=== PATIENT | male | born 1960 | race Caucasian/White ===

== ENCOUNTER 2023-04-29 15:09 | Emergency (ER) | payer OTHER, SELFPAY ==
--- NOTE | ~2023-04-29 | CT_ITS ---
EXAMINATION: CT ABDOMEN AND PELVIS WITHOUT CONTRAST CLINICAL INFORMATION: Abdominal pain. COMPARISON: None available. TECHNIQUE: Multidetector volumetric imaging was performed from the superior aspect of the liver through the pubic symphysis. Sagittal and coronal reformatted images were obtained on the technologist's workstation. This CT examination was performed using dose optimization techniques as appropriate, variously including the following: *Automated exposure control *Adjustment of mA and/or kV according to patient size (this includes techniques or standardized protocols for targeted exams where dose is matched to indication/reason for exam; i.e. extremities or head) *Use of iterative reconstruction technique DLP: 1023 mGy-cm FINDINGS: LUNG BASES: The visualized lung bases are unremarkable. There are mild coronary artery atherosclerotic calcifications. LIVER, GALLBLADDER, AND BILIARY TREE: The liver is normal in size, shape, and generally diminished in attenuation. No focal hepatic lesion or biliary ductal dilatation is present. The gallbladder is unremarkable with no evidence of radiopaque gallstones, gallbladder wall thickening, or obvious pericholecystic inflammatory changes. PANCREAS: There are diffuse pancreatic calcifications, consistent with chronic, healed pancreatitis. No mass, ductal dilatation or peripancreatic acute fluid or fat stranding is noted. SPLEEN: Unremarkable. ADRENAL GLANDS: Unremarkable. KIDNEYS AND URETERS: The kidneys are normal in size, shape, and attenuation. No hydronephrosis, hydroureter, or calculi seen. There is moderate nonspecific bilateral perinephric stranding. BLADDER: Unremarkable. GASTROINTESTINAL TRACT: There is mild diverticulosis, without acute diverticulitis. No bowel obstruction, free intraperitoneal air or abscess is seen. There is no focal bowel wall thickening. The vermiform appendix appears normal. ABDOMINAL WALL: There is a small fat-containing umbilical hernia. There is a small fat-containing left inguinal hernia. LYMPH NODES: Normal. VASCULAR: There is a mild abdominal aortic aneurysm measuring 3.2 x 3.1 cm (13:46 at 18:36). A small calcified dissection flap is seen within the caudal abdominal aorta, which is of no acute clinical significance. There is diffuse aortoiliac atherosclerotic calcification. PELVIC VISCERA: The prostate and seminal vesicles are unremarkable. There are vas deferens calcifications, which can be seen in association with diabetes mellitus. OSSEOUS STRUCTURES: There is a moderate lumbar levoscoliosis. There is multi-level thoracolumbar degenerative disc disease and spondylosis. Degenerative disc disease is most pronounced at L3-L4 and L4-L5 leftward, where it is marked. No acute or aggressive osseous finding is noted. CT/CT abdomen pelvis wo IV con IMPRESSION: 1. There is mild diverticulosis, without acute diverticulitis. No bowel obstruction, free intraperitoneal air or abscess is seen. The vermiform appendix appears normal. 2. No urinary calculus or obstruction is seen. There is nonspecific bilateral perinephric stranding, for which correlation with the patient's most recent urinalysis is recommended. 3. There are diffuse pancreatic calcifications, suggesting old, healed pancreatitis. No acute finding. 4. There is a mild abdominal aortic aneurysm, for which surveillance imaging may be considered. 5. There are small periumbilical and left inguinal hernia defects. 6. There is hepatic steatosis. 7. There is a moderate lumbar levoscoliosis. There are degenerative changes of the thoracolumbar spine, with degenerative disc disease most pronounced at L3-L4 and L4-L5. Fleischner guidelines were followed.
--- NOTE | ~2023-04-29 | XR_ITS ---
EXAMINATION: XR RIBS, LEFT CLINICAL INFORMATION: Fall and short of breath COMPARISON: Visualized inferior ribs on the CT scan from earlier today TECHNIQUE: Frontal view the chest and 3 oblique views of the left ribs were obtained. FINDINGS: Lungs are clear. No consolidation, pneumothorax, or pleural effusion. The cardiomediastinal silhouette and pulmonary vasculature are normal. Osseous structures are unremarkable. Ribs are intact. Old healed left 11th rib fracture noted. No acute displaced rib fractures are identified. XR/XR ribs LT min 3V w CXR1V IMPRESSION: Old healed left 11th rib fracture. No acute displaced rib fractures identified.
--- NOTE | ~2023-04-29 | CT_ITS ---
EXAMINATION: CT head/brain wo IV con CLINICAL INFORMATION: Reason for Exam Fall, hit head COMPARISON: None. TECHNIQUE: Contiguous axial imaging was performed from the skull base to vertex without intravenous contrast. Sagittal and coronal reformatted images were obtained. This CT examination was performed using dose optimization techniques as appropriate, variously including the following: * Automated exposure control * Adjustment of mA and/or kV according to patient size (this includes techniques or standardized protocols for targeted exams where dose is matched to indication/reason for exam; i.e. extremities or head) Use of iterative reconstruction technique DLP: 1022.73 mGy-cm FINDINGS: No acute osseous or soft tissue abnormality. The mastoid air cells and visualized portions of the paranasal sinuses are well aerated. There is no evidence of acute intracranial hemorrhage or territorial infarction. No abnormal mass effect or midline shift is seen. Grimaldo to white matter differentiation is well preserved. No extra-axial fluid collections are identified. No hydrocephalus. No significant volume loss. Patchy periventricular and deep white matter hypoattenuation is consistent with mild small vessel ischemic changes. CT/CT head/brain wo IV con IMPRESSION: No acute intracranial abnormality including hemorrhage, mass effect, hydrocephalus, or acute territorial edematous infarction.
[2023-04-29 15:11] VITALS: BP 154/106; PULSE 130; O2SAT 99
[2023-04-29 15:19] VITALS: BP 179/103; PULSE 120; RESP 18; TEMP 36.8; O2SAT 96; BMI 22.0
--- NOTE | 2023-04-29 15:46 | ECG_ITS ---
Test Reason : DIZZINESS Blood Pressure : / mmHG Vent. Rate : 116 BPM Atrial Rate : 116 BPM P-R Int : 146 ms QRS Dur : 068 ms QT Int : 314 ms P-R-T Axes : 040 -36 054 degrees QTc Int : 436 ms Sinus tachycardia Left axis deviation Inferior infarct , age undetermined Abnormal ECG No previous ECGs available Referred By: Generic ED Physician Electronically Signed By:XANDER LAKE
--- NOTE | 2023-04-29 16:05 | PC.NURSE ---
labs drawn, tech to do ekg
--- NOTE | 2023-04-29 16:13 | ED_ITS ---
HPI - General Adult General Chief complaint: Fall Stated complaint: ABD PAIN,FALL PER EMS Time Seen by Provider: 04/29/23 16:11 Source: patient, family, EMS and RN notes reviewed Mode of arrival: EMS Limitations: no limitations History of Present Illness HPI narrative: 63-year-old male with past medical history of stage III kidney disease, hypertension, diabetes, heavy ETOH use, COVID was brought by EMS after falling and hitting his face. Patient is accompanied by his who also helps with the assessment. Patient admits to drinking every single day heavily in the last month or so. Patient reports that he has not been working as he was not feeling well since he was diagnosed with COVID in March. Patient reports left upper abdominal discomfort and nausea just prior to falling. Abdominal discomfort got better, however patient continued to be nauseous when EMS arrived. Zofran administered by EMS. Patient denies presyncope, syncope, chest pain, shortness of breath, vomiting, diarrhea, constipation, melena, hematochezia. Patient's reports that he stopped taking all of his medications few days ago. Today patient admits to drinking 3 shots. Usually patient admits to be drinking daily pretty heavily. Onset (ago): hour(s) Location: head and face Severity: mild Associated symptoms: denies other symptoms Related Data Previous Rx's Medication Instructions Recorded lorazepam 0.5 mg tablet 0.5 mg PO BEDTIME PRN alcohol 04/29/23 withdrawal #5 tabs Allergies Allergy/AdvReac Type Severity Reaction Status Date / Time metformin Allergy Intermediate Swelling Verified 04/29/23 15:56 Review of Systems 2 Constitutional: Constitutional: Denies weight gain and Denies weight loss ENT: Reports system reviewed and no additional complaints, except as documented, Denies dysphagia and Denies odynophagia Cardiovascular: Cardiovascular: Reports no additional cardiovascular complaints and Reports dyspnea Respiratory: Respiratory: Reports no additional respiratory complaints and Reports dyspnea Gastrointestinal: Gastrointestinal: Reports abdominal pain (RUQ), Denies belching, Denies melena, Denies bloating, Denies change in bowel habits, Denies dysphagia, Denies excessive flatus, Denies dyspepsia, Reports heartburn, Denies diarrhea, Denies loose stools, Reports nausea, Denies odynophagia and Reports vomiting Genitourinary: Genitourinary: Reports no additional male genitourinary complaints Musculoskeletal: Musculoskeletal: Reports myalgias Neurologic: Reports system reviewed and no additional complaints, except as documented Psychiatric: Psychiatric: Reports no additional psychiatric complaints Endocrine: Endocrine: Reports no additional endocrine complaints PMFSH Past Medical History Medical History Stage 3 chronic kidney disease Hypertension Diabetes ETOH abuse Social History Social History Alcohol intake: current Alcohol intake frequency: 3 or more drinks per day Alcohol type: hard liquor Smoked in Last 30 Days: No Use of substances other than those prescribed or required for medical reasons: Yes Substance Use Type: Marijuana Substance Use Frequency: Daily Advance Directives: No Advance Directives Information Provided: Yes Physical Exam ED Vital Signs: Vital Signs - 24 hr 04/29/23 15:19 04/29/23 17:05 04/29/23 17:10 Temperature 98.2 F 97.9 F Pulse Rate 120 H 111 H Pulse Rate [Left Apical] 112 H Respiratory Rate 18 18 Blood Pressure 179/103 H 155/107 H Pulse Oximetry 96 96 Oxygen Delivery Method Room Air Room Air 04/29/23 18:21 Temperature 97.3 F Pulse Rate 118 H Pulse Rate [Left Apical] Respiratory Rate 18 Blood Pressure 147/99 H Pulse Oximetry 95 Oxygen Delivery Method Room Air BMI result Body Mass Index 22.0 Const General: healthy appearing, no acute distress and well developed Nutritional Appearance: well nourished Orientation/consciousness: patient oriented x3 HENMT Head: Yes normal to inspection, Yes normocephalic and Yes atraumatic Face and sinus: Yes normal facial exam Mouth: Normal oral and palatal mucosa present Throat: Yes posterior oropharynx normal, Yes tonsils normal and Yes uvula midline Eyes General: appearance normal, both eyes and all related structures Neck Neck: Yes normal visual inspection, Yes full ROM and Yes trachea midline Thyroid: Thyroid normal Resp Effort & Inspection: normal respiratory effort, able to speak in complete sentences, no tracheal deviation and symmetric chest movement Auscultation: clear to auscultation bilaterally Cardio Jugular venous distension: no JVD Rate: regular rate Heart sounds: S1 normal heart sound present, S2 normal heart sound present, no gallops and no murmurs GI Inspection: Yes normal to inspection and No distended Palpation (GI): Soft to palpation, not firm, nontender and No hepatosplenomegaly present Auscultation: normal bowel sounds General: Yes no CVA tenderness Back/Spine/Pelvis Back: no CVA tenderness Skin General skin exam: elasticity normal, turgor normal and dry skin Neuro General: patient oriented x3 Psych Appearance: grossly normal Mental Status: mental status grossly normal Course Course Course Narrative: 63-year-old male with past medical history of stage III kidney disease, hypertension, diabetes, heavy ETOH use, COVID was brought by EMS after falling and hitting his face. Patient is accompanied by his who also helps with the assessment. Patient admits to drinking every single day heavily in the last month or so. Patient reports that he has not been working as he was not feeling well since he was diagnosed with COVID in March. Patient reports left upper abdominal discomfort and nausea just prior to falling. Abdominal discomfort got better, however patient continued to be nauseous when EMS arrived. Zofran administered by EMS. Patient denies presyncope, syncope, chest pain, shortness of breath, vomiting, diarrhea, constipation, melena, hematochezia. Patient's reports that he stopped taking all of his medications few days ago. Today patient admits to drinking 3 shots. Usually patient admits to be drinking daily pretty heavily. Will order chest x-ray, head CT and abdominal CT scan. Will order CBC, CMP, lipase, EtOH, flu, COVID, RSV Reevaluation(s) Reevaluation #1: Normal chest x-ray except for old rib fracture. Patient denies any pain or discomfort. No shortness of breath with or without exertion. Normal CT scan of the head. CT scan of abdomen did not show any acute findings except for incidental finding of : There is a mild abdominal aortic aneurysm measuring 3.2 x 3.1. Patient has mild tremors, heart rate and blood pressure elevated, CIWA scale 8, will give Ativan 1 mg. at the bedside. Reevaluation #2: Patient feels better after receiving the Ativan. is going to be taking patient home. Will give him script for 5 tablets of 0.5 mg of Ativan. states that she will administer that to patient. Inform them of abdominal aortic aneurysm and follow-up with vascular surgeon. Phone number to Dr. Meyer given. Medications Administered Discontinued Medications Generic Name Dose Route Start Last Admin Trade Name Freq PRN Reason Stop Dose Admin Lorazepam 0.5 mg 04/29/23 16:19 04/29/23 17:03 Lorazepam 2 Mg/Ml Vial IVPUSH 04/29/23 16:20 0.5 mg STAT STA Administration Lorazepam 1 mg 04/29/23 20:08 04/29/23 20:25 Lorazepam 1 Mg Tablet PO 04/29/23 20:09 1 mg ONCE ONE Administration Ondansetron HCl 4 mg 04/29/23 16:19 04/29/23 17:03 Ondansetron Hcl 4 Mg/2 Ml Vial IVPUSH 04/29/23 16:20 4 mg ONCE STA Administration Medical Decision Making Medical Decision Making MDM Narrative: 63-year-old male with past medical history of stage III kidney disease, hypertension, diabetes, heavy ETOH use, COVID was brought by EMS after falling and hitting his face. Patient is accompanied by his who also helps with the assessment. Patient admits to drinking every single day heavily in the last month or so. Patient reports that he has not been working as he was not feeling well since he was diagnosed with COVID in March. Patient reports left upper abdominal discomfort and nausea just prior to falling. Abdominal discomfort got better, however patient continued to be nauseous when EMS arrived. Zofran administered by EMS. Patient denies presyncope, syncope, chest pain, shortness of breath, vomiting, diarrhea, constipation, melena, hematochezia. Patient's reports that he stopped taking all of his medications few days ago. Today patient admits to drinking 3 shots. Usually patient admits to be drinking daily pretty heavily. Will order chest x-ray, head CT and abdominal CT scan. Will order CBC, CMP, lipase, EtOH, flu, COVID, RSV Normal chest x-ray except for old rib fracture. Patient denies any pain or discomfort. No shortness of breath with or without exertion. Normal CT scan of the head. CT scan of abdomen did not show any acute findings except for incidental finding of : There is a mild abdominal aortic aneurysm measuring 3.2 x 3.1. Patient has mild tremors, heart rate and blood pressure elevated, CIWA scale 8, will give Ativan 1 mg. at the bedside. Patient feels better after receiving the Ativan. is going to be taking patient home. Will give him script for 5 tablets of 0.5 mg of Ativan. states that she will administer that to patient. Inform them of abdominal aortic aneurysm and follow-up with vascular surgeon. Phone number to Dr. Meyer given. Differential Diagnosis Differential Diagnoses: The differential diagnosis associated with the presentation includes Pancreatitis, bleed, rib fracture, concussion, Lab Data MDM Lab Attestation statement: I reviewed the patient's lab results. 04/29/23 16:04 04/29/23 16:04 Labs: Lab Results 04/29/23 04/29/23 04/29/23 Range/Units 16:04 16:29 16:46 WBC 6.9 (4.8-10.8) X10*3/uL RBC 4.81 (4.60-5.80) X10*6/uL Hgb 14.9 (14.0-18.0) g/dl Hct 42.0 (42.0-52.0) % MCV 87.3 (80.0-98.0) fL MCH 31.0 (27.0-33.0) pg MCHC 35.5 (31.0-36.0) g/dl RDW 13.4 (11.0-16.0) % Plt Count 151 L (160-400) X10*3/uL MPV 8.7 L (9.4-12.4) fL Immature Gran % (Auto) 0.3 (0.0-0.4) % Neut % (Auto) 61.4 (45-73) % Lymph % (Auto) 30.0 (20-40) % Hudson % (Auto) 7.6 (2-11) % Eos % (Auto) 0.1 (0-4) % Baso % (Auto) 0.6 (0-2) % Lymph # (Auto) 2.1 (1.2-4.9) X10*3/uL Hudson # (Auto) 0.5 (0.1-1.2) X10*3/uL Eos # (Auto) 0.0 (0.0-0.4) X10*3/uL Baso # (Auto) 0.0 (0.0-0.2) X10*3/uL Abs Immat Gran (auto) 0.02 (0.00-0.03) X10*3/uL Absolute Neuts (auto) 4.2 (2.0-8.3) x10*3/uL Absolute Nucleated RBC 0.000 (0.0-0.012) X10*3/uL Nucleated RBC % (auto) 0.0 (0.0-0.2) /100WBC Sodium 141 (135-145) mmol/L Potassium 3.9 (3.3-5.1) mmol/L Chloride 101 (96-108) mmol/L Carbon Dioxide 20 L (22-29) mmol/L Anion Gap 24 H (12-20) BUN 22 H (9-16) mg/dL Creatinine 1.13 (0.5-1.4) mg/dL Estim Creat Clear Calc 61.0 Estimated GFR > 60 POC Glucose 271 H (60-115) mg/dL Random Glucose 268 H (60-115) mg/dL Calcium 9.0 (8.4-10.2) mg/dL Troponin I High Sens 24.9 (<3.5-35.0) ng/L Lipase 13 (8-78) U/L Ethyl Alcohol 181 mg/dL Influenza Type A (PCR) NEGATIVE (Negative) Influenza Type B (PCR) NEGATIVE (Negative) RSV RNA Qual (PCR) NEGATIVE (Negative) SARS-CoV-2 RNA (RT-PCR) NEGATIVE (Negative) Independent Interpretation I performed an independent interpretation of an: EKG Radiology Impression Discussion of test interpretation with radiology: I have reviewed the radiologist's reading. Radiologist Impression: Chest x-ray FINDINGS: Lungs are clear. No consolidation, pneumothorax, or pleural effusion. The cardiomediastinal silhouette and pulmonary vasculature are normal. Osseous structures are unremarkable. Ribs are intact. Old healed left 11th rib fracture noted. No acute displaced rib fractures are identified. XR/XR ribs LT min 3V w CXR1V IMPRESSION: Old healed left 11th rib fracture. No acute displaced rib fractures identified. Head CT FINDINGS: No acute osseous or soft tissue abnormality. The mastoid air cells and visualized portions of the paranasal sinuses are well aerated. There is no evidence of acute intracranial hemorrhage or territorial infarction. No abnormal mass effect or midline shift is seen. Grimaldo to white matter differentiation is well preserved. No extra-axial fluid collections are identified. No hydrocephalus. No significant volume loss. Patchy periventricular and deep white matter hypoattenuation is consistent with mild small vessel ischemic changes. CT/CT head/brain wo IV con IMPRESSION: No acute intracranial abnormality including hemorrhage, mass effect, hydrocephalus, or acute territorial edematous infarction. CT OF ABDOMEN AND PELVIS FINDINGS: LUNG BASES: The visualized lung bases are unremarkable. There are mild coronary artery atherosclerotic calcifications. LIVER, GALLBLADDER, AND BILIARY TREE: The liver is normal in size, shape, and generally diminished in attenuation. No focal hepatic lesion or biliary ductal dilatation is present. The gallbladder is unremarkable with no evidence of radiopaque gallstones, gallbladder wall thickening, or obvious pericholecystic inflammatory changes. PANCREAS: There are diffuse pancreatic calcifications, consistent with chronic, healed pancreatitis. No mass, ductal dilatation or peripancreatic acute fluid or fat stranding is noted. SPLEEN: Unremarkable. ADRENAL GLANDS: Unremarkable. KIDNEYS AND URETERS: The kidneys are normal in size, shape, and attenuation. No hydronephrosis, hydroureter, or calculi seen. There is moderate nonspecific bilateral perinephric stranding. BLADDER: Unremarkable. GASTROINTESTINAL TRACT: There is mild diverticulosis, without acute diverticulitis. No bowel obstruction, free intraperitoneal air or abscess is seen. There is no focal bowel wall thickening. The vermiform appendix appears normal. ABDOMINAL WALL: There is a small fat-containing umbilical hernia. There is a small fat-containing left inguinal hernia. LYMPH NODES: Normal. VASCULAR: There is a mild abdominal aortic aneurysm measuring 3.2 x 3.1 cm (13:46 at 18:36). A small calcified dissection flap is seen within the caudal abdominal aorta, which is of no acute clinical significance. There is diffuse aortoiliac atherosclerotic calcification. PELVIC VISCERA: The prostate and seminal vesicles are unremarkable. There are vas deferens calcifications, which can be seen in association with diabetes mellitus. OSSEOUS STRUCTURES: There is a moderate lumbar levoscoliosis. There is multi-level thoracolumbar degenerative disc disease and spondylosis. Degenerative disc disease is most pronounced at L3-L4 and L4-L5 leftward, where it is marked. No acute or aggressive osseous finding is noted. CT/CT abdomen pelvis wo IV con IMPRESSION: 1. There is mild diverticulosis, without acute diverticulitis. No bowel obstruction, free intraperitoneal air or abscess is seen. The vermiform appendix appears normal. 2. No urinary calculus or obstruction is seen. There is nonspecific bilateral perinephric stranding, for which correlation with the patient's most recent urinalysis is recommended. 3. There are diffuse pancreatic calcifications, suggesting old, healed pancreatitis. No acute finding. 4. There is a mild abdominal aortic aneurysm, for which surveillance imaging may be considered. 5. There are small periumbilical and left inguinal hernia defects. 6. There is hepatic steatosis. 7. There is a moderate lumbar levoscoliosis. There are degenerative changes of the thoracolumbar spine, with degenerative disc disease most pronounced at L3-L4 and L4-L5. Discharge Plan Discharge Clinical Impression: Syncope Patient Disposition: Home, Self-Care Instructions: Syncope (ED), Umbilical Hernia (ED), Abdominal Pain (ED) Additional Instructions: You were seen in the ER for abdominal pain, nausea and abdominal pain. CT scan of your head and abdomen were negative for any acute findings. Please follow-up with your primary care provider next week. Stop drinking alcohol. Please make sure that you take all of your medications. CT scan shows small abdominal aneurysm. You will be referred to vascular surgeon please make sure that you make an appointment Prescriptions: New lorazepam 0.5 mg tablet 0.5 mg PO BEDTIME PRN (Reason: alcohol withdrawal) Qty: 5 0RF Referrals: Blayne Hagan III, MD [Primary Care Provider] - Albaro Meyer MD [Physician] - (3.2 x 3.1 cm abdominal aneurysm) Interventions: ED Discharge Assessment Last Done: 04/30/23 07:11 Discharge Date/Time: 04/29/23 20:25
[2023-04-29 16:18] LABS: MANUAL DIFF FLAG NO
[2023-04-29 16:21] LABS: Basophils Percent Auto 0.6 % (0-2); Eosinophils Percent Auto 0.1 % (0-4); Hemoglobin 14.9 g/dl (14.0-18.0); Imm Gran Abs Auto 0.02 X10*3/uL (0.00-0.03); Imm Gran Pct Auto 0.3 % (0.0-0.4); Lymphocytes Absolute Auto 2.1 X10*3/uL (1.2-4.9); Mean Corpuscular HGB Conc 35.5 g/dl (31.0-36.0); Mean Corpuscular Volume 87.3 fL (80.0-98.0); Mean Platelet Volume 8.7 fL (9.4-12.4); Monocytes Absolute Auto 0.5 X10*3/uL (0.1-1.2); Monocytes Percent Auto 7.6 % (2-11); Neutrophils Absolute Auto 4.2 x10*3/uL (2.0-8.3); Neutrophils Percent Auto 61.4 % (45-73); Platelet Count 151 X10*3/uL (160-400); Red Blood Count 4.81 X10*6/uL (4.60-5.80); Red Cell Distribution Width 13.4 % (11.0-16.0); White Blood Count 6.9 X10*3/uL (4.8-10.8)
[2023-04-29 16:31] LABS: Anion Gap 24 (12-20); Blood Urea Nitrogen 22 mg/dL (9-16); Carbon Dioxide 20 mmol/L (22-29); Chloride 101 mmol/L (96-108); Estimated Glomerular Filt Rate > 60; Ethanol 181 mg/dL; Glucose Random 268 mg/dL (60-115); Potassium 3.9 mmol/L (3.3-5.1); Sodium 141 mmol/L (135-145)
[2023-04-29 16:36] LABS: Glucose, Whole Blood 271 mg/dL (60-115)
[2023-04-29 16:39] LABS: Troponin-I High Sensitivity 24.9 ng/L (<3.5-35.0)
[2023-04-29] MEDS: LORazepam 2 MG/ML VIAL 0.5 MG IVPUSH (17:03)
[2023-04-29] MEDS: ondansetron HCL 4 MG/2 ML VIAL IVPUSH (17:03)
[2023-04-29 17:05] VITALS: BP 155/107; PULSE 111; RESP 18; TEMP 36.6; O2SAT 96
[2023-04-29 17:10] VITALS: PULSE 112
[2023-04-29 17:15] LABS: Lipase 13 U/L (8-78)
[2023-04-29 17:49] LABS: Influenza A PCR NEGATIVE (Negative); Influenza B PCR NEGATIVE (Negative); Resp Syncy Virus RNA Qual PCR NEGATIVE (Negative); SARS COV2 PCR INHOUSE NEGATIVE (Negative)
[2023-04-29 18:21] VITALS: BP 147/99; PULSE 118; RESP 18; TEMP 36.3; O2SAT 95
--- NOTE | 2023-04-29 18:24 | PC.NURSE ---
patient a&o, monitoring and evaluation advisor sinus tach, vss, family at bedside, ciwa performed, call blue within reach, will continue to monitor
[2023-04-29] MEDS: LORazepam 1 MG TABLET PO (20:25)
--- NOTE | 2023-04-29 20:27 | PC.NURSE ---
psychiatric np yeni lujan notified hr 120s, bp 171/108. giving him the 1mg po ativan now. provider tai instructed to hold off on d/c and re-eval ciwa. at this time holding off d/c.
== END 2023-04-29 20:25 | disposition home or self-care (01) ==
PROVIDERS: Nurse Practitioner Family; Emergency Provider Emergency Medicine; PCP Internal Medicine
DX: R55 Syncope and collapse (principal); R06.02 Shortness of breath; R00.0 Tachycardia, unspecified; R07.81 Pleurodynia; R51.9 Headache, unspecified; E11.22 Type 2 diabetes mellitus with diabetic chronic kidney disease; N18.30 Chronic kidney disease, stage 3 unspecified; Z79.899 Other long term (current) drug therapy; Z20.822 Contact with and (suspected) exposure to COVID-19; Z20.828 Contact with and (suspected) exposure to other viral communicable diseases; Z79.4 Long term (current) use of insulin
CPT/HCPCS: 0241U; 36415; 70450; 71101; 74176; 80048; 80307; 82947; 83690; 84484; 85025; 93005; 96374; 96375; 99285; J2060; J2405

== ENCOUNTER → 2023-04-29 15:46 | Outpatient (BNV) | payer OTHER, SELFPAY | PROVIDERS: Emergency Provider Emergency Medicine; PCP Internal Medicine; Visit Provider Internal Medicine | DX: R00.0 Tachycardia, unspecified (principal); R94.31 Abnormal electrocardiogram [ECG] [EKG] | CPT/HCPCS: 93010 ==

== ENCOUNTER 2024-01-05 07:37 | Inpatient (IN) | payer OTHER, SELFPAY ==
[2024-01-05] VITALS (10 sets, daily range): BP systolic 105–152; BP diastolic 66–95; PULSE 70–94; RESP 15–24; TEMP 36.6–37.3; O2SAT 88–100; BMI 20.9
[2024-01-05 07:57] LABS: MANUAL DIFF FLAG NO
[2024-01-05 07:59] LABS: Basophils Absolute Auto 0.1 X10*3/uL (0.0-0.2); Basophils Percent Auto 0.5 % (0-2); Hematocrit 35.7 % (42.0-52.0); Hemoglobin 12.8 g/dl (14.0-18.0); Imm Gran Abs Auto 0.04 X10*3/uL (0.00-0.03); Imm Gran Pct Auto 0.4 % (0.0-0.4); Lymphocytes Absolute Auto 2.5 X10*3/uL (1.2-4.9); Lymphocytes Percent Auto 23.8 % (20-40); Mean Corpuscular HGB Conc 35.9 g/dl (31.0-36.0); Mean Corpuscular Hemoglobin 32.1 pg (27.0-33.0); Mean Corpuscular Volume 89.5 fL (80.0-98.0); Mean Platelet Volume 9.5 fL (9.4-12.4); Monocytes Absolute Auto 0.6 X10*3/uL (0.1-1.2); Neutrophils Absolute Auto 7.3 x10*3/uL (2.0-8.3); Neutrophils Percent Auto 69.3 % (45-73); Platelet Count 202 X10*3/uL (160-400); Red Blood Count 3.99 X10*6/uL (4.60-5.80); White Blood Count 10.5 X10*3/uL (4.8-10.8)
--- NOTE | 2024-01-05 08:32 | ED_ITS ---
HPI - General Adult General Chief complaint: General Medical Stated complaint: Unstable Sugar Level Time Seen by Provider: 01/05/24 08:30 Source: patient Mode of arrival: ambulatory Limitations: no limitations History of Present Illness ED Provider: Pricila Knutson PA-C HPI narrative: 63-year-old male with alcohol use disorder, poorly-controlled diabetes, CKD III, HTN who presents to the ER for evaluation of family his blood sugars are elevated in the setting of binge drinking. Patient reports drinking 1 L of vodka 3 times per week, he states his last drink was 2 days ago. He developed central abdominal pain and vomiting yesterday. He reports history of alcohol withdrawal and alcohol withdrawal seizures. He states he woke up this morning with hallucinations. He is seeing words and trucks on the wall. He states when he binge drinks he does not take his diabetes medications or any of his medications like he should. He did take his Trulicity this morning. He does not monitor his blood glucose at home but feels like his sugars have been high because he has ?felt off. He denies any associated chest pain but has some ongoing abdominal pain. No vomiting this morning. No diarrhea. No fevers. MD complaint: Elevated glucose, alcohol withdrawal Onset (ago): day(s) Relieving factors: none Exacerbating factors: none Associated symptoms: confusion, loss of appetite, nausea/vomiting and weakness Treatments prior to arrival: none Related Data Previous Rx's ?Medication ?Instructions ?Recorded lorazepam 0.5 mg tablet 0.5 mg PO BEDTIME PRN alcohol 04/29/23 withdrawal #5 tabs Allergies Allergy/AdvReac Type Severity Reaction Status Date / Time metformin Allergy Intermediate Swelling Verified 01/05/24 07:45 Review of Systems 2 Review of Systems: Yes all other systems are reviewed and are negative [facility] Past Medical History Medical History Stage 3 chronic kidney disease Hypertension Diabetes ETOH abuse Social History Social History Alcohol intake: current Alcohol intake frequency: a few times a week Alcohol type: hard liquor Smoked in Last 30 Days: Yes Use of substances other than those prescribed or required for medical reasons: Yes Substance Use Type: Marijuana Advance Directives: No Advance Directives Information Provided: Yes Do you have a plan to hurt others: No Plan Physical Exam ED Vital Signs: Vital Signs - 24 hr 01/05/24 07:41 01/05/24 09:29 Temperature 98.2 F 98.1 F Pulse Rate 94 88 Respiratory Rate 18 16 Blood Pressure 145/76 H 152/95 H Pulse Oximetry 94 96 Oxygen Delivery Method Room Air Room Air BMI result Body Mass Index 20.9 Appearance: Alert. Oriented X3. No acute distress. Head: normocephalic, atraumatic. Eyes: Pupils equal, round and reactive to light. ENT: Pharynx with dry mucous membranes. No tonsillar swelling or exudate. Neck: Normal inspection. Neck supple. CVS: Normal heart rate and rhythm. Pulses normal. Respiratory: No respiratory distress. Breath sounds normal. Abdomen: Soft mild epigastric and periumbilical tenderness, no rebound or guarding. Normoactive +BS x4 Skin: Skin warm and dry. Normal skin color. Normal skin turgor. No rashes. Extremities: No lower extremity edema. No joint swelling. Minor tremor of the bilateral hands Neuro/psych: Oriented X 3. No motor deficit. No sensory deficit. CN II-XII intact. Normal speech and cognition. Actively having visual hallucinations. Medications Administered Discontinued Medications Generic Name Dose Route Start Last Admin Trade Name Freq PRN Reason Stop Dose Admin Sodium Chloride 1,000 mls @ 999 mls/hr 01/05/24 08:45 01/05/24 09:44 Ns IVCONT 01/05/24 09:45 Infused .Q1H1M JOVITA Infusion Lactated Ringer's 1,000 mls @ 999 mls/hr 01/05/24 09:00 01/05/24 10:02 Lr IV 01/05/24 10:00 Infused .Q1H1M JOVITA Infusion Lactated Ringer's 1,000 mls @ 999 mls/hr 01/05/24 09:30 01/05/24 10:42 Lr IV 01/05/24 10:30 Infused .Q1H1M JOVITA Infusion Insulin Human Regular 5 unit 01/05/24 08:32 01/05/24 08:40 Insulin Regular, Human 100 Unit/Ml 10 Ml Vial IVPUSH 01/05/24 08:33 5 unit ONCE ONE Administration Insulin Human Regular 5 unit 01/05/24 09:42 01/05/24 09:47 Insulin Regular, Human 100 Unit/Ml 10 Ml Vial IVPUSH 01/05/24 09:43 5 unit ONCE ONE Administration Phenobarbital Sodium 242 mg 01/05/24 09:30 01/05/24 09:41 Phenobarbital Sodium 130 Mg/Ml Im Once IM 01/05/24 09:31 242 mg ONCE ONE Administration Protocol Medical Decision Making Medical Decision Making [facility] Narrative: 63-year-old male with history of alcohol use disorder, diabetes, noncompliant with medications who presents to the ER for evaluation of elevated blood sugars and alcohol withdrawal, with active visual hallucinations. Patient reports history of alcohol withdrawal seizures in the past. He states his last drink was 2 days ago. On arrival to the ER patient is awake, alert, oriented. He is slightly tremulous. His CIWA is 17. He is seeing words and various trucks in the room. His blood glucose was greater than 600 x 2. 5 units of IV insulin were given. Two IVs were established and 2 L of IV fluids were hung. Patient's lab workup shows no acidosis, normal anion gap, normal bicarb. No evidence of DKA or HHS. He continues to be awake alert and oriented. Additional 5 units of IV insulin were given, glucose returned at 800. 3 L IV fluids were also ordered. Phenobarbital alcohol withdrawal protocol was started. repeat labs showed improvement. IV mag ordered for low mag. Will plan to admit to the hospital for further management. patient updated and agrees with plan. Differential Diagnosis Differential Diagnoses: The differential diagnosis associated with the presentation includes DKA, HHS, severe hyperglycemia due to medication noncompliance, alcohol withdrawal, DTs Admission/Observation Consideration of admission/observation: Escalation of care including admission/observation considered Consult Healthcare Provider Management of the patient was discussed with: Hospitalist Lab Data [facility] Lab Attestation statement: I reviewed the patient's lab results. Mild normocytic anemia, mild thrombocytopenia, severe hyperglycemia without anion gap, hyponatremia due to elevated glucose, KATELYN 01/05/24 07:53 01/05/24 11:06 Labs: Lab Results 01/05/24 01/05/24 01/05/24 Range/Units 07:53 08:23 08:29 WBC 10.5 (4.8-10.8) X10*3/uL RBC 3.99 L (4.60-5.80) X10*6/uL Hgb 12.8 L (14.0-18.0) g/dl Hct 35.7 L (42.0-52.0) % MCV 89.5 (80.0-98.0) fL MCH 32.1 (27.0-33.0) pg MCHC 35.9 (31.0-36.0) g/dl RDW 13.0 (11.0-16.0) % Plt Count 202 D (160-400) X10*3/uL MPV 9.5 (9.4-12.4) fL Immature Gran % (Auto) 0.4 (0.0-0.4) % Neut % (Auto) 69.3 (45-73) % Lymph % (Auto) 23.8 (20-40) % [place] % (Auto) 6.0 (2-11) % Eos % (Auto) 0.0 (0-4) % Baso % (Auto) 0.5 (0-2) % Lymph # (Auto) 2.5 (1.2-4.9) X10*3/uL [place] # (Auto) 0.6 (0.1-1.2) X10*3/uL Eos # (Auto) 0.0 (0.0-0.4) X10*3/uL Baso # (Auto) 0.1 (0.0-0.2) X10*3/uL Abs Immat Gran (auto) 0.04 H (0.00-0.03) X10*3/uL Absolute Neuts (auto) 7.3 (2.0-8.3) x10*3/uL Absolute Nucleated RBC 0.000 (0.0-0.012) X10*3/uL Nucleated RBC % (auto) 0.0 (0.0-0.2) /100WBC VBG pH (7.32-7.43) VBG pCO2 mmHg VBG pO2 mmHg VBG HCO3 (22-26) mmol/L VBG O2 Saturation % VBG Base Excess mmol/L Sodium 121 L (135-145) mmol/L Potassium 4.8 (3.3-5.1) mmol/L Chloride 84 L (96-108) mmol/L Carbon Dioxide 23 (22-29) mmol/L Anion Gap 19 (12-20) BUN 30 H (9-16) mg/dL Creatinine 1.68 H (0.5-1.4) mg/dL Estim Creat Clear Calc 38.9 Estimated GFR 42 POC Glucose > 600 H* (60-115) mg/dL Random Glucose 803 H* (60-115) mg/dL Estimat Average Glucose mg/dL Hemoglobin A1c % (<6.0) % Calcium 9.2 (8.4-10.2) mg/dL Magnesium (1.6-2.6) mg/dL Total Bilirubin 0.6 (0.0-1.0) mg/dL Direct Bilirubin 0.2 (0.0-0.5) mg/dL AST 70 H (5-37) U/L ALT 33 (0-40) U/L Alkaline Phosphatase 120 H (39-117) U/L Total Protein 6.3 L (6.5-8.0) g/dL Albumin 4.2 (3.5-5.0) g/dL Lipase (8-78) U/L Beta-Hydroxybutyrate (0.02-0.27) mmol/L Urine Opiates Screen Not Detected (Not Detect) Ur Buprenorphine Scrn Not Detected (Not Detect) ng/mL Ur Oxycodone Screen Not Detected (Not Detect) ng/mL Urine Methadone Screen Not Detected (Not Detect) ng/mL Urine Fentanyl Screen Not Detected (Not Detect) Ur Barbiturates Screen Not Detected (Not Detect) Ur Phencyclidine Scrn Not Detected (Not Detect) Ur Amphetamines Screen Not Detected (Not Detect) U Benzodiazepines Scrn Not Detected (Not Detect) Urine Cocaine Screen Not Detected (Not Detect) U Marijuana (THC) Screen Not Detected (Not Detect) Ethyl Alcohol 31 mg/dL 01/05/24 01/05/24 01/05/24 Range/Units 08:30 08:37 08:44 WBC (4.8-10.8) X10*3/uL RBC (4.60-5.80) X10*6/uL Hgb (14.0-18.0) g/dl Hct (42.0-52.0) % MCV (80.0-98.0) fL MCH (27.0-33.0) pg MCHC (31.0-36.0) g/dl RDW (11.0-16.0) % Plt Count (160-400) X10*3/uL MPV (9.4-12.4) fL Immature Gran % (Auto) (0.0-0.4) % Neut % (Auto) (45-73) % Lymph % (Auto) (20-40) % [place] % (Auto) (2-11) % Eos % (Auto) (0-4) % Baso % (Auto) (0-2) % Lymph # (Auto) (1.2-4.9) X10*3/uL [place] # (Auto) (0.1-1.2) X10*3/uL Eos # (Auto) (0.0-0.4) X10*3/uL Baso # (Auto) (0.0-0.2) X10*3/uL Abs Immat Gran (auto) (0.00-0.03) X10*3/uL Absolute Neuts (auto) (2.0-8.3) x10*3/uL Absolute Nucleated RBC (0.0-0.012) X10*3/uL Nucleated RBC % (auto) (0.0-0.2) /100WBC VBG pH 7.49 H (7.32-7.43) VBG pCO2 36 mmHg VBG pO2 180 mmHg VBG HCO3 28 H (22-26) mmol/L VBG O2 Saturation 100.0 % VBG Base Excess 5.4 mmol/L Sodium (135-145) mmol/L Potassium (3.3-5.1) mmol/L Chloride (96-108) mmol/L Carbon Dioxide (22-29) mmol/L Anion Gap (12-20) BUN (9-16) mg/dL Creatinine (0.5-1.4) mg/dL Estim Creat Clear Calc Estimated GFR POC Glucose > 600 H* (60-115) mg/dL Random Glucose (60-115) mg/dL Estimat Average Glucose 169 mg/dL Hemoglobin A1c % 7.5 H (<6.0) % Calcium (8.4-10.2) mg/dL Magnesium (1.6-2.6) mg/dL Total Bilirubin (0.0-1.0) mg/dL Direct Bilirubin (0.0-0.5) mg/dL AST (5-37) U/L ALT (0-40) U/L Alkaline Phosphatase (39-117) U/L Total Protein (6.5-8.0) g/dL Albumin (3.5-5.0) g/dL Lipase 43 (8-78) U/L Beta-Hydroxybutyrate 0.20 (0.02-0.27) mmol/L Urine Opiates Screen (Not Detect) Ur Buprenorphine Scrn (Not Detect) ng/mL Ur Oxycodone Screen (Not Detect) ng/mL Urine Methadone Screen (Not Detect) ng/mL Urine Fentanyl Screen (Not Detect) Ur Barbiturates Screen (Not Detect) Ur Phencyclidine Scrn (Not Detect) Ur Amphetamines Screen (Not Detect) U Benzodiazepines Scrn (Not Detect) Urine Cocaine Screen (Not Detect) U Marijuana (THC) Screen (Not Detect) Ethyl Alcohol mg/dL 01/05/24 01/05/24 01/05/24 Range/Units 08:52 08:59 10:15 WBC (4.8-10.8) X10*3/uL RBC (4.60-5.80) X10*6/uL Hgb (14.0-18.0) g/dl Hct (42.0-52.0) % MCV (80.0-98.0) fL MCH (27.0-33.0) pg MCHC (31.0-36.0) g/dl RDW (11.0-16.0) % Plt Count (160-400) X10*3/uL MPV (9.4-12.4) fL Immature Gran % (Auto) (0.0-0.4) % Neut % (Auto) (45-73) % Lymph % (Auto) (20-40) % [place] % (Auto) (2-11) % Eos % (Auto) (0-4) % Baso % (Auto) (0-2) % Lymph # (Auto) (1.2-4.9) X10*3/uL [place] # (Auto) (0.1-1.2) X10*3/uL Eos # (Auto) (0.0-0.4) X10*3/uL Baso # (Auto) (0.0-0.2) X10*3/uL Abs Immat Gran (auto) (0.00-0.03) X10*3/uL Absolute Neuts (auto) (2.0-8.3) x10*3/uL Absolute Nucleated RBC (0.0-0.012) X10*3/uL Nucleated RBC % (auto) (0.0-0.2) /100WBC VBG pH (7.32-7.43) VBG pCO2 mmHg VBG pO2 mmHg VBG HCO3 (22-26) mmol/L VBG O2 Saturation % VBG Base Excess mmol/L Sodium (135-145) mmol/L Potassium (3.3-5.1) mmol/L Chloride (96-108) mmol/L Carbon Dioxide (22-29) mmol/L Anion Gap (12-20) BUN (9-16) mg/dL Creatinine (0.5-1.4) mg/dL Estim Creat Clear Calc Estimated GFR POC Glucose > 600 H* > 600 H* 267 H (60-115) mg/dL Random Glucose (60-115) mg/dL Estimat Average Glucose mg/dL Hemoglobin A1c % (<6.0) % Calcium (8.4-10.2) mg/dL Magnesium (1.6-2.6) mg/dL Total Bilirubin (0.0-1.0) mg/dL Direct Bilirubin (0.0-0.5) mg/dL AST (5-37) U/L ALT (0-40) U/L Alkaline Phosphatase (39-117) U/L Total Protein (6.5-8.0) g/dL Albumin (3.5-5.0) g/dL Lipase (8-78) U/L Beta-Hydroxybutyrate (0.02-0.27) mmol/L Urine Opiates Screen (Not Detect) Ur Buprenorphine Scrn (Not Detect) ng/mL Ur Oxycodone Screen (Not Detect) ng/mL Urine Methadone Screen (Not Detect) ng/mL Urine Fentanyl Screen (Not Detect) Ur Barbiturates Screen (Not Detect) Ur Phencyclidine Scrn (Not Detect) Ur Amphetamines Screen (Not Detect) U Benzodiazepines Scrn (Not Detect) Urine Cocaine Screen (Not Detect) U Marijuana (THC) Screen (Not Detect) Ethyl Alcohol mg/dL 01/05/24 01/05/24 Range/Units 11:04 11:06 WBC (4.8-10.8) X10*3/uL RBC (4.60-5.80) X10*6/uL Hgb (14.0-18.0) g/dl Hct (42.0-52.0) % MCV (80.0-98.0) fL MCH (27.0-33.0) pg MCHC (31.0-36.0) g/dl RDW (11.0-16.0) % Plt Count (160-400) X10*3/uL MPV (9.4-12.4) fL Immature Gran % (Auto) (0.0-0.4) % Neut % (Auto) (45-73) % Lymph % (Auto) (20-40) % [place] % (Auto) (2-11) % Eos % (Auto) (0-4) % Baso % (Auto) (0-2) % Lymph # (Auto) (1.2-4.9) X10*3/uL [place] # (Auto) (0.1-1.2) X10*3/uL Eos # (Auto) (0.0-0.4) X10*3/uL Baso # (Auto) (0.0-0.2) X10*3/uL Abs Immat Gran (auto) (0.00-0.03) X10*3/uL Absolute Neuts (auto) (2.0-8.3) x10*3/uL Absolute Nucleated RBC (0.0-0.012) X10*3/uL Nucleated RBC % (auto) (0.0-0.2) /100WBC VBG pH (7.32-7.43) VBG pCO2 mmHg VBG pO2 mmHg VBG HCO3 (22-26) mmol/L VBG O2 Saturation % VBG Base Excess mmol/L Sodium 137 (135-145) mmol/L Potassium 4.2 (3.3-5.1) mmol/L Chloride 95 L (96-108) mmol/L Carbon Dioxide 33 H (22-29) mmol/L Anion Gap 13 (12-20) BUN 26 H (9-16) mg/dL Creatinine 1.21 (0.5-1.4) mg/dL Estim Creat Clear Calc 54.0 Estimated GFR > 60 POC Glucose 170 H (60-115) mg/dL Random Glucose 138 H (60-115) mg/dL Estimat Average Glucose mg/dL Hemoglobin A1c % (<6.0) % Calcium 9.2 (8.4-10.2) mg/dL Magnesium 1.4 L* (1.6-2.6) mg/dL Total Bilirubin (0.0-1.0) mg/dL Direct Bilirubin (0.0-0.5) mg/dL AST (5-37) U/L ALT (0-40) U/L Alkaline Phosphatase (39-117) U/L Total Protein (6.5-8.0) g/dL Albumin (3.5-5.0) g/dL Lipase (8-78) U/L Beta-Hydroxybutyrate (0.02-0.27) mmol/L Urine Opiates Screen (Not Detect) Ur Buprenorphine Scrn (Not Detect) ng/mL Ur Oxycodone Screen (Not Detect) ng/mL Urine Methadone Screen (Not Detect) ng/mL Urine Fentanyl Screen (Not Detect) Ur Barbiturates Screen (Not Detect) Ur Phencyclidine Scrn (Not Detect) Ur Amphetamines Screen (Not Detect) U Benzodiazepines Scrn (Not Detect) Urine Cocaine Screen (Not Detect) U Marijuana (THC) Screen (Not Detect) Ethyl Alcohol mg/dL Independent Interpretation I performed an independent interpretation of an: EKG Interpretation: ekg normal sinus rhythm, HR 86, q waves in III and aVF but no ST segment elevations or depression External Record Review External record reviewed: Office record, Outpatient record, Prior outpatient labs and Prior outpatient radiology Prescription Management I considered prescription management with: Other (Benzodiazepines, insulin, fluids, phenobarbital) Chronic Conditions Patient?s care impacted by: Diabetes and Other (Alcohol use disorder) Social Determinants Patient?s care significantly limited by Social Determinants of Health including: Problems related to primary support group and Other Social Determinant of Health Critical Care Time Critical Care Time Critical Care Time: Yes Total Critical Care Time: 65 Attestation: I have personally provided critical care time exclusive of time spent on separately billable procedures. Time includes review of lab data, radiology results, discussion with consultants, and monitoring for potential decompensation. Intervention performed as documented. Discharge Plan Discharge Clinical Impression: Severe hyperglycemia due to diabetes mellitus, KATELYN (acute kidney injury), Alcohol withdrawal delirium Patient Disposition: Admitted As Inpatient Print Language: Tunisian
[2024-01-05 08:33] LABS: Glucose, Whole Blood > 600 mg/dL (60-115)
[2024-01-05 08:35] LABS: Alanine Aminotransferase 33 U/L (0-40); Albumin Level 4.2 g/dL (3.5-5.0); Alkaline Phosphatase 120 U/L (39-117); Anion Gap 19 (12-20); Aspartate Amino Transferase 70 U/L (5-37); Bilirubin Total 0.6 mg/dL (0.0-1.0); Blood Urea Nitrogen 30 mg/dL (9-16); Calcium 9.2 mg/dL (8.4-10.2); Carbon Dioxide 23 mmol/L (22-29); Chloride 84 mmol/L (96-108); Creatinine Clr Calc Pharmacy 38.9; Estimated Glomerular Filt Rate 42; Ethanol 31 mg/dL; Potassium 4.8 mmol/L (3.3-5.1); Sodium 121 mmol/L (135-145); Total Protein 6.3 g/dL (6.5-8.0)
[2024-01-05] MEDS: Insulin Regular, Human 100 UNIT/ML 10 ML VIAL IVPUSH ×2 (08:40→09:47)
[2024-01-05] MEDS: 0.9 % Sodium Chloride 1,000 ML 999 ML IVCONT (08:41)
[2024-01-05 08:48] LABS: VBG Base Excess 5.4 mmol/L; VBG HCO3 28 mmol/L (22-26); VBG pCO2 36 mmHg; VBG pH 7.49 (7.32-7.43); VBG pO2 180 mmHg
[2024-01-05 08:48] LABS: Venous Blood Gas Refer to POC result
--- NOTE | 2024-01-05 08:50 | PC.NURSE ---
pt presents to the ED after receiving high blood glucose reading after checking his sugar at home. pt reporting self checked POC = 571mg/dL. pt came to the ED to be evaluated. pt also c/o nonradiating generalized abd pain with associated nausea/vomiting x last night. pt's POC upon ED arrival = >600mg/dL. provider notified/aware immediately. 18gIV placed in the left AC - IVF/IVP insulin administered per provider order. effectiveness pending. seizure pads in place for safety precautions as pt also reporting increased alcohol consumption for a while. pt reports drinking approx. 1L vodka 3x per week. pt verbalizes seizures from withdrawals in the past. states his last drink was 2 days ago. pt also endorsing visual hallucinations- states he is seeing a tractor trailer truck and children's hand writing on the ceiling. CIWA = 17 . provider aware of findings. no sob/wob noted. respirations even/unlabored. plan of care ongoing. call blue placed within reach.
[2024-01-05 08:54] LABS: Amphetamine Screen Urine Not Detected (Not Detect); Barbiturates, Urine Not Detected (Not Detect); Benzodiazepines Screen Urine Not Detected (Not Detect); Buprenorphine Scr Not Detected (Not Detect); Cannabinoid Screen Urine Not Detected (Not Detect); Cocaine Screen Urine Not Detected (Not Detect); Fentanyl, urine Not Detected (Not Detect); Methadone Screen, Urine Not Detected (Not Detect); Opiate Screen Urine Not Detected (Not Detect); Oxycodone Screen Urine Not Detected (Not Detect); Phencyclidine Screen Urine Not Detected (Not Detect)
[2024-01-05] MEDS: Lactated Ringers 1,000 ML 999 ML IV ×2 (09:01→09:41)
--- NOTE | 2024-01-05 09:01 | PC.NURSE ---
repeat POC post IVP insulin = >600mg/dL x 2 times. glucometer QC'd/passed. new 18gIV placed in the right forearm - LR infusing per provider order. plan of care ongoing.
[2024-01-05 09:04] LABS: Glucose, Whole Blood > 600 mg/dL (60-115)
[2024-01-05 09:04] LABS: Glucose, Whole Blood > 600 mg/dL (60-115)
[2024-01-05 09:06] LABS: Glucose, Whole Blood > 600 mg/dL (60-115)
[2024-01-05 09:34] LABS: Lipase 43 U/L (8-78)
--- NOTE | 2024-01-05 09:36 | PC.NURSE ---
critical lab value - blood glucose of 803mg/dL received at this time. NOLAN Cortez notified/aware at this time.
[2024-01-05 09:37] LABS: Glucose Random 803 mg/dL (60-115)
[2024-01-05] MEDS: PHENobarbitaL sodium 130 MG/ML IM ONCE 242 MG IM (09:41)
--- NOTE | 2024-01-05 09:48 | PC.NURSE ---
phenobarb protocol initiated. first dose administered via IM into right deltoid. pt tolerated well. another 5u of IVP insulin administered per provider order. effectiveness pending. pt otherwise seems to be resting in stretcher in no apparent distress. no sob/wob noted. respirations remain even/unlabored. plan of care ongoing. call blue placed within reach.
[2024-01-05 10:05] LABS: Bilirubin Direct 0.2 mg/dL (0.0-0.5)
--- NOTE | 2024-01-05 10:09 | ECG_ITS ---
Test Reason : alc withdrawl Blood Pressure : / mmHG Vent. Rate : 086 BPM Atrial Rate : 086 BPM P-R Int : 148 ms QRS Dur : 082 ms QT Int : 354 ms P-R-T Axes : 043 -34 027 degrees QTc Int : 423 ms Normal sinus rhythm Left axis deviation Inferior infarct (cited on or before 29-APR-2023) Nonspecific T wave abnormality Abnormal ECG When compared with ECG of 29-APR-2023 16:24, Nonspecific T wave abnormality now evident in Inferior leads Nonspecific T wave abnormality, worse in Anterolateral leads Heart rate has decreased Referred By: Dana Knutson Electronically Signed By:BEKA FOSTER
--- NOTE | 2024-01-05 10:21 | PC.NURSE ---
repeat POC post 2nd dose of IVP insulin = 267mg/dL. provider notified/aware of results. ekg performed by tech.
[2024-01-05 10:22] LABS: Glucose, Whole Blood 267 mg/dL (60-115)
[2024-01-05 10:55] LABS: Estimated Average Glucose 169 mg/dL; Hemoglobin A1c % 7.5 % (<6.0)
[2024-01-05 11:10] LABS: Glucose, Whole Blood 170 mg/dL (60-115)
[2024-01-05 11:38] LABS: Anion Gap 13 (12-20); Blood Urea Nitrogen 26 mg/dL (9-16); Calcium 9.2 mg/dL (8.4-10.2); Carbon Dioxide 33 mmol/L (22-29); Chloride 95 mmol/L (96-108); Estimated Glomerular Filt Rate > 60; Glucose Random 138 mg/dL (60-115); Magnesium 1.4 mg/dL (1.6-2.6); Potassium 4.2 mmol/L (3.3-5.1); Sodium 137 mmol/L (135-145)
[2024-01-05] MEDS: Magnesium Sulfate/H2O 2 GM/50 ML PIGGYBACK IV (11:46)
[2024-01-05] MEDS: Enoxaparin Sodium 40 MG/0.4 ML SYRINGE SUBCUT (13:15)
[2024-01-05] MEDS: PHENobarbitaL sodium 130 MG/ML VIAL IM Q3Hx2 181 MG IM ×2 (13:15→16:43)
[2024-01-05 13:48] LABS: Glucose, Whole Blood 159 mg/dL (60-115)
--- NOTE | 2024-01-05 13:55 | P.HPHOSP_ITS ---
History of Present Illness Date of Service: 01/05/24 Chief Complaint: hyperglycemia, agitation A 63 years old male with PMH of Type 2 diabetes and alcohol abuse among others who presents to the hospital with significantly elevated blood Glucose >800 along with restlessness and withdrawal symptoms. The patient was altered at time of presentation. according the family and ED physician the patient drinks almost a Liter of Vodka 3 times weekly, last 2 days ago and he has histroy of binge drinking with associated alcohol withdrawal and seizres. Reported hallucinations this morning like [place] the [place]. He takes Trulicity for diabetes weekly, last dose this morning. blood sugar was reading high and he felt to weak and associated with abdominal discomfort. No chest pain, palpitations, SOB, nausea, vomiting, diarrhea or urinary symptoms. In ED started on PHenobarbitol protocol and IVF fluids. PSeudohyponatremia corrected and kidney function improved after fluids. Review of Systems 2 Review of Systems: Altered, unable to provide Yes Unobtainable due to mental status [facility] Medical History Stage 3 chronic kidney disease Hypertension Diabetes ETOH abuse Social History Alcohol intake: current Alcohol intake frequency: a few times a week Alcohol type: hard liquor Smoked in Last 30 Days: Yes Use of substances other than those prescribed or required for medical reasons: Yes Substance Use Type: Marijuana Advance Directives: No Advance Directives Information Provided: Yes Do you have a plan to hurt others: No Plan Meds Allergies Allergy/AdvReac Type Severity Reaction Status Date / Time metformin Allergy Intermediate Swelling Verified 01/05/24 07:45 Active Medications: Current Medications Acetaminophen (Acetaminophen 325 Mg Tablet) 650 mg PO Q6H PRN PRN Reason: Pain, Mild (Pain Scale 1-3), fever or headache Calcium Carbonate (Calcium Carbonate 750 Mg Tab.Chew) 750 mg PO Q4H PRN PRN Reason: Heartburn Divalproex Sodium (Divalproex Sodium Er 250 Mg Tab.Er.24h) 250 mg PO BEDTIME JOVITA Enoxaparin Sodium (Enoxaparin Sodium 40 Mg/0.4 Ml Syringe) 40 mg SUBCUT Q24H [facility] Last Admin: 01/05/24 13:15 Dose: 40 mg Insulin Human Lispro (Insulin Lispro 100 Unit/Ml 3 Ml Vial) 0 unit SUBCUT QIDACHS [facility]; Protocol Magnesium Hydroxide (Milk Of Magnesia 30 Ml Oral.Susp) 30 ml PO DAILY PRN PRN Reason: Constipation Magnesium Oxide (Magnesium Oxide 400 Mg Tablet) 400 mg PO BIDPC [facility] Melatonin (Melatonin 3 Mg Tablet) 6 mg PO BEDTIME PRN PRN Reason: Insomnia Methylphenidate HCl (Methylphenidate Hcl 10 Mg Tablet) 10 mg PO TID [facility] Ondansetron HCl (Ondansetron Hcl 4 Mg/2 Ml Vial) 4 mg IVPUSH Q8H PRN PRN Reason: Nausea and Vomiting Pharmacy Consult (Consult Rx Etoh Phenob Im/Po) 0 each MISCELLANE ONCE PRN; Protocol PRN Reason: Consult order Stop: 01/09/24 09:08 Phenobarbital (Phenobarbital 15 Mg Tablet) 45 mg PO BID [facility]; Protocol Stop: 01/07/24 09:01 Phenobarbital (Phenobarbital 30 Mg Tablet) 30 mg PO BID [facility]; Protocol Stop: 01/09/24 09:01 Phenobarbital (Phenobarbital 30 Mg Tablet) 30 mg PO DAILY [facility]; Protocol Stop: 01/11/24 09:01 Phenobarbital Sodium (Phenobarbital Sodium 130 Mg/Ml Vial Im Q3hx2) 181 mg IM Q3H [facility]; Protocol Stop: 01/05/24 15:31 Last Admin: 01/05/24 13:15 Dose: 181 mg Sodium Chloride (0.9 % Sodium Chloride Flush 3 Ml Syringe) 3 ml IVFLUSH QSHIFT [facility] Home Medications ?Medication ?Instructions ?Recorded ?Confirmed ?Last Taken ?Type atenolol 25 mg tablet 25 mg PO DAILY 01/05/24 01/05/24 01/04/24 History citalopram 20 mg tablet 20 mg PO DAILY 01/05/24 01/05/24 01/04/24 History dulaglutide 0.75 mg/0.5 mL 0.75 mg subcut FR 01/05/24 01/05/24 01/05/24 History subcutaneous pen injector (Trulicity) gabapentin 800 mg tablet 800 mg PO TID 01/05/24 01/05/24 01/04/24 History glipizide 10 mg tablet 10 mg PO DAILY 01/05/24 01/05/24 01/04/24 History lisinopril 20 mg tablet 20 mg PO DAILY 01/05/24 01/05/24 01/04/24 History methylphenidate HCl 10 mg tablet 10 mg PO TID 01/05/24 01/05/24 01/04/24 History simvastatin 10 mg tablet 10 mg PO BEDTIME 01/05/24 01/05/24 01/04/24 History Physical Exam 2 Vital Signs and Narrative: Vital Signs: Last Vital Signs Temp 99.1 F 01/05/24 12:00 Pulse 82 01/05/24 13:15 Resp 18 01/05/24 13:15 BP 130/82 01/05/24 13:15 Pulse Ox 100 01/05/24 13:15 O2 Del Method Nasal Cannula 01/05/24 13:15 O2 Flow Rate 2 01/05/24 13:15 BMI result Body Mass Index 20.9 Const: Other: Constitutional : altered, not in distress Neck : Normal inspection, Supple Cardiovascular : RRR, no JVP, no lower extremity edema Respiratory : good bilateral air entry, no crackles Gastrointestinal: soft, lax, Normal bowel sounds Skin : Warm, Dry Neurological : sound sleep, difficult to arouse, moving extremities Results Labs 01/05/24 07:53 01/05/24 11:06 Labs: Laboratory Results - last 24 hr 01/05/24 01/05/24 01/05/24 07:53 08:23 08:29 MCV 89.5 MCH 32.1 MCHC 35.9 RDW 13.0 Plt Count 202 D MPV 9.5 Immature Gran % (Auto) 0.4 Neut % (Auto) 69.3 Lymph % (Auto) 23.8 [place] % (Auto) 6.0 Eos % (Auto) 0.0 Baso % (Auto) 0.5 Lymph # (Auto) 2.5 [place] # (Auto) 0.6 Eos # (Auto) 0.0 Baso # (Auto) 0.1 Abs Immat Gran (auto) 0.04 H Absolute Neuts (auto) 7.3 Absolute Nucleated RBC 0.000 Nucleated RBC % (auto) 0.0 VBG pH VBG pCO2 VBG pO2 VBG HCO3 VBG O2 Saturation VBG Base Excess Anion Gap 19 Estim Creat Clear Calc 38.9 Estimated GFR 42 POC Glucose > 600 H* Random Glucose 803 H* Estimat Average Glucose Hemoglobin A1c % Calcium 9.2 Magnesium Total Bilirubin 0.6 Direct Bilirubin 0.2 AST 70 H ALT 33 Alkaline Phosphatase 120 H Total Protein 6.3 L Albumin 4.2 Lipase Beta-Hydroxybutyrate Urine Opiates Screen Not Detected Ur Buprenorphine Scrn Not Detected Ur Oxycodone Screen Not Detected Urine Methadone Screen Not Detected Urine Fentanyl Screen Not Detected Ur Barbiturates Screen Not Detected Ur Phencyclidine Scrn Not Detected Ur Amphetamines Screen Not Detected U Benzodiazepines Scrn Not Detected Urine Cocaine Screen Not Detected U Marijuana (THC) Screen Not Detected Ethyl Alcohol 31 01/05/24 01/05/24 01/05/24 08:30 08:37 08:44 MCV MCH MCHC RDW Plt Count MPV Immature Gran % (Auto) Neut % (Auto) Lymph % (Auto) [place] % (Auto) Eos % (Auto) Baso % (Auto) Lymph # (Auto) [place] # (Auto) Eos # (Auto) Baso # (Auto) Abs Immat Gran (auto) Absolute Neuts (auto) Absolute Nucleated RBC Nucleated RBC % (auto) VBG pH 7.49 H VBG pCO2 36 VBG pO2 180 VBG HCO3 28 H VBG O2 Saturation 100.0 VBG Base Excess 5.4 Anion Gap Estim Creat Clear Calc Estimated GFR POC Glucose > 600 H* Random Glucose Estimat Average Glucose 169 Hemoglobin A1c % 7.5 H Calcium Magnesium Total Bilirubin Direct Bilirubin AST ALT Alkaline Phosphatase Total Protein Albumin Lipase 43 Beta-Hydroxybutyrate 0.20 Urine Opiates Screen Ur Buprenorphine Scrn Ur Oxycodone Screen Urine Methadone Screen Urine Fentanyl Screen Ur Barbiturates Screen Ur Phencyclidine Scrn Ur Amphetamines Screen U Benzodiazepines Scrn Urine Cocaine Screen U Marijuana (THC) Screen Ethyl Alcohol 01/05/24 01/05/24 01/05/24 08:52 08:59 10:15 MCV MCH MCHC RDW Plt Count MPV Immature Gran % (Auto) Neut % (Auto) Lymph % (Auto) [place] % (Auto) Eos % (Auto) Baso % (Auto) Lymph # (Auto) [place] # (Auto) Eos # (Auto) Baso # (Auto) Abs Immat Gran (auto) Absolute Neuts (auto) Absolute Nucleated RBC Nucleated RBC % (auto) VBG pH VBG pCO2 VBG pO2 VBG HCO3 VBG O2 Saturation VBG Base Excess Anion Gap Estim Creat Clear Calc Estimated GFR POC Glucose > 600 H* > 600 H* 267 H Random Glucose Estimat Average Glucose Hemoglobin A1c % Calcium Magnesium Total Bilirubin Direct Bilirubin AST ALT Alkaline Phosphatase Total Protein Albumin Lipase Beta-Hydroxybutyrate Urine Opiates Screen Ur Buprenorphine Scrn Ur Oxycodone Screen Urine Methadone Screen Urine Fentanyl Screen Ur Barbiturates Screen Ur Phencyclidine Scrn Ur Amphetamines Screen U Benzodiazepines Scrn Urine Cocaine Screen U Marijuana (THC) Screen Ethyl Alcohol 01/05/24 01/05/24 01/05/24 11:04 11:06 13:45 MCV MCH MCHC RDW Plt Count MPV Immature Gran % (Auto) Neut % (Auto) Lymph % (Auto) [place] % (Auto) Eos % (Auto) Baso % (Auto) Lymph # (Auto) [place] # (Auto) Eos # (Auto) Baso # (Auto) Abs Immat Gran (auto) Absolute Neuts (auto) Absolute Nucleated RBC Nucleated RBC % (auto) VBG pH VBG pCO2 VBG pO2 VBG HCO3 VBG O2 Saturation VBG Base Excess Anion Gap 13 Estim Creat Clear Calc 54.0 Estimated GFR > 60 POC Glucose 170 H 159 H Random Glucose 138 H Estimat Average Glucose Hemoglobin A1c % Calcium 9.2 Magnesium 1.4 L* Total Bilirubin Direct Bilirubin AST ALT Alkaline Phosphatase Total Protein Albumin Lipase Beta-Hydroxybutyrate Urine Opiates Screen Ur Buprenorphine Scrn Ur Oxycodone Screen Urine Methadone Screen Urine Fentanyl Screen Ur Barbiturates Screen Ur Phencyclidine Scrn Ur Amphetamines Screen U Benzodiazepines Scrn Urine Cocaine Screen U Marijuana (THC) Screen Ethyl Alcohol Assessment and Plan (1) Alcohol withdrawal delirium: Status: Acute (2) KATELYN (acute kidney injury): Status: Acute (3) Severe hyperglycemia due to diabetes mellitus: Status: Acute (4) Hypomagnesemia: Status: Acute (5) Pseudohyponatremia: Status: Acute Plan A 63 years old male with PMH of Type 2 diabetes and alcohol abuse among others who presents to the hospital with significantly elevated blood Glucose >800 along with restlessness and withdrawal symptoms. Alcohol abuse with withdrawal Phenobarbital protocl IV fluids for today Thiamin and Folic acid supplement Addiction team eval Severe hyperglycemia in DMII with pseudohyponatremia Improved with IV insulin and IVF Sodium back to normal SSI for now HbA1c of 7.5 diabetic diet Acute kidney injury Cr of 1.6 on admission, improving with fluids follow I\O and BMP Acute hypomagnesemia Mg 1.6, replacement given IV and PO follow levels Mood disorder Hold Ativan and Gabapentin , restart Depakote DVT PPx Lovenox The patient will likely need 2 overnight hospital stay for treatment of alcohol abuse on phenobarbital protocol Quality Stroke Does the patient have a stroke diagnosis?: No VTE Prior VTE?: No VTE Risk Level:: Medical - moderate - high VTE Device Contraindication: Treatment Not Indicated VTE Drug Contraindication: N/A - Med Ordered
[2024-01-05] MEDS: Dextrose 5 % and Lactated Ring 1,000 ML 100 ML IVCONT (15:24)
--- NOTE | 2024-01-05 16:07 | PHA.MEDREC ---
Pharmacy Consult ? Medication Reconciliation Pharmacy has completed the medication reconciliation. Patient is currently taking methylphenidate 10mg tid and has not started the 20 tid
[2024-01-05] MEDS: Methylphenidate HCl 10 MG TABLET PO ×2 (17:54→21:56)
[2024-01-05] MEDS: Magnesium Oxide 400 MG TABLET PO (17:54)
[2024-01-05 18:08] LABS: Glucose, Whole Blood 191 mg/dL (60-115)
[2024-01-05] MEDS: Insulin Lispro 100 UNIT/ML 3 ML VIAL SUBCUT ×2 (18:30→21:46)
[2024-01-05 21:13] LABS: Glucose, Whole Blood 199 mg/dL (60-115)
[2024-01-05] MEDS: PHENobarbitaL 15 MG TABLET 45 MG PO (21:45)
[2024-01-05] MEDS: Divalproex Sodium ER 250 MG TAB.ER.24H PO (21:45)
[2024-01-06] VITALS: BP 161/92; PULSE 74; RESP 16; TEMP 36.2; O2SAT 96
[2024-01-06] MEDS: Dextrose 5 % and Lactated Ring 1,000 ML 100 ML IVCONT (03:11)
[2024-01-06 06:23] LABS: MANUAL DIFF FLAG NO
[2024-01-06 06:30] LABS: Basophils Absolute Auto 0.1 X10*3/uL (0.0-0.2); Basophils Percent Auto 0.7 % (0-2); Eosinophils Absolute Auto 0.1 X10*3/uL (0.0-0.4); Eosinophils Percent Auto 1.1 % (0-4); Hematocrit 38.7 % (42.0-52.0); Hemoglobin 13.4 g/dl (14.0-18.0); Imm Gran Abs Auto 0.04 X10*3/uL (0.00-0.03); Imm Gran Pct Auto 0.5 % (0.0-0.4); Lymphocytes Absolute Auto 2.8 X10*3/uL (1.2-4.9); Lymphocytes Percent Auto 34.4 % (20-40); Mean Corpuscular HGB Conc 34.6 g/dl (31.0-36.0); Mean Corpuscular Hemoglobin 32.1 pg (27.0-33.0); Mean Corpuscular Volume 92.8 fL (80.0-98.0); Mean Platelet Volume 9.8 fL (9.4-12.4); Monocytes Absolute Auto 0.5 X10*3/uL (0.1-1.2); Monocytes Percent Auto 6.1 % (2-11); Neutrophils Absolute Auto 4.6 x10*3/uL (2.0-8.3); Neutrophils Percent Auto 57.2 % (45-73); Platelet Count 144 X10*3/uL (160-400); Red Blood Count 4.17 X10*6/uL (4.60-5.80); Red Cell Distribution Width 13.2 % (11.0-16.0); White Blood Count 8.1 X10*3/uL (4.8-10.8)
[2024-01-06 06:48] LABS: Anion Gap 16 (12-20); Blood Urea Nitrogen 15 mg/dL (9-16); Calcium 9.1 mg/dL (8.4-10.2); Carbon Dioxide 29 mmol/L (22-29); Chloride 95 mmol/L (96-108); Estimated Glomerular Filt Rate > 60; Glucose Random 242 mg/dL (60-115); Magnesium 1.5 mg/dL (1.6-2.6); Potassium 5.1 mmol/L (3.3-5.1); Sodium 135 mmol/L (135-145)
[2024-01-06 07:08] VITALS: BP 160/87; PULSE 72; RESP 18; TEMP 36.7; O2SAT 95
--- NOTE | 2024-01-06 07:23 | PC.NURSE ---
MG 1.5 Dr. Johnson made aware
[2024-01-06 07:37] LABS: Glucose, Whole Blood 245 mg/dL (60-115)
[2024-01-06] MEDS: Insulin Lispro 100 UNIT/ML 3 ML VIAL SUBCUT ×2 (08:33→16:47)
[2024-01-06] MEDS: Methylphenidate HCl 10 MG TABLET PO ×3 (08:34→19:41)
[2024-01-06] MEDS: Thiamine HCL 100 MG TABLET PO (08:35)
[2024-01-06] MEDS: PHENobarbitaL 15 MG TABLET 45 MG PO ×2 (08:35→19:40)
[2024-01-06] MEDS: Folic Acid 1 MG TABLET PO (08:35)
[2024-01-06] MEDS: Magnesium Oxide 400 MG TABLET PO ×2 (08:35→16:47)
[2024-01-06] MEDS: Magnesium Sulfate/H2O 2 GM/50 ML PIGGYBACK IV (08:36)
[2024-01-06] MEDS: 0.9 % Sodium Chloride Flush 3 ML SYRINGE IVFLUSH ×3 (08:40→20:12)
[2024-01-06 08:51] VITALS: BP 163/91; PULSE 77
[2024-01-06] MEDS: atenoloL 25 MG TABLET PO (08:51)
[2024-01-06] MEDS: 0.9 % Sodium Chloride 1,000 ML 100 ML IVCONT ×2 (08:59→16:48)
[2024-01-06 11:04] LABS: Glucose, Whole Blood 108 mg/dL (60-115)
--- NOTE | 2024-01-06 12:17 | HO.PM.IMPN ---
Subjective Subjective Date of Service: 01/06/24 Interval History: Seen and evaluated this morning Alert and interactive Still scoring on CIWA having mild tremors Denies any hallucinations no other reports overnight Review of Systems Review of Systems: Yes all other systems are reviewed and are negative Physical Exam Vital Signs: Vital Signs: Last Vital Signs Temp 98.1 F 01/06/24 07:08 Pulse 77 01/06/24 08:51 Resp 18 01/06/24 07:08 BP 163/91 H 01/06/24 08:51 Pulse Ox 95 01/06/24 07:08 O2 Del Method Room Air 01/06/24 07:08 O2 Flow Rate 2 01/05/24 20:46 BMI result Body Mass Index 20.9 Const: Other: Constitutional : alert, interactive, not in distress Neck : Normal inspection, Supple Cardiovascular : RRR, no JVP, no lower extremity edema Respiratory : good bilateral air entry, no crackles Gastrointestinal: soft, lax, Normal bowel sounds Skin : Warm, Dry Neurological : Alert, Oriented to self and place, no focal deficit , tremors Objective Data Active Medications Acetaminophen (Acetaminophen 325 Mg Tablet) 650 mg PO Q6H PRN PRN Reason: Pain, Mild (Pain Scale 1-3), fever or headache Atenolol (Atenolol 25 Mg Tablet) 25 mg PO DAILY [facility]; Protocol Last Admin: 01/06/24 08:51 Dose: 25 mg Documented By: KATHARINE Calcium Carbonate (Calcium Carbonate 750 Mg Tab.Chew) 750 mg PO Q4H PRN PRN Reason: Heartburn Divalproex Sodium (Divalproex Sodium Er 250 Mg Tab.Er.24h) 250 mg PO BEDTIME [facility] Last Admin: 01/05/24 21:45 Dose: 250 mg Documented By: YUNG Enoxaparin Sodium (Enoxaparin Sodium 40 Mg/0.4 Ml Syringe) 40 mg SUBCUT Q24H [facility] Last Admin: 01/05/24 13:15 Dose: 40 mg Documented By: OLIVA Folic Acid (Folic Acid 1 Mg Tablet) 1 mg PO DAILY [facility] Last Admin: 01/06/24 08:35 Dose: 1 mg Documented By: KATHARINE Sodium Chloride (Ns) 1,000 mls @ 100 mls/hr IVCONT .Q10H [facility] Last Admin: 01/06/24 08:59 Dose: 100 mls/hr Documented By: KATHARINE Insulin Human Lispro (Insulin Lispro 100 Unit/Ml 3 Ml Vial) 0 unit SUBCUT QIDACHS [facility]; Protocol Last Admin: 01/06/24 08:33 Dose: 4 unit Documented By: KATHARINE Magnesium Hydroxide (Milk Of Magnesia 30 Ml Oral.Susp) 30 ml PO DAILY PRN PRN Reason: Constipation Magnesium Oxide (Magnesium Oxide 400 Mg Tablet) 400 mg PO BIDPC [facility] Last Admin: 01/06/24 08:35 Dose: 400 mg Documented By: KATHARINE Melatonin (Melatonin 3 Mg Tablet) 6 mg PO BEDTIME PRN PRN Reason: Insomnia Methylphenidate HCl (Methylphenidate Hcl 10 Mg Tablet) 10 mg PO TID [facility] Last Admin: 01/06/24 08:34 Dose: 10 mg Documented By: KATHARINE Ondansetron HCl (Ondansetron Hcl 4 Mg/2 Ml Vial) 4 mg IVPUSH Q8H PRN PRN Reason: Nausea and Vomiting Pharmacy Consult (Consult Rx Etoh Phenob Im/Po) 0 each MISCELLANE ONCE PRN; Protocol PRN Reason: Consult order Stop: 01/09/24 09:08 Phenobarbital (Phenobarbital 15 Mg Tablet) 45 mg PO BID [facility]; Protocol Stop: 01/07/24 09:01 Last Admin: 01/06/24 08:35 Dose: 45 mg Documented By: KATHARINE Phenobarbital (Phenobarbital 30 Mg Tablet) 30 mg PO BID [facility]; Protocol Stop: 01/09/24 09:01 Phenobarbital (Phenobarbital 30 Mg Tablet) 30 mg PO DAILY [facility]; Protocol Stop: 01/11/24 09:01 Sodium Chloride (0.9 % Sodium Chloride Flush 3 Ml Syringe) [facility] Last Admin: 01/06/24 08:40 Dose: 3 ml Documented By: KATHARINE Thiamine HCl (Thiamine Hcl 100 Mg Tablet) 100 mg PO DAILY [facility] Last Admin: 01/06/24 08:35 Dose: 100 mg Documented By: KATHARINE Labs 01/06/24 05:55 01/06/24 05:55 Labs: Laboratory Results - last 24 hr 01/05/24 01/05/24 01/05/24 13:45 18:05 21:07 MCV MCH MCHC RDW Plt Count MPV Immature Gran % (Auto) Neut % (Auto) Lymph % (Auto) [place] % (Auto) Eos % (Auto) Baso % (Auto) Lymph # (Auto) [place] # (Auto) Eos # (Auto) Baso # (Auto) Abs Immat Gran (auto) Absolute Neuts (auto) Absolute Nucleated RBC Nucleated RBC % (auto) Anion Gap Estim Creat Clear Calc Estimated GFR POC Glucose 159 H 191 H 199 H Random Glucose Calcium Magnesium 01/06/24 01/06/24 01/06/24 05:55 07:32 10:59 MCV 92.8 MCH 32.1 MCHC 34.6 RDW 13.2 Plt Count 144 L D MPV 9.8 Immature Gran % (Auto) 0.5 H Neut % (Auto) 57.2 Lymph % (Auto) 34.4 [place] % (Auto) 6.1 Eos % (Auto) 1.1 Baso % (Auto) 0.7 Lymph # (Auto) 2.8 [place] # (Auto) 0.5 Eos # (Auto) 0.1 Baso # (Auto) 0.1 Abs Immat Gran (auto) 0.04 H Absolute Neuts (auto) 4.6 Absolute Nucleated RBC 0.000 Nucleated RBC % (auto) 0.0 Anion Gap 16 Estim Creat Clear Calc 60.0 Estimated GFR > 60 POC Glucose 245 H 108 Random Glucose 242 H Calcium 9.1 Magnesium 1.5 L Assessment and Plan (1) Pseudohyponatremia: Status: Acute (2) Hypomagnesemia: Status: Acute (3) Alcohol withdrawal delirium: Status: Acute (4) KATELYN (acute kidney injury): Status: Acute (5) Severe hyperglycemia due to diabetes mellitus: Status: Acute Plan A 63 years old male with PMH of Type 2 diabetes and alcohol abuse among others who presents to the hospital with significantly elevated blood Glucose >800 along with restlessness and withdrawal symptoms. Alcohol abuse with withdrawal improving continue Phenobarbital protocl IV fluids today Thiamin and Folic acid supplement Addiction team eval Severe hyperglycemia in DMII with pseudohyponatremia , resolved SSI for now HbA1c of 7.5 diabetic diet Acute kidney injury resolving Cr of 1.6 on admission, improved to 1.1 today follow I\O and BMP Acute hypomagnesemia Mg 1.5, replacement given IV and PO follow levels Mood disorder Hold Ativan and Gabapentin , restart Depakote DVT PPx Lovenox The patient will likely need overnight hospital stay for treatment of alcohol abuse on phenobarbital protocol Quality Stroke Does the patient have a stroke diagnosis?: No VTE Prior VTE?: No VTE Risk Level:: Medical - moderate - high VTE Device Contraindication: Treatment Not Indicated VTE Drug Contraindication: N/A - Med Ordered
[2024-01-06] MEDS: Enoxaparin Sodium 40 MG/0.4 ML SYRINGE SUBCUT (13:07)
[2024-01-06 15:01] VITALS: BP 158/88; PULSE 82; RESP 18; TEMP 37.1; O2SAT 94
--- NOTE | 2024-01-06 15:41 | MHC.CM.PN ---
PT REPORTS HE LIVES IN THE HOME WITH HIS , BUT IS FORCED TO STAY IN THE ATTIC HE SAYS THEY DO NOT HAVE A GOOD RELATIONSHIP PT HAD NO SERVICES [employer] AND [employer]IES FOR DME PCP: ORTIZ HORNER DCP: HOME [facility]
[2024-01-06 15:58] LABS: Glucose, Whole Blood 201 mg/dL (60-115)
[2024-01-06] MEDS: Milk of Magnesia 30 ML ORAL.SUSP PO (16:59)
[2024-01-06] MEDS: Divalproex Sodium ER 250 MG TAB.ER.24H PO (19:41)
[2024-01-06] MEDS: Melatonin 3 MG TABLET 6 MG PO (19:41)
[2024-01-06 20:25] LABS: Glucose, Whole Blood 94 mg/dL (60-115)
[2024-01-07] VITALS: BP 139/85; PULSE 59; RESP 16; TEMP 36.6; O2SAT 97
[2024-01-07] MEDS: 0.9 % Sodium Chloride 1,000 ML 100 ML IVCONT (01:57)
[2024-01-07 06:36] LABS: Anion Gap 13 (12-20); Blood Urea Nitrogen 11 mg/dL (9-16); Calcium 7.9 mg/dL (8.4-10.2); Carbon Dioxide 22 mmol/L (22-29); Chloride 103 mmol/L (96-108); Creatinine Clr Calc Pharmacy 76.9; Estimated Glomerular Filt Rate > 60; Glucose Random 175 mg/dL (60-115); Potassium 3.9 mmol/L (3.3-5.1); Sodium 134 mmol/L (135-145)
[2024-01-07 06:40] LABS: Magnesium 1.3 mg/dL (1.6-2.6)
--- NOTE | 2024-01-07 06:42 | PM.EVENT ---
Event Note Date of Service: 01/07/24 Event Note: mag 1.--> 2 gm mag sulfate Time Spent With Patient Time: Total time managing care of this patient today ____ minutes.
[2024-01-07] MEDS: Magnesium Sulfate/H2O 2 GM/50 ML PIGGYBACK IV (06:51)
[2024-01-07 07:21] VITALS: BP 144/79; PULSE 81; RESP 16; TEMP 36.6; O2SAT 96
[2024-01-07 07:26] LABS: Glucose, Whole Blood 166 mg/dL (60-115)
[2024-01-07] MEDS: Insulin Lispro 100 UNIT/ML 3 ML VIAL SUBCUT (07:57)
[2024-01-07] MEDS: PHENobarbitaL 15 MG TABLET 45 MG PO (07:58)
[2024-01-07] MEDS: Methylphenidate HCl 10 MG TABLET PO (07:58)
[2024-01-07] MEDS: Thiamine HCL 100 MG TABLET PO (07:58)
[2024-01-07] MEDS: 0.9 % Sodium Chloride Flush 3 ML SYRINGE IVFLUSH (07:58)
[2024-01-07] MEDS: Magnesium Oxide 400 MG TABLET PO (07:58)
[2024-01-07] MEDS: Folic Acid 1 MG TABLET PO (07:58)
[2024-01-07] MEDS: atenoloL 25 MG TABLET PO (08:10)
--- NOTE | 2024-01-07 10:24 | PM.DS ---
DS: Providers Provider Date of Service: 01/07/24 Date of admission: 01/05/24 12:58 Date of discharge: 01/07/24 Primary care physician: Blayne Hagan III, MD Consults: 01/05/24 14:18 Addiction Medicine Routine Consulting Provider: Addiction Covering Reason for consultation: Alcohol abuse with binge drinking and hx of withdrawal 01/05/24 21:25 Addiction Medicine Routine Consulting Provider: Addiction Covering Reason for consultation: meets positive alcohol screening DS: Diagnosis Discharge Diagnosis (1) Pseudohyponatremia: Status: Acute (2) Hypomagnesemia: Status: Acute (3) Alcohol withdrawal delirium: Status: Acute (4) KATELYN (acute kidney injury): Status: Acute (5) Severe hyperglycemia due to diabetes mellitus: Status: Acute DS: Summary Hospital Course Hospital Course: Admission note HPI A 63 years old male with PMH of Type 2 diabetes and alcohol abuse among others who presents to the hospital with significantly elevated blood Glucose >800 along with restlessness and withdrawal symptoms. The patient was altered at time of presentation. according the family and ED physician the patient drinks almost a Liter of Vodka 3 times weekly, last 2 days ago and he has histroy of binge drinking with associated alcohol withdrawal and seizres. Reported hallucinations this morning like [place]. He takes Trulicity for diabetes weekly, last dose this morning. blood sugar was reading high and he felt to weak and associated with abdominal discomfort. No chest pain, palpitations, SOB, nausea, vomiting, diarrhea or urinary symptoms. In ED started on PHenobarbitol protocol and IVF fluids. PSeudohyponatremia corrected and kidney function improved after fluids. Hospital course # Alcohol abuse with withdrawal that was treated with IV fluids and Phenobarbital protocl with good response as his CIWA score went down and he was able to ambulate and tolerate diet. Started on Thiamin and Folic acid supplement. Refused Addiction team evaluation. Advised to quit drinking and total abstinence from alcohol. # Severe hyperglycemia in DMII with pseudohyponatremia at time of presentation. Responded well to IV fluids and IV insulin. Kept on SSI and home medications with fair response as his HbA1c of 7.5. Continue home medications and diabetic diet # Acute kidney injury Cr of 1.6 on admission, improved to 1.1 around baseline with IV fluids. # Acute hypomagnesemia Mg 1.5, replacement given IV and PO and will be discharged on PO supplement as outpatient. Discharge plan Monitor blood sugar at home and report 1 week readings to PCP Take Magnesium, Folic acid and Thiamine supplement We advise you total abstinence from Alcohol Time Attestation Discharge Coordination Time (in mins): 38 Quality: Safe Use of Opioids Does Pt have an Active Cancer Diagnosis on the Problem List?: No Quality: Stroke Does the patient have a stroke diagnosis?: No Physical Exam Vital Signs: Vital Signs: Last Vital Signs Temp 97.9 F 01/07/24 07:21 Pulse 81 01/07/24 07:21 Resp 16 01/07/24 07:21 BP 144/79 H 01/07/24 07:21 Pulse Ox 96 01/07/24 07:21 O2 Del Method Room Air 01/07/24 07:21 O2 Flow Rate 2 01/05/24 20:46 BMI result Body Mass Index 20.9 Const: Other: Constitutional : alert, interactive, not in distress Neck : Normal inspection, Supple Cardiovascular : RRR, no JVP, no lower extremity edema Respiratory : good bilateral air entry, no crackles Gastrointestinal: soft, lax, Normal bowel sounds Skin : Warm, Dry Neurological : Alert, Oriented to self and place, no focal deficit , no tremors DS: Data Data Completed and Pending Labs on day of discharge: Laboratory Results - last 24 hr 01/06/24 01/06/24 01/06/24 10:59 15:54 20:11 Hold Purple Top Sodium Potassium Chloride Carbon Dioxide Anion Gap BUN Creatinine Estim Creat Clear Calc Estimated GFR POC Glucose 108 201 H 94 Random Glucose Calcium Magnesium Hold Yellow Top 01/07/24 01/07/24 05:38 07:19 Hold Purple Top SEE NOTE Sodium 134 L Potassium 3.9 D Chloride 103 Carbon Dioxide 22 Anion Gap 13 BUN 11 Creatinine 0.85 Estim Creat Clear Calc 76.9 Estimated GFR > 60 POC Glucose 166 H Random Glucose 175 H Calcium 7.9 L D Magnesium 1.3 L* Hold Yellow Top See Note Discharge Plan Discharge Anticipated Discharge Date/Time: 01/07/24 10:21 Patient Disposition: Home, Self-Care Discharge Diagnosis: Hyperglycemia Alcohol withdrawal Referrals: Blayne Hagan III, MD [Primary Care Provider] - 1 Week Discharge Medications: New magnesium oxide 400 mg (241.3 mg magnesium) Tablet 400 mg PO DAILY Qty: 90 0RF folic acid 1 mg Tablet 1 mg PO DAILY Qty: 90 0RF thiamine mononitrate (vit B1) 100 mg Tablet 100 mg PO DAILY Qty: 90 0RF Continued methylphenidate HCl 10 mg tablet 10 mg PO TID citalopram 20 mg tablet 20 mg PO DAILY gabapentin 800 mg tablet 800 mg PO TID Trulicity 0.75 mg/0.5 mL pen injector 0.75 mg subcut FR lisinopril 20 mg tablet 20 mg PO DAILY glipizide 10 mg tablet 10 mg PO DAILY simvastatin 10 mg tablet 10 mg PO BEDTIME atenolol 25 mg tablet 25 mg PO DAILY Discharge Orders: Discharge Order (Routine); Ordered 01/07/24 Ordered By: Maci Johnson Diet: Advance to usual diet Activity on Discharge: As tolerated Stand Alone Forms: Patient Portal Discharge page Print Language: Vietnamese Care Plan Goals: You were treated for Alcohol withdrawal and elevated glucose level. responded well to Fluids, Insulin and Phenobarbital. Monitor blood sugar at home and report 1 week readings to PCP Take Magnesium, Folic acid and Thiamine supplement We advise you total abstinence from Alcohol Health Concerns: Read below Plan of Treatment: Read below Assessment: Read below
--- NOTE | 2024-01-07 10:41 | MHC.CM.PN ---
PATIENT IS DC HOME - SELF CARE RN AWARE OF PLAN
--- NOTE | 2024-01-07 12:49 | PM.EVENT ---
Event Note Date of Service: 01/07/24 Event Note: Addiction note Patient medically admitted with alcohol withdrawal AUDIT screen + Attempted to meet with patient to discuss alcohol use Patient declined to discuss alcohol use Reports he will discuss with his primary care Time Spent With Patient Time: Total time managing care of this patient today ____ minutes.
== END 2024-01-07 10:59 | disposition home or self-care (01) | DRG 775 ==
LOC: HO.ED 09:11 → HO.EDOVER 13:11 → HO.S3 19:12
PROVIDERS: Physician Assistant; Admitting Provider Student in an Organized Health Care Education/Training Program; Emergency Provider Emergency Medicine Emergency Medical Services; PCP Internal Medicine; Visit Provider Student in an Organized Health Care Education/Training Program
DX: F10.131 Alcohol abuse with withdrawal delirium (principal); N17.9 Acute kidney failure, unspecified; F17.210 Nicotine dependence, cigarettes, uncomplicated; E11.22 Type 2 diabetes mellitus with diabetic chronic kidney disease; I12.9 Hypertensive chronic kidney disease with stage 1 through stage 4 chronic kidney disease, or unspecified chronic kidney disease; Y90.1 Blood alcohol level of 20-39 mg/100 ml; E83.42 Hypomagnesemia; N18.30 Chronic kidney disease, stage 3 unspecified; F39 Unspecified mood [affective] disorder; E11.65 Type 2 diabetes mellitus with hyperglycemia; Z71.6 Tobacco abuse counseling; Z79.84 Long term (current) use of oral hypoglycemic drugs; Z79.85 Long-term (current) use of injectable non-insulin antidiabetic drugs; Z79.899 Other long term (current) drug therapy
CPT/HCPCS: 36415; 80048; 80053; 80307; 82010; 82248; 82803; 82947; 83036; 83690; 83735; 85025; 93005; 99285; J1650; J2560; J3475; J7120

== ENCOUNTER → 2024-01-05 12:58 | Outpatient (BNV) | payer OTHER, SELFPAY | PROVIDERS: Admitting Provider Student in an Organized Health Care Education/Training Program; Emergency Provider Emergency Medicine Emergency Medical Services; PCP Internal Medicine; Visit Provider Student in an Organized Health Care Education/Training Program | DX: R79.89 Other specified abnormal findings of blood chemistry (principal); E83.42 Hypomagnesemia; F10.931 Alcohol use, unspecified with withdrawal delirium; N17.9 Acute kidney failure, unspecified; E11.65 Type 2 diabetes mellitus with hyperglycemia | CPT/HCPCS: 99223; 99232; 99239; 99499 ==

== ENCOUNTER 2024-01-19 11:14 | Outpatient (REF) | payer OTHER, SELFPAY ==
[2024-01-19 11:30] LABS: MANUAL DIFF FLAG NO
[2024-01-19 11:43] LABS: Basophils Absolute Auto 0.1 X10*3/uL (0.0-0.2); Basophils Percent Auto 1.1 % (0-2); Eosinophils Absolute Auto 0.1 X10*3/uL (0.0-0.4); Eosinophils Percent Auto 1.5 % (0-4); Hematocrit 41.4 % (42.0-52.0); Hemoglobin 13.8 g/dl (14.0-18.0); Imm Gran Abs Auto 0.06 X10*3/uL (0.00-0.03); Imm Gran Pct Auto 0.6 % (0.0-0.4); Lymphocytes Absolute Auto 3.1 X10*3/uL (1.2-4.9); Lymphocytes Percent Auto 33.3 % (20-40); Mean Corpuscular HGB Conc 33.3 g/dl (31.0-36.0); Mean Corpuscular Hemoglobin 31.7 pg (27.0-33.0); Mean Platelet Volume 9.3 fL (9.4-12.4); Monocytes Absolute Auto 0.5 X10*3/uL (0.1-1.2); Neutrophils Absolute Auto 5.4 x10*3/uL (2.0-8.3); Neutrophils Percent Auto 58.5 % (45-73); Platelet Count 366 X10*3/uL (160-400); Red Blood Count 4.36 X10*6/uL (4.60-5.80); Red Cell Distribution Width 13.6 % (11.0-16.0); White Blood Count 9.2 X10*3/uL (4.8-10.8)
[2024-01-19 12:25] LABS: Valproate < 12.5 mcg/mL (50.0-100.0)
[2024-01-19 12:38] LABS: Alanine Aminotransferase 12 U/L (0-40); Albumin Level 4.2 g/dL (3.5-5.0); Alkaline Phosphatase 70 U/L (39-117); Anion Gap 14 (12-20); Aspartate Amino Transferase 14 U/L (5-37); Bilirubin Total 0.3 mg/dL (0.0-1.0); Blood Urea Nitrogen 22 mg/dL (9-16); Calcium 9.8 mg/dL (8.4-10.2); Carbon Dioxide 26 mmol/L (22-29); Chloride 105 mmol/L (96-108); Estimated Glomerular Filt Rate 47; Glucose Random 215 mg/dL (60-115); Potassium 4.6 mmol/L (3.3-5.1); Sodium 140 mmol/L (135-145); Total Protein 6.7 g/dL (6.5-8.0)
== END 2024-01-19 11:15 | disposition home or self-care (01) ==
LOC: HO.LAB 11:14
PROVIDERS: PCP Internal Medicine; Visit Provider Clinical Nurse Specialist Psychiatric/Mental Health, Child & Adolescent
DX: Z79.899 Other long term (current) drug therapy (principal)
CPT/HCPCS: 36415; 80053; 80164; 85025

== ENCOUNTER 2024-08-13 16:45 | Outpatient (REF) | payer OTHER, SELFPAY ==
[2024-08-13 17:36] LABS: Valproate 72.6 mcg/mL (50.0-100.0)
--- OUTSIDE RECORDS SUMMARY | 2024-08-13 19:02 | XMS_ITS | Clinical Summary ---
Author Organization [facility] [address] [place] [address] [address] [facility] [place] [address] Phone Care Team Providers Care Patient Day Coordinator Name Role Phone Blayne Hagan MD Primary Care Provider [phone] Allergies Active Allergy Reactions Criticality Noted Date Comments Metformin 12/29/2014 edema Medications glipiZIDE (GLUCOTROL) 10 mg tablet Take 1 tablet (10 mg total) by mouth 2 (two) times a day before meals. 08/10/2023 Active atenoloL (TENORMIN) 25 mg tablet Take 1 tablet (25 mg total) by mouth 1 (one) time each day. 08/10/2023 Active simvastatin (ZOCOR) 10 mg tablet Take 1 tablet (10 mg total) by mouth at bedtime. 08/10/2023 Active citalopram (CeleXA) 20 mg tablet Take 1 tablet (20 mg total) by mouth 1 (one) time each day. 08/10/2023 Active methylphenidate (RITALIN) 20 mg tablet Take 1 tablet (20 mg total) by mouth 3 (three) times a day. Max Daily Amount: 60 mg 03/06/2024 Active Trulicity 0.75 mg/0.5 mL pen injector injection Inject 0.5 mL (0.75 mg total) under the skin 1 (one) time each day. Active lisinopriL (PRINIVIL,ZESTRI L) 20 mg tablet TAKE 1 TABLET DAILY 90 tablet 1 04/12/2024 Active gabapentin (NEURONTIN) 800 mg tablet TAKE 1 TABLET 3 TIMES A DAY 270 tablet 1 04/12/2024 Active Active Problems Problem Noted Date Diagnosed Date Dilation of aorta ([facility] V24) 12/13/2023 Overview (03/22/2024): Aortic sinus dilation 4.2 noted on echo 11/21/2023 Stage 3a chronic kidney disease ([facility] V24, [facility] /[facility] V28) 09/22/2020 Vitamin D deficiency 10/11/2019 Skin mass 01/12/2016 Overview (03/22/2024): c/w lipoma on the back around t-8 Diabetic neuropathy ([facility] V24, [facility] V28) 0 08/05/2014 Erectile dysfunction associa luisana with type 2 diabetes mellitus ([facility] V24, [facility] V28) 03/26/2013 Amphetamine or stimulant checo g abuse ([facility] V24, [facility] V28) 11/30/2012 Overview (03/22/2024): Ritalin: Using more than prescribed, then was snorting to get high; also abusing alcohol at the same time. Stopped, per patient 11/21/12. Did have Detox via [facility] 11/24-11/28/12. Microalbuminuria 03/30/2012 HTN (hypertension) 2012 ADD (attention deficit disorder) 03/12/2008 Hypertriglyceridemia 03/12/2008 Alcohol abuse 03/08/2006 Overview (03/22/2024): abusing alcohol while snorting ritalin. Stopped, per patient 11/21/12. Did have Detox via [facility] 11/24-11/28/12. Depressive disorder 03/08/2006 Tobacco use disorder 03/08/2006 Overview (03/22/2024): CT Chest 12/2020: Negative malignancy Immunizations Name Administration Dates Next Due Influenza Quadravalent, MDCK , 0.5ml, preservative free (Flucelvax) 6mo and older 03/09/2018 Influenza Quadravalent, MDCK , 0.5ml, with preservative (Flucelvax) 6mo and older 01/30/2017 Influenza trivalent, 0.5mL, preservative free (Fluarix; FluLaval; Fluzone) ages 6mo and older (Afluria) 3 years and older 01/12/2016,01/14/2013 Pneumococcal, Unspecified 10/01/2014 Tdap Tetanus diptheria acell ular pertussis (Boostrix; Adacel) 7yo and older 06/20/2011 Surgical History Surgery Date Site/Laterality Comments COLONOSCOPY 05/03/12 PROCEDURE: HISTORICAL COLONOSCOPY; COMMENT: tics; repeat in ten yrs Medical History Medical History Date Comments Tobacco use disorder 03/08/2006 DX:Tobacco use disorder Unspecified disorder of lipo id metabolism 03/08/2006 DX:Unspecified disorder of l ipoid metabolism Depressive disorder, not els ewhere classified 03/08/2006 DX:Depressive disorder, not elsewhere classified Noncompliance with medication regimen 12/01/2008 DX:Noncompliance with medication regimen Type II or unspecified type diabetes mellitus without mention of complication, uncontrolled 03/08/2006 DX:Type II or unspecified t ype diabetes mellitus without mention of complication, uncontrolled Unspecified essential hypertension DX:Unspecified essential hypertension HTN (hypertension) 2012 DX:HTN (hyper tension) Erectile dysfunction associa luisana with type 2 diabetes mellitus ([facility] V24, [facility] V28) 03/26/2013 DX:Erectile dysfunction asso ciated with type 2 diabetes mellitus ([facility]) Family History Medical History Relation Name Comments Diabetes Father Hypertension Father Heart attack Maternal Grandmother Hypertension Mother Blindness Neg Hx Cataracts Neg Hx Glaucoma Neg Hx Macular degeneration Neg Hx Strabismus Neg Hx Relation Name Status Comments Brother 1 Alive Brother 2 Alive Father Alive Maternal Grandmother Mother Alive Sister Alive Social History Tobacco Use Types Packs/Day Years Used Date Smoking Tobacco: Former Cigarettes Q uit: 04/26/2016 Smokeless Tobacco: Former Alcohol Use Standard Drinks/Week Comments No 0 (1 standard drink = 0.6 oz pur e alcohol) Sex and Gender Information Value Date Recorded Sex Assigned at Not on file Legal Sex Male 1:20 AM EST Gender Identity Not on file Sexual Orientation Not on file Obstetrics History Last Filed Vital Signs Vital Sign Reading Time Taken Comments Blood Pressure 110/64 03/22/2024 1:38 PM EST Pulse 84 03/22/2024 1:38 PM EST Temperature 37 ??C (98.6 ??F) 03/22/2024 1:38 PM EST Respiratory Rate 16 03/22/2024 1:38 PM EST Oxygen Saturation - - Inhaled Oxygen Concentration - - Weight 62.1 kg (137 lb) 03/22/2024 1:38 PM EST Height 170.2 cm (5' 7 ) 03/22/2024 1:38 PM EST Body Mass Index 21.46 03/22/2024 1:38 PM EST Plan of Treatment Health Maintenance Due Date Last Done Comments Diabetes: Annual Foot Exam 1971 Diabetes: Annual Retina Eye Exam 1971 Pneumococcal Vaccine: 50+ Years (1 of 2 - PCV) 01/19/1980 10/01/2014 Pneumococcal Vaccine: Pediatrics (0 to 5 Years) and At-Risk Patients (6 to 64 Years) (1 of 2 - PCV) 01/19/1980 10/01/2014 Zoster Vaccines (1 of 2) 2011 RSV Immunization Adult Patients (1 - Risk 60-74 years 1-dose series) 2021 DTaP,Tdap,and Td Vaccines (2 - Td or Tdap) 06/20/2021 06/20/2011 Depression Screening 04/09/2022 HIV Screening 04/09/2022 Social Influencers of Health Screening 04/09/2022 Colorectal Cancer Screening: Colonoscopy 05/03/2022 05/03/2012 COVID-19 Vaccine ( season) 2023 05/13/2021, 08/13/2020, 07/22/2020 Diabetes: Annual Urine Albumin-Creatinine Ratio (uACR) 01/31/2024 01/30/2023 Diabetes: Annual GFR (Glomerular Filtration Rate) 01/31/2024 01/30/2023 Hypertension/CHF/CAD Annual BMP Blood Test 01/31/2024 01/30/2023 Diabetes: Blood Sugar Control Test (HGBA1C) 02/08/2024 08/09/2023 Influenza Vaccine (Season Ended) 2024 03/09/2018, 01/30/2017, 01/12/2016, Additional history exists Lung Cancer Screening (Low Dose CT) 01/21/2025 01/22/2024, 01/19/2024, 01/10/2023, Additional history exists Cholesterol Screening (Lipid Panel) 08/20/2028 08/21/2023 Hepatitis C Screening Completed 03/26/2013 HIB Vaccines Aged Out No longer eligi ble based on patient's age to complete this topic HPV Vaccines Aged Out No longer eligi ble based on patient's age to complete this topic Hepatitis A Vaccines Aged Out No long er eligible based on patient's age to complete this topic Hepatitis B Vaccines Aged Out No long er eligible based on patient's age to complete this topic IPV Vaccines Aged Out No longer eligi ble based on patient's age to complete this topic MMR Vaccines Aged Out No longer eligi ble based on patient's age to complete this topic Meningococcal ACWY Vaccine Aged Out N o longer eligible based on patient's age to complete this topic Meningococcal B Vaccine Aged Out No l onger eligible based on patient's age to complete this topic RSV Immunization Patients Under 20 months Aged Out No longer eligible based on patient's age to complete this topic Varicella Vaccines Aged Out No longer eligible based on patient's age to complete this topic Procedures Procedure Name Priority Date/Time Associated Diagnosis Comments CT LUNG SCREENING LOW DOSE Routine 01/22/2024 4:14 PM EDT Encounter for screening for malignant neoplasm of respiratory organs LIPID PANEL Routine 08/21/2023 HEMOGLOBIN A1C Routine 08/09/2023 URINE ALBUMIN CREATININE RATIO Routine 01/30/2023 ANNUAL BMP BLOOD TEST Routine 01/30/2023 HEPATITIS C SCREENING Routine 03/26/2013 COLONOSCOPY Routine 05/03/2012 from Last 3 Months or Most Recently Relevant to Health Maintenance Results * CT LUNG SCREENING LOW DOSE (01/22/2024 4:14 PM EDT) Anatomical Region Laterality Modality Computed Tomogra phy 01/19/2024 4:14 PM EDT Narrative 01/22/2024 4:14 PM EDT [facility] Diagnostic Imaging Department [address] [place] [id number] Patient: ??DES DAVALOS ?/Age/Sex: 1960 - 64 - M Unit#: ??[id number] ? Location/Status: ??SPDICATLS/REG CLI ? Mnemonic/Ordering Site: ??CTLUNGLD/SPCT Ordering Physician: ??AGUILA DEL REAL MD CT Lung Screening Low Dose - 01/19/24 - 1622 Report Status:Signed PROCEDURE: Chest CT INDICATION: Lung cancer screening, former smoker, 78 pack year smoking history TECHNIQUE: Chest CT without contrast. Multi planar reformats were created and interpreted. The examination was performed utilizing dose reduction techniques. Total DLP 112 COMPARISON: ??01/10/2023 FINDINGS: LUNGS/PLEURA: Central airways are patent. ??Mild centrilobular and paraseptal emphysema. ??3 mm right middle lobe nodules are stable. ??No new or suspicious pulmonary nodules. ??No pleural effusion or pneumothorax. MEDIASTINUM: Thyroid gland is normal. ??No mediastinal or hilar lymphadenopathy. Esophagus is normal. ??Cardiac chambers are normal in size. ??No pericardial e ffusion. ??Moderate coronary artery calcifications. CHEST WALL: No axillary lymphadenopathy or superficial hematoma. UPPER ABDOMEN:Stable pancreatic parenchymal calcifications most likely related to remote pancreatitis. ??Atrophic kidneys. BONES: Chronic right posterior 7th rib fracture deformity. ??No acute fracture. Degenerative changes seen throughout the bones. IMPRESSION: No new or suspicious pulmonary nodules. ??Lung RADS 2-benign. ??Recommend continued screening with low-dose chest CT in 12 months. Dictating Physician: ??MANDIE ZAPATA MD Electronically Signed by: ??MANDIE ZAPATA MD Dic Date/Time: ??01/22/24 1611 Sign date/Time: ??01/22/24 1614 Procedure Note Mandie Zapata MD - 02/14/2024 [facility] Diagnostic Imaging Department [address] [place] [address] Patient: DES DAVALOS /Age/Sex: 1960 - 64 - M Unit#: [id number] Location/Status: [facility] Mnemonic/Ordering Site: [facility] Ordering Physician: AGUILA DEL REAL MD CT Lung Screening Low Dose - 01/19/24 - 1622 Report Status:Signed PROCEDURE: Chest CT INDICATION: Lung cancer screening, former smoker, 78 pack year smokinghistory TECHNIQUE: Chest CT without contrast. Multi planar reformats were createdand interpreted. The examination was performed utilizing dose reductiontechniques. Total DLP 112 COMPARISON: 01/10/2023 FINDINGS: LUNGS/PLEURA: Central airways are patent. Mild centrilobular andparaseptal emphysema. 3 mm right middle lobe nodules are stable. No new orsuspicious pulmonary nodules. No pleural effusion or pneumothorax. MEDIASTINUM: Thyroid gland is normal. No mediastinal or hilarlymphadenopathy. Esophagus is normal. Cardiac chambers are normal in size. No pericardiale ffusion. Moderate coronary artery calcifications. CHEST WALL: No axillary lymphadenopathy or superficial hematoma. UPPER ABDOMEN:Stable pancreatic parenchymal calcifications most likelyrelated to remote pancreatitis. Atrophic kidneys. BONES: Chronic right posterior 7th rib fracture deformity. No acutefracture. Degenerative changes seen throughout the bones. IMPRESSION: No new or suspicious pulmonary nodules. Lung RADS 2-benign. Recommend continued screening with low-dose chest CT in 12 months. Dictating Physician: MANDIE ZAPATA MD Electronically Signed by: MANDIE ZAPATA MD Dic Date/Time: 01/22/24 1611 Sign date/Time: 01/22/24 1614 Result [facility] Aguila Del Real MD IMG CT PROCEDURES Final Result * (ABNORMAL) Lipid panel (08/21/2023) [facility] LDL/HDL Ratio 4 0 - 4 Triglycerides 158(A) 0 - 150 mg/dL Cholesterol 183 0 - 200 mg/dL HDL 49 >=40 mg/dL LDL Cholesterol 103(A) 0 - 100 mg/dL Blood Venous blood specimen / Unknown Result [facility] Provider LAB BLOOD ORDERABLES Kacie l Result * (ABNORMAL) Hemoglobin A1c (08/09/2023) [facility] Hemoglobin A1C 7.4(A) <=6.5 % Blood Venous blood specimen / Unknown Result [facility] Historical Gena OVERTON LAB BLOOD ORDERABLES Kacie l Result * Urine Albumin Creatinine Ratio (01/30/2023) [facility] Urine Albumin Creatinine Ratio Abstracted Result [facility] Provider HEALTH MAINTENANCE Final Result * Annual BMP Blood Test (01/30/2023) [facility] Annual BMP Blood Test Abstracted Historical Provider HEALTH MAINTENANCE Final Result * Hepatitis C Screening (03/26/2013) Hepatitis C Screening Abstracted Historical Provider HEALTH MAINTENANCE Final Result * Colonoscopy (05/03/2012) Colonoscopy No Interpretation , Abstracted Anatomical Region Laterality Modality Other Historical Provider HEALTH MAINTENANCE Final Result from Last 3 Months or Most Recently Relevant to Health Maintenance Insurance [facility] Care Teams Patient Day Coordinator Relationship Specialty Start Date End Date Blayne Hagan MD [address] [place] [id number] PCP - General Internal Medicine 01/29/11
== END 2024-08-13 16:46 | disposition home or self-care (01) ==
LOC: HO.LAB 16:45
PROVIDERS: PCP Internal Medicine; Visit Provider Nurse Practitioner Psychiatric/Mental Health
DX: Z79.899 Other long term (current) drug therapy (principal)
CPT/HCPCS: 36415; 80164

== ENCOUNTER 2024-10-07 13:28 | Inpatient (IN) | payer OTHER, SELFPAY ==
[2024-10-07] VITALS (10 sets, daily range): BP systolic 111–147; BP diastolic 57–90; PULSE 101–168; RESP 15–27; TEMP 36.5–36.9; O2SAT 96–99; BMI 20.7
--- NOTE | ~2024-10-07 | XR_ITS ---
EXAMINATION: XR CHEST 1 VIEW HISTORY: pain COMPARISON: Comparison is made with the prior examination dated 04/29/2023. FINDINGS: A single AP portable view of the chest performed at 2:54 PM is submitted. The lungs are expanded and clear. There is no pleural effusion, pneumothorax, or pulmonary vascular congestion. The heart is normal in size. There is degenerative disc disease of the spine. XR/XR chest 1V IMPRESSION: No acute cardiopulmonary abnormality. Electronically signed by: Polo Molina MD 10/07/2024 03:07 PM EDT
--- NOTE | ~2024-10-07 | XR_ITS ---
CLINICAL HISTORY: elbow pain ?effusion 3 view left elbow Comparison: None Findings: Small medial calcifications are likely related to medial epicondylitis. Mild to moderate osteoarthritis without dislocation. Small effusion present, with question small loose body. Majority of the soft tissue swelling appears superficial including olecranon bursal region and dorsal soft tissues. IV related opacities present. IMPRESSION: 1. Medial calcifications of the likely medial epicondylitis. 2. Small effusion with a additional soft tissue swelling, including olecranon bursal region. 3. Mild-moderate osteoarthritis. This document has been electronically signed by: Fermin Redding MD on 10/09/2024 19:08:22
--- NOTE | ~2024-10-07 | XR_ITS ---
CLINICAL HISTORY: question fluid over load 1 view chest x-ray Comparison: CT/SR - CT ABDOMEN PELVIS WO IV CON - 10/07/24 20:28 EDT CR/SR - XR CHEST 1V - 10/07/24 14:54 EDT Findings: Study performed at 9:01 p.m. Lungs are less well inflated than on prior study. Cardiac silhouette is mildly enlarged with left ventricular prominence. Interval development of central interstitial edema. No definitive pleural effusion. Remote fracture deformity of the left clavicle. IMPRESSION: Interval development of congestive heart failure. This document has been electronically signed by: Tyler Peter MD on 10/07/2024 21:28:24
--- NOTE | ~2024-10-07 | CT_ITS ---
CLINICAL HISTORY: abd pain Exam: CT abdomen and pelvis without intravenous contrast. Comparison: April 29, 2023. Findings: Study limited by lack of intravenous contrast. Specifically, evaluation of the vascular tree, solid abdominal organs, and gastrointestinal tract be limited without IV contrast administration. CT abdomen: Emphysematous changes in the lung bases without infiltrate or pleural effusion. No acute bony lesions. Scattered degenerative change throughout the thoracolumbar spine. Small hiatal hernia. Fluid-filled loops of nondilated small bowel are seen throughout the abdomen. Extensive vascular calcification of the thoracic aorta, abdominal aorta, mesenteric arteries, renal arteries, and iliac arteries. Aneurysmal dilatation of the infrarenal abdominal aorta is again seen measuring 3.2 x 3.2 cm in size. Aneurysmal dilation of the common iliac arteries is also evident measuring 1.5 cm on the right and 1.9 cm on the left. Patency of these vessels can not be assessed on a noncontrast study. No calcified gallstones. Nodularity along the periphery of the liver without discrete mass in the unenhanced exam. Liver is enlarged as before. Unenhanced spleen is unremarkable. Numerous pancreatic parenchymal calcifications as on prior study. Adrenal glands are unremarkable. Perinephric stranding is identified bilaterally, not appreciably changed compared to prior exam No free fluid or free air. CT pelvis: Fat containing umbilical hernia. Extensive vasculopathy seen throughout the iliac system extending to the common femoral arteries. Fat containing left inguinal hernia. Concentric wall thickening of the urinary bladder measuring up to 11 mm. Moderate stool throughout the colon. Numerous diverticuli throughout the colon without focal area of diverticulitis. Appendix is not visualized. Impression: 1. Study limited by lack of intravenous contrast. 2. Question mild enteritis. No findings of obstruction. 3. Colonic diverticulosis without diverticulitis. 4. Extensive vasculopathy. 5. Concentric wall thickening of the urinary bladder suggestive of cystitis. This document has been electronically signed by: Tyler Peter MD on 10/07/2024 21:16:02
--- NOTE | 2024-10-07 13:33 | ED.GENADULT ---
HPI - General Adult General Chief complaint: General Medical Stated complaint: Short Breath, Detox Time Seen by Provider: 10/07/24 14:08 Source: patient and RN notes reviewed Mode of arrival: ambulatory Limitations: no limitations History of Present Illness ED Provider: Brenda Vazquez PA-C HPI narrative: This is a 64-year-old male, with a past medical history of alcohol use disorder, type 2 diabetes, who presents emergency department with concerns of shakiness, shortness of breath, abdominal pain, and nausea for the last several days. Patient states that up until Monday of last week he was drinking 3 L of 80 proof vodka. He does report history of alcohol withdrawal, also with alcohol withdrawal seizures. He states that he did not come in sooner as he was unable to get himself dressed. He denies any known history of atrial fibrillation. MD complaint: ETOH withdrawal Related Data Home Medications ?Medication ?Instructions ?Recorded ?Confirmed atenolol 25 mg tablet 25 mg PO DAILY 01/05/24 10/07/24 gabapentin 800 mg tablet 800 mg PO TID 01/05/24 10/07/24 lisinopril 20 mg tablet 20 mg PO DAILY 01/05/24 10/07/24 methylphenidate HCl 10 mg tablet 10 mg PO TID 01/05/24 10/07/24 aspirin 81 mg tablet 81 mg PO DAILY 10/07/24 10/07/24 divalproex 250 mg tablet,delayed 250 mg PO BID 10/07/24 10/07/24 release divalproex 500 mg tablet,delayed 500 mg PO QPM 10/07/24 10/07/24 release Previous Rx's ?Medication ?Instructions ?Recorded folic acid 1 mg tablet 1 mg PO DAILY #90 tabs 01/07/24 magnesium oxide 400 mg (241.3 mg 400 mg PO DAILY #90 tabs 01/07/24 magnesium) tablet thiamine mononitrate (vit B1) 100 100 mg PO DAILY #90 tabs 01/07/24 mg tablet Allergies Allergy/AdvReac Type Severity Reaction Status Date / Time metformin Allergy Intermediate Swelling Verified 10/07/24 13:35 Review of Systems Review of Systems: Yes all other systems are reviewed and are negative Constitutional: Constitutional: Reports as per HPI [facility] Past Medical History Medical History Stage 3 chronic kidney disease Hypertension Diabetes ETOH abuse Social History Social History Household Members: Spouse Housing: House Do you presently have visiting nurse or other home services: No Alcohol intake: current Alcohol intake frequency: 3 or more drinks per day Alcohol type: hard liquor Patient Tobacco Use Status: Former Tobacco user Tobacco use type: Cigarette Cigarettes Per Day: 10 Substance Use Type: Marijuana service: No Physical Exam ED Vital Signs: Vital Signs - 24 hr 10/07/24 18:25 10/07/24 19:35 10/07/24 20:41 Temperature 98.3 F Pulse Rate 163 H 168 H 136 H Respiratory Rate 15 Blood Pressure 128/57 L 111/69 135/81 Pulse Oximetry 96 Oxygen Delivery Method Room Air BMI result Body Mass Index 20.7 Const General: cooperative, alert and awake Nutritional Appearance: thin Orientation/consciousness: patient oriented x3 Limitations: no limitations HENMT Head: Yes normal to inspection, Yes normocephalic and Yes atraumatic Ears: hearing grossly normal bilaterally General nose exam: Normal external nose present Face and sinus: Yes normal facial exam Mouth: Normal oral and palatal mucosa present, oropharynx normal and moist mucous membranes Throat: Yes posterior oropharynx normal Eyes General: appearance normal, both eyes and all related structures Eyelids: Yes eyelids normal Conjunctivae: conjunctivae normal Sclerae: sclerae normal Pupils: Equal, round and reactive pupils present EOM: EOMs intact bilaterally Neck Neck: Yes normal visual inspection, Yes full ROM and Yes no lymphadenopathy Lymphatic: no lymphadenopathy noted Chest Chest palpation & inspection: normal inspection of the chest Resp Effort & Inspection: normal respiratory effort and able to speak in complete sentences Auscultation: clear to auscultation bilaterally, no crackles, no rales, no rhonchi and no wheezes Cardio Rate: regular rate Rhythm: regular rhythm Heart sounds: S1 normal heart sound present and S2 normal heart sound present GI Other: Abdomen soft, nontender, nondistended Inspection: Yes normal to inspection Skin General skin exam: no rashes or lesions noted Trauma: no lacerations or abrasions Wounds: no wounds Neuro General: patient oriented x3 and moves all extremities Cranial nerves: Yes Equal, round and reactive pupils present Extrem General: Yes normal to inspection Right upper extremity: normal to inspection Left upper extremity: normal to inspection Right lower extremity: normal to inspection Left lower extremity: normal to inspection Course Course Course Narrative: SERAFINE, this is a rapid medical exam performed by Selvin Tovar please refer to primary provider for complete H&P- 64 year old female presents for evaluation of alcohol withdrawal. He reports that his last drink was 6 days ago. He reports drinking 1-2 liters of liquor per day. He is tachycardic with an irregular rhythm. Plan for EKG and labs Reevaluation(s) Reevaluation #1: Matt Cui MD: 1999 The patient is currently receiving diltiazem we felt he has been already aggressively resuscitated but still remained tachycardic no additional reversible dehydration/electrolyte derangement. I will continue to monitoring the patient as the primary provider has left for adequate rate control and admitted the patient to the hospital Reevaluation #2: Matt Cui MD: 2050 Patient's rate improving now 110s to 120s AFib. Echo excludes RV distention/dysfunction, pericardial effusion or tamponade. I do have her see bilateral B-lines although the patient has no obvious or historical signs or suggestion of CHF in the past he may be slightly fluid overloaded at this point and we will cease any additional crystalloid resuscitation. I have ordered additional Valium. This patient has very high daily alcohol intake and may need additional benzodiazepine in addition to his phenobarbital. Patient was assessed prior to this he is not sedated still feels active withdrawal and tremor. Heart rate currently 110s to 120s AFib. Patient's blood pressure stable he is awake and alert we will admit Medications Administered Generic Name Dose Route Start Last Admin Trade Name Freq PRN Reason Stop Dose Admin Acetaminophen 650 mg 10/07/24 21:19 10/08/24 06:21 Acetaminophen 325 Mg Tablet PO 650 mg Q6H PRN Administration Pain, Mild 1-3,fever,headache Aspirin 81 mg 10/08/24 09:00 10/10/24 08:25 Aspirin Enteric Coated 81 Mg Tablet. PO 81 mg DAILY JOVITA Administration Digoxin 0.25 mg 10/10/24 09:00 10/10/24 08:25 Digoxin 0.25 Mg Tablet PO 0.25 mg DAILY JOVITA Administration Protocol Divalproex Sodium 250 mg 10/08/24 09:00 10/10/24 08:25 Divalproex Sodium 250 Mg Tablet. PO 250 mg BID JOVITA Administration Divalproex Sodium 500 mg 10/08/24 21:00 10/09/24 20:27 Divalproex Sodium 500 Mg Tablet.Dr PO 500 mg BEDTIME JOVITA Administration Folic Acid 1 mg 10/08/24 09:00 10/10/24 08:25 Folic Acid 1 Mg Tablet PO 1 mg DAILY JOVITA Administration Gabapentin 800 mg 10/08/24 09:00 10/10/24 08:25 Gabapentin 400 Mg Capsule PO 800 mg TID JOVITA Administration Cefazolin Sodium/Dextrose 2 gm in 50 mls @ 100 mls/hr 10/08/24 15:45 10/10/24 09:00 Ancef IV Infused Q8H JOVITA Infusion Insulin Glargine 10 unit 10/07/24 21:30 10/09/24 22:00 Insulin Glargine,Hum.Rec.Anlog 100 Unit/Ml 10 Ml Vial SUBCUT 10 unit BEDTIME JOVITA Administration Insulin Human Lispro 0 unit 10/08/24 07:30 10/10/24 08:26 Insulin Lispro 100 Unit/Ml 3 Ml Vial SUBCUT 4 unit QIDACHS [facility] Administration Protocol Magnesium Oxide 800 mg 10/09/24 09:00 10/10/24 08:25 Magnesium Oxide 400 Mg Tablet PO 800 mg DAILY JOVITA Administration Metoprolol Tartrate 12.5 mg 10/09/24 21:00 10/10/24 08:25 Metoprolol Tartrate 12.5 Mg Halftab PO 12.5 mg BID JOVITA Administration Protocol Phenobarbital 30 mg 10/09/24 21:00 10/10/24 08:43 Phenobarbital 30 Mg Tablet PO 10/11/24 09:01 30 mg BID JOVITA Administration Rivaroxaban 20 mg 10/07/24 21:20 10/09/24 16:58 Rivaroxaban 20 Mg Tablet PO 20 mg DAILY@1700 [facility] Administration Sodium Chloride 3 ml 10/08/24 00:00 10/10/24 08:30 0.9 % Sodium Chloride Flush 3 Ml Syringe IVFLUSH 3 ml QSHIFT [facility] Administration Thiamine HCl 100 mg 10/08/24 09:00 10/10/24 08:25 Thiamine Hcl 100 Mg Tablet PO 100 mg DAILY JOVITA Administration Discontinued Medications Generic Name Dose Route Start Last Admin Trade Name Freq PRN Reason Stop Dose Admin Atenolol 25 mg 10/08/24 09:00 10/08/24 08:44 Atenolol 25 Mg Tablet PO 25 mg DAILY JOVITA Administration Protocol Diazepam 7.5 mg 10/07/24 20:19 10/07/24 20:41 Diazepam 10 Mg/2 Ml Cartridge IVPUSH 10/07/24 20:20 7.5 mg STAT STA Administration Digoxin 0.25 mg 10/08/24 12:30 10/08/24 17:02 Digoxin 0.5 Mg/2 Ml Ampul IVPUSH 10/08/24 18:31 0.25 mg Q6H JOVITA Administration Protocol Digoxin 0.25 mg 10/08/24 19:00 10/09/24 12:52 Digoxin 0.5 Mg/2 Ml Ampul IVPUSH 10/09/24 13:01 0.25 mg Q6H JOVITA Administration Protocol Diltiazem HCl 5 mg 10/07/24 20:19 10/07/24 20:41 Diltiazem Hcl 50 Mg/10 Ml Vial IVPUSH 10/07/24 20:20 5 mg STAT STA Administration Furosemide 40 mg 10/07/24 21:40 10/07/24 22:16 Furosemide 40 Mg/4 Ml Vial IVPUSH 10/07/24 21:41 40 mg ONCE ONE Administration Protocol Sodium Chloride 1,000 mls @ 999 mls/hr 10/07/24 14:31 10/07/24 15:37 Ns IVCONT 10/07/24 15:31 Infused .Q1H1M ONE Infusion Thiamine HCl 100 mg/ Sodium 101 mls @ 202 mls/hr 10/07/24 14:53 10/07/24 15:45 Chloride IV 10/07/24 15:22 Infused ONCE ONE Infusion Lactated Ringer's 2,000 mls @ 999 mls/hr 10/07/24 15:30 10/08/24 05:04 Lr IV Infused .Q2H1M JOVITA Infusion Insulin Human Regular 100 unit in 100 mls @ 6 mls/hr 10/07/24 16:00 10/08/24 07:35 Myxredlin IVCONT Not Given .[id number] JOVITA Protocol 6 UNIT/HR Lactated Ringer's 2,000 mls @ 999 mls/hr 10/07/24 17:34 10/07/24 18:48 Lr IV 10/07/24 19:34 Infused .Q2H1M ONE Infusion Diltiazem HCl 125 mg/ Sodium 125 mls @ 0 mls/hr 10/07/24 19:15 10/08/24 13:19 Chloride IVCONT Infused .Q0M JOVITA Titration Protocol Per Protocol Lactated Ringer's 1,000 mls @ 999 mls/hr 10/07/24 20:30 10/07/24 20:58 Lr IV 10/07/24 21:30 Not Given .Q1H1M JOVITA Albumin Human 100 mls @ 100 mls/hr 10/08/24 15:45 10/08/24 23:30 Kedbumin 25 % IV 10/08/24 22:44 Infused Q6H JOVITA Infusion Magnesium Sulfate 2 gm in 50 mls @ 25 mls/hr 10/09/24 08:06 10/09/24 11:51 Magnesium Sulfate/H2o IV 10/09/24 10:05 Infused ONCE ONE Infusion Albumin Human 100 mls @ 100 mls/hr 10/09/24 15:30 10/09/24 21:49 Kedbumin 25 % IV 10/09/24 22:29 Infused Q6H JOVITA Infusion Insulin Human Regular 6 unit 10/07/24 15:45 10/07/24 15:46 Insulin Regular, Human 100 Unit/Ml 10 Ml Vial 0.1 unit/kg (6 unit) 10/07/24 15:46 6 unit IVPUSH Administration ONCE ONE Insulin Human Regular 5 unit 10/07/24 20:20 10/07/24 20:40 Insulin Regular, Human 100 Unit/Ml 10 Ml Vial IVPUSH 10/07/24 20:21 5 unit ONCE ONE Administration Lisinopril 20 mg 10/08/24 09:00 10/08/24 08:43 Lisinopril 20 Mg Tablet PO 20 mg DAILY JOVITA Administration Protocol Magnesium Oxide 400 mg 10/08/24 09:00 10/08/24 08:44 Magnesium Oxide 400 Mg Tablet PO 400 mg DAILY JOVITA Administration Midodrine 5 mg 10/09/24 17:00 10/10/24 08:26 Midodrine Hcl 5 Mg Tablet PO 5 mg TIDWM JOVITA Administration Phenobarbital 45 mg 10/07/24 21:00 10/09/24 08:32 Phenobarbital 15 Mg Tablet PO 10/09/24 09:01 45 mg BID JOVITA Administration Phenobarbital Sodium 264 mg 10/07/24 14:30 10/07/24 14:35 Phenobarbital Sodium 130 Mg/Ml Im Once IM 10/07/24 14:31 264 mg ONCE ONE Administration Phenobarbital Sodium 198 mg 10/07/24 17:30 10/07/24 20:42 Phenobarbital Sodium 130 Mg/Ml Vial Im Q3hx2 IM 10/07/24 20:31 198 mg Q3H JOVITA Administration Potassium Chloride 40 meq 10/09/24 08:37 10/09/24 08:54 Potassium Chloride Er 20 Meq Tab.Er.Prt PO 10/09/24 08:38 40 meq ONCE ONE Administration Procedures Procedure Narrative Procedure Narrative: EMERGENCY ULTRASOUND INTERPRETATION-Limited Echocardiography [This study was ordered, performed, and interpreted by myself. The study reveals: Impression: Limited assessment due to active atrial fibrillation and tachycardia NORMAL LV FUNCTION, NO RV DYSFUNCTION, NO PERICARDIAL EFFUSION] [Emergent Cardiac for Indication: Views Used: PLAX, PSSA, A4, SX Pericardial Effusion/Tamponade Findings: NONE RV Dilation (> LV diam in 4ch apical): NONE Global LV Fxn: NORMAL IVC Dilation and Resp Variation: NORMAL Bilateral apical thoracic views with diffuse B-lines suggesting pulmonary edema Performed by: MD Basilia Images were stored CPT:[id number]] ___ Medical Decision Making Medical Decision Making MDM Narrative: This is a 64-year-old male, with a past medical history of EtOH abuse, hypertension, and hyperlipidemia that is emergency department who presents emergency department with concerns of shortness for breath, shakiness, nausea, which started several days ago. Patient states that he stopped drinking alcohol on Monday of last week. Patient states that he typically drinks 3 L of 80 proof vodka a day. On arrival, patient found to be in AFib with RVR at a ventricular rate of 150 beats per minute. He states that he has no history of atrial fibrillation. He is not on anticoagulation. Differential diagnoses include alcohol withdrawal, electrolyte derangement, AFib with RVR, DKA. Will obtain labs, chest x-ray, and continue to closely monitor. Discussed with my attending physician, Dr. Cui. Will treat for etoh withdrawal with IVF and phenobarbital as this is thought to be the cause of the afib with RVR. We will continue to closely monitor. 1424 - received critical lab a blood glucose of 663. Patient with hyponatremia, this is likely pseudo hyponatremia secondary to hyperglycemia, sodium corrected for hyperglycemia at 135. Potassium is within normal limits at 4.5, chloride is 84, anion gap of 23. BUN of 74, and creatinine of 1.6. Phosphorus low at 2.4, troponin elevated at 69.5, beta hydroxybutyrate elevated at 3.04. Patient continues to receive IV fluids, as well as phenobarbital. Ongoing discussion with my attending physician, Dr. Cui and is recommending starting on IV insulin drip and continue to hydrate with fluids. Case was discussed with textile machine operator, Dr. Osborne. We will continue to try to close anion gap with IV fluids, insulin. We will continue to closely monitor. 1817 - patient remains to be in AFib with RVR at a rate of 30s to 140s. He has received a total of 4 L of LRs. We will start on a Dilt drip per my attending physician. Discussed with hospitalist as they may be able to accept patient on the floor if rate becomes controlled. We will continue to monitor. Sign-out given to my colleague, Dr. Cui pending disposition Differential Diagnosis Differential Diagnoses: The differential diagnosis associated with the presentation includes See above Admission/Observation Consideration of admission/observation: Escalation of care including admission/observation considered Consult Healthcare Provider Management of the patient was discussed with: Hospitalist Dr. Osborne, textile machine operator Dr. Wolff, Dr. Powell, hospitalist Lab Data [facility] Lab Attestation statement: I reviewed the patient's lab results. See [facility] 10/09/24 06:22 10/10/24 08:54 Labs: Lab Results 10/07/24 10/07/24 10/07/24 Range/Units 14:00 14:01 14:40 WBC 13.5 H (4.8-10.8) X10*3/uL RBC 3.66 L (4.60-5.80) X10*6/uL Hgb 10.5 L D (14.0-18.0) g/dl Hct 31.4 L D (42.0-52.0) % MCV 85.8 (80.0-98.0) fL MCH 28.7 (27.0-33.0) pg MCHC 33.4 (31.0-36.0) g/dl RDW 12.5 (11.0-16.0) % Plt Count 115 L D (160-400) X10*3/uL MPV 10.4 (9.4-12.4) fL Immature Gran % (Auto) 0.7 H (0.0-0.4) % Neut % (Auto) 79.2 H (45-73) % Lymph % (Auto) 14.2 L (20-40) % [place] % (Auto) 5.8 (2-11) % Eos % (Auto) 0.0 (0-4) % Baso % (Auto) 0.1 (0-2) % Lymph # (Auto) 1.9 (1.2-4.9) X10*3/uL [place] # (Auto) 0.8 (0.1-1.2) X10*3/uL Eos # (Auto) 0.0 (0.0-0.4) X10*3/uL Baso # (Auto) 0.0 (0.0-0.2) X10*3/uL Abs Immat Gran (auto) 0.09 H (0.00-0.03) X10*3/uL Absolute Neuts (auto) 10.7 H (2.0-8.3) x10*3/uL Absolute Nucleated RBC 0.000 (0.0-0.012) X10*3/uL Nucleated RBC % (auto) 0.0 (0.0-0.2) /100WBC Smear Tech's Comments VERIFIED VBG pH (7.32-7.43) VBG pCO2 mmHg VBG pO2 mmHg VBG HCO3 (22-26) mmol/L VBG O2 Saturation % VBG Base Excess mmol/L Sodium 126 L (135-145) mmol/L Potassium 4.5 (3.3-5.1) mmol/L Chloride 84 L (96-108) mmol/L Carbon Dioxide 24 (22-29) mmol/L Anion Gap 23 H (12-20) BUN 74 H (9-16) mg/dL Creatinine 1.64 H (0.5-1.4) mg/dL Estim Creat Clear Calc 39.1 Estimated GFR 43 POC Glucose (60-115) mg/dL Random Glucose 663 H* (60-115) mg/dL Lactic Acid (0.5-2.0) mmol/L Calcium 8.8 D (8.4-10.2) mg/dL Phosphorus 2.4 L (2.7-4.5) mg/dL Magnesium 1.6 (1.6-2.6) mg/dL Total Bilirubin 0.7 (0.0-1.0) mg/dL Direct Bilirubin (0.0-0.5) mg/dL AST 26 (5-37) U/L ALT 14 (0-40) U/L Alkaline Phosphatase 98 (39-117) U/L Ammonia 29 (13-55) umol/L Troponin I High Sens 69.5 H D (<3.5-35.0) ng/L B-Natriuretic Peptide (<100) pg/mL Total Protein 6.2 L (6.5-8.0) g/dL Albumin 4.0 (3.5-5.0) g/dL Lipase 76 (8-78) U/L Beta-Hydroxybutyrate 3.04 H (0.02-0.27) mmol/L TSH (0.32-4.0) uIU/mL Urine Color Yellow Urine Appearance Clear Urine pH 6.0 (5.0-9.0) Ur Specific [place] 1.025 (1.005-1.025) Urine Protein 30 (1+) H (Neg-Trace) mg/dL Urine Glucose (UA) >=1000 H (Negative) mg/dL Urine Ketones 15 (Negative) mg/dL Urine Blood Trace H (Negative) Urine Nitrite Negative (Negative) Ur Leukocyte Esterase Negative (Negative) Urine RBC 0-2 (0-2) /HPF Urine WBC 0-5 (0-5) /HPF Ur Squamous Epith Cells 0-2 (0-2) /HPF Urine Bacteria None Seen (None Seen) Hyaline Casts 0-2 (0-2) /LPF Salicylates < 5.0 L (15-30) mg/dL Urine Opiates Screen Not Detected (Not Detect) Ur Buprenorphine Scrn Not Detected (Not Detect) ng/mL Ur Oxycodone Screen Not Detected (Not Detect) ng/mL Urine Methadone Screen Not Detected (Not Detect) ng/mL Urine Fentanyl Screen Not Detected (Not Detect) Acetaminophen 4 (<30) mcg/mL Ur Barbiturates Screen Not Detected (Not Detect) Ur Phencyclidine Scrn Not Detected (Not Detect) Ur Amphetamines Screen Not Detected (Not Detect) U Benzodiazepines Scrn Not Detected (Not Detect) Urine Cocaine Screen Not Detected (Not Detect) U Marijuana (THC) Screen Not Detected (Not Detect) Ethyl Alcohol < 10 mg/dL 10/07/24 10/07/24 10/07/24 Range/Units 14:44 15:49 16:58 WBC (4.8-10.8) X10*3/uL RBC (4.60-5.80) X10*6/uL Hgb (14.0-18.0) g/dl Hct (42.0-52.0) % MCV (80.0-98.0) fL MCH (27.0-33.0) pg MCHC (31.0-36.0) g/dl RDW (11.0-16.0) % Plt Count (160-400) X10*3/uL MPV (9.4-12.4) fL Immature Gran % (Auto) (0.0-0.4) % Neut % (Auto) (45-73) % Lymph % (Auto) (20-40) % [place] % (Auto) (2-11) % Eos % (Auto) (0-4) % Baso % (Auto) (0-2) % Lymph # (Auto) (1.2-4.9) X10*3/uL [place] # (Auto) (0.1-1.2) X10*3/uL Eos # (Auto) (0.0-0.4) X10*3/uL Baso # (Auto) (0.0-0.2) X10*3/uL Abs Immat Gran (auto) (0.00-0.03) X10*3/uL Absolute Neuts (auto) (2.0-8.3) x10*3/uL Absolute Nucleated RBC (0.0-0.012) X10*3/uL Nucleated RBC % (auto) (0.0-0.2) /100WBC Smear Tech's Comments VBG pH 7.42 (7.32-7.43) VBG pCO2 40 mmHg VBG pO2 42 mmHg VBG HCO3 26 (22-26) mmol/L VBG O2 Saturation 54.0 % VBG Base Excess 2.2 mmol/L Sodium (135-145) mmol/L Potassium (3.3-5.1) mmol/L Chloride (96-108) mmol/L Carbon Dioxide (22-29) mmol/L Anion Gap (12-20) BUN (9-16) mg/dL Creatinine (0.5-1.4) mg/dL Estim Creat Clear Calc Estimated GFR POC Glucose 269 H (60-115) mg/dL Random Glucose (60-115) mg/dL Lactic Acid 1.7 (0.5-2.0) mmol/L Calcium (8.4-10.2) mg/dL Phosphorus (2.7-4.5) mg/dL Magnesium 1.6 (1.6-2.6) mg/dL Total Bilirubin (0.0-1.0) mg/dL Direct Bilirubin (0.0-0.5) mg/dL AST (5-37) U/L ALT (0-40) U/L Alkaline Phosphatase (39-117) U/L Ammonia (13-55) umol/L Troponin I High Sens (<3.5-35.0) ng/L B-Natriuretic Peptide (<100) pg/mL Total Protein (6.5-8.0) g/dL Albumin (3.5-5.0) g/dL Lipase (8-78) U/L Beta-Hydroxybutyrate (0.02-0.27) mmol/L TSH 1.32 (0.32-4.0) uIU/mL Urine Color Urine Appearance Urine pH (5.0-9.0) Ur Specific [place] (1.005-1.025) Urine Protein (Neg-Trace) mg/dL Urine Glucose (UA) (Negative) mg/dL Urine Ketones (Negative) mg/dL Urine Blood (Negative) Urine Nitrite (Negative) Ur Leukocyte Esterase (Negative) Urine RBC (0-2) /HPF Urine WBC (0-5) /HPF Ur Squamous Epith Cells (0-2) /HPF Urine Bacteria (None Seen) Hyaline Casts (0-2) /LPF Salicylates (15-30) mg/dL Urine Opiates Screen (Not Detect) Ur Buprenorphine Scrn (Not Detect) ng/mL Ur Oxycodone Screen (Not Detect) ng/mL Urine Methadone Screen (Not Detect) ng/mL Urine Fentanyl Screen (Not Detect) Acetaminophen (<30) mcg/mL Ur Barbiturates Screen (Not Detect) Ur Phencyclidine Scrn (Not Detect) Ur Amphetamines Screen (Not Detect) U Benzodiazepines Scrn (Not Detect) Urine Cocaine Screen (Not Detect) U Marijuana (THC) Screen (Not Detect) Ethyl Alcohol mg/dL 10/07/24 10/07/24 10/07/24 Range/Units 17:15 17:46 17:47 WBC (4.8-10.8) X10*3/uL RBC (4.60-5.80) X10*6/uL Hgb (14.0-18.0) g/dl Hct (42.0-52.0) % MCV (80.0-98.0) fL MCH (27.0-33.0) pg MCHC (31.0-36.0) g/dl RDW (11.0-16.0) % Plt Count (160-400) X10*3/uL MPV (9.4-12.4) fL Immature Gran % (Auto) (0.0-0.4) % Neut % (Auto) (45-73) % Lymph % (Auto) (20-40) % [place] % (Auto) (2-11) % Eos % (Auto) (0-4) % Baso % (Auto) (0-2) % Lymph # (Auto) (1.2-4.9) X10*3/uL [place] # (Auto) (0.1-1.2) X10*3/uL Eos # (Auto) (0.0-0.4) X10*3/uL Baso # (Auto) (0.0-0.2) X10*3/uL Abs Immat Gran (auto) (0.00-0.03) X10*3/uL Absolute Neuts (auto) (2.0-8.3) x10*3/uL Absolute Nucleated RBC (0.0-0.012) X10*3/uL Nucleated RBC % (auto) (0.0-0.2) /100WBC Smear Tech's Comments VBG pH (7.32-7.43) VBG pCO2 mmHg VBG pO2 mmHg VBG HCO3 (22-26) mmol/L VBG O2 Saturation % VBG Base Excess mmol/L Sodium 134 L (135-145) mmol/L Potassium 4.4 (3.3-5.1) mmol/L Chloride 97 (96-108) mmol/L Carbon Dioxide 21 L (22-29) mmol/L Anion Gap 20 (12-20) BUN 69 H (9-16) mg/dL Creatinine 1.38 (0.5-1.4) mg/dL Estim Creat Clear Calc 46.4 Estimated GFR 52 POC Glucose 257 H (60-115) mg/dL Random Glucose 246 H (60-115) mg/dL Lactic Acid (0.5-2.0) mmol/L Calcium 8.6 (8.4-10.2) mg/dL Phosphorus (2.7-4.5) mg/dL Magnesium 1.6 (1.6-2.6) mg/dL Total Bilirubin 0.5 (0.0-1.0) mg/dL Direct Bilirubin 0.2 (0.0-0.5) mg/dL AST 25 (5-37) U/L ALT 15 (0-40) U/L Alkaline Phosphatase 83 (39-117) U/L Ammonia (13-55) umol/L Troponin I High Sens 59.8 H (<3.5-35.0) ng/L B-Natriuretic Peptide (<100) pg/mL Total Protein 5.7 L (6.5-8.0) g/dL Albumin 3.7 (3.5-5.0) g/dL Lipase (8-78) U/L Beta-Hydroxybutyrate 1.18 H Cancelled (0.02-0.27) mmol/L TSH (0.32-4.0) uIU/mL Urine Color Urine Appearance Urine pH (5.0-9.0) Ur Specific [place] (1.005-1.025) Urine Protein (Neg-Trace) mg/dL Urine Glucose (UA) (Negative) mg/dL Urine Ketones (Negative) mg/dL Urine Blood (Negative) Urine Nitrite (Negative) Ur Leukocyte Esterase (Negative) Urine RBC (0-2) /HPF Urine WBC (0-5) /HPF Ur Squamous Epith Cells (0-2) /HPF Urine Bacteria (None Seen) Hyaline Casts (0-2) /LPF Salicylates (15-30) mg/dL Urine Opiates Screen (Not Detect) Ur Buprenorphine Scrn (Not Detect) ng/mL Ur Oxycodone Screen (Not Detect) ng/mL Urine Methadone Screen (Not Detect) ng/mL Urine Fentanyl Screen (Not Detect) Acetaminophen (<30) mcg/mL Ur Barbiturates Screen (Not Detect) Ur Phencyclidine Scrn (Not Detect) Ur Amphetamines Screen (Not Detect) U Benzodiazepines Scrn (Not Detect) Urine Cocaine Screen (Not Detect) U Marijuana (THC) Screen (Not Detect) Ethyl Alcohol mg/dL 10/07/24 10/07/24 10/07/24 Range/Units 17:50 17:51 18:21 WBC 11.0 H (4.8-10.8) X10*3/uL RBC 3.24 L (4.60-5.80) X10*6/uL Hgb 10.2 L (14.0-18.0) g/dl Hct 28.7 L (42.0-52.0) % MCV 88.6 (80.0-98.0) fL MCH 31.5 (27.0-33.0) pg MCHC 35.5 (31.0-36.0) g/dl RDW 12.4 (11.0-16.0) % Plt Count 117 L (160-400) X10*3/uL MPV 10.8 (9.4-12.4) fL Immature Gran % (Auto) 0.5 H (0.0-0.4) % Neut % (Auto) 74.0 H (45-73) % Lymph % (Auto) 18.2 L (20-40) % [place] % (Auto) 6.7 (2-11) % Eos % (Auto) 0.1 (0-4) % Baso % (Auto) 0.5 (0-2) % Lymph # (Auto) 2.0 (1.2-4.9) X10*3/uL [place] # (Auto) 0.7 (0.1-1.2) X10*3/uL Eos # (Auto) 0.0 (0.0-0.4) X10*3/uL Baso # (Auto) 0.1 (0.0-0.2) X10*3/uL Abs Immat Gran (auto) 0.06 H (0.00-0.03) X10*3/uL Absolute Neuts (auto) 8.1 (2.0-8.3) x10*3/uL Absolute Nucleated RBC 0.020 H (0.0-0.012) X10*3/uL Nucleated RBC % (auto) 0.2 (0.0-0.2) /100WBC Smear Tech's Comments VBG pH 7.39 (7.32-7.43) VBG pCO2 42 mmHg VBG pO2 68 mmHg VBG HCO3 26 (22-26) mmol/L VBG O2 Saturation 87.0 % VBG Base Excess 1.0 mmol/L Sodium (135-145) mmol/L Potassium (3.3-5.1) mmol/L Chloride (96-108) mmol/L Carbon Dioxide (22-29) mmol/L Anion Gap (12-20) BUN (9-16) mg/dL Creatinine (0.5-1.4) mg/dL Estim Creat Clear Calc Estimated GFR POC Glucose 188 H (60-115) mg/dL Random Glucose (60-115) mg/dL Lactic Acid (0.5-2.0) mmol/L Calcium (8.4-10.2) mg/dL Phosphorus (2.7-4.5) mg/dL Magnesium (1.6-2.6) mg/dL Total Bilirubin (0.0-1.0) mg/dL Direct Bilirubin (0.0-0.5) mg/dL AST (5-37) U/L ALT (0-40) U/L Alkaline Phosphatase (39-117) U/L Ammonia (13-55) umol/L Troponin I High Sens (<3.5-35.0) ng/L B-Natriuretic Peptide 504 H (<100) pg/mL Total Protein (6.5-8.0) g/dL Albumin (3.5-5.0) g/dL Lipase (8-78) U/L Beta-Hydroxybutyrate (0.02-0.27) mmol/L TSH (0.32-4.0) uIU/mL Urine Color Urine Appearance Urine pH (5.0-9.0) Ur Specific [place] (1.005-1.025) Urine Protein (Neg-Trace) mg/dL Urine Glucose (UA) (Negative) mg/dL Urine Ketones (Negative) mg/dL Urine Blood (Negative) Urine Nitrite (Negative) Ur Leukocyte Esterase (Negative) Urine RBC (0-2) /HPF Urine WBC (0-5) /HPF Ur Squamous Epith Cells (0-2) /HPF Urine Bacteria (None Seen) Hyaline Casts (0-2) /LPF Salicylates (15-30) mg/dL Urine Opiates Screen (Not Detect) Ur Buprenorphine Scrn (Not Detect) ng/mL Ur Oxycodone Screen (Not Detect) ng/mL Urine Methadone Screen (Not Detect) ng/mL Urine Fentanyl Screen (Not Detect) Acetaminophen (<30) mcg/mL Ur Barbiturates Screen (Not Detect) Ur Phencyclidine Scrn (Not Detect) Ur Amphetamines Screen (Not Detect) U Benzodiazepines Scrn (Not Detect) Urine Cocaine Screen (Not Detect) U Marijuana (THC) Screen (Not Detect) Ethyl Alcohol mg/dL 10/07/24 10/07/24 10/07/24 Range/Units 18:24 19:25 20:18 WBC (4.8-10.8) X10*3/uL RBC (4.60-5.80) X10*6/uL Hgb (14.0-18.0) g/dl Hct (42.0-52.0) % MCV (80.0-98.0) fL MCH (27.0-33.0) pg MCHC (31.0-36.0) g/dl RDW (11.0-16.0) % Plt Count (160-400) X10*3/uL MPV (9.4-12.4) fL Immature Gran % (Auto) (0.0-0.4) % Neut % (Auto) (45-73) % Lymph % (Auto) (20-40) % [place] % (Auto) (2-11) % Eos % (Auto) (0-4) % Baso % (Auto) (0-2) % Lymph # (Auto) (1.2-4.9) X10*3/uL [place] # (Auto) (0.1-1.2) X10*3/uL Eos # (Auto) (0.0-0.4) X10*3/uL Baso # (Auto) (0.0-0.2) X10*3/uL Abs Immat Gran (auto) (0.00-0.03) X10*3/uL Absolute Neuts (auto) (2.0-8.3) x10*3/uL Absolute Nucleated RBC (0.0-0.012) X10*3/uL Nucleated RBC % (auto) (0.0-0.2) /100WBC Smear Tech's Comments VBG pH (7.32-7.43) VBG pCO2 mmHg VBG pO2 mmHg VBG HCO3 (22-26) mmol/L VBG O2 Saturation % VBG Base Excess mmol/L Sodium (135-145) mmol/L Potassium (3.3-5.1) mmol/L Chloride (96-108) mmol/L Carbon Dioxide (22-29) mmol/L Anion Gap (12-20) BUN (9-16) mg/dL Creatinine (0.5-1.4) mg/dL Estim Creat Clear Calc Estimated GFR POC Glucose 193 H 202 H 259 H (60-115) mg/dL Random Glucose (60-115) mg/dL Lactic Acid (0.5-2.0) mmol/L Calcium (8.4-10.2) mg/dL Phosphorus (2.7-4.5) mg/dL Magnesium (1.6-2.6) mg/dL Total Bilirubin (0.0-1.0) mg/dL Direct Bilirubin (0.0-0.5) mg/dL AST (5-37) U/L ALT (0-40) U/L Alkaline Phosphatase (39-117) U/L Ammonia (13-55) umol/L Troponin I High Sens (<3.5-35.0) ng/L B-Natriuretic Peptide (<100) pg/mL Total Protein (6.5-8.0) g/dL Albumin (3.5-5.0) g/dL Lipase (8-78) U/L Beta-Hydroxybutyrate (0.02-0.27) mmol/L TSH (0.32-4.0) uIU/mL Urine Color Urine Appearance Urine pH (5.0-9.0) Ur Specific [place] (1.005-1.025) Urine Protein (Neg-Trace) mg/dL Urine Glucose (UA) (Negative) mg/dL Urine Ketones (Negative) mg/dL Urine Blood (Negative) Urine Nitrite (Negative) Ur Leukocyte Esterase (Negative) Urine RBC (0-2) /HPF Urine WBC (0-5) /HPF Ur Squamous Epith Cells (0-2) /HPF Urine Bacteria (None Seen) Hyaline Casts (0-2) /LPF Salicylates (15-30) mg/dL Urine Opiates Screen (Not Detect) Ur Buprenorphine Scrn (Not Detect) ng/mL Ur Oxycodone Screen (Not Detect) ng/mL Urine Methadone Screen (Not Detect) ng/mL Urine Fentanyl Screen (Not Detect) Acetaminophen (<30) mcg/mL Ur Barbiturates Screen (Not Detect) Ur Phencyclidine Scrn (Not Detect) Ur Amphetamines Screen (Not Detect) U Benzodiazepines Scrn (Not Detect) Urine Cocaine Screen (Not Detect) U Marijuana (THC) Screen (Not Detect) Ethyl Alcohol mg/dL Independent Interpretation I performed an independent interpretation of an: EKG Interpretation: EKG atrial fibrillation with rapid ventricular response at a ventricular rate of 150 beats per minute, no STEMI. Radiology Impression Discussion of test interpretation with radiology: I have reviewed the radiologist's reading. Radiologist Impression: [place] [id number] XRay Report Signed Patient: Des Davalos MR#: [id number] : 1960 Acct:[id number] Age/Sex: 64 / M ADM Date: 10/07/24 Loc: .ED Attending Dr: Ordering Physician: Demetris Tovar Date of Service: 10/07/24 Procedure(s): XR chest 1V Accession Number(s): [id number] cc: Demetris Tovar~ EXAMINATION: XR CHEST 1 VIEW HISTORY: pain COMPARISON: Comparison is made with the prior examination dated 04/29/2023. FINDINGS: A single AP portable view of the chest performed at 2:54 PM is submitted. The lungs are expanded and clear. There is no pleural effusion, pneumothorax, or pulmonary vascular congestion. The heart is normal in size. There is degenerative disc disease of the spine. XR/XR chest 1V IMPRESSION: No acute cardiopulmonary abnormality. Electronically signed by: Polo Molina MD 10/07/2024 03:07 PM EDT RP Dictated By: Polo Molina MD Impression: 1. Study limited by lack of intravenous contrast. 2. Question mild enteritis. No findings of obstruction. 3. Colonic diverticulosis without diverticulitis. 4. Extensive vasculopathy. 5. Concentric wall thickening of the urinary bladder suggestive of cystitis. This document has been electronically signed by: Tyler Peter MD on 10/07/2024 21:16:02 Dictated By: Tyler Peter MD External Record Review External record reviewed: Inpatient record, Office record, Outpatient record, Prior outpatient labs, Prior outpatient radiology, Primary care record and Outside ED record Critical Care Time Critical Care Time Critical Care Time: Yes Total Critical Care Time: 101 Attestation: I have personally provided critical care time exclusive of time spent on separately billable procedures. Time includes review of lab data, radiology results, discussion with consultants, and monitoring for potential decompensation. Intervention performed as documented. Discharge Plan Discharge Clinical Impression: Alcohol withdrawal syndrome, Atrial fibrillation with rapid ventricular response, Hyperglycemia Patient Disposition: Admitted As Inpatient Interventions: Admission Worksheet (ED) Last Done: 10/08/24 14:10 Discharge Date/Time: 10/08/24 16:42
--- NOTE | 2024-10-07 13:34 | ECG_ITS ---
Test Reason : Arrhythmia Blood Pressure : */* mmHG Vent. Rate : 150 BPM Atrial Rate : * BPM P-R Int : * ms QRS Dur : 82 ms QT Int : 292 ms P-R-T Axes : * -16 99 degrees QTcB Int : 461 ms Atrial fibrillation with rapid ventricular response T wave abnormality, consider lateral ischemia Abnormal ECG When compared with ECG of 05-Jan-2024 10:12, Atrial fibrillation has replaced Sinus rhythm Vent. rate has increased by 64 bpm Criteria for Inferior infarct are no longer Present Nonspecific T wave abnormality no longer evident in Inferior leads T wave inversion now evident in Lateral leads Referred By: Demetris Tovar Electronically Signed By: KVNG HAIDER MD
[2024-10-07 14:22] LABS: Acetaminophen LAB 4 mcg/mL (<30); Salicylate < 5.0 mg/dL (15-30)
[2024-10-07 14:23] LABS: Alanine Aminotransferase 14 U/L (0-40); Alkaline Phosphatase 98 U/L (39-117); Anion Gap 23 (12-20); Aspartate Amino Transferase 26 U/L (5-37); Bilirubin Total 0.7 mg/dL (0.0-1.0); Blood Urea Nitrogen 74 mg/dL (9-16); Calcium 8.8 mg/dL (8.4-10.2); Carbon Dioxide 24 mmol/L (22-29); Chloride 84 mmol/L (96-108); Creatinine Clr Calc Pharmacy 39.1; Estimated Glomerular Filt Rate 43; Ethanol < 10 mg/dL; Lipase 76 U/L (8-78); Magnesium 1.6 mg/dL (1.6-2.6); Phosphorus 2.4 mg/dL (2.7-4.5); Potassium 4.5 mmol/L (3.3-5.1); Sodium 126 mmol/L (135-145); Total Protein 6.2 g/dL (6.5-8.0)
[2024-10-07 14:25] LABS: Glucose Random 663 mg/dL (60-115)
[2024-10-07 14:26] LABS: Troponin-I High Sensitivity 69.5 ng/L (<3.5-35.0)
[2024-10-07 14:27] LABS: Basophils Percent Auto 0.1 % (0-2); Hematocrit 31.4 % (42.0-52.0); Imm Gran Abs Auto 0.09 X10*3/uL (0.00-0.03); Imm Gran Pct Auto 0.7 % (0.0-0.4); Lymphocytes Absolute Auto 1.9 X10*3/uL (1.2-4.9); Lymphocytes Percent Auto 14.2 % (20-40); MANUAL DIFF FLAG SCAN; Mean Corpuscular Volume 85.8 fL (80.0-98.0); Mean Platelet Volume 10.4 fL (9.4-12.4); Monocytes Absolute Auto 0.8 X10*3/uL (0.1-1.2); Monocytes Percent Auto 5.8 % (2-11); Neutrophils Absolute Auto 10.7 x10*3/uL (2.0-8.3); Neutrophils Percent Auto 79.2 % (45-73); Platelet Count 115 X10*3/uL (160-400); Red Blood Count 3.66 X10*6/uL (4.60-5.80); Red Cell Distribution Width 12.5 % (11.0-16.0); SCAN SMEAR FLAG 1; White Blood Count 13.5 X10*3/uL (4.8-10.8)
[2024-10-07] MEDS: PHENobarbitaL sodium 130 MG/ML IM ONCE 264 MG IM (14:35)
[2024-10-07] MEDS: 0.9 % Sodium Chloride 1,000 ML 999 ML IVCONT (14:36)
[2024-10-07 14:37] LABS: Hemoglobin 10.5 g/dl (14.0-18.0); Mean Corpuscular HGB Conc 33.4 g/dl (31.0-36.0); Mean Corpuscular Hemoglobin 28.7 pg (27.0-33.0)
[2024-10-07 14:48] LABS: SLIDE REVIEW VERIFIED
[2024-10-07 14:48] LABS: Venous Blood Gas Refer to POC result
[2024-10-07 14:48] LABS: VBG Base Excess 2.2 mmol/L; VBG HCO3 26 mmol/L (22-26); VBG pCO2 40 mmHg; VBG pH 7.42 (7.32-7.43); VBG pO2 42 mmHg
[2024-10-07 14:52] LABS: Appearance Urine Clear; Color Urine Yellow; Glucose Urine UA >=1000 mg/dL (Negative); Leukocyte Esterase Urine Negative (Negative); Nitrite Urine Negative (Negative); Specific Gravity - Urine 1.025 (1.005-1.025); UMIC TRIGGER UACC YES; Urine Blood Trace (Negative); Urine Ketones 15 mg/dL (Negative); Urine Protein 30 (1+) mg/dL (Neg-Trace)
[2024-10-07 14:54] LABS: Bacteria Urine None Seen (None Seen); Hyaline Casts Urine 0-2 /LPF (0-2); RBC Urine 0-2 /HPF (0-2); Squamous Epithelial Cell Urine 0-2 /HPF (0-2); WBC Urine 0-5 /HPF (0-5)
[2024-10-07 15:00] LABS: Ammonia 29 umol/L (13-55)
[2024-10-07 15:02] LABS: Amphetamine Screen Urine Not Detected (Not Detect); Barbiturates, Urine Not Detected (Not Detect); Benzodiazepines Screen Urine Not Detected (Not Detect); Buprenorphine Scr Not Detected (Not Detect); Cannabinoid Screen Urine Not Detected (Not Detect); Cocaine Screen Urine Not Detected (Not Detect); Fentanyl, urine Not Detected (Not Detect); Methadone Screen, Urine Not Detected (Not Detect); Opiate Screen Urine Not Detected (Not Detect); Oxycodone Screen Urine Not Detected (Not Detect); Phencyclidine Screen Urine Not Detected (Not Detect)
[2024-10-07 15:07] LABS: Beta-Hydroxybutyrate 3.04 mmol/L (0.02-0.27)
[2024-10-07] MEDS: Thiamine HCL 100 MG in 0.9 % Sodium Chloride 100 ML 202 MG IV (15:15)
[2024-10-07] MEDS: Insulin Regular, Human 100 UNIT/ML 10 ML VIAL 6 UNIT IVPUSH (15:46)
[2024-10-07] MEDS: Insulin Regular/NS 100 UNIT/100 ML PLAST..BAG 6 UNIT IVCONT (15:48)
[2024-10-07] MEDS: Lactated Ringers 2,000 ML 999 ML IV ×4 (15:56→22:15)
[2024-10-07 16:11] LABS: Lactic Acid 1.7 mmol/L (0.5-2.0)
[2024-10-07 16:17] LABS: Magnesium 1.6 mg/dL (1.6-2.6)
[2024-10-07 16:31] LABS: TSH reflex Free T4 1.32 uIU/mL (0.32-4.0)
--- NOTE | 2024-10-07 17:01 | PC.NURSE ---
Insulin drip stopped due to rapidly decreasing glucose levels. Infusion stopped at 17:01 on 10/07/2024, entered into EMAR, witnessed by Nancy Jesus RN. Wasted remaining medication into medication disposal receptacle. Per provider, wishes to discontinue infusion at this time.
[2024-10-07 17:04] LABS: Glucose, Whole Blood 269 mg/dL (60-115)
[2024-10-07 17:19] LABS: Glucose, Whole Blood 257 mg/dL (60-115)
--- OUTSIDE RECORDS SUMMARY | 2024-10-07 17:25 | XMS_ITS | Clinical Summary ---
Author Organization [facility] [address] [place] [address] [address] [place] [address] Phone Care Team Providers Care Health Coordinator Name Role Phone Blayne Hagan MD Primary Care Provider [phone] Allergies Active Allergy Reactions Criticality Noted Date [...] Noted Date Diagnosed Date Dilation of aorta ([facility] V24) 12/13/2023 Overview (03/22/2024): Aortic sinus dilation 4.2 noted on echo 11/21/2023 Stage 3a chronic kidney disease ([facility] V24, [facility] /[facility] V28) 09/22/2020 Vitamin D deficiency 10/11/2019 Skin mass 01/12/2016 Overview (03/22/2024): c/w lipoma on the back around t-8 Diabetic neuropathy ([facility] V24, [facility] V28) 0 08/05/2014 Erectile dysfunction associa luisana with type 2 diabetes mellitus ([facility] V24, [facility] V28) 03/26/2013 Amphetamine or stimulant checo g abuse ([facility] V24, [facility] V28) 11/30/2012 Overview (03/22/2024): Ritalin: Using more than prescribed, then was snorting to get high; also abusing alcohol at the same time. Stopped, per patient 11/21/12. Did have Detox via [employer] 11/24-11/28/12. Microalbuminuria 03/30/2012 HTN (hypertension) 2012 ADD [...] associa luisana with type 2 diabetes mellitus ([facility] V24, [facility] V28) 03/26/2013 DX:Erectile dysfunction asso ciated with type 2 diabetes mellitus ([facility]) Family History Medical History Relation Name Comments [...] 1971 Diabetes: Annual Retina Eye Exam 1971 Hepatitis A Vaccines (1 of 2 - Risk 2-dose series) 01/19/1980 Pneumococcal Vaccine: 50+ Years (1 of 2 [...] PM EDT Narrative 01/22/2024 4:14 PM EDT [facility] Diagnostic Imaging Department [address] [place] [id number] Patient: ??DES DAVALOS ?/Age/Sex: 1960 - 64 - M Unit#: ??[id number] ? Location/Status: ??SPDICATLS/REG CLI ? Mnemonic/Ordering Site: [...] Procedure Note Mandie Zapata MD - 02/14/2024 [facility] Diagnostic Imaging Department [address] [place] [address] Patient: DES DAVALOS /Age/Sex: 1960 - 64 - M Unit#: [id number] Location/Status: [facility] Mnemonic/Ordering Site: [facility] Ordering Physician: AGUILA DEL REAL MD CT [...] 01/22/24 1611 Sign date/Time: 01/22/24 1614 Result [facility] Aguila Del Real MD IMG CT PROCEDURES Final Result * (ABNORMAL) Lipid panel (08/21/2023) [facility] LDL/HDL Ratio 4 0 - 4 Triglycerides 158(A) 0 - 150 mg/dL Cholesterol 183 0 - 200 mg/dL HDL 49 >=40 mg/dL LDL Cholesterol 103(A) 0 - 100 mg/dL Blood Venous blood specimen / Unknown Result [facility] Provider LAB BLOOD ORDERABLES Kacie l Result * (ABNORMAL) Hemoglobin A1c (08/09/2023) [facility] Hemoglobin A1C 7.4(A) <=6.5 % Blood Venous blood specimen / Unknown Result [facility] Historical Gena OVERTON LAB BLOOD ORDERABLES Kacie l Result * Urine Albumin Creatinine Ratio (01/30/2023) [facility] Urine Albumin Creatinine Ratio Abstracted Result [facility] Provider HEALTH MAINTENANCE Final Result * Annual BMP Blood Test (01/30/2023) [facility] Annual BMP Blood Test Abstracted Historical Provider HEALTH MAINTENANCE Final Result * Hepatitis C Screening (03/26/2013) Hepatitis C Screening Abstracted Historical Provider HEALTH MAINTENANCE Final Result * Colonoscopy (05/03/2012) Colonoscopy No Interpretation , Abstracted Anatomical Region Laterality Modality Other Historical Provider HEALTH MAINTENANCE Final Result from Last 3 Months or Most Recently Relevant to Health Maintenance Insurance [facility] Care Teams Health Coordinator Relationship Specialty Start Date End Date Blayne Hagan MD [address] [place] [id number] PCP - General Internal Medicine 01/29/11
[2024-10-07] MEDS: PHENobarbitaL sodium 130 MG/ML VIAL IM Q3Hx2 198 MG IM ×2 (17:48→20:42)
[2024-10-07 17:54] LABS: VBG HCO3 26 mmol/L (22-26); VBG pCO2 42 mmHg; VBG pH 7.39 (7.32-7.43); VBG pO2 68 mmHg
[2024-10-07 17:55] LABS: Glucose, Whole Blood 188 mg/dL (60-115)
[2024-10-07 17:55] LABS: Venous Blood Gas Refer to POC result
[2024-10-07 18:08] LABS: Alanine Aminotransferase 15 U/L (0-40); Albumin Level 3.7 g/dL (3.5-5.0); Alkaline Phosphatase 83 U/L (39-117); Anion Gap 20 (12-20); Aspartate Amino Transferase 25 U/L (5-37); Beta-Hydroxybutyrate 1.18 mmol/L (0.02-0.27); Bilirubin Direct 0.2 mg/dL (0.0-0.5); Bilirubin Total 0.5 mg/dL (0.0-1.0); Blood Urea Nitrogen 69 mg/dL (9-16); Calcium 8.6 mg/dL (8.4-10.2); Carbon Dioxide 21 mmol/L (22-29); Chloride 97 mmol/L (96-108); Creatinine Clr Calc Pharmacy 46.4; Estimated Glomerular Filt Rate 52; Glucose Random 246 mg/dL (60-115); Magnesium 1.6 mg/dL (1.6-2.6); Potassium 4.4 mmol/L (3.3-5.1); Sodium 134 mmol/L (135-145); Total Protein 5.7 g/dL (6.5-8.0)
[2024-10-07 18:14] LABS: Troponin-I High Sensitivity 59.8 ng/L (<3.5-35.0)
[2024-10-07 18:28] LABS: Glucose, Whole Blood 193 mg/dL (60-115)
[2024-10-07 18:50] LABS: Basophils Absolute Auto 0.1 X10*3/uL (0.0-0.2); Basophils Percent Auto 0.5 % (0-2); Eosinophils Percent Auto 0.1 % (0-4); Hematocrit 28.7 % (42.0-52.0); Hemoglobin 10.2 g/dl (14.0-18.0); Imm Gran Abs Auto 0.06 X10*3/uL (0.00-0.03); Imm Gran Pct Auto 0.5 % (0.0-0.4); Lymphocytes Percent Auto 18.2 % (20-40); MANUAL DIFF FLAG SCAN; Mean Corpuscular HGB Conc 35.5 g/dl (31.0-36.0); Mean Corpuscular Hemoglobin 31.5 pg (27.0-33.0); Mean Corpuscular Volume 88.6 fL (80.0-98.0); Mean Platelet Volume 10.8 fL (9.4-12.4); Monocytes Absolute Auto 0.7 X10*3/uL (0.1-1.2); Monocytes Percent Auto 6.7 % (2-11); NRBC Pct Auto 0.2 /100WBC (0.0-0.2); Neutrophils Absolute Auto 8.1 x10*3/uL (2.0-8.3); PLT CLUMP 1; Red Blood Count 3.24 X10*6/uL (4.60-5.80); Red Cell Distribution Width 12.4 % (11.0-16.0); SCAN SMEAR FLAG 1
[2024-10-07 19:19] LABS: Platelet Count 117 X10*3/uL (160-400)
[2024-10-07 19:30] LABS: Glucose, Whole Blood 202 mg/dL (60-115)
[2024-10-07] MEDS: dilTIAZem HCL 125 MG in 0.9 % Sodium Chloride 100 ML 10 MG IVCONT (19:35)
[2024-10-07 20:23] LABS: Glucose, Whole Blood 259 mg/dL (60-115)
[2024-10-07] MEDS: Insulin Regular, Human 100 UNIT/ML 10 ML VIAL IVPUSH (20:40)
[2024-10-07] MEDS: diazePAM 10 MG/2 ML CARTRIDGE 7.5 MG IVPUSH (20:41)
[2024-10-07] MEDS: dilTIAZem HCL 50 MG/10 ML VIAL IVPUSH (20:41)
--- NOTE | 2024-10-07 20:59 | PC.NURSE ---
Delayed note by this RN: Dr. Cui to bedside with ultrasound at 20:45, noted to have excess fluid in lungs (per provider). Plan to repeat chest xray. Patient has been tachycardic (150s-180s) throughout this RN's shift. Just given 3rd IM dose of Phenobarbital, Valium 7.5mg, Insulin 5 units, Diltiazem 5mg, and Diltiazem drip is infusing at 15 mg/hour (max rate) since 19:50. Patient has bilateral IV access (18g L AC, 20g R AC). Hourly POC Glucoses continue. Was previously on Insulin drip, has been paused/disconnected since 17:01 due to significant shift/drop in glucose (600s to 200s) per NOLAN Vazquez & MD Basilia. Originally planned for ICU admission, currently plan to admit to [facility] on Diltiazem drip. HR now 110s-130s on cardiac monitoring. ETOH use daily, last drink on Monday. Seeking detox. Pleasant/cooperative/calm. Diabetic, normally takes Trulicity but hasn't in a few weeks because it's too expensive, I can't afford it . Provider aware of this.
--- NOTE | 2024-10-07 21:22 | P.HPHOSP_ITS ---
History of Present Illness Date of Service: 10/07/24 Chief Complaint: Alcohol withdrawal This has a 64-year-old male with pertinent history of alcohol use disorder, hypertension, mood disorder, rgr-mocqwrk-vlejenezw diabetes mellitus, chronic kidney disease stage 3 who presents to the emergency department for concerns of alcohol withdrawal and seeking alcohol detox. Patient states his last drink was on the day of presentation. Does have a history of alcohol withdrawal including alcohol withdrawal seizures. States he has been having nausea, tremors and occasional visual hallucinations since he stopped drinking. Does endorse that he has not been taking his home medications including antihyperglycemics. Endorses palpitations, denies fever, chills, chest pain, shortness of breath, abdominal pain, changes in urinary or bowel habits. In the emergency department, serum glucose found to be 663, creatinine 1.64 sodium 126. Patient was given IV insulin and IV crystalloids in the ER. Also noted to be in AFib with RVR and started on IV diltiazem drip. Review of Systems 2 Constitutional: Constitutional: Reports fatigue, Reports malaise and Reports weakness Cardiovascular: Cardiovascular: Reports rapid heart rate Respiratory: Respiratory: Reports no additional respiratory complaints Gastrointestinal: Gastrointestinal: Reports no additional gastrointestinal complaints Genitourinary: Genitourinary: Reports no additional male genitourinary complaints Neurologic: Reports weakness Endocrine: Endocrine: Reports fatigue [facility] Medical History Stage 3 chronic kidney disease Hypertension Diabetes ETOH abuse Pertinent family history: Not significant Social History Household Members: Spouse Housing: House Do you presently have visiting nurse or other home services: No Alcohol intake: current Alcohol intake frequency: a few times a week Alcohol type: hard liquor Patient Tobacco Use Status: Current everyday Tobacco user Tobacco use type: Cigarette Cigarettes Per Day: 10 Substance Use Type: Marijuana Advance Directives: No Advance Directives Information Provided: No Do you have a plan to hurt others: No Plan Meds Allergies Allergy/AdvReac Type Severity Reaction Status Date / Time metformin Allergy Intermediate Swelling Verified 10/07/24 13:35 Active Medications: Current Medications Acetaminophen (Acetaminophen 325 Mg Tablet) 650 mg PO Q6H PRN PRN Reason: Pain, Mild 1-3,fever,headache Calcium Carbonate (Calcium Carbonate 750 Mg Tab.Chew) 750 mg PO Q4H PRN PRN Reason: Heartburn Dextrose (Dextrose 50 % 25 Gm/50 Ml Syringe) 25 gm IVPUSH Q30M PRN PRN Reason: BG < 70 Lactated Ringer's (Lr) 2,000 mls @ 999 mls/hr IV .Q2H1M PENDING SALE TO [facility] Last Infusion: 10/07/24 19:53 Dose: Infused Insulin Human Regular (Myxredlin) 100 unit in 100 mls @ 6 mls/hr IVCONT .[id number] PENDING SALE TO [facility]; Protocol Last Titration: 10/07/24 17:01 Dose: 0 unit/hr, 0 mls/hr Diltiazem HCl 125 mg/ Sodium (Chloride) 125 mls @ 0 mls/hr IVCONT .Q0M PENDING SALE TO [facility]; Protocol Last Titration: 10/07/24 19:50 Dose: 15 mg/hr, 15 mls/hr Magnesium Hydroxide (Milk Of Magnesia 30 Ml Oral.Susp) 30 ml PO DAILY PRN PRN Reason: Constipation Melatonin (Melatonin 3 Mg Tablet) 6 mg PO BEDTIME PRN PRN Reason: Insomnia Pharmacy Consult (Consult Rx Etoh Phenob Im/Po) 1 each MISCELLANE ONCE PRN; Protocol PRN Reason: Consult order Phenobarbital (Phenobarbital 15 Mg Tablet) 45 mg PO BID PENDING SALE TO [facility] Stop: 10/09/24 09:01 Phenobarbital (Phenobarbital 30 Mg Tablet) 30 mg PO BID PENDING SALE TO [facility] Stop: 10/11/24 09:01 Phenobarbital (Phenobarbital 30 Mg Tablet) 30 mg PO BEDTIME PENDING SALE TO [facility] Stop: 10/12/24 21:01 Sodium Chloride (0.9 % Sodium Chloride Flush 3 Ml Syringe) [facility] Medications ?Medication ?Instructions ?Recorded ?Confirmed ?Last Taken ?Type atenolol 25 mg tablet 25 mg PO DAILY 01/05/24 01/05/24 01/04/24 History citalopram 20 mg tablet 20 mg PO DAILY 01/05/24 01/05/24 01/04/24 History dulaglutide 0.75 mg/0.5 mL 0.75 mg subcut FR 01/05/24 01/05/24 01/05/24 History subcutaneous pen injector (Trulicity) gabapentin 800 mg tablet 800 mg PO TID 01/05/24 01/05/24 01/04/24 History glipizide 10 mg tablet 10 mg PO DAILY 09/10/2201/05/24 01/04/24 History lisinopril 20 mg tablet 20 mg PO DAILY 01/05/24 01/05/24 01/04/24 History methylphenidate HCl 10 mg tablet 10 mg PO TID 01/05/24 01/05/24 01/04/24 History simvastatin 10 mg tablet 10 mg PO BEDTIME 01/05/24 01/05/24 01/04/24 History Physical Exam 2 Vital Signs and Narrative: Vital Signs: Last Vital Signs Temp 98.3 F 10/07/24 18:25 Pulse 136 H 10/07/24 20:41 Resp 15 10/07/24 18:25 BP 135/81 10/07/24 20:41 Pulse Ox 96 10/07/24 18:25 O2 Del Method Room Air 10/07/24 18:25 BMI result Body Mass Index 20.7 Middle-aged male lying in bed in no distress Neck supple Irregularly irregular, S1-S2 heard Bilateral crackles heard Abdomen soft nontender, no guarding, no rigidity Patient is lethargic but awakens to verbal stimulus, oriented x3 ; no focal motor deficit Psych: Drowsy No pedal edema Results Labs 10/07/24 18:21 10/07/24 17:46 Labs: Laboratory Results - last 24 hr 10/07/24 10/07/24 10/07/24 14:00 14:01 14:40 MCV 85.8 MCH 28.7 MCHC 33.4 RDW 12.5 Plt Count 115 L D MPV 10.4 Immature Gran % (Auto) 0.7 H Neut % (Auto) 79.2 H Lymph % (Auto) 14.2 L Woods % (Auto) 5.8 Eos % (Auto) 0.0 Baso % (Auto) 0.1 Lymph # (Auto) 1.9 Woods # (Auto) 0.8 Eos # (Auto) 0.0 Baso # (Auto) 0.0 Abs Immat Gran (auto) 0.09 H Absolute Neuts (auto) 10.7 H Absolute Nucleated RBC 0.000 Nucleated RBC % (auto) 0.0 Smear Tech's Comments VERIFIED VBG pH VBG pCO2 VBG pO2 VBG HCO3 VBG O2 Saturation VBG Base Excess Anion Gap 23 H Estim Creat Clear Calc 39.1 Estimated GFR 43 POC Glucose Random Glucose 663 H* Lactic Acid Calcium 8.8 D Phosphorus 2.4 L Magnesium 1.6 Total Bilirubin 0.7 Direct Bilirubin AST 26 ALT 14 Alkaline Phosphatase 98 Ammonia 29 Troponin I High Sens 69.5 H D Total Protein 6.2 L Albumin 4.0 Lipase 76 Beta-Hydroxybutyrate 3.04 H TSH Urine Color Yellow Urine Appearance Clear Urine pH 6.0 Ur Specific Nazlini 1.025 Urine Protein 30 (1+) H Urine Glucose (UA) >=1000 H Urine Ketones 15 Urine Blood Trace H Urine Nitrite Negative Ur Leukocyte Esterase Negative Urine RBC 0-2 Urine WBC 0-5 Ur Squamous Epith Cells 0-2 Urine Bacteria None Seen Hyaline Casts 0-2 Salicylates < 5.0 L Urine Opiates Screen Not Detected Ur Buprenorphine Scrn Not Detected Ur Oxycodone Screen Not Detected Urine Methadone Screen Not Detected Urine Fentanyl Screen Not Detected Acetaminophen 4 Ur Barbiturates Screen Not Detected Ur Phencyclidine Scrn Not Detected Ur Amphetamines Screen Not Detected U Benzodiazepines Scrn Not Detected Urine Cocaine Screen Not Detected U Marijuana (THC) Screen Not Detected Ethyl Alcohol < 10 10/07/24 10/07/24 10/07/24 14:44 15:49 16:58 MCV MCH MCHC RDW Plt Count MPV Immature Gran % (Auto) Neut % (Auto) Lymph % (Auto) Woods % (Auto) Eos % (Auto) Baso % (Auto) Lymph # (Auto) Woods # (Auto) Eos # (Auto) Baso # (Auto) Abs Immat Gran (auto) Absolute Neuts (auto) Absolute Nucleated RBC Nucleated RBC % (auto) Smear Tech's Comments VBG pH 7.42 VBG pCO2 40 VBG pO2 42 VBG HCO3 26 VBG O2 Saturation 54.0 VBG Base Excess 2.2 Anion Gap Estim Creat Clear Calc Estimated GFR POC Glucose 269 H Random Glucose Lactic Acid 1.7 Calcium Phosphorus Magnesium 1.6 Total Bilirubin Direct Bilirubin AST ALT Alkaline Phosphatase Ammonia Troponin I High Sens Total Protein Albumin Lipase Beta-Hydroxybutyrate TSH 1.32 Urine Color Urine Appearance Urine pH Ur Specific Nazlini Urine Protein Urine Glucose (UA) Urine Ketones Urine Blood Urine Nitrite Ur Leukocyte Esterase Urine RBC Urine WBC Ur Squamous Epith Cells Urine Bacteria Hyaline Casts Salicylates Urine Opiates Screen Ur Buprenorphine Scrn Ur Oxycodone Screen Urine Methadone Screen Urine Fentanyl Screen Acetaminophen Ur Barbiturates Screen Ur Phencyclidine Scrn Ur Amphetamines Screen U Benzodiazepines Scrn Urine Cocaine Screen U Marijuana (THC) Screen Ethyl Alcohol 10/07/24 10/07/24 10/07/24 17:15 17:46 17:47 MCV MCH MCHC RDW Plt Count MPV Immature Gran % (Auto) Neut % (Auto) Lymph % (Auto) Woods % (Auto) Eos % (Auto) Baso % (Auto) Lymph # (Auto) Woods # (Auto) Eos # (Auto) Baso # (Auto) Abs Immat Gran (auto) Absolute Neuts (auto) Absolute Nucleated RBC Nucleated RBC % (auto) Smear Tech's Comments VBG pH VBG pCO2 VBG pO2 VBG HCO3 VBG O2 Saturation VBG Base Excess Anion Gap 20 Estim Creat Clear Calc 46.4 Estimated GFR 52 POC Glucose 257 H Random Glucose 246 H Lactic Acid Calcium 8.6 Phosphorus Magnesium 1.6 Total Bilirubin 0.5 Direct Bilirubin 0.2 AST 25 ALT 15 Alkaline Phosphatase 83 Ammonia Troponin I High Sens 59.8 H Total Protein 5.7 L Albumin 3.7 Lipase Beta-Hydroxybutyrate 1.18 H Cancelled TSH Urine Color Urine Appearance Urine pH Ur Specific Nazlini Urine Protein Urine Glucose (UA) Urine Ketones Urine Blood Urine Nitrite Ur Leukocyte Esterase Urine RBC Urine WBC Ur Squamous Epith Cells Urine Bacteria Hyaline Casts Salicylates Urine Opiates Screen Ur Buprenorphine Scrn Ur Oxycodone Screen Urine Methadone Screen Urine Fentanyl Screen Acetaminophen Ur Barbiturates Screen Ur Phencyclidine Scrn Ur Amphetamines Screen U Benzodiazepines Scrn Urine Cocaine Screen U Marijuana (THC) Screen Ethyl Alcohol 10/07/24 10/07/24 10/07/24 17:50 17:51 18:21 MCV 88.6 MCH 31.5 MCHC 35.5 RDW 12.4 Plt Count 117 L MPV 10.8 Immature Gran % (Auto) 0.5 H Neut % (Auto) 74.0 H Lymph % (Auto) 18.2 L Woods % (Auto) 6.7 Eos % (Auto) 0.1 Baso % (Auto) 0.5 Lymph # (Auto) 2.0 Woods # (Auto) 0.7 Eos # (Auto) 0.0 Baso # (Auto) 0.1 Abs Immat Gran (auto) 0.06 H Absolute Neuts (auto) 8.1 Absolute Nucleated RBC 0.020 H Nucleated RBC % (auto) 0.2 Smear Tech's Comments VBG pH 7.39 VBG pCO2 42 VBG pO2 68 VBG HCO3 26 VBG O2 Saturation 87.0 VBG Base Excess 1.0 Anion Gap Estim Creat Clear Calc Estimated GFR POC Glucose 188 H Random Glucose Lactic Acid Calcium Phosphorus Magnesium Total Bilirubin Direct Bilirubin AST ALT Alkaline Phosphatase Ammonia Troponin I High Sens Total Protein Albumin Lipase Beta-Hydroxybutyrate TSH Urine Color Urine Appearance Urine pH Ur Specific Nazlini Urine Protein Urine Glucose (UA) Urine Ketones Urine Blood Urine Nitrite Ur Leukocyte Esterase Urine RBC Urine WBC Ur Squamous Epith Cells Urine Bacteria Hyaline Casts Salicylates Urine Opiates Screen Ur Buprenorphine Scrn Ur Oxycodone Screen Urine Methadone Screen Urine Fentanyl Screen Acetaminophen Ur Barbiturates Screen Ur Phencyclidine Scrn Ur Amphetamines Screen U Benzodiazepines Scrn Urine Cocaine Screen U Marijuana (THC) Screen Ethyl Alcohol 10/07/24 10/07/24 10/07/24 18:24 19:25 20:18 MCV MCH MCHC RDW Plt Count MPV Immature Gran % (Auto) Neut % (Auto) Lymph % (Auto) Woods % (Auto) Eos % (Auto) Baso % (Auto) Lymph # (Auto) Woods # (Auto) Eos # (Auto) Baso # (Auto) Abs Immat Gran (auto) Absolute Neuts (auto) Absolute Nucleated RBC Nucleated RBC % (auto) Smear Tech's Comments VBG pH VBG pCO2 VBG pO2 VBG HCO3 VBG O2 Saturation VBG Base Excess Anion Gap Estim Creat Clear Calc Estimated GFR POC Glucose 193 H 202 H 259 H Random Glucose Lactic Acid Calcium Phosphorus Magnesium Total Bilirubin Direct Bilirubin AST ALT Alkaline Phosphatase Ammonia Troponin I High Sens Total Protein Albumin Lipase Beta-Hydroxybutyrate TSH Urine Color Urine Appearance Urine pH Ur Specific Nazlini Urine Protein Urine Glucose (UA) Urine Ketones Urine Blood Urine Nitrite Ur Leukocyte Esterase Urine RBC Urine WBC Ur Squamous Epith Cells Urine Bacteria Hyaline Casts Salicylates Urine Opiates Screen Ur Buprenorphine Scrn Ur Oxycodone Screen Urine Methadone Screen Urine Fentanyl Screen Acetaminophen Ur Barbiturates Screen Ur Phencyclidine Scrn Ur Amphetamines Screen U Benzodiazepines Scrn Urine Cocaine Screen U Marijuana (THC) Screen Ethyl Alcohol Imaging Radiologist's Impressions: Impressions Chest X-Ray 10/07/24 13:54 IMPRESSION: No acute cardiopulmonary abnormality. Electronically signed by: Polo Molina MD 10/07/2024 03:07 PM EDT RP Assessment and Plan (1) Atrial fibrillation with RVR: Status: Acute (2) Alcohol withdrawal: Status: Acute Plan This has a 64-year-old male with pertinent history of alcohol use disorder, hypertension, mood disorder, psd-tltbgbh-olwthfowo diabetes mellitus, chronic kidney disease stage 3 who presents to the emergency department for concerns of alcohol withdrawal and seeking alcohol detox. #. AFib with RVR, new diagnosis: Will admit patient with cardiac monitoring. Initiated on IV diltiazem drip in the ER. Chads Vasc score of 2. Initiated Xarelto. Consulted Cardiology. Obtaining echo. TSH okay #. Alcohol use disorder with concerns for withdrawal: Initiated phenobarb protocol in the ER. Monitor CIWA. Continue thiamine. Consulted Addiction Team #. Uncontrolled tqw-yrjqomp-vrbxbyqhy diabetes mellitus due to medication noncompliance: Will admit patient with basal plus insulin regimen. On statin #. Mood disorder: Continue home mood stabilizers #. Elevated creatinine: Progression of CKD stage 3 versus KATELYN on CKD. Monitor with crystalloid resuscitation #. Hypertension: On lisinopril Med rec pending DVT prophylaxis: Xarelto Full code Admit as inpatient and will require two night minimum hospital stay for close monitoring of heart rate, treatment of alcohol withdrawal, monitoring of blood glucose (as above), which is not possible in a lesser acute setting. Quality Stroke Does the patient have a stroke diagnosis?: No VTE Prior VTE?: No VTE Risk Level:: Medical - moderate - high VTE Device Contraindication: Treatment Not Indicated VTE Drug Contraindication: N/A - Med Ordered
--- NOTE | 2024-10-07 21:23 | PC.NURSE ---
RN to RN report given to Josiane Ash.
[2024-10-07 21:30] LABS: Glucose, Whole Blood 188 mg/dL (60-115)
--- NOTE | 2024-10-07 22:08 | PHA.MEDREC ---
Addendum entered by Grant Leigh PharmD 10/07/24 22:16: reviewed Original Note: Pharmacy Consult ? Medication Reconciliation Pharmacy has completed the medication reconciliation. Spoke to patient to confirm med list. Patient was very slow at answering questions. Patent stated he stopped taking Citalopram 20 mg, Glipizide 10 mg, Simvastatin 10 mg. Patient states he isn't taking Methylphenidate 10 mg, however last fill date was 09/30/24 for 30 days, left on med rec. Patient states he is on Trulicity 0.75 mg, however he hasn't filled since 07/10/24 because he can't afford to pick it up left off med list. Patient reported the last time he took his medications was over 3 weeks ago.
[2024-10-07] MEDS: PHENobarbitaL 15 MG TABLET 45 MG PO (22:11)
[2024-10-07] MEDS: Insulin Glargine,Hum.rec.anlog 100 UNIT/ML 10 ML VIAL 10 UNIT SUBCUT (22:16)
[2024-10-07] MEDS: Furosemide 40 MG/4 ML VIAL IVPUSH (22:16)
[2024-10-07] MEDS: Rivaroxaban 20 MG TABLET PO (22:17)
[2024-10-07 22:19] LABS: B Type Natriuretic Peptide 504 pg/mL (<100)
[2024-10-08] VITALS (16 sets, daily range): BP systolic 79–122; BP diastolic 44–76; PULSE 87–133; RESP 16–26; TEMP 36.1–36.7; O2SAT 92–100
--- NOTE | 2024-10-08 01:24 | PC.NURSE ---
full bed change due to soiled linen with urine. pt was able to stand with 1 assist while bed change was done.
--- NOTE | 2024-10-08 03:06 | PC.NURSE ---
ivf not infusing upon assessment iv removed this rn and broker in charge attempted x2 for iv replacement causing delay in ivf infusion
[2024-10-08] MEDS: dilTIAZem HCL 125 MG in 0.9 % Sodium Chloride 100 ML 15 MG IVCONT (04:43)
--- NOTE | 2024-10-08 04:50 | PC.NURSE ---
this rn contacted dr pandey regarding order for ongoing fluids on pt despite orders for lasix. per dr pandey those fluid orders are in by error md unable to see order on md end. this rn contacted pharmacy per pharmacy fluid orders to be cancelled
[2024-10-08 05:46] LABS: Hematocrit 27.2 % (42.0-52.0); Hemoglobin 9.6 g/dl (14.0-18.0); Mean Corpuscular HGB Conc 35.3 g/dl (31.0-36.0); Mean Corpuscular Hemoglobin 31.8 pg (27.0-33.0); Mean Corpuscular Volume 90.1 fL (80.0-98.0); Mean Platelet Volume 9.8 fL (9.4-12.4); Red Blood Count 3.02 X10*6/uL (4.60-5.80); Red Cell Distribution Width 12.6 % (11.0-16.0); White Blood Count 9.7 X10*3/uL (4.8-10.8)
[2024-10-08 05:54] LABS: Glucose, Whole Blood 205 mg/dL (60-115)
[2024-10-08 05:55] LABS: Anion Gap 18 (12-20); Blood Urea Nitrogen 40 mg/dL (9-16); Calcium 8.2 mg/dL (8.4-10.2); Carbon Dioxide 25 mmol/L (22-29); Chloride 96 mmol/L (96-108); Creatinine Clr Calc Pharmacy 58.8; Estimated Glomerular Filt Rate > 60; Glucose Random 213 mg/dL (60-115); Potassium 3.7 mmol/L (3.3-5.1); Sodium 135 mmol/L (135-145)
[2024-10-08 06:04] LABS: Platelet Count 89 X10*3/uL (160-400)
[2024-10-08] MEDS: Acetaminophen 325 MG TABLET 650 MG PO (06:21)
--- NOTE | 2024-10-08 07:00 | CA_ITS ---
Transthoracic Echocardiogram Patient (Last, First, Middle): Des Davalos W Gender: Male Date of : 1960 Age: 64 Procedure Date: 10/08/2024 Procedure Type: Transthoracic Echocardiogram Location: ER Height: 170.18 cm Weight: 59.88 kg BSA: 1.69 m2 Heart Rate: 110 bpm BP: 85 / 54 mmHg Mining Detail Draftsperson: CORINNE Referring MD: Zafar Powell MD Lead Warehouse Associate: Moises Ramsey MD Symptoms: afib Study Quality: Adequate ECG Rhythm: Atrial Fibrillation w RVR Conclusions: - 1. Normal LV ejection fraction 55-60% with moderate asymmetric septal hypertrophy 2. Calcific aortic valve changes noted with cardiac valve with a Dopplers within normal limits 3. Mildly elevated right atrial pressures 4. Mildly dilated ascending aorta at 3.7 cm 5. No gross pericardial effusion Findings Left Ventricle Normal left ventricular size, thickness, and systolic function. The visually estimated ejection fraction is between 55-60%. Diastolic function is indeterminate on the basis of available data. There is moderate septal asymmetric hypertrophy. Right Ventricle Normal right ventricular cavity size. There is mildly decreased right ventricular systolic function. Atria The left atrium is likely dilated. Interatrial shunt cannot be excluded. The right atrium is normal in size. Aortic Valve There is mild calcification of the aortic valve. There is moderate thickening of the aortic valve. There is no aortic valve stenosis. There is no aortic valve regurgitation. Mitral Valve Likely normal mitral valve structure and function. There is trace mitral valve regurgitation. There is no mitral valve stenosis. Pulmonic Valve The pulmonic valve was not well visualized. Tricuspid Valve Likely normal tricuspid valve structure and function. Mildly elevated right atrial pressure. Great Vessels The pulmonary artery was not well visualized. There is mild dilatation of the ascending aorta measuring 3.70 cm. Small plaque is seen in the sinuses of Valsalva. Venous The inferior vena cava is mildly dilated and collapses less than 50% with inspiration. Pericardium/Pleural There is no evidence of pericardial effusion. Prior Study Comparison No prior study available for comparison. Measurements 2D Linear Measurements IVSd: 1.45 0.6-0.9/0.6-1.0 cm LVIDd: 4.27 3.9-5.3/4.2-5.9 cm LVIDd Index: 2.53 2.4-3.2/2.2-3.1 cm/m2 LVIDs: 3.04 2.0-3.6 cm LVPWd: 0.69 0.7-1.1 cm LA Diam: 3.10 2.7-3.8/3.0-4.0 cm LAIDs Index: 1.83 1.5-2.3 cm/m2 LV Mass: 192.94 67-162/88-224 g LV Mass Index: 114.17 43-95/49-115 g/m2 LVOT Diam: 2.30 3.0+(-)1.3 cm 2D Systolic Function EF 4C: 65.00 >55% Mitral Valve MV Pk E: 0.91 E'Lateral: 10.60 E'Medial: 7.75 E/E' Med: 11.70 E/E' Lat: 8.50 Aortic Valve AoV Pk Joshua: 1.44 AoV Pk Grad: 8.00 ANTHONY: 4.03 LVOT LVOT Pk Joshua: 1.40 LVOT Mn Joshua: 0.88 LVOT VTI: 0.18 LVOT Pk Grad: 8.00 LVOT Mn Grad: 4.00 LVOT Diam: 2.30 LVOT Area: 4.15 Diastolic Function MV Pk E: 0.91 E'Medial: 7.75 E/E' Med: 11.70 E' Laterial: 10.60 E/E' Lat: 8.50 Right Ventricle TAPSE (mm): 15.50 TVS' Joshua: 10.30 Tricuspid Valve RA Press: 8.00 Great Vessels Aorta Sinus of Valsalva: 3.70 2.0-3.5 cm Ao Asc: 3.70 2.1-3.4 cm Pulmonary Valve PV Pk Joshua: 0.82 Peak PV Grad: 3.00 Updated in Other Vendor System with Status of Final Moises Ramsey MD electronically signed on 10/08/2024 4:28:35 PM with status of Final
[2024-10-08 07:36] LABS: Glucose, Whole Blood 172 mg/dL (60-115)
[2024-10-08] MEDS: PHENobarbitaL 15 MG TABLET 45 MG PO ×2 (08:43→19:35)
[2024-10-08] MEDS: lisinopriL 20 MG TABLET PO (08:43)
[2024-10-08] MEDS: Aspirin Enteric Coated 81 MG TABLET.DR PO (08:43)
[2024-10-08] MEDS: Gabapentin 400 MG CAPSULE 800 MG PO ×2 (08:43→19:34)
[2024-10-08] MEDS: Magnesium Oxide 400 MG TABLET PO (08:44)
[2024-10-08] MEDS: Thiamine HCL 100 MG TABLET PO (08:44)
[2024-10-08] MEDS: Folic Acid 1 MG TABLET PO (08:44)
[2024-10-08] MEDS: atenoloL 25 MG TABLET PO (08:44)
[2024-10-08] MEDS: Divalproex Sodium 250 MG TABLET.DR PO ×2 (08:44→19:34)
[2024-10-08] MEDS: 0.9 % Sodium Chloride Flush 3 ML SYRINGE IVFLUSH ×3 (08:45→19:37)
[2024-10-08] MEDS: Insulin Lispro 100 UNIT/ML 3 ML VIAL SUBCUT ×3 (08:45→16:06)
--- NOTE | 2024-10-08 11:20 | PC.NURSE ---
Assumed care of this patient at 1100, patient sleeping on stretcher, HR sustaining 80's - 100's on dilt gtt. Gtt titrated down per protocol. Patient states he needed to have a bowel movement commode set up, patient appears too somnolent to get up at this time.
--- NOTE | 2024-10-08 11:37 | PC.NURSE ---
pt repositioned in bed, meplex applied to L elbow - reddened area noted. patient awakes easily, follow basic commands, falls immediately back to sleep.
[2024-10-08 11:53] LABS: Glucose, Whole Blood 185 mg/dL (60-115)
--- NOTE | 2024-10-08 12:15 | PC.NURSE ---
Addendum entered by Nancy Jesus RN 10/08/24 12:21: Plan to keep dilt gtt paused, see if pressures come up, potentially start dig if HR increases. Original Note: Pt's noted to be continually somnloent, arousable but falling quickly back to sleep. Pressure noted to be 80's/40's, dilt gtt paused, provider Dr. Lorenzo made aware awaiting orders.
--- NOTE | 2024-10-08 12:19 | PM.EVENT ---
Event Note Date of Service: 10/08/24 Event Note: hypotension due to meds not sepsis, will hold dilt, lisinopril, Time Spent With Patient Time: Total time managing care of this patient today ____ minutes.
--- NOTE | 2024-10-08 12:25 | P.CONCA_ITS ---
History of Present Illness History of Present Illness Date of Service: 10/08/24 Requesting physician: Mikael Lorenzo Consult reason: atrial fibrillation Chief complaint: alcohol withdrawal Narrative: I was consulted to see Des in cardiology consultation today for new onset atrial fibrillation. Patient is a 64-year-old male, poor historian overall as he was on and off into sleep. Patient is currently admitted for alcohol withdrawal after checking himself in 4 alcohol detoxification. He came in with palpitation was noted to be in atrial fibrillation rapid ventricular response which is new for him. He does not recall having any prior history of atrial fibrillation. He had no other associated symptoms of chest pain or shortness of breath or lightheadedness or loss of consciousness. Admitted and started on IV Cardizem drip and alcohol withdrawal protocol with phenobarbital. He was also noted to be in acute kidney injury and was given significant on fluid. Seems like he had overnight respiratory distress. Fluid has been withheld. His continues to be on Cardizem drip at 10 mg an hour. Blood pressure noted to be low. Patient currently denies any symptoms including shortness of breath. Review of Systems 2 Constitutional: Constitutional: Reports weakness Cardiovascular: Cardiovascular: Denies chest pain, Reports palpitations and Denies dyspnea Respiratory: Respiratory: Denies dyspnea Genitourinary: Genitourinary: Reports no additional male genitourinary complaints Musculoskeletal: Musculoskeletal: Reports no additional musculoskeletal complaints Neurologic: Reports system reviewed and no additional complaints, except as documented and Reports weakness Psychiatric: Psychiatric: Reports other (Hallucinations) Endocrine: Endocrine: Reports palpitations PMFSH Past Medical History Medical History Stage 3 chronic kidney disease Hypertension Diabetes ETOH abuse Social History Social History Household Members: Spouse Housing: House Do you presently have visiting nurse or other home services: No Alcohol intake: current Alcohol intake frequency: 3 or more drinks per day Alcohol type: hard liquor Patient Tobacco Use Status: Tobacco use Unknown Tobacco use type: Cigarette Cigarettes Per Day: 10 Smoked in Last 30 Days: No Use of substances other than those prescribed or required for medical reasons: No Substance Use Type: Marijuana Advance Directives: No Advance Directives Information Provided: No Do you have a plan to hurt others: No Plan Nutrition Risks: No Nutritional Risk Meds Allergies Allergy/AdvReac Type Severity Reaction Status Date / Time metformin Allergy Intermediate Swelling Verified 10/07/24 13:35 Active Medications: Current Medications Acetaminophen (Acetaminophen 325 Mg Tablet) 650 mg PO Q6H PRN PRN Reason: Pain, Mild 1-3,fever,headache Last Admin: 10/08/24 06:21 Dose: 650 mg Aspirin (Aspirin Enteric Coated 81 Mg Tablet.) 81 mg PO DAILY [facility] Last Admin: 10/08/24 08:43 Dose: 81 mg Atenolol (Atenolol 25 Mg Tablet) 25 mg PO DAILY [facility]; Protocol Last Admin: 10/08/24 08:44 Dose: 25 mg Calcium Carbonate (Calcium Carbonate 750 Mg Tab.Chew) 750 mg PO Q4H PRN PRN Reason: Heartburn Dextrose (Dextrose 50 % 25 Gm/50 Ml Syringe) 25 gm IVPUSH Q30M PRN PRN Reason: BG < 70 Dextrose (Dextrose 50 % 25 Gm/50 Ml Syringe) 25 gm IVPUSH Q15M PRN; Protocol PRN Reason: per Hypoglycemia Standing Ord. Divalproex Sodium (Divalproex Sodium 250 Mg Tablet.) 250 mg PO BID [facility] Last Admin: 10/08/24 08:44 Dose: 250 mg Divalproex Sodium (Divalproex Sodium 500 Mg Tablet.) 500 mg PO BEDTIME [facility] Folic Acid (Folic Acid 1 Mg Tablet) 1 mg PO DAILY [facility] Last Admin: 10/08/24 08:44 Dose: 1 mg Gabapentin (Gabapentin 400 Mg Capsule) 800 mg PO TID [facility] Last Admin: 10/08/24 08:43 Dose: 800 mg Glucose (Glucose Gel 15 Gm Gel..Gram.) 15 gm PO Q15M PRN; Protocol PRN Reason: per Hypoglycemia Standing Ord. Diltiazem HCl 125 mg/ Sodium (Chloride) 125 mls @ 0 mls/hr IVCONT .Q0M [facility]; Protocol Last Titration: 10/08/24 12:21 Dose: 0 mg/hr, 0 mls/hr Insulin Glargine (Insulin Glargine,Hum.Rec.Anlog 100 Unit/Ml 10 Ml Vial) 10 unit SUBCUT BEDTIME [facility] Last Admin: 10/07/24 22:16 Dose: 10 unit Insulin Human Lispro (Insulin Lispro 100 Unit/Ml 3 Ml Vial) 0 unit SUBCUT QIDACHS [facility]; Protocol Last Admin: 10/08/24 12:05 Dose: 2 unit Magnesium Hydroxide (Milk Of Magnesia 30 Ml Oral.Susp) 30 ml PO DAILY PRN PRN Reason: Constipation Magnesium Oxide (Magnesium Oxide 400 Mg Tablet) 400 mg PO DAILY [facility] Last Admin: 10/08/24 08:44 Dose: 400 mg Melatonin (Melatonin 3 Mg Tablet) 6 mg PO BEDTIME PRN PRN Reason: Insomnia Ondansetron HCl (Ondansetron Hcl 4 Mg/2 Ml Vial) 4 mg IVPUSH Q8H PRN PRN Reason: Nausea and Vomiting Pharmacy Consult (Consult Rx Etoh Phenob Im/Po) 1 each MISCELLANE ONCE PRN; Protocol PRN Reason: Consult order Phenobarbital (Phenobarbital 15 Mg Tablet) 45 mg PO BID [facility] Stop: 10/09/24 09:01 Last Admin: 10/08/24 08:43 Dose: 45 mg Phenobarbital (Phenobarbital 30 Mg Tablet) 30 mg PO BID [facility] Stop: 10/11/24 09:01 Phenobarbital (Phenobarbital 30 Mg Tablet) 30 mg PO BEDTIME [facility] Stop: 10/12/24 21:01 Rivaroxaban (Rivaroxaban 20 Mg Tablet) 20 mg PO DAILY@1700 [facility] Last Admin: 10/07/24 22:17 Dose: 20 mg Sodium Chloride (0.9 % Sodium Chloride Flush 3 Ml Syringe) 3 ml IVFLUSH QSHIFT [facility] Last Admin: 10/08/24 08:45 Dose: 3 ml Thiamine HCl (Thiamine Hcl 100 Mg Tablet) 100 mg PO DAILY [facility] Last Admin: 10/08/24 08:44 Dose: 100 mg Home Medications ?Medication ?Instructions ?Recorded ?Confirmed ?Last Taken ?Type atenolol 25 mg tablet 25 mg PO DAILY 01/05/24 10/07/24 01/04/24 History gabapentin 800 mg tablet 800 mg PO TID 01/05/24 10/07/24 01/04/24 History lisinopril 20 mg tablet 20 mg PO DAILY 01/05/24 10/07/24 01/04/24 History methylphenidate HCl 10 mg tablet 10 mg PO TID 01/05/24 10/07/24 01/04/24 History aspirin 81 mg tablet 81 mg PO DAILY 10/07/24 10/07/24 Unknown History divalproex 250 mg tablet,delayed 250 mg PO BID 10/07/24 10/07/24 Unknown History release divalproex 500 mg tablet,delayed 500 mg PO QPM 10/07/24 10/07/24 Unknown History release Physical Exam 2 Vital Signs: Vital Signs: Last Vital Signs Temp 97.7 F 10/08/24 12:09 Pulse 92 10/08/24 12:09 Resp 18 10/08/24 12:09 BP 81/48 L 10/08/24 12:09 Pulse Ox 96 10/08/24 12:09 O2 Del Method Room Air 10/08/24 12:09 BMI result Body Mass Index 20.7 Const: General: cooperative, comfortable and other (Sleepy, disheveled) N utritional Appearance: thin Orientation/consciousness: patient oriented x3 HEENT: Head: Yes normocephalic and Yes atraumatic Neck: Neck: Yes trachea midline, Yes supple and Yes no JVD Resp: Effort & Inspection: decreased respiratory effort Auscultation: no crackles, no rales, no wheezes and diminished lung sounds Cardio: Jugular venous distension: no JVD Rhythm: abnormal rhythm irregularly irregular Heart sounds: S1 normal heart sound present, S2 normal heart sound present, no click, no gallops and no murmurs GI: Auscultation: normal bowel sounds Skin: General skin exam: no rashes or lesions noted Neuro: General: patient oriented x3 and no focal motor deficits Extrem: General: Yes no clubbing, cyanosis or edema Objective Labs and Meds 10/08/24 04:41 10/08/24 04:41 Lab results: Laboratory Results - last 24 hr 10/07/24 10/07/24 10/07/24 14:00 14:01 14:40 WBC 13.5 H RBC 3.66 L Hgb 10.5 L D Hct 31.4 L D MCV 85.8 MCH 28.7 MCHC 33.4 RDW 12.5 Plt Count 115 L D MPV 10.4 Immature Gran % (Auto) 0.7 H Neut % (Auto) 79.2 H Lymph % (Auto) 14.2 L [place] % (Auto) 5.8 Eos % (Auto) 0.0 Baso % (Auto) 0.1 Lymph # (Auto) 1.9 [place] # (Auto) 0.8 Eos # (Auto) 0.0 Baso # (Auto) 0.0 Abs Immat Gran (auto) 0.09 H Absolute Neuts (auto) 10.7 H Absolute Nucleated RBC 0.000 Nucleated RBC % (auto) 0.0 Smear Tech's Comments VERIFIED VBG pH VBG pCO2 VBG pO2 VBG HCO3 VBG O2 Saturation VBG Base Excess Sodium 126 L Potassium 4.5 Chloride 84 L Carbon Dioxide 24 Anion Gap 23 H BUN 74 H Creatinine 1.64 H Estim Creat Clear Calc 39.1 Estimated GFR 43 POC Glucose Random Glucose 663 H* Lactic Acid Calcium 8.8 D Phosphorus 2.4 L Magnesium 1.6 Total Bilirubin 0.7 Direct Bilirubin AST 26 ALT 14 Alkaline Phosphatase 98 Ammonia 29 Troponin I High Sens 69.5 H D B-Natriuretic Peptide Total Protein 6.2 L Albumin 4.0 Lipase 76 Beta-Hydroxybutyrate 3.04 H TSH Urine Color Yellow Urine Appearance Clear Urine pH 6.0 Ur Specific [place] 1.025 Urine Protein 30 (1+) H Urine Glucose (UA) >=1000 H Urine Ketones 15 Urine Blood Trace H Urine Nitrite Negative Ur Leukocyte Esterase Negative Urine RBC 0-2 Urine WBC 0-5 Ur Squamous Epith Cells 0-2 Urine Bacteria None Seen Hyaline Casts 0-2 Salicylates < 5.0 L Urine Opiates Screen Not Detected Ur Buprenorphine Scrn Not Detected Ur Oxycodone Screen Not Detected Urine Methadone Screen Not Detected Urine Fentanyl Screen Not Detected Acetaminophen 4 Ur Barbiturates Screen Not Detected Ur Phencyclidine Scrn Not Detected Ur Amphetamines Screen Not Detected U Benzodiazepines Scrn Not Detected Urine Cocaine Screen Not Detected U Marijuana (THC) Screen Not Detected Ethyl Alcohol < 10 10/07/24 10/07/24 10/07/24 14:44 15:49 16:58 WBC RBC Hgb Hct MCV MCH MCHC RDW Plt Count MPV Immature Gran % (Auto) Neut % (Auto) Lymph % (Auto) [place] % (Auto) Eos % (Auto) Baso % (Auto) Lymph # (Auto) [place] # (Auto) Eos # (Auto) Baso # (Auto) Abs Immat Gran (auto) Absolute Neuts (auto) Absolute Nucleated RBC Nucleated RBC % (auto) Smear Tech's Comments VBG pH 7.42 VBG pCO2 40 VBG pO2 42 VBG HCO3 26 VBG O2 Saturation 54.0 VBG Base Excess 2.2 Sodium Potassium Chloride Carbon Dioxide Anion Gap BUN Creatinine Estim Creat Clear Calc Estimated GFR POC Glucose 269 H Random Glucose Lactic Acid 1.7 Calcium Phosphorus Magnesium 1.6 Total Bilirubin Direct Bilirubin AST ALT Alkaline Phosphatase Ammonia Troponin I High Sens B-Natriuretic Peptide Total Protein Albumin Lipase Beta-Hydroxybutyrate TSH 1.32 Urine Color Urine Appearance Urine pH Ur Specific [place] Urine Protein Urine Glucose (UA) Urine Ketones Urine Blood Urine Nitrite Ur Leukocyte Esterase Urine RBC Urine WBC Ur Squamous Epith Cells Urine Bacteria Hyaline Casts Salicylates Urine Opiates Screen Ur Buprenorphine Scrn Ur Oxycodone Screen Urine Methadone Screen Urine Fentanyl Screen Acetaminophen Ur Barbiturates Screen Ur Phencyclidine Scrn Ur Amphetamines Screen U Benzodiazepines Scrn Urine Cocaine Screen U Marijuana (THC) Screen Ethyl Alcohol 10/07/24 10/07/24 10/07/24 17:15 17:46 17:47 WBC RBC Hgb Hct MCV MCH MCHC RDW Plt Count MPV Immature Gran % (Auto) Neut % (Auto) Lymph % (Auto) [place] % (Auto) Eos % (Auto) Baso % (Auto) Lymph # (Auto) [place] # (Auto) Eos # (Auto) Baso # (Auto) Abs Immat Gran (auto) Absolute Neuts (auto) Absolute Nucleated RBC Nucleated RBC % (auto) Smear Tech's Comments VBG pH VBG pCO2 VBG pO2 VBG HCO3 VBG O2 Saturation VBG Base Excess Sodium 134 L Potassium 4.4 Chloride 97 Carbon Dioxide 21 L Anion Gap 20 BUN 69 H Creatinine 1.38 Estim Creat Clear Calc 46.4 Estimated GFR 52 POC Glucose 257 H Random Glucose 246 H Lactic Acid Calcium 8.6 Phosphorus Magnesium 1.6 Total Bilirubin 0.5 Direct Bilirubin 0.2 AST 25 ALT 15 Alkaline Phosphatase 83 Ammonia Troponin I High Sens 59.8 H B-Natriuretic Peptide Total Protein 5.7 L Albumin 3.7 Lipase Beta-Hydroxybutyrate 1.18 H Cancelled TSH Urine Color Urine Appearance Urine pH Ur Specific [place] Urine Protein Urine Glucose (UA) Urine Ketones Urine Blood Urine Nitrite Ur Leukocyte Esterase Urine RBC Urine WBC Ur Squamous Epith Cells Urine Bacteria Hyaline Casts Salicylates Urine Opiates Screen Ur Buprenorphine Scrn Ur Oxycodone Screen Urine Methadone Screen Urine Fentanyl Screen Acetaminophen Ur Barbiturates Screen Ur Phencyclidine Scrn Ur Amphetamines Screen U Benzodiazepines Scrn Urine Cocaine Screen U Marijuana (THC) Screen Ethyl Alcohol 10/07/24 10/07/24 10/07/24 17:50 17:51 18:21 WBC 11.0 H RBC 3.24 L Hgb 10.2 L Hct 28.7 L MCV 88.6 MCH 31.5 MCHC 35.5 RDW 12.4 Plt Count 117 L MPV 10.8 Immature Gran % (Auto) 0.5 H Neut % (Auto) 74.0 H Lymph % (Auto) 18.2 L [place] % (Auto) 6.7 Eos % (Auto) 0.1 Baso % (Auto) 0.5 Lymph # (Auto) 2.0 [place] # (Auto) 0.7 Eos # (Auto) 0.0 Baso # (Auto) 0.1 Abs Immat Gran (auto) 0.06 H Absolute Neuts (auto) 8.1 Absolute Nucleated RBC 0.020 H Nucleated RBC % (auto) 0.2 Smear Tech's Comments VBG pH 7.39 VBG pCO2 42 VBG pO2 68 VBG HCO3 26 VBG O2 Saturation 87.0 VBG Base Excess 1.0 Sodium Potassium Chloride Carbon Dioxide Anion Gap BUN Creatinine Estim Creat Clear Calc Estimated GFR POC Glucose 188 H Random Glucose Lactic Acid Calcium Phosphorus Magnesium Total Bilirubin Direct Bilirubin AST ALT Alkaline Phosphatase Ammonia Troponin I High Sens B-Natriuretic Peptide 504 H Total Protein Albumin Lipase Beta-Hydroxybutyrate TSH Urine Color Urine Appearance Urine pH Ur Specific [place] Urine Protein Urine Glucose (UA) Urine Ketones Urine Blood Urine Nitrite Ur Leukocyte Esterase Urine RBC Urine WBC Ur Squamous Epith Cells Urine Bacteria Hyaline Casts Salicylates Urine Opiates Screen Ur Buprenorphine Scrn Ur Oxycodone Screen Urine Methadone Screen Urine Fentanyl Screen Acetaminophen Ur Barbiturates Screen Ur Phencyclidine Scrn Ur Amphetamines Screen U Benzodiazepines Scrn Urine Cocaine Screen U Marijuana (THC) Screen Ethyl Alcohol 10/07/24 10/07/24 10/07/24 18:24 19:25 20:18 WBC RBC Hgb Hct MCV MCH MCHC RDW Plt Count MPV Immature Gran % (Auto) Neut % (Auto) Lymph % (Auto) [place] % (Auto) Eos % (Auto) Baso % (Auto) Lymph # (Auto) [place] # (Auto) Eos # (Auto) Baso # (Auto) Abs Immat Gran (auto) Absolute Neuts (auto) Absolute Nucleated RBC Nucleated RBC % (auto) Smear Tech's Comments VBG pH VBG pCO2 VBG pO2 VBG HCO3 VBG O2 Saturation VBG Base Excess Sodium Potassium Chloride Carbon Dioxide Anion Gap BUN Creatinine Estim Creat Clear Calc Estimated GFR POC Glucose 193 H 202 H 259 H Random Glucose Lactic Acid Calcium Phosphorus Magnesium Total Bilirubin Direct Bilirubin AST ALT Alkaline Phosphatase Ammonia Troponin I High Sens B-Natriuretic Peptide Total Protein Albumin Lipase Beta-Hydroxybutyrate TSH Urine Color Urine Appearance Urine pH Ur Specific [place] Urine Protein Urine Glucose (UA) Urine Ketones Urine Blood Urine Nitrite Ur Leukocyte Esterase Urine RBC Urine WBC Ur Squamous Epith Cells Urine Bacteria Hyaline Casts Salicylates Urine Opiates Screen Ur Buprenorphine Scrn Ur Oxycodone Screen Urine Methadone Screen Urine Fentanyl Screen Acetaminophen Ur Barbiturates Screen Ur Phencyclidine Scrn Ur Amphetamines Screen U Benzodiazepines Scrn Urine Cocaine Screen U Marijuana (THC) Screen Ethyl Alcohol 10/07/24 10/08/24 10/08/24 21:25 04:41 05:48 WBC 9.7 RBC 3.02 L Hgb 9.6 L Hct 27.2 L MCV 90.1 MCH 31.8 MCHC 35.3 RDW 12.6 Plt Count 89 L MPV 9.8 Immature Gran % (Auto) Neut % (Auto) Lymph % (Auto) [place] % (Auto) Eos % (Auto) Baso % (Auto) Lymph # (Auto) [place] # (Auto) Eos # (Auto) Baso # (Auto) Abs Immat Gran (auto) Absolute Neuts (auto) Absolute Nucleated RBC 0.000 Nucleated RBC % (auto) 0.0 Smear Tech's Comments VBG pH VBG pCO2 VBG pO2 VBG HCO3 VBG O2 Saturation VBG Base Excess Sodium 135 Potassium 3.7 Chloride 96 Carbon Dioxide 25 Anion Gap 18 BUN 40 H Creatinine 1.09 Estim Creat Clear Calc 58.8 Estimated GFR > 60 POC Glucose 188 H 205 H Random Glucose 213 H Lactic Acid Calcium 8.2 L Phosphorus Magnesium Total Bilirubin Direct Bilirubin AST ALT Alkaline Phosphatase Ammonia Troponin I High Sens B-Natriuretic Peptide Total Protein Albumin Lipase Beta-Hydroxybutyrate TSH Urine Color Urine Appearance Urine pH Ur Specific [place] Urine Protein Urine Glucose (UA) Urine Ketones Urine Blood Urine Nitrite Ur Leukocyte Esterase Urine RBC Urine WBC Ur Squamous Epith Cells Urine Bacteria Hyaline Casts Salicylates Urine Opiates Screen Ur Buprenorphine Scrn Ur Oxycodone Screen Urine Methadone Screen Urine Fentanyl Screen Acetaminophen Ur Barbiturates Screen Ur Phencyclidine Scrn Ur Amphetamines Screen U Benzodiazepines Scrn Urine Cocaine Screen U Marijuana (THC) Screen Ethyl Alcohol 10/08/24 10/08/24 07:32 11:42 WBC RBC Hgb Hct MCV MCH MCHC RDW Plt Count MPV Immature Gran % (Auto) Neut % (Auto) Lymph % (Auto) [place] % (Auto) Eos % (Auto) Baso % (Auto) Lymph # (Auto) [place] # (Auto) Eos # (Auto) Baso # (Auto) Abs Immat Gran (auto) Absolute Neuts (auto) Absolute Nucleated RBC Nucleated RBC % (auto) Smear Tech's Comments VBG pH VBG pCO2 VBG pO2 VBG HCO3 VBG O2 Saturation VBG Base Excess Sodium Potassium Chloride Carbon Dioxide Anion Gap BUN Creatinine Estim Creat Clear Calc Estimated GFR POC Glucose 172 H 185 H Random Glucose Lactic Acid Calcium Phosphorus Magnesium Total Bilirubin Direct Bilirubin AST ALT Alkaline Phosphatase Ammonia Troponin I High Sens B-Natriuretic Peptide Total Protein Albumin Lipase Beta-Hydroxybutyrate TSH Urine Color Urine Appearance Urine pH Ur Specific [place] Urine Protein Urine Glucose (UA) Urine Ketones Urine Blood Urine Nitrite Ur Leukocyte Esterase Urine RBC Urine WBC Ur Squamous Epith Cells Urine Bacteria Hyaline Casts Salicylates Urine Opiates Screen Ur Buprenorphine Scrn Ur Oxycodone Screen Urine Methadone Screen Urine Fentanyl Screen Acetaminophen Ur Barbiturates Screen Ur Phencyclidine Scrn Ur Amphetamines Screen U Benzodiazepines Scrn Urine Cocaine Screen U Marijuana (THC) Screen Ethyl Alcohol Imaging Radiologist's impression: Impressions Chest X-Ray 10/07/24 13:54 IMPRESSION: No acute cardiopulmonary abnormality. Electronically signed by: Polo Molina MD 10/07/2024 03:07 PM EDT Assessment and Plan (1) Atrial fibrillation with RVR: Status: Acute Atrial fibrillation rapid ventricular response, new in this age man with significant alcohol abuse issues. Could have underlying cardiomyopathy process related to alcohol. Discussed with him about alcohol use and presence of atrial fibrillation. For now his blood pressure is on the low side after Cardizem and adequate amount of IV hydration. Would hold off on further IV hydration and also hold Cardizem for now has rate is better controlled. Would digitalize him with 0.25 mg IV push q.6 hours. Continue supportive care. Replace electrolytes as needed including potassium please check magnesium. Echocardiogram to be requested. Continue treatment for alcohol withdrawal. Will follow with you Procedures Date of Service Date of Service: 10/08/24
[2024-10-08] MEDS: Digoxin 0.5 MG/2 ML AMPUL 0.25 MG IVPUSH ×3 (12:49→19:35)
--- NOTE | 2024-10-08 12:52 | PC.NURSE ---
Patient dig loaded per cards reccomenndation. BS for >500, dr july reynaga'd to straight cath, patient straight cath'd for >400 clear yellow urine
--- NOTE | 2024-10-08 14:40 | PC.NURSE ---
US tech at bedside completing ECHO.
--- NOTE | 2024-10-08 15:36 | PC.NURSE ---
Took critical from lab BC+ 1/2 sets gram POS cocci in cluster, PCR MRSA neg, Staph Aureus+ also his BP still trending low 80's/50's. Dr. Lorenzo to order albumin and abx.
[2024-10-08] MEDS: Albumin Human 25 % 100 ML IV ×2 (15:41→22:28)
--- NOTE | 2024-10-08 15:47 | MHC.CM.PN ---
Pt lives with his , he does not have home health services. PCP confirmed: Dr. Hagan, he said his is HCP, copy requested. Pt. can arrange a ride home at [place], DCP: home, self care, CM to follow for [place] needs.
[2024-10-08] MEDS: ceFAZolin Sodium/Dextrose,Iso 2 GM/50 ML PIGGYBACK IV ×2 (15:49→23:30)
[2024-10-08 15:57] LABS: Glucose, Whole Blood 219 mg/dL (60-115)
[2024-10-08 16:55] LABS: Glucose, Whole Blood 230 mg/dL (60-115)
[2024-10-08] MEDS: Rivaroxaban 20 MG TABLET PO (17:05)
--- NOTE | 2024-10-08 18:58 | HO.PM.IMPN ---
Subjective Subjective Date of Service: 10/08/24 Interval History: Seen on morning rounds this a.m.. Patient reports improvement in dyspnea and states he feels better than when he 1st came in Constitutional Constitutional: Reports fatigue, Reports malaise and Reports weakness Cardiovascular Cardiovascular: Reports rapid heart rate Respiratory Respiratory: Reports no additional respiratory complaints Gastrointestinal Gastrointestinal: Reports no additional gastrointestinal complaints Genitourinary Genitourinary: Reports no additional male genitourinary complaints Neurologic Neurologic: Reports weakness Endocrine Endocrine: Reports fatigue Physical Exam Vital Signs: Vital Signs: Last Vital Signs Temp 97.6 F 10/08/24 16:55 Pulse 105 H 10/08/24 16:55 Resp 18 10/08/24 16:55 BP 98/55 L 10/08/24 16:55 Pulse Ox 97 10/08/24 16:55 O2 Del Method Nasal Cannula 10/08/24 16:55 O2 Flow Rate 2 10/08/24 16:55 BMI result Body Mass Index 20.7 Middle-aged male lying in bed in no distress Neck supple Irregularly irregular, S1-S2 heard No wheezing appreciated Abdomen soft nontender, no guarding, no rigidity Patient is lethargic but awakens to verbal stimulus, oriented x3 ; no focal motor deficit Psych: Drowsy No pedal edema Objective Data Active Medications Acetaminophen (Acetaminophen 325 Mg Tablet) 650 mg PO Q6H PRN PRN Reason: Pain, Mild 1-3,fever,headache Last Admin: 10/08/24 06:21 Dose: 650 mg Documented By: HANNAH Aspirin (Aspirin Enteric Coated 81 Mg Tablet.) 81 mg PO DAILY [facility] Last Admin: 10/08/24 08:43 Dose: 81 mg Documented By: ODALYS Atenolol (Atenolol 25 Mg Tablet) 25 mg PO DAILY [facility]; Protocol Last Admin: 10/08/24 08:44 Dose: 25 mg Documented By: ODALYS Calcium Carbonate (Calcium Carbonate 750 Mg Tab.Chew) 750 mg PO Q4H PRN PRN Reason: Heartburn Dextrose (Dextrose 50 % 25 Gm/50 Ml Syringe) 25 gm IVPUSH Q30M PRN PRN Reason: BG < 70 Dextrose (Dextrose 50 % 25 Gm/50 Ml Syringe) 25 gm IVPUSH Q15M PRN; Protocol PRN Reason: per Hypoglycemia Standing Ord. Divalproex Sodium (Divalproex Sodium 250 Mg Tablet.) 250 mg PO BID [facility] Last Admin: 10/08/24 08:44 Dose: 250 mg Documented By: ODALYS Divalproex Sodium (Divalproex Sodium 500 Mg Tablet.) 500 mg PO BEDTIME [facility] Folic Acid (Folic Acid 1 Mg Tablet) 1 mg PO DAILY [facility] Last Admin: 10/08/24 08:44 Dose: 1 mg Documented By: ODALYS Gabapentin (Gabapentin 400 Mg Capsule) 800 mg PO TID [facility] Last Admin: 10/08/24 15:41 Dose: Not Given Documented By: SHIMON Non-Admin Reason: somnolence Glucose (Glucose Gel 15 Gm Gel..Gram.) 15 gm PO Q15M PRN; Protocol PRN Reason: per Hypoglycemia Standing Ord. Albumin Human (Kedbumin 25 %) 100 mls @ 100 mls/hr IV Q6H [facility] Stop: 10/08/24 22:44 Last Infusion: 10/08/24 16:43 Dose: Infused Documented By: SHIMON Cefazolin Sodium/Dextrose (Ancef) 2 gm in 50 mls @ 100 mls/hr IV Q8H [facility] Last Infusion: 10/08/24 16:23 Dose: Infused Documented By: SHIMON Insulin Glargine (Insulin Glargine,Hum.Rec.Anlog 100 Unit/Ml 10 Ml Vial) 10 unit SUBCUT BEDTIME [facility] Last Admin: 10/07/24 22:16 Dose: 10 unit Documented By: HANNAH Insulin Human Lispro (Insulin Lispro 100 Unit/Ml 3 Ml Vial) 0 unit SUBCUT QIDACHS [facility]; Protocol Last Admin: 10/08/24 16:06 Dose: 4 unit Documented By: SHIMON Magnesium Hydroxide (Milk Of Magnesia 30 Ml Oral.Susp) 30 ml PO DAILY PRN PRN Reason: Constipation Magnesium Oxide (Magnesium Oxide 400 Mg Tablet) 400 mg PO DAILY [facility] Last Admin: 10/08/24 08:44 Dose: 400 mg Documented By: ODALYS Melatonin (Melatonin 3 Mg Tablet) 6 mg PO BEDTIME PRN PRN Reason: Insomnia Ondansetron HCl (Ondansetron Hcl 4 Mg/2 Ml Vial) 4 mg IVPUSH Q8H PRN PRN Reason: Nausea and Vomiting Pharmacy Consult (Consult Rx Etoh Phenob Im/Po) 1 each MISCELLANE ONCE PRN; Protocol PRN Reason: Consult order Phenobarbital (Phenobarbital 15 Mg Tablet) 45 mg PO BID [facility] Stop: 10/09/24 09:01 Last Admin: 10/08/24 08:43 Dose: 45 mg Documented By: ODALYS Phenobarbital (Phenobarbital 30 Mg Tablet) 30 mg PO BID [facility] Stop: 10/11/24 09:01 Phenobarbital (Phenobarbital 30 Mg Tablet) 30 mg PO BEDTIME [facility] Stop: 10/12/24 21:01 Rivaroxaban (Rivaroxaban 20 Mg Tablet) 20 mg PO DAILY@1700 [facility] Last Admin: 10/08/24 17:05 Dose: 20 mg Documented By: RIOSCJACOB Sodium Chloride (0.9 % Sodium Chloride Flush 3 Ml Syringe) 3 ml IVFLUSH QSHIFT [facility] Last Admin: 10/08/24 16:07 Dose: 3 ml Documented By: DITOBISHOP Thiamine HCl (Thiamine Hcl 100 Mg Tablet) 100 mg PO DAILY [facility] Last Admin: 10/08/24 08:44 Dose: 100 mg Documented By: ODALYS Labs 10/08/24 04:41 10/08/24 04:41 Labs: Laboratory Results - last 24 hr 10/07/24 10/07/24 10/07/24 18:21 19:25 20:18 MCV MCH MCHC RDW Plt Count 117 L MPV Absolute Nucleated RBC Nucleated RBC % (auto) Anion Gap Estim Creat Clear Calc Estimated GFR POC Glucose 202 H 259 H Random Glucose Calcium B-Natriuretic Peptide 504 H 10/07/24 10/08/24 10/08/24 21:25 04:41 05:48 MCV 90.1 MCH 31.8 MCHC 35.3 RDW 12.6 Plt Count 89 L MPV 9.8 Absolute Nucleated RBC 0.000 Nucleated RBC % (auto) 0.0 Anion Gap 18 Estim Creat Clear Calc 58.8 Estimated GFR > 60 POC Glucose 188 H 205 H Random Glucose 213 H Calcium 8.2 L B-Natriuretic Peptide 10/08/24 10/08/24 10/08/24 07:32 11:42 15:48 MCV MCH MCHC RDW Plt Count MPV Absolute Nucleated RBC Nucleated RBC % (auto) Anion Gap Estim Creat Clear Calc Estimated GFR POC Glucose 172 H 185 H 219 H Random Glucose Calcium B-Natriuretic Peptide 10/08/24 16:52 MCV MCH MCHC RDW Plt Count MPV Absolute Nucleated RBC Nucleated RBC % (auto) Anion Gap Estim Creat Clear Calc Estimated GFR POC Glucose 230 H Random Glucose Calcium B-Natriuretic Peptide Microbiology Microbiology Results: Microbiology 10/07/24 15:49 Blood Culture - Preliminary Blood - Venous No growth after 24 hours. 10/07/24 15:49 Blood Culture - Preliminary Blood - Venous Prelim: GPC Gram Stain only Assessment and Plan (1) Atrial fibrillation with RVR: Status: Acute Plan This has a 64-year-old male with pertinent history of alcohol use disorder, hypertension, mood disorder, qve-szoemzl-svemmvgfs diabetes mellitus, chronic kidney disease stage 3 who presents to the emergency department for concerns of alcohol withdrawal and seeking alcohol detox. #. AFib with RVR, new diagnosis: Initially placed on IV diltiazem drip in the ER which has been discontinued due to hypotension. Cardiology consulted. Initiated IV digoxin. Echo pending. Also initiated Xarelto. Chads Vasc score 2. TSH okay #. Acute decompensated diastolic heart failure: Resolved with IV diuresis. Iatrogenic due to crystalloid resuscitation in the ER. Likely has underlying cardiomyopathy due to alcohol/AFib with RVR. #. MSSA bacteremia: Initiated on cefazolin. ?source. Repeat cx pending. ID consulted #. Alcohol use disorder with concerns for withdrawal: Initiated phenobarb protocol in the ER. Monitor CIWA. Continue thiamine. Consulted Addiction Team #. Uncontrolled dmc-[id number]-ibpdkchlz diabetes mellitus due to medication noncompliance: Basal plus insulin regimen. On statin #. Mood disorder: Continue home mood stabilizers #. Acute kidney injury on CKD stage 3: Resolved with crystalloid resuscitation #. Hypertension: hold due to hypotension DVT prophylaxis: Xarelto Full code Reason for continued hospitalization: Hemodynamic monitoring with close monitoring of heart rate, IV antibiotic, management of alcohol withdrawal Quality Stroke Does the patient have a stroke diagnosis?: No VTE Prior VTE?: No VTE Risk Level:: Medical - moderate - high VTE Device Contraindication: Treatment Not Indicated VTE Drug Contraindication: N/A - Med Ordered
[2024-10-08] MEDS: Divalproex Sodium 500 MG TABLET.DR PO (19:35)
[2024-10-08 21:06] LABS: Glucose, Whole Blood 78 mg/dL (60-115)
[2024-10-08] MEDS: Insulin Glargine,Hum.rec.anlog 100 UNIT/ML 10 ML VIAL 10 UNIT SUBCUT (21:23)
[2024-10-09] VITALS (7 sets, daily range): BP systolic 80–118; BP diastolic 50–70; PULSE 98–118; RESP 12–20; TEMP 36.2–37.2; O2SAT 92–97
[2024-10-09] MEDS: Digoxin 0.5 MG/2 ML AMPUL 0.25 MG IVPUSH ×3 (01:11→12:52)
[2024-10-09 07:03] LABS: Glucose, Whole Blood 92 mg/dL (60-115)
[2024-10-09 07:10] LABS: MANUAL DIFF FLAG NO
[2024-10-09 07:18] LABS: Basophils Percent Auto 0.4 % (0-2); Eosinophils Absolute Auto 0.1 X10*3/uL (0.0-0.4); Eosinophils Percent Auto 1.5 % (0-4); Hematocrit 25.3 % (42.0-52.0); Hemoglobin 9.2 g/dl (14.0-18.0); Imm Gran Abs Auto 0.06 X10*3/uL (0.00-0.03); Imm Gran Pct Auto 0.8 % (0.0-0.4); Lymphocytes Absolute Auto 2.5 X10*3/uL (1.2-4.9); Lymphocytes Percent Auto 30.9 % (20-40); Mean Corpuscular HGB Conc 36.4 g/dl (31.0-36.0); Mean Corpuscular Hemoglobin 32.7 pg (27.0-33.0); Mean Platelet Volume 10.1 fL (9.4-12.4); Monocytes Absolute Auto 0.5 X10*3/uL (0.1-1.2); Monocytes Percent Auto 6.7 % (2-11); Neutrophils Absolute Auto 4.8 x10*3/uL (2.0-8.3); Neutrophils Percent Auto 59.7 % (45-73); Platelet Count 106 X10*3/uL (160-400); Red Blood Count 2.81 X10*6/uL (4.60-5.80); Red Cell Distribution Width 12.7 % (11.0-16.0); White Blood Count 7.9 X10*3/uL (4.8-10.8)
[2024-10-09 08:00] LABS: Anion Gap 12 (12-20); Blood Urea Nitrogen 30 mg/dL (9-16); Carbon Dioxide 30 mmol/L (22-29); Chloride 96 mmol/L (96-108); Creatinine Clr Calc Pharmacy 48.2; Estimated Glomerular Filt Rate 54; Glucose Random 80 mg/dL (60-115); Magnesium 1.1 mg/dL (1.6-2.6); Potassium 3.2 mmol/L (3.3-5.1); Sodium 135 mmol/L (135-145)
[2024-10-09] MEDS: Magnesium Sulfate/H2O 2 GM/50 ML PIGGYBACK IV (08:30)
[2024-10-09] MEDS: ceFAZolin Sodium/Dextrose,Iso 2 GM/50 ML PIGGYBACK IV ×2 (08:30→14:17)
[2024-10-09] MEDS: Gabapentin 400 MG CAPSULE 800 MG PO ×3 (08:31→20:27)
[2024-10-09] MEDS: Magnesium Oxide 400 MG TABLET 800 MG PO (08:31)
[2024-10-09] MEDS: Folic Acid 1 MG TABLET PO (08:32)
[2024-10-09] MEDS: 0.9 % Sodium Chloride Flush 3 ML SYRINGE IVFLUSH ×3 (08:32→20:32)
[2024-10-09] MEDS: Divalproex Sodium 250 MG TABLET.DR PO ×2 (08:32→20:26)
[2024-10-09] MEDS: PHENobarbitaL 15 MG TABLET 45 MG PO (08:32)
[2024-10-09] MEDS: Thiamine HCL 100 MG TABLET PO (08:32)
[2024-10-09] MEDS: Aspirin Enteric Coated 81 MG TABLET.DR PO (08:32)
[2024-10-09] MEDS: Potassium Chloride ER 20 MEQ TAB.ER.PRT 40 MEQ PO (08:54)
[2024-10-09 11:00] LABS: Glucose, Whole Blood 285 mg/dL (60-115)
--- NOTE | 2024-10-09 11:02 | PM.PNCARD ---
Subjective Subjective Date of Service: 10/09/24 Principal diagnosis: Atrial fibrillation. Interval history: Patient denies any cardiac symptoms. Blood pressure remains borderline. Denies any lightheadedness, syncope. Heart rate remains still elevated. Magnesium noted to be significantly low. He is also noted to have some infection in his left elbow and other places. Currently on IV antibiotics. Currently getting treatment for alcohol withdrawal. Review of Systems Constitutional: Reports no additional constitutional complaints Cardiovascular: Reports no additional cardiovascular complaints Gastrointestinal: Reports no additional gastrointestinal complaints Reports system reviewed and no additional complaints, except as documented Physical Exam Vital Signs: Last Vital Signs Temp 97.8 F 10/09/24 07:11 Pulse 98 10/09/24 07:11 Resp 18 10/09/24 07:11 BP 96/59 L 10/09/24 07:11 Pulse Ox 96 10/09/24 07:11 O2 Del Method Room Air 10/09/24 07:11 O2 Flow Rate 2 10/09/24 03:16 BMI result Body Mass Index 20.7 Const General: cooperative, comfortable and other (Sleepy, disheveled) Nutritional Appearance: thin Orientation/consciousness: patient oriented x3 HEENT Head: Yes normocephalic and Yes atraumatic Neck Neck: Yes trachea midline, Yes supple and Yes no JVD Resp Effort & Inspection: decreased respiratory effort Auscultation: no crackles, no rales, no wheezes and diminished lung sounds Cardio Jugular venous distension: no JVD Rhythm: abnormal rhythm irregularly irregular Heart sounds: S1 normal heart sound present, S2 normal heart sound present, no click, no gallops and no murmurs GI Auscultation: normal bowel sounds Skin General skin exam: no rashes or lesions noted Neuro General: patient oriented x3 and no focal motor deficits Extrem General: Yes no clubbing, cyanosis or edema Objective Labs and Meds 10/09/24 06:22 10/09/24 06:22 Lab results: Laboratory Results - last 24 hr 10/08/24 10/08/24 10/08/24 11:42 15:48 16:52 WBC RBC Hgb Hct MCV MCH MCHC RDW Plt Count MPV Immature Gran % (Auto) Neut % (Auto) Lymph % (Auto) [place] % (Auto) Eos % (Auto) Baso % (Auto) Lymph # (Auto) [place] # (Auto) Eos # (Auto) Baso # (Auto) Abs Immat Gran (auto) Absolute Neuts (auto) Absolute Nucleated RBC Nucleated RBC % (auto) Sodium Potassium Chloride Carbon Dioxide Anion Gap BUN Creatinine Estim Creat Clear Calc Estimated GFR POC Glucose 185 H 219 H 230 H Random Glucose Calcium Magnesium 10/08/24 10/09/24 10/09/24 20:53 06:21 06:22 WBC 7.9 RBC 2.81 L Hgb 9.2 L Hct 25.3 L MCV 90.0 MCH 32.7 MCHC 36.4 H RDW 12.7 Plt Count 106 L MPV 10.1 Immature Gran % (Auto) 0.8 H Neut % (Auto) 59.7 Lymph % (Auto) 30.9 [place] % (Auto) 6.7 Eos % (Auto) 1.5 Baso % (Auto) 0.4 Lymph # (Auto) 2.5 [place] # (Auto) 0.5 Eos # (Auto) 0.1 Baso # (Auto) 0.0 Abs Immat Gran (auto) 0.06 H Absolute Neuts (auto) 4.8 Absolute Nucleated RBC 0.000 Nucleated RBC % (auto) 0.0 Sodium Cancelled 135 Potassium Cancelled 3.2 L Chloride Cancelled 96 Carbon Dioxide Cancelled 30 H Anion Gap Cancelled 12 BUN Cancelled 30 H Creatinine Cancelled 1.33 Estim Creat Clear Calc Cancelled 48.2 Estimated GFR Cancelled 54 POC Glucose 78 Random Glucose Cancelled 80 Calcium Cancelled 8.0 L Magnesium 1.1 L* 10/09/24 10/09/24 06:56 10:54 WBC RBC Hgb Hct MCV MCH MCHC RDW Plt Count MPV Immature Gran % (Auto) Neut % (Auto) Lymph % (Auto) [place] % (Auto) Eos % (Auto) Baso % (Auto) Lymph # (Auto) [place] # (Auto) Eos # (Auto) Baso # (Auto) Abs Immat Gran (auto) Absolute Neuts (auto) Absolute Nucleated RBC Nucleated RBC % (auto) Sodium Potassium Chloride Carbon Dioxide Anion Gap BUN Creatinine Estim Creat Clear Calc Estimated GFR POC Glucose 92 285 H Random Glucose Calcium Magnesium Progress Note: A&P Assessment and plan (1) Atrial fibrillation with RVR: Status: Acute Assessment and Plan: New onset atrial fibrillation rapid ventricular response with difficult control rate with lowish blood pressure. Would start him on digoxin 0.25 mg daily. Will also give low-dose metoprolol 12.5 mg q.6 hours. Treat underlying infectious etiology as well as alcohol withdrawal which can contribute to difficult to control rate. Currently on good protocol. Clinically does appear to be in heart failure at this point time. LV ejection fraction appears to be stable. Abstinence from alcohol was discussed. Currently does not have significant risk factors for thromboembolic complication but can continue to use Xarelto if plan eventually he has to pursue rhythm control approach. Will follow with you Time Spent With Patient Time: Total time managing care of this patient today ____ minutes. Progress Note: Quality Stroke Does the patient have a stroke diagnosis?: No Procedures Date of Service Date of Service: 10/09/24
--- NOTE | 2024-10-09 11:26 | HO.ADDICT_ITS ---
History of Present Illness Date of Service: 10/09/2024 Chief Complaint: alcohol withdrawal Reason for Consult: AUD Sources of Information: patient interviewed and chart reviewed HPI Narrative: Patient is a 64 year old male with history of T2DM, HTN and AUD. Presented to [facility] ED in acute alcohol withdrawal, subsequently admitted with new dx of AFIB with RVR. Patient seen in room 457. He is awake, alert, engaged in interview. He reports ongoing binge drinking for many years, it's not how often I drink, it;s how much I drink when I do States he was drinking 1.75L hard alcohol every 1-2 days. Denies any history of treatment, including AMBAR Patient tearful during interview, identifying feelings of worthlessness as a motivator for drinking He states that he used to be very active, and enjoyed working and since he had COVID, he has been unable to return to his previous state of activity. He reports financial constraints (can't pay for certain medications) and feeling alone at home as he no longer has a vehicle. Denies any withdrawal sx, and appears comfortable. CIWA scores 2,2. No tremor noted. verbalizing that he wants to go home as soon as possible, but will stay for now. Inquiring about new dx of AFIB, requesting written materials to review. Labs reviewed-Mg low LFTs WNL Review of Systems Constitutional: Reports as per HPI and Reports no additional constitutional complaints Diagnostics Vital Signs (24Hr): Vital Signs - 24 hr 10/08/24 12:09 10/08/24 12:32 10/08/24 12:51 Temperature 97.7 F Pulse Rate 92 102 H 105 H Respiratory Rate 18 16 24 H Blood Pressure 81/48 L 79/52 L 95/63 Pulse Oximetry 96 92 99 Oxygen Delivery Method Room Air Room Air Nasal Cannula Oxygen Flow Rate 2 10/08/24 13:18 10/08/24 13:49 10/08/24 14:07 Temperature Pulse Rate 96 99 109 H Respiratory Rate 16 18 20 Blood Pressure 93/70 83/53 L 88/60 L Pulse Oximetry 99 100 Oxygen Delivery Method Nasal Cannula Nasal Cannula Oxygen Flow Rate 2 2 10/08/24 15:35 10/08/24 16:55 10/08/24 19:07 Temperature 98.0 F 97.6 F 97.5 F Pulse Rate 107 H 105 H 105 H Respiratory Rate 22 H 18 18 Blood Pressure 97/69 98/55 L 96/61 Pulse Oximetry 100 97 94 Oxygen Delivery Method Nasal Cannula Nasal Cannula Nasal Cannula Oxygen Flow Rate 2 2 2 10/08/24 23:46 10/09/24 03:16 10/09/24 07:11 Temperature 96.9 F 97.1 F 97.8 F Pulse Rate 107 H 111 H 98 Respiratory Rate 18 18 18 Blood Pressure 90/62 99/50 L 96/59 L Pulse Oximetry 96 96 96 Oxygen Delivery Method Nasal Cannula Nasal Cannula Room Air Oxygen Flow Rate 2 2 10/09/24 11:06 Temperature 98.6 F Pulse Rate 116 H Respiratory Rate 20 Blood Pressure 89/55 L Pulse Oximetry 97 Oxygen Delivery Method Room Air Oxygen Flow Rate BMI result Body Mass Index 20.7 Labs 10/09/24 06:22 10/09/24 06:22 Labs: Laboratory Results - last 48 hr 10/07/24 10/07/24 10/07/24 14:00 14:01 14:40 WBC 13.5 H RBC 3.66 L Hgb 10.5 L D Hct 31.4 L D MCV 85.8 MCH 28.7 MCHC 33.4 RDW 12.5 Plt Count 115 L D MPV 10.4 Immature Gran % (Auto) 0.7 H Neut % (Auto) 79.2 H Lymph % (Auto) 14.2 L Quay % (Auto) 5.8 Eos % (Auto) 0.0 Baso % (Auto) 0.1 Lymph # (Auto) 1.9 Quay # (Auto) 0.8 Eos # (Auto) 0.0 Baso # (Auto) 0.0 Abs Immat Gran (auto) 0.09 H Absolute Neuts (auto) 10.7 H Absolute Nucleated RBC 0.000 Nucleated RBC % (auto) 0.0 Smear Tech's Comments VERIFIED VBG pH VBG pCO2 VBG pO2 VBG HCO3 VBG O2 Saturation VBG Base Excess Sodium 126 L Potassium 4.5 Chloride 84 L Carbon Dioxide 24 Anion Gap 23 H BUN 74 H Creatinine 1.64 H Estim Creat Clear Calc 39.1 Estimated GFR 43 POC Glucose Random Glucose 663 H* Lactic Acid Calcium 8.8 D Phosphorus 2.4 L Magnesium 1.6 Total Bilirubin 0.7 Direct Bilirubin AST 26 ALT 14 Alkaline Phosphatase 98 Ammonia 29 Troponin I High Sens 69.5 H D B-Natriuretic Peptide Total Protein 6.2 L Albumin 4.0 Lipase 76 Beta-Hydroxybutyrate 3.04 H TSH Urine Color Yellow Urine Appearance Clear Urine pH 6.0 Ur Specific [place] 1.025 Urine Protein 30 (1+) H Urine Glucose (UA) >=1000 H Urine Ketones 15 Urine Blood Trace H Urine Nitrite Negative Ur Leukocyte Esterase Negative Urine RBC 0-2 Urine WBC 0-5 Ur Squamous Epith Cells 0-2 Urine Bacteria None Seen Hyaline Casts 0-2 Salicylates < 5.0 L Urine Opiates Screen Not Detected Ur Buprenorphine Scrn Not Detected Ur Oxycodone Screen Not Detected Urine Methadone Screen Not Detected Urine Fentanyl Screen Not Detected Acetaminophen 4 Ur Barbiturates Screen Not Detected Ur Phencyclidine Scrn Not Detected Ur Amphetamines Screen Not Detected U Benzodiazepines Scrn Not Detected Urine Cocaine Screen Not Detected U Marijuana (THC) Screen Not Detected Ethyl Alcohol < 10 10/07/24 10/07/24 10/07/24 14:44 15:49 16:58 WBC RBC Hgb Hct MCV MCH MCHC RDW Plt Count MPV Immature Gran % (Auto) Neut % (Auto) Lymph % (Auto) Quay % (Auto) Eos % (Auto) Baso % (Auto) Lymph # (Auto) Quay # (Auto) Eos # (Auto) Baso # (Auto) Abs Immat Gran (auto) Absolute Neuts (auto) Absolute Nucleated RBC Nucleated RBC % (auto) Smear Tech's Comments VBG pH 7.42 VBG pCO2 40 VBG pO2 42 VBG HCO3 26 VBG O2 Saturation 54.0 VBG Base Excess 2.2 Sodium Potassium Chloride Carbon Dioxide Anion Gap BUN Creatinine Estim Creat Clear Calc Estimated GFR POC Glucose 269 H Random Glucose Lactic Acid 1.7 Calcium Phosphorus Magnesium 1.6 Total Bilirubin Direct Bilirubin AST ALT Alkaline Phosphatase Ammonia Troponin I High Sens B-Natriuretic Peptide Total Protein Albumin Lipase Beta-Hydroxybutyrate TSH 1.32 Urine Color Urine Appearance Urine pH Ur Specific [place] Urine Protein Urine Glucose (UA) Urine Ketones Urine Blood Urine Nitrite Ur Leukocyte Esterase Urine RBC Urine WBC Ur Squamous Epith Cells Urine Bacteria Hyaline Casts Salicylates Urine Opiates Screen Ur Buprenorphine Scrn Ur Oxycodone Screen Urine Methadone Screen Urine Fentanyl Screen Acetaminophen Ur Barbiturates Screen Ur Phencyclidine Scrn Ur Amphetamines Screen U Benzodiazepines Scrn Urine Cocaine Screen U Marijuana (THC) Screen Ethyl Alcohol 0610/07/24 10/07/24 17:15 17:46 17:47 WBC RBC Hgb Hct MCV MCH MCHC RDW Plt Count MPV Immature Gran % (Auto) Neut % (Auto) Lymph % (Auto) Quay % (Auto) Eos % (Auto) Baso % (Auto) Lymph # (Auto) Quay # (Auto) Eos # (Auto) Baso # (Auto) Abs Immat Gran (auto) Absolute Neuts (auto) Absolute Nucleated RBC Nucleated RBC % (auto) Smear Tech's Comments VBG pH VBG pCO2 VBG pO2 VBG HCO3 VBG O2 Saturation VBG Base Excess Sodium 134 L Potassium 4.4 Chloride 97 Carbon Dioxide 21 L Anion Gap 20 BUN 69 H Creatinine 1.38 Estim Creat Clear Calc 46.4 Estimated GFR 52 POC Glucose 257 H Random Glucose 246 H Lactic Acid Calcium 8.6 Phosphorus Magnesium 1.6 Total Bilirubin 0.5 Direct Bilirubin 0.2 AST 25 ALT 15 Alkaline Phosphatase 83 Ammonia Troponin I High Sens 59.8 H B-Natriuretic Peptide Total Protein 5.7 L Albumin 3.7 Lipase Beta-Hydroxybutyrate 1.18 H Cancelled TSH Urine Color Urine Appearance Urine pH Ur Specific [place] Urine Protein Urine Glucose (UA) Urine Ketones Urine Blood Urine Nitrite Ur Leukocyte Esterase Urine RBC Urine WBC Ur Squamous Epith Cells Urine Bacteria Hyaline Casts Salicylates Urine Opiates Screen Ur Buprenorphine Scrn Ur Oxycodone Screen Urine Methadone Screen Urine Fentanyl Screen Acetaminophen Ur Barbiturates Screen Ur Phencyclidine Scrn Ur Amphetamines Screen U Benzodiazepines Scrn Urine Cocaine Screen U Marijuana (THC) Screen Ethyl Alcohol 10/07/24 10/07/24 10/07/24 17:50 17:51 18:21 WBC 11.0 H RBC 3.24 L Hgb 10.2 L Hct 28.7 L MCV 88.6 MCH 31.5 MCHC 35.5 RDW 12.4 Plt Count 117 L MPV 10.8 Immature Gran % (Auto) 0.5 H Neut % (Auto) 74.0 H Lymph % (Auto) 18.2 L Quay % (Auto) 6.7 Eos % (Auto) 0.1 Baso % (Auto) 0.5 Lymph # (Auto) 2.0 Quay # (Auto) 0.7 Eos # (Auto) 0.0 Baso # (Auto) 0.1 Abs Immat Gran (auto) 0.06 H Absolute Neuts (auto) 8.1 Absolute Nucleated RBC 0.020 H Nucleated RBC % (auto) 0.2 Smear Tech's Comments VBG pH 7.39 VBG pCO2 42 VBG pO2 68 VBG HCO3 26 VBG O2 Saturation 87.0 VBG Base Excess 1.0 Sodium Potassium Chloride Carbon Dioxide Anion Gap BUN Creatinine Estim Creat Clear Calc Estimated GFR POC Glucose 188 H Random Glucose Lactic Acid Calcium Phosphorus Magnesium Total Bilirubin Direct Bilirubin AST ALT Alkaline Phosphatase Ammonia Troponin I High Sens B-Natriuretic Peptide 504 H Total Protein Albumin Lipase Beta-Hydroxybutyrate TSH Urine Color Urine Appearance Urine pH Ur Specific [place] Urine Protein Urine Glucose (UA) Urine Ketones Urine Blood Urine Nitrite Ur Leukocyte Esterase Urine RBC Urine WBC Ur Squamous Epith Cells Urine Bacteria Hyaline Casts Salicylates Urine Opiates Screen Ur Buprenorphine Scrn Ur Oxycodone Screen Urine Methadone Screen Urine Fentanyl Screen Acetaminophen Ur Barbiturates Screen Ur Phencyclidine Scrn Ur Amphetamines Screen U Benzodiazepines Scrn Urine Cocaine Screen U Marijuana (THC) Screen Ethyl Alcohol 10/07/24 10/07/24 10/07/24 18:24 19:25 20:18 WBC RBC Hgb Hct MCV MCH MCHC RDW Plt Count MPV Immature Gran % (Auto) Neut % (Auto) Lymph % (Auto) Quay % (Auto) Eos % (Auto) Baso % (Auto) Lymph # (Auto) [place] # (Auto) Eos # (Auto) Baso # (Auto) Abs Immat Gran (auto) Absolute Neuts (auto) Absolute Nucleated RBC Nucleated RBC % (auto) Smear Tech's Comments VBG pH VBG pCO2 VBG pO2 VBG HCO3 VBG O2 Saturation VBG Base Excess Sodium Potassium Chloride Carbon Dioxide Anion Gap BUN Creatinine Estim Creat Clear Calc Estimated GFR POC Glucose 193 H 202 H 259 H Random Glucose Lactic Acid Calcium Phosphorus Magnesium Total Bilirubin Direct Bilirubin AST ALT Alkaline Phosphatase Ammonia Troponin I High Sens B-Natriuretic Peptide Total Protein Albumin Lipase Beta-Hydroxybutyrate TSH Urine Color Urine Appearance Urine pH Ur Specific [place] Urine Protein Urine Glucose (UA) Urine Ketones Urine Blood Urine Nitrite Ur Leukocyte Esterase Urine RBC Urine WBC Ur Squamous Epith Cells Urine Bacteria Hyaline Casts Salicylates Urine Opiates Screen Ur Buprenorphine Scrn Ur Oxycodone Screen Urine Methadone Screen Urine Fentanyl Screen Acetaminophen Ur Barbiturates Screen Ur Phencyclidine Scrn Ur Amphetamines Screen U Benzodiazepines Scrn Urine Cocaine Screen U Marijuana (THC) Screen Ethyl Alcohol 10/07/24 10/08/24 10/08/24 21:25 04:41 05:48 WBC 9.7 RBC 3.02 L Hgb 9.6 L Hct 27.2 L MCV 90.1 MCH 31.8 MCHC 35.3 RDW 12.6 Plt Count 89 L MPV 9.8 Immature Gran % (Auto) Neut % (Auto) Lymph % (Auto) Quay % (Auto) Eos % (Auto) Baso % (Auto) Lymph # (Auto) [place] # (Auto) Eos # (Auto) Baso # (Auto) Abs Immat Gran (auto) Absolute Neuts (auto) Absolute Nucleated RBC 0.000 Nucleated RBC % (auto) 0.0 Smear Tech's Comments VBG pH VBG pCO2 VBG pO2 VBG HCO3 VBG O2 Saturation VBG Base Excess Sodium 135 Potassium 3.7 Chloride 96 Carbon Dioxide 25 Anion Gap 18 BUN 40 H Creatinine 1.09 Estim Creat Clear Calc 58.8 Estimated GFR > 60 POC Glucose 188 H 205 H Random Glucose 213 H Lactic Acid Calcium 8.2 L Phosphorus Magnesium Total Bilirubin Direct Bilirubin AST ALT Alkaline Phosphatase Ammonia Troponin I High Sens B-Natriuretic Peptide Total Protein Albumin Lipase Beta-Hydroxybutyrate TSH Urine Color Urine Appearance Urine pH Ur Specific [place] Urine Protein Urine Glucose (UA) Urine Ketones Urine Blood Urine Nitrite Ur Leukocyte Esterase Urine RBC Urine WBC Ur Squamous Epith Cells Urine Bacteria Hyaline Casts Salicylates Urine Opiates Screen Ur Buprenorphine Scrn Ur Oxycodone Screen Urine Methadone Screen Urine Fentanyl Screen Acetaminophen Ur Barbiturates Screen Ur Phencyclidine Scrn Ur Amphetamines Screen U Benzodiazepines Scrn Urine Cocaine Screen U Marijuana (THC) Screen Ethyl Alcohol 10/08/24 10/08/24 10/08/24 07:32 11:42 15:48 WBC RBC Hgb Hct MCV MCH MCHC RDW Plt Count MPV Immature Gran % (Auto) Neut % (Auto) Lymph % (Auto) [place]ay % (Auto) Eos % (Auto) Baso % (Auto) Lymph # (Auto) [place] # (Auto) Eos # (Auto) Baso # (Auto) Abs Immat Gran (auto) Absolute Neuts (auto) Absolute Nucleated RBC Nucleated RBC % (auto) Smear Tech's Comments VBG pH VBG pCO2 VBG pO2 VBG HCO3 VBG O2 Saturation VBG Base Excess Sodium Potassium Chloride Carbon Dioxide Anion Gap BUN Creatinine Estim Creat Clear Calc Estimated GFR POC Glucose 172 H 185 H 219 H Random Glucose Lactic Acid Calcium Phosphorus Magnesium Total Bilirubin Direct Bilirubin AST ALT Alkaline Phosphatase Ammonia Troponin I High Sens B-Natriuretic Peptide Total Protein Albumin Lipase Beta-Hydroxybutyrate TSH Urine Color Urine Appearance Urine pH Ur Specific [place] Urine Protein Urine Glucose (UA) Urine Ketones Urine Blood Urine Nitrite Ur Leukocyte Esterase Urine RBC Urine WBC Ur Squamous Epith Cells Urine Bacteria Hyaline Casts Salicylates Urine Opiates Screen Ur Buprenorphine Scrn Ur Oxycodone Screen Urine Methadone Screen Urine Fentanyl Screen Acetaminophen Ur Barbiturates Screen Ur Phencyclidine Scrn Ur Amphetamines Screen U Benzodiazepines Scrn Urine Cocaine Screen U Marijuana (THC) Screen Ethyl Alcohol 10/08/24 10/08/24 10/09/24 16:52 20:53 06:21 WBC RBC Hgb Hct MCV MCH MCHC RDW Plt Count MPV Immature Gran % (Auto) Neut % (Auto) Lymph % (Auto) [place] % (Auto) Eos % (Auto) Baso % (Auto) Lymph # (Auto) [place] # (Auto) Eos # (Auto) Baso # (Auto) Abs Immat Gran (auto) Absolute Neuts (auto) Absolute Nucleated RBC Nucleated RBC % (auto) Smear Tech's Comments VBG pH VBG pCO2 VBG pO2 VBG HCO3 VBG O2 Saturation VBG Base Excess Sodium Cancelled Potassium Cancelled Chloride Cancelled Carbon Dioxide Cancelled Anion Gap Cancelled BUN Cancelled Creatinine Cancelled Estim Creat Clear Calc Cancelled Estimated GFR Cancelled POC Glucose 230 H 78 Random Glucose Cancelled Lactic Acid Calcium Cancelled Phosphorus Magnesium Total Bilirubin Direct Bilirubin AST ALT Alkaline Phosphatase Ammonia Troponin I High Sens B-Natriuretic Peptide Total Protein Albumin Lipase Beta-Hydroxybutyrate TSH Urine Color Urine Appearance Urine pH Ur Specific [place] Urine Protein Urine Glucose (UA) Urine Ketones Urine Blood Urine Nitrite Ur Leukocyte Esterase Urine RBC Urine WBC Ur Squamous Epith Cells Urine Bacteria Hyaline Casts Salicylates Urine Opiates Screen Ur Buprenorphine Scrn Ur Oxycodone Screen Urine Methadone Screen Urine Fentanyl Screen Acetaminophen Ur Barbiturates Screen Ur Phencyclidine Scrn Ur Amphetamines Screen U Benzodiazepines Scrn Urine Cocaine Screen U Marijuana (THC) Screen Ethyl Alcohol 10/09/24 10/09/24 10/09/24 06:22 06:56 10:54 WBC 7.9 RBC 2.81 L Hgb 9.2 L Hct 25.3 L MCV 90.0 MCH 32.7 MCHC 36.4 H RDW 12.7 Plt Count 106 L MPV 10.1 Immature Gran % (Auto) 0.8 H Neut % (Auto) 59.7 Lymph % (Auto) 30.9 Quay % (Auto) 6.7 Eos % (Auto) 1.5 Baso % (Auto) 0.4 Lymph # (Auto) 2.5 Quay # (Auto) 0.5 Eos # (Auto) 0.1 Baso # (Auto) 0.0 Abs Immat Gran (auto) 0.06 H Absolute Neuts (auto) 4.8 Absolute Nucleated RBC 0.000 Nucleated RBC % (auto) 0.0 Smear Tech's Comments VBG pH VBG pCO2 VBG pO2 VBG HCO3 VBG O2 Saturation VBG Base Excess Sodium 135 Potassium 3.2 L Chloride 96 Carbon Dioxide 30 H Anion Gap 12 BUN 30 H Creatinine 1.33 Estim Creat Clear Calc 48.2 Estimated GFR 54 POC Glucose 92 285 H Random Glucose 80 Lactic Acid Calcium 8.0 L Phosphorus Magnesium 1.1 L* Total Bilirubin Direct Bilirubin AST ALT Alkaline Phosphatase Ammonia Troponin I High Sens B-Natriuretic Peptide Total Protein Albumin Lipase Beta-Hydroxybutyrate TSH Urine Color Urine Appearance Urine pH Ur Specific [place] Urine Protein Urine Glucose (UA) Urine Ketones Urine Blood Urine Nitrite Ur Leukocyte Esterase Urine RBC Urine WBC Ur Squamous Epith Cells Urine Bacteria Hyaline Casts Salicylates Urine Opiates Screen Ur Buprenorphine Scrn Ur Oxycodone Screen Urine Methadone Screen Urine Fentanyl Screen Acetaminophen Ur Barbiturates Screen Ur Phencyclidine Scrn Ur Amphetamines Screen U Benzodiazepines Scrn Urine Cocaine Screen U Marijuana (THC) Screen Ethyl Alcohol Imaging Radiology Impressions: ITS Impressions Chest X-Ray 10/07/24 13:54 IMPRESSION: No acute cardiopulmonary abnormality. Electronically signed by: Polo Molina MD 10/07/2024 03:07 PM EDT Mental Status Exam Mental Status Exam Patient Appearance: Unkempt Level of Consciousness: Awake, Appropriate and Alert Patient Behavior: Appropriate Affect Description: Depressed and Flat Speech Pattern: Clear Hallucinations: None Thought Process: Intact Thought Content: positive for [place] Medications Medications Current Medications Acetaminophen (Acetaminophen 325 Mg Tablet) 650 mg PO Q6H PRN PRN Reason: Pain, Mild 1-3,fever,headache Last Admin: 10/08/24 06:21 Dose: 650 mg Aspirin (Aspirin Enteric Coated 81 Mg Tablet.) 81 mg PO DAILY [facility] Last Admin: 10/09/24 08:32 Dose: 81 mg Calcium Carbonate (Calcium Carbonate 750 Mg Tab.Chew) 750 mg PO Q4H PRN PRN Reason: Heartburn Dextrose (Dextrose 50 % 25 Gm/50 Ml Syringe) 25 gm IVPUSH Q30M PRN PRN Reason: BG < 70 Dextrose (Dextrose 50 % 25 Gm/50 Ml Syringe) 25 gm IVPUSH Q15M PRN; Protocol PRN Reason: per Hypoglycemia Standing Ord. Digoxin (Digoxin 0.5 Mg/2 Ml Ampul) 0.25 mg IVPUSH Q6H [facility]; Protocol Stop: 10/09/24 13:01 Last Admin: 10/09/24 08:30 Dose: 0.25 mg Divalproex Sodium (Divalproex Sodium 250 Mg Tablet.) 250 mg PO BID [facility] Last Admin: 10/09/24 08:32 Dose: 250 mg Divalproex Sodium (Divalproex Sodium 500 Mg Tablet.) 500 mg PO BEDTIME [facility] Last Admin: 10/08/24 19:35 Dose: 500 mg Folic Acid (Folic Acid 1 Mg Tablet) 1 mg PO DAILY [facility] Last Admin: 10/09/24 08:32 Dose: 1 mg Gabapentin (Gabapentin 400 Mg Capsule) 800 mg PO TID [facility] Last Admin: 10/09/24 08:31 Dose: 800 mg Glucose (Glucose Gel 15 Gm Gel..Gram.) 15 gm PO Q15M PRN; Protocol PRN Reason: per Hypoglycemia Standing Ord. Cefazolin Sodium/Dextrose (Ancef) 2 gm in 50 mls @ 100 mls/hr IV Q8H [facility] Last Admin: 10/09/24 08:30 Dose: 100 mls/hr Insulin Glargine (Insulin Glargine,Hum.Rec.Anlog 100 Unit/Ml 10 Ml Vial) 10 unit SUBCUT BEDTIME [facility] Last Admin: 10/08/24 21:23 Dose: 10 unit Insulin Human Lispro (Insulin Lispro 100 Unit/Ml 3 Ml Vial) 0 unit SUBCUT QIDACHS [facility]; Protocol Last Admin: 10/09/24 07:38 Dose: Not Given Magnesium Hydroxide (Milk Of Magnesia 30 Ml Oral.Susp) 30 ml PO DAILY PRN PRN Reason: Constipation Magnesium Oxide (Magnesium Oxide 400 Mg Tablet) 800 mg PO DAILY [facility] Last Admin: 10/09/24 08:31 Dose: 800 mg Melatonin (Melatonin 3 Mg Tablet) 6 mg PO BEDTIME PRN PRN Reason: Insomnia Ondansetron HCl (Ondansetron Hcl 4 Mg/2 Ml Vial) 4 mg IVPUSH Q8H PRN PRN Reason: Nausea and Vomiting Pharmacy Consult (Consult Rx Etoh Phenob Im/Po) 1 each MISCELLANE ONCE PRN; Protocol PRN Reason: Consult order Phenobarbital (Phenobarbital 30 Mg Tablet) 30 mg PO BID [facility] Stop: 10/11/24 09:01 Phenobarbital (Phenobarbital 30 Mg Tablet) 30 mg PO BEDTIME [facility] Stop: 10/12/24 21:01 Rivaroxaban (Rivaroxaban 20 Mg Tablet) 20 mg PO DAILY@1700 [facility] Last Admin: 10/08/24 17:05 Dose: 20 mg Sodium Chloride (0.9 % Sodium Chloride Flush 3 Ml Syringe) 3 ml IVFLUSH QSHIFT [facility] Last Admin: 10/09/24 08:32 Dose: 3 ml Thiamine HCl (Thiamine Hcl 100 Mg Tablet) 100 mg PO DAILY [facility] Last Admin: 10/09/24 08:32 Dose: 100 mg Allergies Allergies Allergy/AdvReac Type Severity Reaction Status Date / Time metformin Allergy Intermediate Swelling Verified 10/07/24 13:35 Assessment & Plan Assessment & Plan (1) Alcohol use disorder, moderate, dependence: Status: Acute Code(s): F10.20 - Alcohol dependence, uncomplicated Assessment and Plan: * Discussed AMBAR, and provided information, patient open to trial of Naltrexone. * Agreeable to appt at [facility]--to be scheduled * Encouraged to continue meeting with therapist who he sees once per month (may actually be psych provider) * Provided patient information sheet about AFIB as requested Total time managing care of this patient today ____ minutes. PMFSH Past Medical History Medical History Stage 3 chronic kidney disease Hypertension Diabetes ETOH abuse Social History Social History Household Members: Spouse Housing: House Do you presently have visiting nurse or other home services: No Alcohol intake: current Alcohol intake frequency: 3 or more drinks per day Alcohol type: hard liquor Patient Tobacco Use Status: Former Tobacco user Tobacco use type: Cigarette Cigarettes Per Day: 10 Substance Use Type: Marijuana service: No
--- NOTE | 2024-10-09 11:49 | HO.WOUND ---
Wound Consult: Initial 64yr old?male admitted to [facility] on 10/27/24 - See progress notes and H&P for detailed history.? Wound consult placed for Bilateral Toes.? Patient agreeable to assessment and photo documentation.? Patient reports the scabs are secondary to his picking at his toes. He reports he picks at the toes out of boredom . Patient feet were noted for debris and dirt - his feet were washed. There were not open abrasions the surrounding tissue was stained. No topical recommendations were needed at this time. Of note both great toes were noted for missing toenails - patient encouraged to stop picking - socks in use over feet. Left Toes Right Toes Etiology: Abrasions ?Present on Admission Wound Bed: dried stable scabs Drainage / Odor: none Edges: ? attached Sima wound: intact stained tissue No Induration, Fluctuance or Warmth noted Pain: denies Goals of Treatment: ? No topical interventions needed at this time. Recommendations: 1. Turn and Reposition every 2 hours and as needed for patient comfort.? Use pillows or wedges to support off loading positions. 2. Off Load all bony prominences with use of pillows and heel boots if needed.? Apply Preventative foams where needed. ? 3. Monitor for incontinence and moisture control, use barrier creams when needed for prevention and treatment. 4. Provide adequate and supplemental nutrition.? 5. Order low air loss mattress. 6. When applicable maintain blood glucose levels per Providers order. Bilateral Toes - No topical interventions needed at this time. Re-consult wound care Nurse for wound deterioration or wound changes.
[2024-10-09] MEDS: Insulin Lispro 100 UNIT/ML 3 ML VIAL SUBCUT ×2 (12:13→22:00)
[2024-10-09 16:05] LABS: Alanine Aminotransferase 12 U/L (0-40); Albumin Level 3.5 g/dL (3.5-5.0); Alkaline Phosphatase 59 U/L (39-117); Aspartate Amino Transferase 24 U/L (5-37); Bilirubin Direct 0.1 mg/dL (0.0-0.5); Bilirubin Total 0.3 mg/dL (0.0-1.0); Total Protein 5.1 g/dL (6.5-8.0)
--- NOTE | 2024-10-09 16:43 | HO.PM.IMPN ---
Subjective Subjective Date of Service: 10/09/24 Interval History: afib with rvr bodelrine bp Review of Systems denies new c/o no fevers Review of Systems: Yes all other systems are reviewed and are negative Physical Exam Vital Signs: Vital Signs: Last Vital Signs Temp 98.6 F 10/09/24 11:06 Pulse 116 H 10/09/24 11:06 Resp 20 10/09/24 11:06 BP 118/70 10/09/24 16:05 Pulse Ox 97 10/09/24 11:06 O2 Del Method Room Air 10/09/24 11:06 O2 Flow Rate 2 10/09/24 03:16 BMI result Body Mass Index 20.7 Appearance: Alert.? Oriented X3.? . cvs: irregular rythem, [id number]. res: air entry fair , no rales or wheezing abd: no rebound or guarding ,nt, bs present. ext pulses present , no cyanosis . neuro: axo3 , nonfocal. Objective Data Active Medications Acetaminophen (Acetaminophen 325 Mg Tablet) 650 mg PO Q6H PRN PRN Reason: Pain, Mild 1-3,fever,headache Last Admin: 10/08/24 06:21 Dose: 650 mg Documented By: HANNAH Aspirin (Aspirin Enteric Coated 81 Mg Tablet.) 81 mg PO DAILY [facility] Last Admin: 10/09/24 08:32 Dose: 81 mg Documented By: HALINA Calcium Carbonate (Calcium Carbonate 750 Mg Tab.Chew) 750 mg PO Q4H PRN PRN Reason: Heartburn Dextrose (Dextrose 50 % 25 Gm/50 Ml Syringe) 25 gm IVPUSH Q30M PRN PRN Reason: BG < 70 Dextrose (Dextrose 50 % 25 Gm/50 Ml Syringe) 25 gm IVPUSH Q15M PRN; Protocol PRN Reason: per Hypoglycemia Standing Ord. Divalproex Sodium (Divalproex Sodium 250 Mg Tablet.) 250 mg PO BID [facility] Last Admin: 10/09/24 08:32 Dose: 250 mg Documented By: HALINA Divalproex Sodium (Divalproex Sodium 500 Mg Tablet.) 500 mg PO BEDTIME [facility] Last Admin: 10/08/24 19:35 Dose: 500 mg Documented By: GISSELLE Folic Acid (Folic Acid 1 Mg Tablet) 1 mg PO DAILY [facility] Last Admin: 10/09/24 08:32 Dose: 1 mg Documented By: HALINA Gabapentin (Gabapentin 400 Mg Capsule) 800 mg PO TID [facility] Last Admin: 10/09/24 14:17 Dose: 800 mg Documented By: HALINA Glucose (Glucose Gel 15 Gm Gel..Gram.) 15 gm PO Q15M PRN; Protocol PRN Reason: per Hypoglycemia Standing Ord. Cefazolin Sodium/Dextrose (Ancef) 2 gm in 50 mls @ 100 mls/hr IV Q8H [facility] Last Infusion: 10/09/24 14:53 Dose: Infused Documented By: HALINA Albumin Human (Kedbumin 25 %) 100 mls @ 100 mls/hr IV Q6H [facility] Stop: 10/09/24 22:29 Insulin Glargine (Insulin Glargine,Hum.Rec.Anlog 100 Unit/Ml 10 Ml Vial) 10 unit SUBCUT BEDTIME [facility] Last Admin: 10/08/24 21:23 Dose: 10 unit Documented By: GISSELLE Insulin Human Lispro (Insulin Lispro 100 Unit/Ml 3 Ml Vial) 0 unit SUBCUT QIDACHS [facility]; Protocol Last Admin: 10/09/24 12:13 Dose: 6 unit Documented By: HALINA Magnesium Hydroxide (Milk Of Magnesia 30 Ml Oral.Susp) 30 ml PO DAILY PRN PRN Reason: Constipation Magnesium Oxide (Magnesium Oxide 400 Mg Tablet) 800 mg PO DAILY [facility] Last Admin: 10/09/24 08:31 Dose: 800 mg Documented By: HALINA Melatonin (Melatonin 3 Mg Tablet) 6 mg PO BEDTIME PRN PRN Reason: Insomnia Midodrine (Midodrine Hcl 5 Mg Tablet) 5 mg PO TIDWM [facility] Ondansetron HCl (Ondansetron Hcl 4 Mg/2 Ml Vial) 4 mg IVPUSH Q8H PRN PRN Reason: Nausea and Vomiting Pharmacy Consult (Consult Rx Etoh Phenob Im/Po) 1 each MISCELLANE ONCE PRN; Protocol PRN Reason: Consult order Phenobarbital (Phenobarbital 30 Mg Tablet) 30 mg PO BID [facility] Stop: 10/11/24 09:01 Phenobarbital (Phenobarbital 30 Mg Tablet) 30 mg PO BEDTIME [facility] Stop: 10/12/24 21:01 Rivaroxaban (Rivaroxaban 20 Mg Tablet) 20 mg PO DAILY@1700 [facility] Last Admin: 10/08/24 17:05 Dose: 20 mg Documented By: HALINA Sodium Chloride (0.9 % Sodium Chloride Flush 3 Ml Syringe) 3 ml IVFLUSH QSHIFT [facility] Last Admin: 10/09/24 08:32 Dose: 3 ml Documented By: HALINA Thiamine HCl (Thiamine Hcl 100 Mg Tablet) 100 mg PO DAILY [facility] Last Admin: 10/09/24 08:32 Dose: 100 mg Documented By: HALINA Labs 10/09/24 06:22 10/09/24 06:22 Labs: Laboratory Results - last 24 hr 10/08/24 10/08/24 10/09/24 16:52 20:53 06:21 MCV MCH MCHC RDW Plt Count MPV Immature Gran % (Auto) Neut % (Auto) Lymph % (Auto) [place] % (Auto) Eos % (Auto) Baso % (Auto) Lymph # (Auto) [place] # (Auto) Eos # (Auto) Baso # (Auto) Abs Immat Gran (auto) Absolute Neuts (auto) Absolute Nucleated RBC Nucleated RBC % (auto) Anion Gap Cancelled Estim Creat Clear Calc Cancelled Estimated GFR Cancelled POC Glucose 230 H 78 Random Glucose Cancelled Calcium Cancelled Magnesium Total Bilirubin Direct Bilirubin AST ALT Alkaline Phosphatase Total Protein Albumin 10/09/24 10/09/24 10/09/24 06:22 06:56 10:54 MCV 90.0 MCH 32.7 MCHC 36.4 H RDW 12.7 Plt Count 106 L MPV 10.1 Immature Gran % (Auto) 0.8 H Neut % (Auto) 59.7 Lymph % (Auto) 30.9 [place] % (Auto) 6.7 Eos % (Auto) 1.5 Baso % (Auto) 0.4 Lymph # (Auto) 2.5 [place] # (Auto) 0.5 Eos # (Auto) 0.1 Baso # (Auto) 0.0 Abs Immat Gran (auto) 0.06 H Absolute Neuts (auto) 4.8 Absolute Nucleated RBC 0.000 Nucleated RBC % (auto) 0.0 Anion Gap 12 Estim Creat Clear Calc 48.2 Estimated GFR 54 POC Glucose 92 285 H Random Glucose 80 Calcium 8.0 L Magnesium 1.1 L* Total Bilirubin 0.3 Direct Bilirubin 0.1 AST 24 ALT 12 Alkaline Phosphatase 59 Total Protein 5.1 L Albumin 3.5 Microbiology Microbiology Results: Microbiology 10/07/24 15:49 Blood Culture - Preliminary Blood - Venous Prelim: GPC Gram Stain only 10/07/24 15:49 Blood Culture - Preliminary Blood - Venous Staphylococcus aureus Assessment and Plan (1) Atrial fibrillation with RVR: Status: Acute Plan This has a 64-year-old male with pertinent history of alcohol use disorder, hypertension, mood disorder, [id number] diabetes mellitus, chronic kidney disease stage 3 who presents to the emergency department for concerns of alcohol withdrawal and seeking alcohol detox. AFib with RVR, new diagnosis: added Initiated IV digoxin loading andXarelto. . Echo pending Chads Vasc score 2. TSH okay Borderline BP: Blood pressure early afternoon reported in 80s likely ''erronous '' , When checked with the proper cuff: Blood pressure is stable in 118 range. Added metoprolol in addition to digoxin, continue to monitor blood pressure closely. Acute decompensated diastolic heart failure: Resolved with IV diuresis. Iatrogenic due to crystalloid resuscitation in the ER. no sob MSSA bacteremia: Initiated on cefazolin. ?source. Repeat cx pending. ID consulted Alcohol use disorder with concerns for withdrawal: Initiated phenobarb protocol in the ER. Monitor CIWA. Continue thiamine. Consulted Addiction Team Uncontrolled uuy-tedcubg-glsufeerl diabetes mellitus due to medication noncompliance: Basal plus insulin regimen. On statin Mood disorder: Continue home mood stabilizers Acute kidney injury on CKD stage 3: Resolved with crystalloid resuscitation Hypertension: hold due to hypotension DVT prophylaxis: Xarelto Full code Reason for continued hospitalization: Hemodynamic monitoring with close monitoring of heart rate, IV antibiotic, management of alcohol withdrawal Quality Stroke Does the patient have a stroke diagnosis?: No VTE Prior VTE?: No VTE Risk Level:: Medical - moderate - high VTE Device Contraindication: Treatment Not Indicated VTE Drug Contraindication: N/A - Med Ordered
[2024-10-09 16:48] LABS: Glucose, Whole Blood 121 mg/dL (60-115)
[2024-10-09] MEDS: Albumin Human 25 % 100 ML IV ×2 (16:58→20:27)
[2024-10-09] MEDS: Rivaroxaban 20 MG TABLET PO (16:58)
[2024-10-09] MEDS: PHENobarbitaL 30 MG TABLET PO (20:26)
[2024-10-09] MEDS: Divalproex Sodium 500 MG TABLET.DR PO (20:27)
[2024-10-09] MEDS: Metoprolol Tartrate 12.5 MG HALFTAB PO (20:27)
[2024-10-09 21:09] LABS: Glucose, Whole Blood 302 mg/dL (60-115)
[2024-10-09] MEDS: Insulin Glargine,Hum.rec.anlog 100 UNIT/ML 10 ML VIAL 10 UNIT SUBCUT (22:00)
[2024-10-10] VITALS (11 sets, daily range): BP systolic 98–131; BP diastolic 58–70; PULSE 97–111; RESP 17–18; TEMP 36.8–37.5; O2SAT 95–97
[2024-10-10] MEDS: ceFAZolin Sodium/Dextrose,Iso 2 GM/50 ML PIGGYBACK IV ×4 (00:03→23:41)
[2024-10-10 07:24] LABS: Glucose, Whole Blood 206 mg/dL (60-115)
[2024-10-10] MEDS: Thiamine HCL 100 MG TABLET PO (08:25)
[2024-10-10] MEDS: Divalproex Sodium 250 MG TABLET.DR PO ×2 (08:25→20:38)
[2024-10-10] MEDS: Gabapentin 400 MG CAPSULE 800 MG PO ×3 (08:25→20:37)
[2024-10-10] MEDS: Digoxin 0.25 MG TABLET PO (08:25)
[2024-10-10] MEDS: Aspirin Enteric Coated 81 MG TABLET.DR PO (08:25)
[2024-10-10] MEDS: Metoprolol Tartrate 12.5 MG HALFTAB PO ×2 (08:25→20:38)
[2024-10-10] MEDS: Magnesium Oxide 400 MG TABLET 800 MG PO (08:25)
[2024-10-10] MEDS: Folic Acid 1 MG TABLET PO (08:25)
[2024-10-10] MEDS: Insulin Lispro 100 UNIT/ML 3 ML VIAL SUBCUT ×3 (08:26→22:05)
[2024-10-10] MEDS: Midodrine HCl 5 MG TABLET PO (08:26)
[2024-10-10] MEDS: 0.9 % Sodium Chloride Flush 3 ML SYRINGE IVFLUSH ×3 (08:30→20:41)
[2024-10-10] MEDS: PHENobarbitaL 30 MG TABLET PO ×2 (08:43→20:38)
[2024-10-10 09:24] LABS: Anion Gap 10 (12-20); Blood Urea Nitrogen 25 mg/dL (9-16); Calcium 7.9 mg/dL (8.4-10.2); Carbon Dioxide 27 mmol/L (22-29); Chloride 97 mmol/L (96-108); Creatinine Clr Calc Pharmacy 50.5; Estimated Glomerular Filt Rate 57; Glucose Random 189 mg/dL (60-115); Magnesium 1.5 mg/dL (1.6-2.6); Potassium 3.4 mmol/L (3.3-5.1); Sodium 131 mmol/L (135-145)
--- NOTE | 2024-10-10 10:13 | PM.PNCARD ---
Subjective Subjective Date of Service: 10/10/24 Principal diagnosis: Atrial fibrillation. Interval history: Patient remains with atrial fibrillation with rapid ventricular response. No symptoms related to it. Denies shortness of breath denies palpitation. Blood pressure after question receiving 1 dose of midodrine. Review of Systems Constitutional: Reports no additional constitutional complaints Cardiovascular: Reports no additional cardiovascular complaints Respiratory: Reports no additional respiratory complaints Gastrointestinal: Reports no additional gastrointestinal complaints Reports system reviewed and no additional complaints, except as documented Physical Exam Vital Signs: Last Vital Signs Temp 98.2 F 10/10/24 07:20 Pulse 100 10/10/24 07:20 Resp 17 10/10/24 07:20 BP 124/69 10/10/24 07:20 Pulse Ox 95 10/10/24 07:20 O2 Del Method Room Air 10/10/24 07:20 O2 Flow Rate 2 10/09/24 03:16 BMI result Body Mass Index 20.7 Const General: cooperative, comfortable and other (Sleepy, disheveled) Nutritional Appearance: thin Orientation/consciousness: patient oriented x3 HEENT Head: Yes normocephalic and Yes atraumatic Neck Neck: Yes trachea midline, Yes supple and Yes no JVD Resp Effort & Inspection: decreased respiratory effort Auscultation: no crackles, no rales, no wheezes and diminished lung sounds Cardio Jugular venous distension: no JVD Rhythm: abnormal rhythm irregularly irregular Heart sounds: S1 normal heart sound present, S2 normal heart sound present, no click, no gallops and no murmurs GI Auscultation: normal bowel sounds Skin General skin exam: no rashes or lesions noted Neuro General: patient oriented x3 and no focal motor deficits Extrem General: Yes no clubbing, cyanosis or edema Objective Labs and Meds 10/09/24 06:22 10/10/24 08:54 Lab results: Laboratory Results - last 24 hr 10/09/24 10/09/24 10/09/24 06:22 10:54 16:26 Sodium Potassium Chloride Carbon Dioxide Anion Gap BUN Creatinine Estim Creat Clear Calc Estimated GFR POC Glucose 285 H 121 H Random Glucose Calcium Magnesium Total Bilirubin 0.3 Direct Bilirubin 0.1 AST 24 ALT 12 Alkaline Phosphatase 59 Total Protein 5.1 L Albumin 3.5 10/09/24 10/10/24 10/10/24 21:06 07:19 08:54 Sodium 131 L Potassium 3.4 Chloride 97 Carbon Dioxide 27 Anion Gap 10 L BUN 25 H Creatinine 1.27 Estim Creat Clear Calc 50.5 Estimated GFR 57 POC Glucose 302 H 206 H Random Glucose 189 H Calcium 7.9 L Magnesium 1.5 L Total Bilirubin Direct Bilirubin AST ALT Alkaline Phosphatase Total Protein Albumin Progress Note: A&P Assessment and plan (1) Atrial fibrillation with RVR: Status: Acute Assessment and Plan: Atrial fibrillation with rapid ventricular response with persistent elevated heart rate with low blood pressure. Blood pressure not more controlled. Continue metoprolol and digoxin. Currently on Xarelto. In future discussed about abstaining from alcohol. He understands. Eventually will pursue rhythm control approach. No signs of heart failure or any other symptoms at this point time. He does not require both Xarelto and aspirin. Aspirin can be discontinued at this point time. Will follow with you Time Spent With Patient Time: Total time managing care of this patient today ____ minutes. Progress Note: Quality Stroke Does the patient have a stroke diagnosis?: No Procedures Date of Service Date of Service: 10/10/24
--- NOTE | 2024-10-10 11:01 | MHC.CM.PN ---
Addendum entered by Veronica Hernández 10/10/24 14:13: CM met with Patient at bedside to discuss dc planning. Patient has accepted a bed offer from [facility] and CM has asked [facility] to initiate insurance auth with [facility]. MD is aware and CM will continue to follow. Original Note: PT is recommending STR; CM will continue to follow.
[2024-10-10] MEDS: Magnesium Sulfate/D5W 1 GM/100 ML PIGGYBACK IV (11:17)
[2024-10-10 11:34] LABS: Glucose, Whole Blood 183 mg/dL (60-115)
--- NOTE | 2024-10-10 15:32 | HO.ADDICTPRO ---
Subjective Subjective Date of Service: 10/10/24 Reason For Visit: alcohol withdrawal Interim History: Patient seen in follow up Awake, alert. Not saying he wants to leave today. verbalizes understanding that medications are being adjusted. Discussed AMBAR--will hold on starting until BP and HR are managed. patient agreeable Review of Systems Medical Review of Systems: unchanged Mental Status Exam Mental Status Exam Level of Consciousness: Awake, Appropriate and Alert Patient Behavior: Appropriate Affect Description: Appropriate and Blunted Speech Pattern: Clear Hallucinations: None Thought Content: positive for Intact Judgement: Good Diagnostics Vital Signs (24Hr): Vital Signs - 24 hr 10/09/24 16:05 10/09/24 20:00 10/09/24 23:44 Temperature 99 F 98.3 F Pulse Rate 112 H 118 H Respiratory Rate 12 18 Blood Pressure 118/70 110/68 117/66 Pulse Oximetry 92 96 Oxygen Delivery Method Room Air Room Air 10/10/24 03:10 10/10/24 07:20 10/10/24 10:59 Temperature 98.8 F 98.2 F Pulse Rate 99 100 100 Respiratory Rate 18 17 Blood Pressure 131/60 124/69 124/69 Pulse Oximetry 95 95 95 Oxygen Delivery Method Room Air Room Air 10/10/24 11:09 Temperature 98.9 F Pulse Rate 111 H Respiratory Rate 17 Blood Pressure 98/65 Pulse Oximetry 97 Oxygen Delivery Method Room Air BMI result Body Mass Index 20.7 Labs 10/09/24 06:22 10/10/24 08:54 Labs: Laboratory Results - last 48 hr 10/08/24 10/08/24 10/08/24 15:48 16:52 20:53 WBC RBC Hgb Hct MCV MCH MCHC RDW Plt Count MPV Immature Gran % (Auto) Neut % (Auto) Lymph % (Auto) [place] % (Auto) Eos % (Auto) Baso % (Auto) Lymph # (Auto) [place] # (Auto) Eos # (Auto) Baso # (Auto) Abs Immat Gran (auto) Absolute Neuts (auto) Absolute Nucleated RBC Nucleated RBC % (auto) Sodium Potassium Chloride Carbon Dioxide Anion Gap BUN Creatinine Estim Creat Clear Calc Estimated GFR POC Glucose 219 H 230 H 78 Random Glucose Calcium Magnesium Total Bilirubin Direct Bilirubin AST ALT Alkaline Phosphatase Total Protein Albumin 10/09/24 10/09/24 10/09/24 06:21 06:22 06:56 WBC 7.9 RBC 2.81 L Hgb 9.2 L Hct 25.3 L MCV 90.0 MCH 32.7 MCHC 36.4 H RDW 12.7 Plt Count 106 L MPV 10.1 Immature Gran % (Auto) 0.8 H Neut % (Auto) 59.7 Lymph % (Auto) 30.9 [place] % (Auto) 6.7 Eos % (Auto) 1.5 Baso % (Auto) 0.4 Lymph # (Auto) 2.5 [place] # (Auto) 0.5 Eos # (Auto) 0.1 Baso # (Auto) 0.0 Abs Immat Gran (auto) 0.06 H Absolute Neuts (auto) 4.8 Absolute Nucleated RBC 0.000 Nucleated RBC % (auto) 0.0 Sodium Cancelled 135 Potassium Cancelled 3.2 L Chloride Cancelled 96 Carbon Dioxide Cancelled 30 H Anion Gap Cancelled 12 BUN Cancelled 30 H Creatinine Cancelled 1.33 Estim Creat Clear Calc Cancelled 48.2 Estimated GFR Cancelled 54 POC Glucose 92 Random Glucose Cancelled 80 Calcium Cancelled 8.0 L Magnesium 1.1 L* Total Bilirubin 0.3 Direct Bilirubin 0.1 AST 24 ALT 12 Alkaline Phosphatase 59 Total Protein 5.1 L Albumin 3.5 10/09/24 10/09/24 10/09/24 10:54 16:26 21:06 WBC RBC Hgb Hct MCV MCH MCHC RDW Plt Count MPV Immature Gran % (Auto) Neut % (Auto) Lymph % (Auto) [place] % (Auto) Eos % (Auto) Baso % (Auto) Lymph # (Auto) [place] # (Auto) Eos # (Auto) Baso # (Auto) Abs Immat Gran (auto) Absolute Neuts (auto) Absolute Nucleated RBC Nucleated RBC % (auto) Sodium Potassium Chloride Carbon Dioxide Anion Gap BUN Creatinine Estim Creat Clear Calc Estimated GFR POC Glucose 285 H 121 H 302 H Random Glucose Calcium Magnesium Total Bilirubin Direct Bilirubin AST ALT Alkaline Phosphatase Total Protein Albumin 10/10/24 10/10/24 10/10/24 07:19 08:54 11:17 WBC RBC Hgb Hct MCV MCH MCHC RDW Plt Count MPV Immature Gran % (Auto) Neut % (Auto) Lymph % (Auto) [place] % (Auto) Eos % (Auto) Baso % (Auto) Lymph # (Auto) [place] # (Auto) Eos # (Auto) Baso # (Auto) Abs Immat Gran (auto) Absolute Neuts (auto) Absolute Nucleated RBC Nucleated RBC % (auto) Sodium 131 L Potassium 3.4 Chloride 97 Carbon Dioxide 27 Anion Gap 10 L BUN 25 H Creatinine 1.27 Estim Creat Clear Calc 50.5 Estimated GFR 57 POC Glucose 206 H 183 H Random Glucose 189 H Calcium 7.9 L Magnesium 1.5 L Total Bilirubin Direct Bilirubin AST ALT Alkaline Phosphatase Total Protein Albumin Imaging Radiology Impressions: ITS Impressions Chest X-Ray 10/07/24 13:54 IMPRESSION: No acute cardiopulmonary abnormality. Electronically signed by: Polo Molina MD 10/07/2024 03:07 PM EDT RP Medications Medications Current Medications Acetaminophen (Acetaminophen 325 Mg Tablet) 650 mg PO Q6H PRN PRN Reason: Pain, Mild 1-3,fever,headache Last Admin: 10/08/24 06:21 Dose: 650 mg Aspirin (Aspirin Enteric Coated 81 Mg Tablet.) 81 mg PO DAILY [facility] Last Admin: 10/10/24 08:25 Dose: 81 mg Calcium Carbonate (Calcium Carbonate 750 Mg Tab.Chew) 750 mg PO Q4H PRN PRN Reason: Heartburn Dextrose (Dextrose 50 % 25 Gm/50 Ml Syringe) 25 gm IVPUSH Q30M PRN PRN Reason: BG < 70 Dextrose (Dextrose 50 % 25 Gm/50 Ml Syringe) 25 gm IVPUSH Q15M PRN; Protocol PRN Reason: per Hypoglycemia Standing Ord. Digoxin (Digoxin 0.25 Mg Tablet) 0.25 mg PO DAILY [facility]; Protocol Last Admin: 10/10/24 08:25 Dose: 0.25 mg Divalproex Sodium (Divalproex Sodium 250 Mg Tablet.) 250 mg PO BID [facility] Last Admin: 10/10/24 08:25 Dose: 250 mg Divalproex Sodium (Divalproex Sodium 500 Mg Tablet.) 500 mg PO BEDTIME [facility] Last Admin: 10/09/24 20:27 Dose: 500 mg Folic Acid (Folic Acid 1 Mg Tablet) 1 mg PO DAILY [facility] Last Admin: 10/10/24 08:25 Dose: 1 mg Gabapentin (Gabapentin 400 Mg Capsule) 800 mg PO TID [facility] Last Admin: 10/10/24 08:25 Dose: 800 mg Glucose (Glucose Gel 15 Gm Gel..Gram.) 15 gm PO Q15M PRN; Protocol PRN Reason: per Hypoglycemia Standing Ord. Cefazolin Sodium/Dextrose (Ancef) 2 gm in 50 mls @ 100 mls/hr IV Q8H [facility] Last Infusion: 10/10/24 09:00 Dose: Infused Insulin Glargine (Insulin Glargine,Hum.Rec.Anlog 100 Unit/Ml 10 Ml Vial) 10 unit SUBCUT BEDTIME [facility] Last Admin: 10/09/24 22:00 Dose: 10 unit Insulin Human Lispro (Insulin Lispro 100 Unit/Ml 3 Ml Vial) 0 unit SUBCUT QIDACHS [facility]; Protocol Last Admin: 10/10/24 12:31 Dose: 2 unit Magnesium Hydroxide (Milk Of Magnesia 30 Ml Oral.Susp) 30 ml PO DAILY PRN PRN Reason: Constipation Magnesium Oxide (Magnesium Oxide 400 Mg Tablet) 800 mg PO DAILY [facility] Last Admin: 10/10/24 08:25 Dose: 800 mg Melatonin (Melatonin 3 Mg Tablet) 6 mg PO BEDTIME PRN PRN Reason: Insomnia Metoprolol Tartrate (Metoprolol Tartrate 12.5 Mg Halftab) 12.5 mg PO BID [facility]; Protocol Last Admin: 10/10/24 08:25 Dose: 12.5 mg Ondansetron HCl (Ondansetron Hcl 4 Mg/2 Ml Vial) 4 mg IVPUSH Q8H PRN PRN Reason: Nausea and Vomiting Pharmacy Consult (Consult Rx Etoh Phenob Im/Po) 1 each MISCELLANE ONCE PRN; Protocol PRN Reason: Consult order Phenobarbital (Phenobarbital 30 Mg Tablet) 30 mg PO BID [facility] Stop: 10/11/24 09:01 Last Admin: 10/10/24 08:43 Dose: 30 mg Phenobarbital (Phenobarbital 30 Mg Tablet) 30 mg PO BEDTIME [facility] Stop: 10/12/24 21:01 Rivaroxaban (Rivaroxaban 20 Mg Tablet) 20 mg PO DAILY@1700 [facility] Last Admin: 10/09/24 16:58 Dose: 20 mg Sodium Chloride (0.9 % Sodium Chloride Flush 3 Ml Syringe) 3 ml IVFLUSH QSHIFT [facility] Last Admin: 10/10/24 08:30 Dose: 3 ml Thiamine HCl (Thiamine Hcl 100 Mg Tablet) 100 mg PO DAILY [facility] Last Admin: 10/10/24 08:25 Dose: 100 mg Allergies Allergies Allergy/AdvReac Type Severity Reaction Status Date / Time metformin Allergy Intermediate Swelling Verified 10/07/24 13:35 Assessment & Plan Assessment & Plan (1) Alcohol use disorder, moderate, dependence: Status: Acute Code(s): F10.20 - Alcohol dependence, uncomplicated Assessment and Plan: no withdrawal sx noted or reported will hold on starting naltrexone for now appt scheduled at [facility] and given to patient--entered into d/c summary as well. Total time managing care of this patient today _20___ minutes.
[2024-10-10 16:05] LABS: Glucose, Whole Blood 131 mg/dL (60-115)
[2024-10-10] MEDS: Rivaroxaban 20 MG TABLET PO (16:17)
--- NOTE | 2024-10-10 17:04 | P.PNIM_ITS ---
Subjective Subjective Date of Service: 10/10/24 Interval History: AFib with RVR, electrolytic abnormalities, MSSA bacteremia Possible elbow cellulitis/bursitis Review of Systems Denies any elbow pain has mild erythema No fevers or chest pain or shortness of breath or palpitations. Review of Systems: Yes all other systems are reviewed and are negative Physical Exam 2 Vital Signs: Vital Signs: Last Vital Signs Temp 98.3 F 10/10/24 15:38 Pulse 100 10/10/24 15:38 Resp 17 10/10/24 15:38 BP 98/67 10/10/24 15:38 Pulse Ox 97 10/10/24 15:38 O2 Del Method Room Air 10/10/24 15:38 O2 Flow Rate 2 10/09/24 03:16 BMI result Body Mass Index 20.7 Appearance: Alert.? Oriented X3.? . cvs: irregular rythem, [id number]. res: air entry fair , no rales or wheezing abd: no rebound or guarding ,nt, bs present. ext pulses present , no cyanosis . neuro: axo3 , nonfocal. Objective Data Active Medications Acetaminophen (Acetaminophen 325 Mg Tablet) 650 mg PO Q6H PRN PRN Reason: Pain, Mild 1-3,fever,headache Last Admin: 10/08/24 06:21 Dose: 650 mg Documented By: HANNAH Aspirin (Aspirin Enteric Coated 81 Mg Tablet.) 81 mg PO DAILY [facility] Last Admin: 10/10/24 08:25 Dose: 81 mg Documented By: BOB Calcium Carbonate (Calcium Carbonate 750 Mg Tab.Chew) 750 mg PO Q4H PRN PRN Reason: Heartburn Dextrose (Dextrose 50 % 25 Gm/50 Ml Syringe) 25 gm IVPUSH Q30M PRN PRN Reason: BG < 70 Dextrose (Dextrose 50 % 25 Gm/50 Ml Syringe) 25 gm IVPUSH Q15M PRN; Protocol PRN Reason: per Hypoglycemia Standing Ord. Digoxin (Digoxin 0.25 Mg Tablet) 0.25 mg PO DAILY [facility]; Protocol Last Admin: 10/10/24 08:25 Dose: 0.25 mg Documented By: BOB Divalproex Sodium (Divalproex Sodium 250 Mg Tablet.) 250 mg PO BID [facility] Last Admin: 10/10/24 08:25 Dose: 250 mg Documented By: BOB Divalproex Sodium (Divalproex Sodium 500 Mg Tablet.) 500 mg PO BEDTIME [facility] Last Admin: 10/09/24 20:27 Dose: 500 mg Documented By: KATHY Folic Acid (Folic Acid 1 Mg Tablet) 1 mg PO DAILY [facility] Last Admin: 10/10/24 08:25 Dose: 1 mg Documented By: BOB Gabapentin (Gabapentin 400 Mg Capsule) 800 mg PO TID [facility] Last Admin: 10/10/24 16:17 Dose: 800 mg Documented By: BOB Glucose (Glucose Gel 15 Gm Gel..Gram.) 15 gm PO Q15M PRN; Protocol PRN Reason: per Hypoglycemia Standing Ord. Cefazolin Sodium/Dextrose (Ancef) 2 gm in 50 mls @ 100 mls/hr IV Q8H [facility] Last Infusion: 10/10/24 16:50 Dose: Infused Documented By: BOB Insulin Glargine (Insulin Glargine,Hum.Rec.Anlog 100 Unit/Ml 10 Ml Vial) 10 unit SUBCUT BEDTIME [facility] Last Admin: 10/09/24 22:00 Dose: 10 unit Documented By: KATHY Insulin Human Lispro (Insulin Lispro 100 Unit/Ml 3 Ml Vial) 0 unit SUBCUT QIDACHS [facility]; Protocol Last Admin: 10/10/24 16:13 Dose: Not Given Documented By: BOB Non-Admin Reason: No Insulin Coverage Magnesium Hydroxide (Milk Of Magnesia 30 Ml Oral.Susp) 30 ml PO DAILY PRN PRN Reason: Constipation Magnesium Oxide (Magnesium Oxide 400 Mg Tablet) 800 mg PO DAILY [facility] Last Admin: 10/10/24 08:25 Dose: 800 mg Documented By: BOB Melatonin (Melatonin 3 Mg Tablet) 6 mg PO BEDTIME PRN PRN Reason: Insomnia Metoprolol Tartrate (Metoprolol Tartrate 12.5 Mg Halftab) 12.5 mg PO BID [facility]; Protocol Last Admin: 10/10/24 08:25 Dose: 12.5 mg Documented By: BOB Ondansetron HCl (Ondansetron Hcl 4 Mg/2 Ml Vial) 4 mg IVPUSH Q8H PRN PRN Reason: Nausea and Vomiting Pharmacy Consult (Consult Rx Etoh Phenob Im/Po) 1 each MISCELLANE ONCE PRN; Protocol PRN Reason: Consult order Phenobarbital (Phenobarbital 30 Mg Tablet) 30 mg PO BID [facility] Stop: 10/11/24 09:01 Last Admin: 10/10/24 08:43 Dose: 30 mg Documented By: BOB Phenobarbital (Phenobarbital 30 Mg Tablet) 30 mg PO BEDTIME [facility] Stop: 10/12/24 21:01 Rivaroxaban (Rivaroxaban 20 Mg Tablet) 20 mg PO DAILY@1700 [facility] Last Admin: 10/10/24 16:17 Dose: 20 mg Documented By: BOB Sodium Chloride (0.9 % Sodium Chloride Flush 3 Ml Syringe) 3 ml IVFLUSH QSHIFT [facility] Last Admin: 10/10/24 16:17 Dose: 3 ml Documented By: BOB Thiamine HCl (Thiamine Hcl 100 Mg Tablet) 100 mg PO DAILY [facility] Last Admin: 10/10/24 08:25 Dose: 100 mg Documented By: BOB Labs 10/09/24 06:22 10/10/24 08:54 Labs: Laboratory Results - last 24 hr 10/09/24 10/10/24 10/10/24 21:06 07:19 08:54 Anion Gap 10 L Estim Creat Clear Calc 50.5 Estimated GFR 57 POC Glucose 302 H 206 H Random Glucose 189 H Calcium 7.9 L Magnesium 1.5 L 10/10/24 10/10/24 11:17 16:02 Anion Gap Estim Creat Clear Calc Estimated GFR POC Glucose 183 H 131 H Random Glucose Calcium Magnesium Microbiology Microbiology Results: Microbiology 10/07/24 15:49 Blood Culture - Final Blood - Venous Staphylococcus aureus 10/09/24 06:24 Blood Culture - Preliminary Blood - Venous No growth after 24 hours. 10/09/24 06:10 Blood Culture - Preliminary Blood - Venous No growth after 24 hours. 10/07/24 15:49 Blood Culture - Final Blood - Venous Staphylococcus aureus Assessment and Plan (1) Atrial fibrillation with RVR: Status: Acute Plan This has a 64-year-old male with pertinent history of alcohol use disorder, hypertension, mood disorder, qba-jqsyduz-phaaxaxee diabetes mellitus, chronic kidney disease stage 3 who presents to the emergency department for concerns of alcohol withdrawal and seeking alcohol detox. AFib with RVR, new diagnosis: Echo EF is 55-60% TSH normal Patient received digoxin loading Heart rate improving Continue digoxin, metoprolol also added. continue to monitor blood pressure closely. Acute decompensated diastolic heart failure: Resolved with IV diuresis. Iatrogenic due to crystalloid resuscitation in the ER. no sob. MSSA bacteremia: Repeat blood culture negative at 24 hours. on cefazolin. ?source likely elbow. Repeat cx pending. Ortho reviewed the x-ray of elbow recommendation pending. ID consulted Alcohol use disorder with concerns for withdrawal: Initiated phenobarb protocol in the ER. Monitor CIWA. Continue thiamine. Consulted Addiction Team Uncontrolled mny-fvoqhts-glvvkjbtz diabetes mellitus due to medication noncompliance: Basal plus insulin regimen. On statin Mood disorder: Continue home mood stabilizers Acute kidney injury on CKD stage 3: Resolved with crystalloid resuscitation Hypertension: hold due to hypotension DVT prophylaxis: Xarelto Full code Reason for continued hospitalization: Hemodynamic monitoring with close monitoring of heart rate, IV antibiotic, management of alcohol withdrawal Quality Stroke Does the patient have a stroke diagnosis?: No VTE Prior VTE?: No VTE Risk Level:: Medical - moderate - high VTE Device Contraindication: Treatment Not Indicated VTE Drug Contraindication: N/A - Med Ordered
--- NOTE | 2024-10-10 17:24 | PM.CNOR ---
History of Present Illness HPI Consult date: 10/10/24 Chief complaint: alcohol withdrawal Narrative: 64 YO M admitted for alcohol withdrawal Discovered to be bacteremic upon admission Noted to have swelling, redness and pain over the olecranon process of L elbow XR negative for fracture, demonstrate small effusion with soft tissue swelling at the level of the olecranon bursa Patient reports some pain in the elbow with ROM, tenderness to palpation of the olecranon area of the L elbow Patient reports that his pain started approximately 2 weeks ago, has gradually worsened There is a small wound in this area Denies significant pain with ROM of the L elbow, states his pain is all on the outside Review of Systems Review of Systems: Yes all other systems are reviewed and are negative [facility] Past Medical History Medical History Stage 3 chronic kidney disease Hypertension Diabetes ETOH abuse Social History Social History Household Members: Spouse Housing: House Do you presently have visiting nurse or other home services: No Alcohol intake: current Alcohol intake frequency: 3 or more drinks per day Alcohol type: hard liquor Patient Tobacco Use Status: Former Tobacco user Tobacco use type: Cigarette Cigarettes Per Day: 10 Substance Use Type: Marijuana service: No Meds Allergies Allergy/AdvReac Type Severity Reaction Status Date / Time metformin Allergy Intermediate Swelling Verified 10/07/24 13:35 Active Medications: Current Medications Acetaminophen (Acetaminophen 325 Mg Tablet) 650 mg PO Q6H PRN PRN Reason: Pain, Mild 1-3,fever,headache Last Admin: 10/08/24 06:21 Dose: 650 mg Aspirin (Aspirin Enteric Coated 81 Mg Tablet.) 81 mg PO DAILY [facility] Last Admin: 10/10/24 08:25 Dose: 81 mg Calcium Carbonate (Calcium Carbonate 750 Mg Tab.Chew) 750 mg PO Q4H PRN PRN Reason: Heartburn Dextrose (Dextrose 50 % 25 Gm/50 Ml Syringe) 25 gm IVPUSH Q30M PRN PRN Reason: BG < 70 Dextrose (Dextrose 50 % 25 Gm/50 Ml Syringe) 25 gm IVPUSH Q15M PRN; Protocol PRN Reason: per Hypoglycemia Standing Ord. Digoxin (Digoxin 0.25 Mg Tablet) 0.25 mg PO DAILY [facility]; Protocol Last Admin: 10/10/24 08:25 Dose: 0.25 mg Divalproex Sodium (Divalproex Sodium 250 Mg Tablet.) 250 mg PO BID [facility] Last Admin: 10/10/24 08:25 Dose: 250 mg Divalproex Sodium (Divalproex Sodium 500 Mg Tablet.) 500 mg PO BEDTIME [facility] Last Admin: 10/09/24 20:27 Dose: 500 mg Folic Acid (Folic Acid 1 Mg Tablet) 1 mg PO DAILY [facility] Last Admin: 10/10/24 08:25 Dose: 1 mg Gabapentin (Gabapentin 400 Mg Capsule) 800 mg PO TID [facility] Last Admin: 10/10/24 16:17 Dose: 800 mg Glucose (Glucose Gel 15 Gm Gel..Gram.) 15 gm PO Q15M PRN; Protocol PRN Reason: per Hypoglycemia Standing Ord. Cefazolin Sodium/Dextrose (Ancef) 2 gm in 50 mls @ 100 mls/hr IV Q8H [facility] Last Infusion: 10/10/24 16:50 Dose: Infused Insulin Glargine (Insulin Glargine,Hum.Rec.Anlog 100 Unit/Ml 10 Ml Vial) 10 unit SUBCUT BEDTIME [facility] Last Admin: 10/09/24 22:00 Dose: 10 unit Insulin Human Lispro (Insulin Lispro 100 Unit/Ml 3 Ml Vial) 0 unit SUBCUT QIDACHS [facility]; Protocol Last Admin: 10/10/24 16:13 Dose: Not Given Magnesium Hydroxide (Milk Of Magnesia 30 Ml Oral.Susp) 30 ml PO DAILY PRN PRN Reason: Constipation Magnesium Oxide (Magnesium Oxide 400 Mg Tablet) 800 mg PO DAILY [facility] Last Admin: 10/10/24 08:25 Dose: 800 mg Melatonin (Melatonin 3 Mg Tablet) 6 mg PO BEDTIME PRN PRN Reason: Insomnia Metoprolol Tartrate (Metoprolol Tartrate 12.5 Mg Halftab) 12.5 mg PO BID [facility]; Protocol Last Admin: 10/10/24 08:25 Dose: 12.5 mg Ondansetron HCl (Ondansetron Hcl 4 Mg/2 Ml Vial) 4 mg IVPUSH Q8H PRN PRN Reason: Nausea and Vomiting Pharmacy Consult (Consult Rx Etoh Phenob Im/Po) 1 each MISCELLANE ONCE PRN; Protocol PRN Reason: Consult order Phenobarbital (Phenobarbital 30 Mg Tablet) 30 mg PO BID [facility] Stop: 10/11/24 09:01 Last Admin: 10/10/24 08:43 Dose: 30 mg Phenobarbital (Phenobarbital 30 Mg Tablet) 30 mg PO BEDTIME [facility] Stop: 10/12/24 21:01 Rivaroxaban (Rivaroxaban 20 Mg Tablet) 20 mg PO DAILY@1700 [facility] Last Admin: 10/10/24 16:17 Dose: 20 mg Sodium Chloride (0.9 % Sodium Chloride Flush 3 Ml Syringe) 3 ml IVFLUSH QSHIFT [facility] Last Admin: 10/10/24 16:17 Dose: 3 ml Thiamine HCl (Thiamine Hcl 100 Mg Tablet) 100 mg PO DAILY [facility] Last Admin: 10/10/24 08:25 Dose: 100 mg Home Medications ?Medication ?Instructions ?Recorded ?Confirmed ?Last Taken ?Type atenolol 25 mg tablet 25 mg PO DAILY 01/05/24 10/07/24 01/04/24 History gabapentin 800 mg tablet 800 mg PO TID 01/05/24 10/07/24 01/04/24 History lisinopril 20 mg tablet 20 mg PO DAILY 01/05/24 10/07/24 01/04/24 History methylphenidate HCl 10 mg tablet 10 mg PO TID 01/05/24 10/07/24 01/04/24 History aspirin 81 mg tablet 81 mg PO DAILY 10/07/24 10/07/24 Unknown History divalproex 250 mg tablet,delayed 250 mg PO BID 10/07/24 10/07/24 Unknown History release divalproex 500 mg tablet,delayed 500 mg PO QPM 10/07/24 10/07/24 Unknown History release Physical Exam Vital Signs: Vital Signs: Last Vital Signs Temp 98.3 F 10/10/24 15:38 Pulse 104 H 10/10/24 17:05 Resp 17 10/10/24 15:38 BP 108/70 10/10/24 17:05 Pulse Ox 97 10/10/24 15:38 O2 Del Method Room Air 10/10/24 15:38 O2 Flow Rate 2 10/09/24 03:16 BMI result Body Mass Index 20.7 Extrem: Other: Patient is alert, oriented, and in no acute distress. Neuro: Normal sensation of the tips of all digits of the left hand at this time Vascular: Cap refill brisk Pain: Tenderness to palpation about the olecranon process and surrounding redness of the left elbow Minimal discomfort with active and passive range of motion No pain with axial loading of the left elbow joint ROM: Patient is able to flex and extend the left elbow fully and without difficulty Skin: There is noted to be a small wound over the olecranon process of the left elbow, approximately 0.5 cm in diameter There is significant surrounding erythema There is also noted to be a noted amount of fluctuance consistent with olecranon bursitis, appears septic in origin based upon physical exam findings in history Psych: Appears grossly normal Affect normal Attitude cooperative Results Labs 10/09/24 06:22 10/10/24 08:54 Labs: Abnormal lab results 10/09/24 10/10/24 10/10/24 Range/Units 21:06 07:19 08:54 Sodium 131 L (135-145) mmol/L Anion Gap 10 L (12-20) BUN 25 H (9-16) mg/dL POC Glucose 302 H 206 H (60-115) mg/dL Random Glucose 189 H (60-115) mg/dL Calcium 7.9 L (8.4-10.2) mg/dL Magnesium 1.5 L (1.6-2.6) mg/dL 10/10/24 10/10/24 Range/Units 11:17 16:02 Sodium (135-145) mmol/L Anion Gap (12-20) BUN (9-16) mg/dL POC Glucose 183 H 131 H (60-115) mg/dL Random Glucose (60-115) mg/dL Calcium (8.4-10.2) mg/dL Magnesium (1.6-2.6) mg/dL H & H 10/07/24 10/07/24 10/08/24 Range/Units 14:00 18:21 04:41 Hgb 10.5 L D 10.2 L 9.6 L (14.0-18.0) g/dl Hct 31.4 L D 28.7 L 27.2 L (42.0-52.0) % 10/09/24 Range/Units 06:22 Hgb 9.2 L (14.0-18.0) g/dl Hct 25.3 L (42.0-52.0) % All other labs normal. Diagnostic results Elbow x-ray: report reviewed and image reviewed Assessment and Plan (1) Septic olecranon bursitis of left elbow: Status: Acute Plan 1. Septic olecranon bursitis of left elbow Ongoing for approximately 2 weeks Continue IV antibiotics Encourage gentle compression of the left elbow No acute surgical intervention indicated at this time Continue pain management Continue with all other recommendations per Medicine and Infectious Disease Procedures Date of Service Date of Service: 10/10/24
[2024-10-10] MEDS: Milk of Magnesia 30 ML ORAL.SUSP PO (20:37)
[2024-10-10] MEDS: Divalproex Sodium 500 MG TABLET.DR PO (20:38)
[2024-10-10] MEDS: Insulin Glargine,Hum.rec.anlog 100 UNIT/ML 10 ML VIAL 10 UNIT SUBCUT (20:40)
[2024-10-10 21:33] LABS: Osmolality Urine 270 mosm/kg (373-1093)
[2024-10-10 21:33] LABS: Glucose, Whole Blood 397 mg/dL (60-115)
[2024-10-10 21:34] LABS: Chloride Urine Random < 20.0 mmol/L; Potassium Urine Random 13.2 mmol/L; Sodium Urine Random < 20.0 mmol/L
[2024-10-11 03:40] VITALS: BP 142/82; PULSE 104; RESP 18; TEMP 37.7; O2SAT 96
[2024-10-11 07:10] VITALS: BP 124/66; PULSE 96; RESP 18; TEMP 36.8; O2SAT 98
[2024-10-11 07:11] LABS: Anion Gap 12 (12-20); Blood Urea Nitrogen 15 mg/dL (9-16); Calcium 8.3 mg/dL (8.4-10.2); Carbon Dioxide 30 mmol/L (22-29); Chloride 97 mmol/L (96-108); Creatinine Clr Calc Pharmacy 55.7; Estimated Glomerular Filt Rate > 60; Glucose Random 145 mg/dL (60-115); Potassium 3.7 mmol/L (3.3-5.1); Sodium 135 mmol/L (135-145)
[2024-10-11 07:15] LABS: Glucose, Whole Blood 182 mg/dL (60-115)
[2024-10-11 07:50] LABS: Osmolality, Serum 280 mosm/kg (281-305)
[2024-10-11 08:36] LABS: Magnesium 1.8 mg/dL (1.6-2.6)
[2024-10-11] MEDS: Aspirin Enteric Coated 81 MG TABLET.DR PO (08:36)
[2024-10-11] MEDS: Thiamine HCL 100 MG TABLET PO (08:36)
[2024-10-11] MEDS: Metoprolol Tartrate 12.5 MG HALFTAB PO ×2 (08:36→21:32)
[2024-10-11] MEDS: PHENobarbitaL 30 MG TABLET PO ×2 (08:36→21:32)
[2024-10-11] MEDS: Gabapentin 400 MG CAPSULE 800 MG PO ×3 (08:36→21:32)
[2024-10-11] MEDS: Magnesium Oxide 400 MG TABLET 800 MG PO (08:36)
[2024-10-11] MEDS: Folic Acid 1 MG TABLET PO (08:36)
[2024-10-11] MEDS: Divalproex Sodium 250 MG TABLET.DR PO ×2 (08:36→21:32)
[2024-10-11] MEDS: Insulin Lispro 100 UNIT/ML 3 ML VIAL SUBCUT ×3 (08:37→21:33)
[2024-10-11] MEDS: 0.9 % Sodium Chloride Flush 3 ML SYRINGE IVFLUSH ×2 (08:37→16:47)
[2024-10-11] MEDS: Digoxin 0.25 MG TABLET PO (08:38)
[2024-10-11] MEDS: ceFAZolin Sodium/Dextrose,Iso 2 GM/50 ML PIGGYBACK IV ×2 (08:46→16:49)
--- NOTE | 2024-10-11 10:44 | MHC.CM.PN ---
Addendum entered by Veronica Hernández 10/11/24 14:31: [facility] has denied first auth attempt for STR. CM awaits ID consult to send to [facility] and PICC placement (4 WEEKS IV ABT). Once these things are available and PICC is placed, [facility] will re-attempt [facility] auth. CM will follow. Original Note: Referral to [facility] has been updated (ID consult pending/will need 2 weeks of IV ABT); CM will continue to follow. [facility] is pursuing [facility] auth.
--- NOTE | 2024-10-11 10:49 | PM.PNCARD ---
Subjective Subjective Date of Service: 10/11/24 Principal diagnosis: Atrial fibrillation. Interval history: Converted to sinus rhythm overnight. Doing well. Blood pressure is stable. No obvious cardiac complaints. Review of Systems Constitutional: Reports weakness Eyes: Reports no additional eye complaints Cardiovascular: Reports no additional cardiovascular complaints Gastrointestinal: Reports no additional gastrointestinal complaints Genitourinary: Reports no additional male genitourinary complaints Reports system reviewed and no additional complaints, except as documented and Reports weakness Physical Exam Vital Signs: Last Vital Signs Temp 98.3 F 10/11/24 07:10 Pulse 96 10/11/24 07:10 Resp 18 10/11/24 07:10 BP 124/66 10/11/24 07:10 Pulse Ox 98 10/11/24 07:10 O2 Del Method Room Air 10/11/24 07:10 O2 Flow Rate 2 10/09/24 03:16 BMI result Body Mass Index 20.7 Const General: cooperative, comfortable and other (Sleepy, disheveled) Nutritional Appearance: thin Orientation/consciousness: patient oriented x3 HEENT Head: Yes normocephalic and Yes atraumatic Neck Neck: Yes trachea midline, Yes supple and Yes no JVD Resp Effort & Inspection: decreased respiratory effort Auscultation: no crackles, no rales, no wheezes and diminished lung sounds Cardio Jugular venous distension: no JVD Rhythm: abnormal rhythm irregularly irregular Heart sounds: S1 normal heart sound present, S2 normal heart sound present, no click, no gallops and no murmurs GI Auscultation: normal bowel sounds Skin General skin exam: no rashes or lesions noted Neuro General: patient oriented x3 and no focal motor deficits Extrem General: Yes no clubbing, cyanosis or edema Objective Labs and Meds 10/09/24 06:22 10/11/24 06:39 Lab results: Laboratory Results - last 24 hr 10/10/24 10/10/24 10/10/24 11:17 16:02 20:40 Hold Purple Top Sodium Potassium Chloride Carbon Dioxide Anion Gap BUN Creatinine Estim Creat Clear Calc Estimated GFR POC Glucose 183 H 131 H Random Glucose Osmolality Calcium Magnesium Urine Osmolality 270 L Ur Random Sodium < 20.0 Ur Random Potassium 13.2 Ur Random Chloride < 20.0 10/10/24 10/11/24 10/11/24 21:04 06:39 07:11 Hold Purple Top SEE NOTE Sodium 135 Potassium 3.7 Chloride 97 Carbon Dioxide 30 H Anion Gap 12 BUN 15 Creatinine 1.15 Estim Creat Clear Calc 55.7 Estimated GFR > 60 POC Glucose 397 H* 182 H Random Glucose 145 H Osmolality 280 L Calcium 8.3 L Magnesium 1.8 Urine Osmolality Ur Random Sodium Ur Random Potassium Ur Random Chloride Progress Note: A&P Assessment and plan (1) Paroxysmal atrial fibrillation: Status: Acute Assessment and Plan: Paroxysmal atrial fibrillation this middle-aged man most likely induced by acute medical illness with sepsis as well as alcohol use. Currently back to sinus rhythm. Would switch him to metoprolol 25 mg b.i.d.. Blood pressure is well controlled. He has no other risk factors for thromboembolism. Would give him Eliquis for about a month. I have discussed with him about atrial fibrillation and also discussed about abstinence from alcohol. Will sign of the case. Thank you for allowing me to partake in his care Time Spent With Patient Time: Total time managing care of this patient today ____ minutes. Progress Note: Quality Stroke Does the patient have a stroke diagnosis?: No Procedures Date of Service Date of Service: 10/11/24
[2024-10-11 11:03] LABS: Glucose, Whole Blood 303 mg/dL (60-115)
[2024-10-11 11:28] VITALS: BP 95/52; PULSE 90; RESP 16; TEMP 36.6; O2SAT 97
--- NOTE | 2024-10-11 15:14 | P.PNIM_ITS ---
Subjective Subjective Date of Service: 10/11/24 Interval History: mssa bactermia Review of Systems patient seems feeing better denies any chest pain orsob Physical Exam 2 Vital Signs: Vital Signs: Last Vital Signs Temp 97.9 F 10/11/24 11:28 Pulse 90 10/11/24 11:28 Resp 16 10/11/24 11:28 BP 95/52 L 10/11/24 11:28 Pulse Ox 97 10/11/24 11:28 O2 Del Method Room Air 10/11/24 11:28 O2 Flow Rate 2 10/09/24 03:16 BMI result Body Mass Index 20.7 Appearance: Alert.? Oriented X3.? . cvs: irregular rythem, [id number]. res: air entry fair , no rales or wheezing abd: no rebound or guarding ,nt, bs present. ext pulses present , no cyanosis . neuro: axo3 , nonfocal. Objective Data Active Medications Acetaminophen (Acetaminophen 325 Mg Tablet) 650 mg PO Q6H PRN PRN Reason: Pain, Mild 1-3,fever,headache Last Admin: 10/08/24 06:21 Dose: 650 mg Documented By: HANNAH Aspirin (Aspirin Enteric Coated 81 Mg Tablet.) 81 mg PO DAILY [facility] Last Admin: 10/11/24 08:36 Dose: 81 mg Documented By: BOB Calcium Carbonate (Calcium Carbonate 750 Mg Tab.Chew) 750 mg PO Q4H PRN PRN Reason: Heartburn Dextrose (Dextrose 50 % 25 Gm/50 Ml Syringe) 25 gm IVPUSH Q30M PRN PRN Reason: BG < 70 Dextrose (Dextrose 50 % 25 Gm/50 Ml Syringe) 25 gm IVPUSH Q15M PRN; Protocol PRN Reason: per Hypoglycemia Standing Ord. Digoxin (Digoxin 0.25 Mg Tablet) 0.25 mg PO DAILY [facility]; Protocol Last Admin: 10/11/24 08:38 Dose: 0.25 mg Documented By: BOB Divalproex Sodium (Divalproex Sodium 250 Mg Tablet.) 250 mg PO BID [facility] Last Admin: 10/11/24 08:36 Dose: 250 mg Documented By: BOB Divalproex Sodium (Divalproex Sodium 500 Mg Tablet.) 500 mg PO BEDTIME [facility] Last Admin: 10/10/24 20:38 Dose: 500 mg Documented By: KATHY Folic Acid (Folic Acid 1 Mg Tablet) 1 mg PO DAILY [facility] Last Admin: 10/11/24 08:36 Dose: 1 mg Documented By: BOB Gabapentin (Gabapentin 400 Mg Capsule) 800 mg PO TID [facility] Last Admin: 10/11/24 08:36 Dose: 800 mg Documented By: BOB Glucose (Glucose Gel 15 Gm Gel..Gram.) 15 gm PO Q15M PRN; Protocol PRN Reason: per Hypoglycemia Standing Ord. Cefazolin Sodium/Dextrose (Ancef) 2 gm in 50 mls @ 100 mls/hr IV Q8H [facility] Last Infusion: 10/11/24 09:16 Dose: Infused Documented By: BOB Insulin Glargine (Insulin Glargine,Hum.Rec.Anlog 100 Unit/Ml 10 Ml Vial) 10 unit SUBCUT BEDTIME [facility] Last Admin: 10/10/24 20:40 Dose: 10 unit Documented By: KATHY Insulin Human Lispro (Insulin Lispro 100 Unit/Ml 3 Ml Vial) 0 unit SUBCUT QIDACHS [facility]; Protocol Last Admin: 10/11/24 12:13 Dose: 8 unit Documented By: BOB Magnesium Hydroxide (Milk Of Magnesia 30 Ml Oral.Susp) 30 ml PO DAILY PRN PRN Reason: Constipation Last Admin: 10/10/24 20:37 Dose: 30 ml Documented By: KATHY Magnesium Oxide (Magnesium Oxide 400 Mg Tablet) 800 mg PO DAILY [facility] Last Admin: 10/11/24 08:36 Dose: 800 mg Documented By: BOB Melatonin (Melatonin 3 Mg Tablet) 6 mg PO BEDTIME PRN PRN Reason: Insomnia Metoprolol Tartrate (Metoprolol Tartrate 12.5 Mg Halftab) 12.5 mg PO BID [facility]; Protocol Last Admin: 10/11/24 08:36 Dose: 12.5 mg Documented By: BOB Ondansetron HCl (Ondansetron Hcl 4 Mg/2 Ml Vial) 4 mg IVPUSH Q8H PRN PRN Reason: Nausea and Vomiting Pharmacy Consult (Consult Rx Etoh Phenob Im/Po) 1 each MISCELLANE ONCE PRN; Protocol PRN Reason: Consult order Phenobarbital (Phenobarbital 30 Mg Tablet) 30 mg PO BEDTIME [facility] Stop: 10/12/24 21:01 Rivaroxaban (Rivaroxaban 20 Mg Tablet) 20 mg PO DAILY@1700 [facility] Last Admin: 10/10/24 16:17 Dose: 20 mg Documented By: BOB Sodium Chloride (0.9 % Sodium Chloride Flush 3 Ml Syringe) 3 ml IVFLUSH QSHIFT [facility] Last Admin: 10/11/24 08:37 Dose: 3 ml Documented By: BOB Thiamine HCl (Thiamine Hcl 100 Mg Tablet) 100 mg PO DAILY [facility] Last Admin: 10/11/24 08:36 Dose: 100 mg Documented By: BOB Labs 10/09/24 06:22 10/11/24 06:39 Labs: Laboratory Results - last 24 hr 10/10/24 10/10/24 10/10/24 16:02 20:40 21:04 Hold Purple Top Anion Gap Estim Creat Clear Calc Estimated GFR POC Glucose 131 H 397 H* Random Glucose Osmolality Calcium Magnesium Urine Osmolality 270 L Ur Random Sodium < 20.0 Ur Random Potassium 13.2 Ur Random Chloride < 20.0 10/11/24 10/11/24 10/11/24 06:39 07:11 11:00 Hold Purple Top SEE NOTE Anion Gap 12 Estim Creat Clear Calc 55.7 Estimated GFR > 60 POC Glucose 182 H 303 H Random Glucose 145 H Osmolality 280 L Calcium 8.3 L Magnesium 1.8 Urine Osmolality Ur Random Sodium Ur Random Potassium Ur Random Chloride Microbiology Microbiology Results: Microbiology 10/09/24 06:24 Blood Culture - Preliminary Blood - Venous No growth after 48 hours. 10/09/24 06:10 Blood Culture - Preliminary Blood - Venous No growth after 48 hours. 10/07/24 15:49 Blood Culture - Final Blood - Venous Staphylococcus aureus Assessment and Plan (1) Atrial fibrillation with RVR: Status: Inactive Plan 64-year-old male with pertinent history of alcohol use disorder, hypertension, mood disorder, [id number]-vzfrebfba diabetes mellitus, chronic kidney disease stage 3 who presents to the emergency department for concerns of alcohol withdrawal and seeking alcohol detox. AFib with RVR, new diagnosis: now in sinus Echo EF is 55-60% TSH normal Patient received digoxin loading Heart rate improving Continue digoxin, metoprolol also added. continue to monitor blood pressure closely. Acute decompensated diastolic heart failure: Resolved with IV diuresis. Iatrogenic due to crystalloid resuscitation in the ER. no sob. MSSA bacteremia: Repeat blood culture negative at 24 hours. on cefazolin. ?source likely elbow. Repeat cx pending. Ortho reviewed the x-ray of elbow r reviewed with ortho. Discussed with the ortho and ID: Currently recommended IV antibiotics treatment, no acute surgical intervention. Alcohol use disorder with concerns for withdrawal: Initiated phenobarb protocol in the ER. Monitor CIWA. Continue thiamine. Consulted Addiction Team Uncontrolled tyc-bmxobug-hvyevkemc diabetes mellitus due to medication noncompliance: Basal plus insulin regimen. On statin Mood disorder: Continue home mood stabilizers Acute kidney injury on CKD stage 3: Resolved with crystalloid resuscitation Hypertension: hold due to hypotension DVT prophylaxis: Xarelto Full code Reason for continued hospitalization: mssa bactermia : MSSA bacteremia need IV antibiotics, midline placement, rehab placement. Quality Stroke Does the patient have a stroke diagnosis?: No VTE Prior VTE?: No VTE Risk Level:: Medical - moderate - high VTE Device Contraindication: Treatment Not Indicated VTE Drug Contraindication: N/A - Med Ordered
--- NOTE | 2024-10-11 16:27 | HO.MIDLINE ---
Midline Insertion MIDLINE INSERTION Diagnosis: MSSA Bacteremia Indication: penitentiary antibiotics needed Pertinent Labs: reviewed Technique: Using sterile technique including cap and mask, glove and drape, the right arm was prepped and draped in the usual sterile fashion of full barrier technique with CHG. Using ultrasound guidance, right brachial vein access was obtained on second attempt. A 20G X 8CM non-PASV ST midline was positioned. The procedure was performed in S272. Ultrasound was used to document vein patency and for needle entry. A formal ultrasound picture was recorded. [employer] Senior Data Scientist has released the line for use and it is currently dressed with a StatLock, Tegaderm, and CHG disc. Verification has been performed for blood return and line patency. Arm Circumference: 26 CM Equipment: BARD PowerGlide ST Midline Catheter Type: 20G X 8CM non-PASV midline Lot #: [id number]
[2024-10-11] MEDS: Rivaroxaban 20 MG TABLET PO (16:47)
[2024-10-11 16:51] VITALS: BP 123/71; PULSE 91; RESP 18; TEMP 37.1; O2SAT 95
[2024-10-11 16:51] LABS: Glucose, Whole Blood 109 mg/dL (60-115)
--- NOTE | 2024-10-11 16:54 | W.PM.IDCN ---
History of Present Illness Data of Consult Service Date: 10/11/24 Requesting physician: Ute Grimes Primary Care Provider: None Physician HPI Reason for consult: left elbow swelling He presents with left elbow swelling one week. He has MSSA blood Review of Systems Review of Systems: Yes all other systems are reviewed and are negative [facility] Past Medical History Medical History Atrial fibrillation with RVR Atrial fibrillation with rapid ventricular response Stage 3 chronic kidney disease Hypertension Diabetes ETOH abuse Social History Social History Household Members: Spouse Housing: House Do you presently have visiting nurse or other home services: No Alcohol intake: current Alcohol intake frequency: 3 or more drinks per day Alcohol type: hard liquor Patient Tobacco Use Status: Former Tobacco user Tobacco use type: Cigarette Cigarettes Per Day: 10 Substance Use Type: Marijuana service: No Meds Allergies Allergy/AdvReac Type Severity Reaction Status Date / Time metformin Allergy Intermediate Swelling Verified 10/07/24 13:35 Active Medications: Current Medications Acetaminophen (Acetaminophen 325 Mg Tablet) 650 mg PO Q6H PRN PRN Reason: Pain, Mild 1-3,fever,headache Last Admin: 10/08/24 06:21 Dose: 650 mg Aspirin (Aspirin Enteric Coated 81 Mg Tablet.) 81 mg PO DAILY [facility] Last Admin: 10/11/24 08:36 Dose: 81 mg Calcium Carbonate (Calcium Carbonate 750 Mg Tab.Chew) 750 mg PO Q4H PRN PRN Reason: Heartburn Dextrose (Dextrose 50 % 25 Gm/50 Ml Syringe) 25 gm IVPUSH Q30M PRN PRN Reason: BG < 70 Dextrose (Dextrose 50 % 25 Gm/50 Ml Syringe) 25 gm IVPUSH Q15M PRN; Protocol PRN Reason: per Hypoglycemia Standing Ord. Digoxin (Digoxin 0.25 Mg Tablet) 0.25 mg PO DAILY [facility]; Protocol Last Admin: 10/11/24 08:38 Dose: 0.25 mg Divalproex Sodium (Divalproex Sodium 250 Mg Tablet.) 250 mg PO BID [facility] Last Admin: 10/11/24 08:36 Dose: 250 mg Divalproex Sodium (Divalproex Sodium 500 Mg Tablet.) 500 mg PO BEDTIME [facility] Last Admin: 10/10/24 20:38 Dose: 500 mg Folic Acid (Folic Acid 1 Mg Tablet) 1 mg PO DAILY [facility] Last Admin: 10/11/24 08:36 Dose: 1 mg Gabapentin (Gabapentin 400 Mg Capsule) 800 mg PO TID [facility] Last Admin: 10/11/24 16:47 Dose: 800 mg Glucose (Glucose Gel 15 Gm Gel..Gram.) 15 gm PO Q15M PRN; Protocol PRN Reason: per Hypoglycemia Standing Ord. Heparin Sodium (Porcine) (Heparin Sodium,Porcine Flush 50 Units/5 Ml Syringe) 50 units IVFLUSH QSHIFT [facility] Cefazolin Sodium/Dextrose (Ancef) 2 gm in 50 mls @ 100 mls/hr IV Q8H [facility] Last Admin: 10/11/24 16:49 Dose: 100 mls/hr Insulin Glargine (Insulin Glargine,Hum.Rec.Anlog 100 Unit/Ml 10 Ml Vial) 10 unit SUBCUT BEDTIME [facility] Last Admin: 10/10/24 20:40 Dose: 10 unit Insulin Human Lispro (Insulin Lispro 100 Unit/Ml 3 Ml Vial) 0 unit SUBCUT QIDACHS [facility]; Protocol Last Admin: 10/11/24 16:52 Dose: Not Given Magnesium Hydroxide (Milk Of Magnesia 30 Ml Oral.Susp) 30 ml PO DAILY PRN PRN Reason: Constipation Last Admin: 10/10/24 20:37 Dose: 30 ml Magnesium Oxide (Magnesium Oxide 400 Mg Tablet) 800 mg PO DAILY [facility] Last Admin: 10/11/24 08:36 Dose: 800 mg Melatonin (Melatonin 3 Mg Tablet) 6 mg PO BEDTIME PRN PRN Reason: Insomnia Metoprolol Tartrate (Metoprolol Tartrate 12.5 Mg Halftab) 12.5 mg PO BID [facility]; Protocol Last Admin: 10/11/24 08:36 Dose: 12.5 mg Ondansetron HCl (Ondansetron Hcl 4 Mg/2 Ml Vial) 4 mg IVPUSH Q8H PRN PRN Reason: Nausea and Vomiting Pharmacy Consult (Consult Rx Etoh Phenob Im/Po) 1 each MISCELLANE ONCE PRN; Protocol PRN Reason: Consult order Phenobarbital (Phenobarbital 30 Mg Tablet) 30 mg PO BEDTIME [facility] Stop: 10/12/24 21:01 Rivaroxaban (Rivaroxaban 20 Mg Tablet) 20 mg PO DAILY@1700 [facility] Last Admin: 10/11/24 16:47 Dose: 20 mg Sodium Chloride (0.9 % Sodium Chloride Flush 3 Ml Syringe) 3 ml IVFLUSH QSHIFT [facility] Last Admin: 10/11/24 16:47 Dose: 3 ml Thiamine HCl (Thiamine Hcl 100 Mg Tablet) 100 mg PO DAILY [facility] Last Admin: 10/11/24 08:36 Dose: 100 mg Home Medications ?Medication ?Instructions ?Recorded ?Confirmed ?Last Taken ?Type atenolol 25 mg tablet 25 mg PO DAILY 01/05/24 10/07/24 01/04/24 History gabapentin 800 mg tablet 800 mg PO TID 01/05/24 10/07/24 01/04/24 History lisinopril 20 mg tablet 20 mg PO DAILY 01/05/24 10/07/24 01/04/24 History methylphenidate HCl 10 mg tablet 10 mg PO TID 01/05/24 10/07/24 01/04/24 History aspirin 81 mg tablet 81 mg PO DAILY 10/07/24 10/07/24 Unknown History divalproex 250 mg tablet,delayed 250 mg PO BID 10/07/24 10/07/24 Unknown History release divalproex 500 mg tablet,delayed 500 mg PO QPM 10/07/24 10/07/24 Unknown History release Physical Exam Vital Signs: Vital Signs: Last Vital Signs Temp 98.7 F 10/11/24 16:51 Pulse 91 10/11/24 16:51 Resp 18 10/11/24 16:51 BP 123/71 10/11/24 16:51 Pulse Ox 95 10/11/24 16:51 O2 Del Method Room Air 10/11/24 16:51 O2 Flow Rate 2 10/09/24 03:16 BMI result Body Mass Index 20.7 Const: General: cooperative HEENT: Head: Yes normal to inspection Face and sinus: Yes normal facial exam Mouth: Normal oral and palatal mucosa present Teeth and gingiva: dentition normal Eyes: General: appearance normal, both eyes and all related structures Pupils: Equal, round and reactive pupils present Resp: Effort & Inspection: normal respiratory effort Cardio: Rate: regular rate Rhythm: regular rhythm GI: Palpation (GI): Soft to palpation and nontender : General: Yes no CVA tenderness Back/Spine/Pelvis: Back: no CVA tenderness Skin: General skin exam: no rashes or lesions noted Neuro: General: moves all extremities Cranial nerves: Yes Equal, round and reactive pupils present Extrem: Other: swollen red left elbow Psych: Appearance: grossly normal Results Labs 10/09/24 06:22 10/11/24 06:39 Labs: BMP 10/11/24 06:39 Sodium 135 Potassium 3.7 Chloride 97 Carbon Dioxide 30 H BUN 15 Creatinine 1.15 Calcium 8.3 L Microbiology Microbiology Results: Microbiology 10/09/24 06:24 Blood - Venous Blood Culture - Preliminary No growth after 48 hours. 10/09/24 06:10 Blood - Venous Blood Culture - Preliminary No growth after 48 hours. 10/07/24 15:49 Blood - Venous Blood Culture - Final Staphylococcus aureus 10/07/24 15:49 Blood - Venous Blood Culture - Final Staphylococcus aureus Assessment and Plan (1) Septic olecranon bursitis of left elbow: Status: Acute Plan 4 weeks IV Kefzol Weekly cbc,creatinine
[2024-10-11 20:00] VITALS: BP 111/60; PULSE 101; RESP 16; TEMP 36.7; O2SAT 93
[2024-10-11 20:51] LABS: Glucose, Whole Blood 410 mg/dL (60-115)
[2024-10-11] MEDS: Divalproex Sodium 500 MG TABLET.DR PO (21:32)
[2024-10-11] MEDS: Insulin Glargine,Hum.rec.anlog 100 UNIT/ML 10 ML VIAL 10 UNIT SUBCUT (21:33)
[2024-10-11] MEDS: Insulin Regular, Human 100 UNIT/ML 10 ML VIAL IVPUSH (22:20)
[2024-10-12] VITALS (13 sets, daily range): BP systolic 102–139; BP diastolic 61–80; PULSE 75–97; RESP 16–18; TEMP 36.6–37.6; O2SAT 95–99
[2024-10-12] MEDS: Heparin Sodium,Porcine Flush 50 UNITS/5 ML SYRINGE IVFLUSH ×2 (00:07→08:05)
[2024-10-12] MEDS: 0.9 % Sodium Chloride Flush 3 ML SYRINGE IVFLUSH (00:08)
[2024-10-12] MEDS: ceFAZolin Sodium/Dextrose,Iso 2 GM/50 ML PIGGYBACK IV ×3 (00:09→15:03)
[2024-10-12] MEDS: Acetaminophen 325 MG TABLET 650 MG PO (05:23)
[2024-10-12 07:28] LABS: Glucose, Whole Blood 198 mg/dL (60-115)
[2024-10-12] MEDS: Thiamine HCL 100 MG TABLET PO (08:04)
[2024-10-12] MEDS: Divalproex Sodium 250 MG TABLET.DR PO ×2 (08:04→21:56)
[2024-10-12] MEDS: Folic Acid 1 MG TABLET PO (08:04)
[2024-10-12] MEDS: Digoxin 0.25 MG TABLET PO (08:04)
[2024-10-12] MEDS: Gabapentin 400 MG CAPSULE 800 MG PO ×3 (08:04→21:48)
[2024-10-12] MEDS: Insulin Lispro 100 UNIT/ML 3 ML VIAL SUBCUT ×3 (08:04→21:49)
[2024-10-12] MEDS: Aspirin Enteric Coated 81 MG TABLET.DR PO (08:05)
[2024-10-12] MEDS: Metoprolol Tartrate 12.5 MG HALFTAB PO ×2 (08:05→21:48)
[2024-10-12] MEDS: Magnesium Oxide 400 MG TABLET 800 MG PO (08:05)
--- NOTE | 2024-10-12 08:21 | MHC.CM.PN ---
EMR REVIEWED, UPDATED CLINICALS INCLUDING MIDLINE AND ID NOTE FAXED TO [facility], [facility] WILL RESUBMIT FOR AUTH PT WAS DECLINED BY [facility], CM WILL CONT TO FOLLOW.
[2024-10-12 11:20] LABS: Glucose, Whole Blood 221 mg/dL (60-115)
[2024-10-12 16:01] LABS: Glucose, Whole Blood 141 mg/dL (60-115)
--- NOTE | 2024-10-12 16:16 | HO.PM.IMPN ---
Subjective Subjective Date of Service: 10/12/24 Interval History: mssa bactermia Review of Systems patient seems feeing better denies any chest pain orsob Review of Systems: Yes all other systems are reviewed and are negative Physical Exam Vital Signs: Vital Signs: Last Vital Signs Temp 98.8 F 10/12/24 16:00 Pulse 96 10/12/24 16:00 Resp 16 10/12/24 16:00 BP 133/71 10/12/24 16:00 Pulse Ox 99 10/12/24 16:00 O2 Del Method Room Air 10/12/24 16:00 O2 Flow Rate 2 10/09/24 03:16 BMI result Body Mass Index 20.7 Appearance: Alert.? Oriented X3.? . cvs: irregular rythem, [id number]. res: air entry fair , no rales or wheezing abd: no rebound or guarding ,nt, bs present. ext pulses present , no cyanosis . neuro: axo3 , nonfocal. Objective Data Active Medications Acetaminophen (Acetaminophen 325 Mg Tablet) 650 mg PO Q6H PRN PRN Reason: Pain, Mild 1-3,fever,headache Last Admin: 10/12/24 05:23 Dose: 650 mg Documented By: YUNG Aspirin (Aspirin Enteric Coated 81 Mg Tablet.) 81 mg PO DAILY [facility] Last Admin: 10/12/24 08:05 Dose: 81 mg Documented By: DONYA Calcium Carbonate (Calcium Carbonate 750 Mg Tab.Chew) 750 mg PO Q4H PRN PRN Reason: Heartburn Dextrose (Dextrose 50 % 25 Gm/50 Ml Syringe) 25 gm IVPUSH Q30M PRN PRN Reason: BG < 70 Dextrose (Dextrose 50 % 25 Gm/50 Ml Syringe) 25 gm IVPUSH Q15M PRN; Protocol PRN Reason: per Hypoglycemia Standing Ord. Digoxin (Digoxin 0.25 Mg Tablet) 0.25 mg PO DAILY [facility]; Protocol Last Admin: 10/12/24 08:04 Dose: 0.25 mg Documented By: DONYA Divalproex Sodium (Divalproex Sodium 250 Mg Tablet.) 250 mg PO BID [facility] Last Admin: 10/12/24 08:04 Dose: 250 mg Documented By: DONYA Divalproex Sodium (Divalproex Sodium 500 Mg Tablet.) 500 mg PO BEDTIME [facility] Last Admin: 10/11/24 21:32 Dose: 500 mg Documented By: YUNG Folic Acid (Folic Acid 1 Mg Tablet) 1 mg PO DAILY [facility] Last Admin: 10/12/24 08:04 Dose: 1 mg Documented By: DONYA Gabapentin (Gabapentin 400 Mg Capsule) 800 mg PO TID [facility] Last Admin: 10/12/24 15:03 Dose: 800 mg Documented By: DONYA Glucose (Glucose Gel 15 Gm Gel..Gram.) 15 gm PO Q15M PRN; Protocol PRN Reason: per Hypoglycemia Standing Ord. Heparin Sodium (Porcine) (Heparin Sodium,Porcine Flush 50 Units/5 Ml Syringe) 50 units IVFLUSH QSHIFT [facility] Last Admin: 10/12/24 15:04 Dose: Not Given Documented By: DONYA Non-Admin Reason: IV Running Cefazolin Sodium/Dextrose (Ancef) 2 gm in 50 mls @ 100 mls/hr IV Q8H [facility] Last Infusion: 10/12/24 16:04 Dose: Infused Documented By: DONYA Insulin Glargine (Insulin Glargine,Hum.Rec.Anlog 100 Unit/Ml 10 Ml Vial) 10 unit SUBCUT BEDTIME [facility] Last Admin: 10/11/24 21:33 Dose: 10 unit Documented By: YUNG Insulin Human Lispro (Insulin Lispro 100 Unit/Ml 3 Ml Vial) 0 unit SUBCUT QIDACHS [facility]; Protocol Last Admin: 10/12/24 16:05 Dose: Not Given Documented By: DONYA Non-Admin Reason: poc oor Magnesium Hydroxide (Milk Of Magnesia 30 Ml Oral.Susp) 30 ml PO DAILY PRN PRN Reason: Constipation Last Admin: 10/10/24 20:37 Dose: 30 ml Documented By: ASHLY-DESSK Magnesium Oxide (Magnesium Oxide 400 Mg Tablet) 800 mg PO DAILY [facility] Last Admin: 10/12/24 08:05 Dose: 800 mg Documented By: DONYA Melatonin (Melatonin 3 Mg Tablet) 6 mg PO BEDTIME PRN PRN Reason: Insomnia Metoprolol Tartrate (Metoprolol Tartrate 12.5 Mg Halftab) 12.5 mg PO BID [facility]; Protocol Last Admin: 10/12/24 08:05 Dose: 12.5 mg Documented By: HO.SOFFAA Multivitamins/Vitamin C (Multivitamin Tablet) 1 tab PO BEDTIME [facility] Ondansetron HCl (Ondansetron Hcl 4 Mg/2 Ml Vial) 4 mg IVPUSH Q8H PRN PRN Reason: Nausea and Vomiting Pharmacy Consult (Consult Rx Etoh Phenob Im/Po) 1 each MISCELLANE ONCE PRN; Protocol PRN Reason: Consult order Phenobarbital (Phenobarbital 30 Mg Tablet) 30 mg PO BEDTIME [facility] Stop: 10/12/24 21:01 Last Admin: 10/11/24 21:32 Dose: 30 mg Documented By: YUNG Rivaroxaban (Rivaroxaban 20 Mg Tablet) 20 mg PO DAILY@1700 [facility] Last Admin: 10/11/24 16:47 Dose: 20 mg Documented By: BOB Sodium Chloride (0.9 % Sodium Chloride Flush 3 Ml Syringe) 3 ml IVFLUSH QSHIFT [facility] Last Admin: 10/12/24 12:21 Dose: Not Given Documented By: DONAY Non-Admin Reason: Previously Administered Thiamine HCl (Thiamine Hcl 100 Mg Tablet) 100 mg PO DAILY [facility] Last Admin: 10/12/24 08:04 Dose: 100 mg Documented By: DONYA Labs 10/09/24 06:22 10/11/24 06:39 Labs: Laboratory Results - last 24 hr 10/11/24 10/11/24 10/12/24 16:47 20:47 07:20 POC Glucose 109 410 H* 198 H 10/12/24 10/12/24 11:16 15:56 POC Glucose 221 H 141 H Assessment and Plan (1) Atrial fibrillation with RVR: Status: Inactive Plan 64-year-old male with pertinent history of alcohol use disorder, hypertension, mood disorder, sxr-vswbefm-qdzvoxsnh diabetes mellitus, chronic kidney disease stage 3 who presents to the emergency department for concerns of alcohol withdrawal and seeking alcohol detox. AFib with RVR, new diagnosis: now in sinus Echo EF is 55-60% TSH normal Patient received digoxin loading Heart rate improving Continue digoxin, metoprolol also added. continue to monitor blood pressure closely. Acute decompensated diastolic heart failure: Resolved with IV diuresis. Iatrogenic due to crystalloid resuscitation in the ER. no sob. MSSA bacteremia: Repeat blood culture negative at 24 hours. on cefazolin. ?source likely elbow. Repeat cx pending. Ortho reviewed the x-ray of elbow r reviewed with ortho. Discussed with the ortho and ID: Currently recommended IV antibiotics treatment, no acute surgical intervention. Alcohol use disorder with concerns for withdrawal: Initiated phenobarb protocol in the ER. Monitor CIWA. Continue thiamine. Consulted Addiction Team Uncontrolled ugc-lglyrvm-wdtlotcxv diabetes mellitus due to medication noncompliance: Basal plus insulin regimen. On statin Mood disorder: Continue home mood stabilizers Acute kidney injury on CKD stage 3: Resolved with crystalloid resuscitation Hypertension: hold due to hypotension DVT prophylaxis: Xarelto Full code Reason for continued hospitalization: mssa bactermia : rehab placement. Quality Stroke Does the patient have a stroke diagnosis?: No VTE Prior VTE?: No VTE Risk Level:: Medical - moderate - high VTE Device Contraindication: Treatment Not Indicated VTE Drug Contraindication: N/A - Med Ordered
[2024-10-12] MEDS: Rivaroxaban 20 MG TABLET PO (16:53)
[2024-10-12] MEDS: Thiamine HCL 200 MG in 0.9 % Sodium Chloride 100 ML 204 MG IV (16:58)
--- NOTE | 2024-10-12 17:59 | PC.NURSE ---
no acute events this shift. pt ambulated with supervise assist w/ walker OOB to bathroom
[2024-10-12 20:33] LABS: Glucose, Whole Blood 292 mg/dL (60-115)
[2024-10-12] MEDS: Divalproex Sodium 500 MG TABLET.DR PO (21:48)
[2024-10-12] MEDS: Insulin Glargine,Hum.rec.anlog 100 UNIT/ML 10 ML VIAL 10 UNIT SUBCUT (21:48)
[2024-10-12] MEDS: PHENobarbitaL 30 MG TABLET PO (21:48)
[2024-10-12] MEDS: Multivitamin TABLET 1 TAB PO (21:48)
[2024-10-12] MEDS: Calcium Carbonate 750 MG TAB.CHEW PO (21:52)
[2024-10-13] VITALS (9 sets, daily range): BP systolic 115–147; BP diastolic 69–86; PULSE 75–100; RESP 16–18; TEMP 36.7–37.7; O2SAT 97–99
[2024-10-13] MEDS: Heparin Sodium,Porcine Flush 50 UNITS/5 ML SYRINGE IVFLUSH ×3 (00:05→16:04)
[2024-10-13] MEDS: ceFAZolin Sodium/Dextrose,Iso 2 GM/50 ML PIGGYBACK IV ×3 (00:05→16:03)
[2024-10-13] MEDS: 0.9 % Sodium Chloride Flush 3 ML SYRINGE IVFLUSH ×4 (00:05→20:10)
[2024-10-13] MEDS: Milk of Magnesia 30 ML ORAL.SUSP PO (00:14)
[2024-10-13] MEDS: Melatonin 3 MG TABLET 6 MG PO (00:15)
[2024-10-13] MEDS: Thiamine HCL 200 MG in 0.9 % Sodium Chloride 100 ML 204 MG IV ×2 (05:33→17:03)
[2024-10-13 07:04] LABS: Glucose, Whole Blood 185 mg/dL (60-115)
[2024-10-13] MEDS: Aspirin Enteric Coated 81 MG TABLET.DR PO (10:01)
[2024-10-13] MEDS: Metoprolol Tartrate 12.5 MG HALFTAB PO ×2 (10:01→20:09)
[2024-10-13] MEDS: Magnesium Oxide 400 MG TABLET 800 MG PO (10:02)
[2024-10-13] MEDS: Digoxin 0.25 MG TABLET PO (10:02)
[2024-10-13] MEDS: Divalproex Sodium 250 MG TABLET.DR PO ×2 (10:02→20:09)
[2024-10-13] MEDS: Folic Acid 1 MG TABLET PO (10:02)
[2024-10-13] MEDS: Insulin Lispro 100 UNIT/ML 3 ML VIAL SUBCUT ×3 (10:03→20:10)
[2024-10-13] MEDS: Gabapentin 400 MG CAPSULE 800 MG PO ×3 (10:04→20:09)
[2024-10-13 12:03] LABS: Glucose, Whole Blood 283 mg/dL (60-115)
[2024-10-13 15:55] LABS: Glucose, Whole Blood 105 mg/dL (60-115)
[2024-10-13] MEDS: Rivaroxaban 20 MG TABLET PO (16:03)
--- NOTE | 2024-10-13 17:08 | HO.PM.IMPN ---
Subjective Subjective Date of Service: 10/13/24 Interval History: mssa bactermia Review of Systems denies new c/o otherwise comfortable ,mild anxious. Physical Exam Vital Signs: Vital Signs: Last Vital Signs Temp 98.7 F 10/13/24 16:00 Pulse 100 10/13/24 16:37 Resp 17 10/13/24 16:00 BP 120/71 10/13/24 16:37 Pulse Ox 99 10/13/24 16:00 O2 Del Method Room Air 10/13/24 16:00 O2 Flow Rate 2 10/09/24 03:16 BMI result Body Mass Index 20.7 Appearance: Alert.? Oriented X3.? . cvs: irregular rythem, [id number]. res: air entry fair , no rales or wheezing abd: no rebound or guarding ,nt, bs present. ext pulses present , no cyanosis . neuro: axo3 , nonfocal. Objective Data Active Medications Acetaminophen (Acetaminophen 325 Mg Tablet) 650 mg PO Q6H PRN PRN Reason: Pain, Mild 1-3,fever,headache Last Admin: 10/12/24 05:23 Dose: 650 mg Documented By: YUNG Aspirin (Aspirin Enteric Coated 81 Mg Tablet.) 81 mg PO DAILY [facility] Last Admin: 10/13/24 10:01 Dose: 81 mg Documented By: LISBET Calcium Carbonate (Calcium Carbonate 750 Mg Tab.Chew) 750 mg PO Q4H PRN PRN Reason: Heartburn Last Admin: 10/12/24 21:52 Dose: 750 mg Documented By: ELZBIETA Dextrose (Dextrose 50 % 25 Gm/50 Ml Syringe) 25 gm IVPUSH Q30M PRN PRN Reason: BG < 70 Dextrose (Dextrose 50 % 25 Gm/50 Ml Syringe) 25 gm IVPUSH Q15M PRN; Protocol PRN Reason: per Hypoglycemia Standing Ord. Digoxin (Digoxin 0.25 Mg Tablet) 0.25 mg PO DAILY [facility]; Protocol Last Admin: 10/13/24 10:02 Dose: 0.25 mg Documented By: LISBET Divalproex Sodium (Divalproex Sodium 250 Mg Tablet.) 250 mg PO BID [facility] Last Admin: 10/13/24 10:02 Dose: 250 mg Documented By: LISBET Divalproex Sodium (Divalproex Sodium 500 Mg Tablet.) 500 mg PO BEDTIME [facility] Last Admin: 10/12/24 21:48 Dose: 500 mg Documented By: ELZBIETA Folic Acid (Folic Acid 1 Mg Tablet) 1 mg PO DAILY [facility] Last Admin: 10/13/24 10:02 Dose: 1 mg Documented By: LISBET Gabapentin (Gabapentin 400 Mg Capsule) 800 mg PO TID [facility] Last Admin: 10/13/24 16:03 Dose: 800 mg Documented By: LISBET Glucose (Glucose Gel 15 Gm Gel..Gram.) 15 gm PO Q15M PRN; Protocol PRN Reason: per Hypoglycemia Standing Ord. Heparin Sodium (Porcine) (Heparin Sodium,Porcine Flush 50 Units/5 Ml Syringe) 50 units IVFLUSH QSHIFT [facility] Last Admin: 10/13/24 16:04 Dose: 50 units Documented By: LISBET Cefazolin Sodium/Dextrose (Ancef) 2 gm in 50 mls @ 100 mls/hr IV Q8H [facility] Last Infusion: 10/13/24 16:33 Dose: Infused Documented By: LISBET Thiamine HCl 200 mg/ Sodium (Chloride) 102 mls @ 204 mls/hr IV Q12H [facility] Last Admin: 10/13/24 17:03 Dose: 204 mls/hr Documented By: LISBET Insulin Glargine (Insulin Glargine,Hum.Rec.Anlog 100 Unit/Ml 10 Ml Vial) 13 unit SUBCUT BEDTIME [facility] Insulin Human Lispro (Insulin Lispro 100 Unit/Ml 3 Ml Vial) 0 unit SUBCUT QIDACHS [facility]; Protocol Last Admin: 10/13/24 15:56 Dose: Not Given Documented By: LISBET Non-Admin Reason: poc= 105 Magnesium Hydroxide (Milk Of Magnesia 30 Ml Oral.Susp) 30 ml PO DAILY PRN PRN Reason: Constipation Last Admin: 10/13/24 00:14 Dose: 30 ml Documented By: CHANO Magnesium Oxide (Magnesium Oxide 400 Mg Tablet) 800 mg PO DAILY [facility] Last Admin: 10/13/24 10:02 Dose: 800 mg Documented By: LISBET Melatonin (Melatonin 3 Mg Tablet) 6 mg PO BEDTIME PRN PRN Reason: Insomnia Last Admin: 10/13/24 00:15 Dose: 6 mg Documented By: CHANO Metoprolol Tartrate (Metoprolol Tartrate 12.5 Mg Halftab) 12.5 mg PO BID [facility]; Protocol Last Admin: 10/13/24 10:01 Dose: 12.5 mg Documented By: LISBET Multivitamins/Vitamin C (Multivitamin Tablet) 1 tab PO BEDTIME [facility] Last Admin: 10/12/24 21:48 Dose: 1 tab Documented By: ELZBIETA Ondansetron HCl (Ondansetron Hcl 4 Mg/2 Ml Vial) 4 mg IVPUSH Q8H PRN PRN Reason: Nausea and Vomiting Pharmacy Consult (Consult Rx Etoh Phenob Im/Po) 1 each MISCELLANE ONCE PRN; Protocol PRN Reason: Consult order Rivaroxaban (Rivaroxaban 20 Mg Tablet) 20 mg PO DAILY@1700 [facility] Last Admin: 10/13/24 16:03 Dose: 20 mg Documented By: LISBET Sodium Chloride (0.9 % Sodium Chloride Flush 3 Ml Syringe) 3 ml IVFLUSH QSHIFT [facility] Last Admin: 10/13/24 16:04 Dose: 3 ml Documented By: LISBET Thiamine HCl (Thiamine Hcl 100 Mg Tablet) 100 mg PO DAILY [facility] Last Admin: 10/12/24 08:04 Dose: 100 mg Documented By: MAGEDA Labs 10/09/24 06:22 10/11/24 06:39 Labs: Laboratory Results - last 24 hr 10/12/24 10/13/24 10/13/24 20:22 07:00 11:59 POC Glucose 292 H 185 H 283 H 10/13/24 15:51 POC Glucose 105 Assessment and Plan (1) Atrial fibrillation with RVR: Status: Inactive Plan 64-year-old male with pertinent history of alcohol use disorder, hypertension, mood disorder, cte-hihyslc-hmrjijido diabetes mellitus, chronic kidney disease stage 3 who presents to the emergency department for concerns of alcohol withdrawal and seeking alcohol detox. AFib with RVR, new diagnosis: now in sinus Echo EF is 55-60% TSH normal Patient received digoxin loading Heart rate improving Continue digoxin, metoprolol also added. continue to monitor blood pressure closely. Acute decompensated diastolic heart failure: Resolved with IV diuresis. Iatrogenic due to crystalloid resuscitation in the ER. no sob. MSSA bacteremia: Repeat blood culture negative at 24 hours. on cefazolin. ?source likely elbow. Repeat cx pending. Ortho reviewed the x-ray of elbow r reviewed with ortho. Discussed with the ortho and ID: Currently recommended IV antibiotics treatment, no acute surgical intervention. Alcohol use disorder with concerns for withdrawal: Initiated phenobarb protocol in the ER. Monitor CIWA. Continue thiamine. Consulted Addiction Team Uncontrolled syz-jeqgwua-ydrlqsgqb diabetes mellitus due to medication noncompliance: Basal plus insulin regimen. On statin Mood disorder: Continue home mood stabilizers Acute kidney injury on CKD stage 3: Resolved with crystalloid resuscitation Hypertension: hold due to hypotension DVT prophylaxis: Xarelto Full code Reason for continued hospitalization: mssa bactermia : rehab placement. Quality Stroke Does the patient have a stroke diagnosis?: No VTE Prior VTE?: No VTE Risk Level:: Medical - moderate - high VTE Device Contraindication: Treatment Not Indicated VTE Drug Contraindication: N/A - Med Ordered
[2024-10-13] MEDS: Calcium Carbonate 750 MG TAB.CHEW PO (20:09)
[2024-10-13] MEDS: Multivitamin TABLET 1 TAB PO (20:09)
[2024-10-13] MEDS: Insulin Glargine,Hum.rec.anlog 100 UNIT/ML 10 ML VIAL 13 UNIT SUBCUT (20:10)
[2024-10-13] MEDS: Divalproex Sodium 500 MG TABLET.DR PO (20:10)
[2024-10-13 20:28] LABS: Glucose, Whole Blood 293 mg/dL (60-115)
[2024-10-14] VITALS (8 sets, daily range): BP systolic 118–138; BP diastolic 69–85; PULSE 68–96; RESP 16–17; TEMP 36.8–36.9; O2SAT 96–97
[2024-10-14] MEDS: ceFAZolin Sodium/Dextrose,Iso 2 GM/50 ML PIGGYBACK IV ×3 (00:48→16:00)
[2024-10-14] MEDS: Heparin Sodium,Porcine Flush 50 UNITS/5 ML SYRINGE IVFLUSH ×3 (00:48→16:01)
[2024-10-14] MEDS: Thiamine HCL 200 MG in 0.9 % Sodium Chloride 100 ML 204 MG IV (06:20)
[2024-10-14 07:47] LABS: Glucose, Whole Blood 95 mg/dL (60-115)
[2024-10-14] MEDS: 0.9 % Sodium Chloride Flush 3 ML SYRINGE IVFLUSH ×2 (09:09→16:01)
[2024-10-14] MEDS: Aspirin Enteric Coated 81 MG TABLET.DR PO (09:10)
[2024-10-14] MEDS: Gabapentin 400 MG CAPSULE 800 MG PO ×2 (09:10→16:00)
[2024-10-14] MEDS: Magnesium Oxide 400 MG TABLET 800 MG PO (09:10)
[2024-10-14] MEDS: Divalproex Sodium 250 MG TABLET.DR PO (09:10)
[2024-10-14] MEDS: Digoxin 0.25 MG TABLET PO (09:11)
[2024-10-14] MEDS: Metoprolol Tartrate 12.5 MG HALFTAB PO (09:11)
[2024-10-14] MEDS: Calcium Carbonate 750 MG TAB.CHEW PO (09:11)
[2024-10-14] MEDS: Folic Acid 1 MG TABLET PO (09:11)
--- NOTE | 2024-10-14 11:23 | MHC.CM.PN ---
Addendum entered by Gladys Lang RN 10/14/24 16:27: IR UNABLE TO PLACE MIDLINE THIS AFTERNOON, PT WILL BE FIRST TOMORROW AM AND CAN DC HOME AFTER FIRST DOSE OF ERTAPENEM Addendum entered by Gladys Lang RN 10/14/24 16:05: [facility] RECEIVED HNE AUTH, LESS THAN 30 DAY REQUESTED AND HOSPITALIST WILL INCLUDE IN DC SUMMARY, [facility] FOR TRANSPORT AT 4:30PM Original Note: [facility] SUBMITTING FOR HNE AUTH FOR TID IV ABX, ANTIC PT WILL DC ONCE AUTH GRANTED.
[2024-10-14 11:36] LABS: Glucose, Whole Blood 258 mg/dL (60-115)
[2024-10-14] MEDS: Insulin Lispro 100 UNIT/ML 3 ML VIAL SUBCUT (11:47)
[2024-10-14 15:51] LABS: Glucose, Whole Blood 128 mg/dL (60-115)
[2024-10-14] MEDS: Rivaroxaban 20 MG TABLET PO (16:00)
[2024-10-14] MEDS: Acetaminophen 325 MG TABLET 650 MG PO (16:02)
--- NOTE | 2024-10-14 16:25 | P.DS_ITS ---
DS: Providers Provider Date of Service: 10/14/24 Date of admission: 10/07/24 20:54 Date of discharge: 10/14/24 Primary care physician: None Physician Admitting clinician: Ute Grimes Attending physician on admission: Ute Grimes Consults: 10/07/24 21:25 Addiction Medicine Provider Routine Consulting Provider: Addiction Covering Reason for consultation: alcohol use disorder 10/07/24 21:28 Consult to Cardiology Routine Consulting Provider: [facility] Reason for consultation: afib with rvr Has provider been notified: Yes 10/08/24 19:18 Consult to Wound Care Routine Reason for consultation: wounds to bilat feet 10/08/24 19:19 Consult to Infectious Diseases Routine Consulting Provider: [facility] Reason for consultation: MSSA bacteremia 10/10/24 10:21 Consult to Orthopedics Routine Consulting Provider: [facility] Reason for consultation: Elbow cellulitis vs bursitis / effusion Has provider been notified: No 10/11/24 12:55 Consult to Nephrology Routine Consulting Provider: [facility] Reason for consultation: ckd -need picc line forantibiotics Has provider been notified: No DS: Diagnosis Discharge Diagnosis (1) Atrial fibrillation with RVR: Status: Inactive DS: Summary Hospital Course Hospital Course: HPI:64-year-old male with pertinent history of alcohol use disorder, hypertension, mood disorder, yvy-qjriimi-zayhynchb diabetes mellitus, chronic kidney disease stage 3 who presents to the emergency department for concerns of alcohol withdrawal and seeking alcohol detox. Patient states his last drink was on the day of presentation. Does have a history of alcohol withdrawal including alcohol withdrawal seizures. States he has been having nausea, tremors and occasional visual hallucinations since he stopped drinking. Does endorse that he has not been taking his home medications including antihyperglycemics. Endorses palpitations, denies fever, chills, chest pain, shortness of breath, abdominal pain, changes in urinary or bowel habits. In the emergency department, serum glucose found to be 663, creatinine 1.64 sodium 126. Patient was given IV insulin and IV crystalloids in the ER. Also noted to be in AFib with RVR and started on IV diltiazem drip. Hospital course: 64-year-old male with pertinent history of alcohol use disorder, hypertension, mood disorder, tdt-bxqwtod-pcrbeksbw diabetes mellitus, chronic kidney disease stage 3 who presents to the emergency department for concerns of alcohol wi thdrawal and seeking alcohol detox. AFib with RVR, new diagnosis: Patient was initially started on diltiazem further switched to digoxin loading due to borderline blood pressure. Echo EF is 55-60%,TSH normal Patient received digoxin loading Heart rate improving Continue digoxin, metoprolol , also added Xarelto. Seen by cardiology: Continue digoxin 0.25 mg daily and metoprolol 12.5 mg q.6 hours. Treat underlying infectious etiology as well as alcohol withdrawal which can contribute to difficult to control rate. Clinically does appear to be in heart failure at this point time. LV ejection fraction appears to be stable. Abstinence from alcohol was discussed. Currently does not have significant risk factors for thromboembolic complication but can continue to use Xarelto if plan eventually he has to pursue rhythm control approach. Acute decompensated diastolic heart failure: Resolved with IV diuresis. Iatrogenic due to crystalloid resuscitation in the ER. no sob. Please see above AFib section for further details. MSSA bacteremia: Repeat blood culture negative at 24 hours. on cefazolin. ?source likely elbow. Repeat elbow x-ray:Medial calcifications of the likely medial epicondylitis. Small effusion with a additional soft tissue swelling, including olecranon bursal region. Ortho reviewed the x-ray of elbow reviewed with ortho. Discussed with the ortho and ID: Currently recommended IV antibiotics treatment, Encourage gentle compression of the left elbow,No acute surgical intervention indicated at this time. If any further changes -consider outpatient ortho evaluation. Alcohol use disorder with concerns for withdrawal: Received phenobarb protocol, seems improved, seen by addiction Team-referral for ccc done as per addiction. Uncontrolled khr-wcaawxi-xegylzojc diabetes mellitus due to medication noncompliance: Basal plus insulin regimen. On statin Mood disorder: Continue home mood stabilizers Acute kidney injury on CKD stage 3: Resolved with crystalloid resuscitation Hypertension: hold lisinopril and atenolol due to borderline blood pressure. Monitor blood pressure closely if needed these medication can be reintrioduced if needed for blood pressure. Patient will benefit from less than 30 day rehab stay. Plan: MSSA bacteremia: Continue cefazolin as prescribed above-and date 11/09/2024. Continue digoxin and atenolol, monitor digoxin levels in 1 week. Continue Xarelto until seen by Cardiology-further use as per Cardiology. Cardiology may arrange their own appointment. Diabetes regimen adjusted to insulin 13 units Lantus and sliding scale as above. Consider monitoring CBC, CMP while on IV antibiotics and above-mentioned issues. Above management discussed with the patient and his in detail length they both understand and in agreement with the above plan, time spent 40 minute, all question answered, staff was present during conversation . Time Attestation Total time managing care of this patient today: 40 mintues. Discharge Coordination Time (in mins): 40 min Quality: Safe Use of Opioids Does Pt have an Active Cancer Diagnosis on the Problem List?: No Quality: Stroke Does the patient have a stroke diagnosis?: No Physical Exam Vital Signs: Vital Signs: Last Vital Signs Temp 98.5 F 10/14/24 15:58 Pulse 72 10/14/24 16:19 Resp 17 10/14/24 15:58 BP 138/74 10/14/24 16:19 Pulse Ox 96 10/14/24 16:19 O2 Del Method Room Air 10/14/24 15:58 O2 Flow Rate 2 10/09/24 03:16 BMI result Body Mass Index 20.7 Appearance: Alert.? Oriented X3.? cvs: irregular rythem, [id number]. res: air entry fair , no rales or wheezing abd: no rebound or guarding ,nt, bs present. ext pulses present , no cyanosis . Elbow: Erythema and swelling improving neuro: axo3 , nonfocal DS: Data Data Completed and Pending Labs on day of discharge: Laboratory Results - last 24 hr 10/13/24 10/14/24 10/14/24 20:04 07:34 11:32 POC Glucose 293 H 95 258 H 10/14/24 15:46 POC Glucose 128 H Imaging Chest x-ray: Radiologist's impression: ITS Impressions Chest X-Ray 10/07/24 13:54 IMPRESSION: No acute cardiopulmonary abnormality. echo: Conclusions: - 1. Normal LV ejection fraction 55-60% with moderate asymmetric septal hypertrophy 2. Calcific aortic valve changes noted with cardiac valve with a Dopplers within normal limits 3. Mildly elevated right atrial pressures 4. Mildly dilated ascending aorta at 3.7 cm 5. No gross pericardial effusion cxr: Interval development of congestive heart failure. Discharge Plan Discharge Anticipated Discharge Date/Time: 10/11/24 13:02 Patient Disposition: Xfer SNF Discharge Diagnosis: alcohol withdrawal ,electrolytes abnormalities ,elbow cellulitis/bursitis ,mssa bacteremia Referrals: [facility] [Provider Group] - 10/21/24 2:00 pm (Please use main entrance of hospital and use elevators to 4th floor. [address] towards the end of the [place].) [facility] [Outside] - 1 Day (SHORT TERM REHAB) Blayne Hagan III, MD [Physician] - 1 Week Discharge Medications: New digoxin 250 mcg (0.25 mg) Tablet 0.25 mg PO DAILY Qty: 1 0RF Protocol: Hold for HR <: HOLD for HR < : 60 Xarelto 20 mg Tablet 20 mg PO DAILY@1700 Qty: 1 0RF insulin glargine [Lantus U-100 Insulin] 100 unit/mL Solution 13 unit subcut BEDTIME Qty: 1 0RF insulin lispro [Admelog U-100 Insulin lispro] 100 unit/mL Solution See Protocol subcut QIDACHS Qty: 1 0RF Protocol: Insulin Correction Scale Less than or equal to 110 ---- Give (units): 0 111 to 150 Give (units): 0 151 to 200 Give (units): 2 201 to 250 Give (units): 4 251 to 300 Give (units): 6 301 to 350 Give (units): 8 Greater than 350 Give (units): 10 Call MD if Blood Glucose > : 350 cefazolin in dextrose (iso-os) 2 gram/50 mL Piggyback 50 ml IV Q8H Qty: 1 0RF multivitamin [Daily-Trisha] Tablet 1 tab PO BEDTIME Qty: 1 0RF metoprolol tartrate 25 mg tablet 12.5 mg PO BID Qty: 1 0RF Continued methylphenidate HCl 10 mg tablet 10 mg PO TID gabapentin 800 mg tablet 800 mg PO TID folic acid 1 mg Tablet 1 mg PO DAILY Qty: 90 0RF thiamine mononitrate (vit B1) 100 mg Tablet 100 mg PO DAILY Qty: 90 0RF divalproex 250 mg tablet,delayed release (DR/EC) 250 mg PO BID divalproex 500 mg tablet,delayed release (DR/EC) 500 mg PO QPM Changed magnesium oxide 400 mg (241.3 mg magnesium) Tablet 800 mg PO BID Qty: 90 0RF Discontinued lisinopril 20 mg tablet 20 mg PO DAILY atenolol 25 mg tablet 25 mg PO DAILY aspirin 81 mg Tablet 81 mg PO DAILY Discharge Orders: Discharge Order (Routine); Ordered 10/14/24 Ordered By: Ute Grimes Diet: Advance to usual diet Activity on Discharge: As tolerated Stand Alone Forms: Patient Portal Discharge page Print Language: Khmer Care Plan Goals: As below. Health Concerns: MSSA bacteremia: Continue cefazolin as prescribed above-and date 11/09/2024. Continue digoxin and atenolol, monitor digoxin levels in 1 week. Continue Xarelto until seen by Cardiology-further use as per Cardiology. Diabetes regimen adjusted to insulin 13 units Lantus and sliding scale as above. Plan of Treatment: As above. Assessment: As above.
== END 2024-10-14 17:17 | disposition skilled nursing facility (03) | DRG 201 ==
LOC: HO.ED 15:45 → HO.EDOVER 20:59 → HO.IMC 10-08 15:54
PROVIDERS: Physician Assistant; Physician Assistant Medical; Admitting Provider Student in an Organized Health Care Education/Training Program; Emergency Provider Emergency Medicine; Visit Provider Internal Medicine
DX: I48.0 Paroxysmal atrial fibrillation (principal); I50.31 Acute diastolic (congestive) heart failure; R78.81 Bacteremia; N17.9 Acute kidney failure, unspecified; I42.9 Cardiomyopathy, unspecified; B95.61 Methicillin susceptible Staphylococcus aureus infection as the cause of diseases classified elsewhere; E11.22 Type 2 diabetes mellitus with diabetic chronic kidney disease; F10.239 Alcohol dependence with withdrawal, unspecified; M71.122 Other infective bursitis, left elbow; I12.9 Hypertensive chronic kidney disease with stage 1 through stage 4 chronic kidney disease, or unspecified chronic kidney disease; F39 Unspecified mood [affective] disorder; N18.30 Chronic kidney disease, stage 3 unspecified; I95.2 Hypotension due to drugs; T46.1X5A Adverse effect of calcium-channel blockers, initial encounter; Z87.891 Personal history of nicotine dependence; Z91.148 Patient's other noncompliance with medication regimen for other reason
CPT/HCPCS: 36410; 36415; 71045; 73080; 74176; 80048; 80053; 80076; 80143; 80179; 80307; 81001; 82010; 82140; 82436; 82803; 82947; 83605; 83690; 83735; 83880; 83930; 83935; 84100; 84133; 84300; 84443; 84484; 85025; 85027; 87040; 87077; 87147; 87186; 87205; 93005; 93306; 97162; 99285; J0690; J1160; J1642; J1938; J2560; J3360; J3411; J3475; J7120; P9047; S9485

== ENCOUNTER → 2024-10-07 13:34 | Outpatient (BNV) | payer OTHER, SELFPAY | PROVIDERS: Admitting Provider Student in an Organized Health Care Education/Training Program; Emergency Provider Emergency Medicine; Visit Provider Internal Medicine Cardiovascular Disease | DX: I48.91 Unspecified atrial fibrillation (principal) | CPT/HCPCS: 93010 ==

== ENCOUNTER → 2024-10-07 13:35 | Outpatient (BNV) | payer OTHER, SELFPAY | PROVIDERS: Emergency Provider Emergency Medicine; Visit Provider Radiology Diagnostic Radiology | DX: I71.43 Infrarenal abdominal aortic aneurysm, without rupture (principal); R07.9 Chest pain, unspecified | CPT/HCPCS: 71045; 74176 ==

== ENCOUNTER 2024-10-07 20:54 | Outpatient (BNV) | payer OTHER, SELFPAY | END 2024-10-08 07:00 | PROVIDERS: Admitting Provider Student in an Organized Health Care Education/Training Program; Emergency Provider Emergency Medicine; Visit Provider Internal Medicine Cardiovascular Disease | DX: Q21.19 Other specified atrial septal defect (principal) | CPT/HCPCS: 93306 ==

== ENCOUNTER 2024-10-07 20:54 | Outpatient (BNV) | payer OTHER, SELFPAY | END 2024-10-09 17:36 | PROVIDERS: Admitting Provider Student in an Organized Health Care Education/Training Program; Emergency Provider Emergency Medicine; Visit Provider Radiology Neuroradiology | DX: M19.022 Primary osteoarthritis, left elbow (principal); M25.422 Effusion, left elbow | CPT/HCPCS: 73080 ==

== ENCOUNTER → 2024-10-07 20:54 | Outpatient (BNV) | payer OTHER, SELFPAY | PROVIDERS: Admitting Provider Student in an Organized Health Care Education/Training Program; Emergency Provider Emergency Medicine; Visit Provider Student in an Organized Health Care Education/Training Program | DX: I48.91 Unspecified atrial fibrillation (principal) | CPT/HCPCS: 99223; 99231; 99232; 99499 ==

== ENCOUNTER → 2024-10-07 20:54 | Outpatient (BNV) | payer OTHER, SELFPAY | PROVIDERS: Admitting Provider Student in an Organized Health Care Education/Training Program; Emergency Provider Emergency Medicine; Visit Provider Nurse Practitioner Psychiatric/Mental Health | DX: F10.20 Alcohol dependence, uncomplicated (principal) | CPT/HCPCS: 99222; 99231 ==

== ENCOUNTER → 2024-10-07 20:54 | Outpatient (BNV) | payer OTHER, SELFPAY | PROVIDERS: Admitting Provider Student in an Organized Health Care Education/Training Program; Emergency Provider Emergency Medicine; Visit Provider Internal Medicine Cardiovascular Disease | DX: I48.91 Unspecified atrial fibrillation (principal) | CPT/HCPCS: 99222; 99233 ==

== ENCOUNTER → 2024-10-07 20:54 | Outpatient (BNV) | payer OTHER, SELFPAY | PROVIDERS: Admitting Provider Student in an Organized Health Care Education/Training Program; Emergency Provider Emergency Medicine; Visit Provider Internal Medicine | DX: M71.122 Other infective bursitis, left elbow (principal) | CPT/HCPCS: 99222 ==

== ENCOUNTER → 2024-10-07 20:54 | Outpatient (BNV) | payer OTHER, SELFPAY | PROVIDERS: Admitting Provider Student in an Organized Health Care Education/Training Program; Emergency Provider Emergency Medicine | DX: M71.122 Other infective bursitis, left elbow (principal) | CPT/HCPCS: 99222 ==

== ENCOUNTER 2025-04-11 20:05 | Inpatient (IN) | payer OTHER, SELFPAY ==
[2025-04-11] VITALS (7 sets, daily range): BP systolic 161–204; BP diastolic 92–122; PULSE 96–120; RESP 18–28; TEMP 36.6–38; O2SAT 86–95; BMI 21.9
--- NOTE | ~2025-04-11 | XR_ITS ---
CLINICAL HISTORY: chest pain 2 view chest x-ray Comparison: CR - XR CHEST 1V - 10/07/24 21:01 EDT Findings: Normal heart size. Prominence of the bilateral interstitial lung markings and bradley suggestive of pulmonary vascular congestion. No focal consolidation, pleural effusion, or pneumothorax. Osseous structures are unremarkable. IMPRESSION: Pulmonary vascular congestion This document has been electronically signed by: Manuel Mata MD on 04/11/2025 23:53:44
--- NOTE | 2025-04-11 20:07 | ECG_ITS ---
Test Reason : CP Blood Pressure : */* mmHG Vent. Rate : 126 BPM Atrial Rate : 126 BPM P-R Int : 140 ms QRS Dur : 76 ms QT Int : 308 ms P-R-T Axes : * -56 102 degrees QTcB Int : 446 ms Sinus tachycardia with Premature supraventricular complexes and Fusion complexes Left anterior fascicular block Inferior infarct , age undetermined ST & T wave abnormality, consider lateral ischemia Abnormal ECG When compared with ECG of 07-Oct-2024 13:46, Sinus tachycardia has replaced Atrial fibrillation with rapid ventricular response Referred By: Lisbeth Houser Electronically Signed By: KVNG HAIDER MD
--- NOTE | 2025-04-11 20:08 | ED.GENADULT ---
HPI - General Adult General Chief complaint: Chest Pain Stated complaint: Chest pain sob Time Seen by Provider: 04/11/25 20:29 Source: patient and family Limitations: other (Poor historian) History of Present Illness ED Provider: Beth Kiser PA-C HPI narrative: 65-year-old male with a history of ongoing tobacco abuse, likely COPD, hypertension, diabetes, chronic kidney disease, paroxysmal AFib on Xarelto, alcohol use disorder who presents with cough and cold symptoms x4 days. Associated chest tightness, productive cough at times, shortness of breath with generalized malaise and fatigue. Unclear if the patient has a had a fever. Denies nausea vomiting diarrhea. Patient has sick contacts at home with similar symptoms. The patient does not use supplemental oxygen at home. Related Data Home Medications ?Medication ?Instructions ?Recorded ?Confirmed gabapentin 800 mg tablet 800 mg PO TID 01/05/24 10/07/24 methylphenidate HCl 10 mg tablet 10 mg PO TID 01/05/24 10/07/24 divalproex 250 mg tablet,delayed 250 mg PO BID 10/07/24 10/07/24 release divalproex 500 mg tablet,delayed 500 mg PO QPM 10/07/24 10/07/24 release Previous Rx's ?Medication ?Instructions ?Recorded folic acid 1 mg tablet 1 mg PO DAILY #90 tabs 01/07/24 thiamine mononitrate (vit B1) 100 100 mg PO DAILY #90 tabs 01/07/24 mg tablet cefazolin 2 gram/50 mL in dextrose 50 ml IV Q8H #1 ea 10/14/24 (iso-osmotic) intravenous piggyback digoxin 250 mcg (0.25 mg) tablet 0.25 mg PO DAILY #1 tab 10/14/24 insulin glargine 100 unit/mL 13 unit (0.13 mL) subcut BEDTIME 10/14/24 subcutaneous solution (Lantus #1 mL U-100 Insulin) insulin lispro 100 unit/mL See Protocol subcut QIDACHS #1 mL 10/14/24 subcutaneous solution (Admelog U-100 Insulin lispro) magnesium oxide 400 mg (241.3 mg 800 mg (2 x 400 mg (241.3 mg 10/14/24 magnesium) tablet magnesium)) PO BID #90 tabs metoprolol tartrate 25 mg tablet 12.5 mg (1/2 x 25 mg) PO BID #1 tab 10/14/24 multivitamin (Daily-Trisha tablet) 1 tab PO BEDTIME #1 tab 10/14/24 rivaroxaban 20 mg tablet (Xarelto) 20 mg PO DAILY@1700 #1 tab 10/14/24 Allergies Allergy/AdvReac Type Severity Reaction Status Date / Time metformin Allergy Intermediate Swelling Verified 04/11/25 20:18 Review of Systems Review of Systems: Yes all other systems are reviewed and are negative Constitutional: Constitutional: Reports fatigue, Denies fever(s) and Reports malaise Cardiovascular: Cardiovascular: Reports chest pain and Reports dyspnea Respiratory: Respiratory: Reports chest congestion, Reports cough and Reports dyspnea Gastrointestinal: Gastrointestinal: Denies abdominal pain, Denies diarrhea, Denies nausea and Denies vomiting Endocrine: Endocrine: Reports fatigue PMFSH Past Medical History Attestation statement: The following information was validated with the patient. Medical History Tobacco dependence Marijuana use Atrial fibrillation with rapid ventricular response Paroxysmal atrial fibrillation Septic olecranon bursitis of left elbow Alcohol withdrawal Alcohol use disorder, moderate, dependence Atrial fibrillation with RVR Stage 3 chronic kidney disease Hypertension Diabetes ETOH abuse Social History Social History (Updated 04/12/25 @ 03:[address] [facility]) Household Members: Spouse Housing: House Do you presently have visiting nurse or other home services: No Alcohol intake: former Comment: Last drink December 2024 Patient Tobacco Use Status: Former Tobacco user Tobacco use type: Cigarette Cigarettes Per Day: 10 Smoked in Last 30 Days: No Substance Use Type: Marijuana Advance Directives: No Advance Directives Information Provided: No Nutrition Risks: No Nutritional Risk service: No Physical Exam ED Vital Signs: Vital Signs - 24 hr 04/11/25 20:16 04/11/25 21:06 04/11/25 21:31 Temperature 97.8 F 100.1 F Pulse Rate 99 120 H Respiratory Rate 18 28 H Blood Pressure 204/122 H Pulse Oximetry 86 L Oxygen Delivery Method Room Air Oxygen Flow Rate 04/11/25 21:33 04/11/25 22:27 04/11/25 23:38 Temperature 100.4 F Pulse Rate 96 Respiratory Rate 18 Blood Pressure 179/108 H 161/92 H Pulse Oximetry 93 Oxygen Delivery Method Nasal Cannula Oxygen Flow Rate 3 04/11/25 23:54 04/11/25 23:54 04/12/25 00:00 Temperature Pulse Rate 89 Respiratory Rate 29 H Blood Pressure 180/93 H 180/93 H 180/93 H Pulse Oximetry 91 L Oxygen Delivery Method Nasal Cannula Oxygen Flow Rate 2 04/12/25 01:57 04/12/25 02:18 Temperature 100.1 F Pulse Rate Respiratory Rate Blood Pressure 145/86 H Pulse Oximetry 95 Oxygen Delivery Method Nasal Cannula Oxygen Flow Rate 2 BMI result Body Mass Index 21.9 Const Other: Awake, ill-appearing, cachectic Orientation/consciousness: patient oriented x3 HENMT Other: Dry oral mucosa, lips are stained from grape juice, it is not hematemesis, lips are severely dry and cracked as well Resp Other: Diminished posterior mccloud left greater than right, productive cough at times, no wheezing Cardio Other: Normal peripheral perfusion Skin Other: Warm dry no rash Neuro General: patient oriented x3, gait normal, no focal motor deficits and CN's II-XI intact bilaterally Psych Other: Cooperative Course Course Course Narrative: Rapid medical examination performed in triage by Lisbeth Houser PA-C: Patient is a 65 year old assigned male at presenting to the emergency department with chest pain. Detailed physical exam and review of systems are deferred to the senior clinician. EKG, labs, imaging, swabs ordered. Patient placed back in the waiting room pending room availability and results. Reevaluation(s) Reevaluation #1: At 8:59 p.m. on April 11, a sepsis focused exam was performed. Patient is tachycardic, febrile, in addition to screening labs we will be adding on blood cultures, lactic, giving IV fluid resuscitation, and empiric ceftriaxone Time: 20:59 Reevaluation #2: Blood sugar markedly elevated, adding on beta hydroxy and venous blood gas, he has a lactic acidosis and an anion gap, which is likely multifactorial,.......... we will be giving 5 units of IV insulin.......... Once IV fluid resuscitation is complete, we will repeat his chemistries Reevaluation #3: Repeat chemistries are reassuring, patient not in DKA, adding additional insulin, his potassium is stable Medications Administered Generic Name Dose Route Start Last Admin Trade Name Freq PRN Reason Stop Dose Admin Sodium Chloride 1,000 mls @ 100 mls/hr 04/12/25 04:00 04/12/25 04:59 Ns IVCONT 100 mls/hr .Q10H JOVITA Administration Discontinued Medications Generic Name Dose Route Start Last Admin Trade Name Enedelia PRN Reason Stop Dose Admin Acetaminophen 975 mg 04/11/25 20:59 04/11/25 21:12 Acetaminophen 325 Mg Tablet PO 04/11/25 21:00 975 mg ONCE ONE Administration Albuterol Sulfate 5 mg/ 0 mg 04/11/25 20:54 04/11/25 21:00 Albuterol/Ipratropium 3 ml INHALE 04/11/25 20:55 7.5 each ONCE ONE Administration Furosemide 20 mg 04/12/25 03:59 04/12/25 04:59 Furosemide 20 Mg/2 Ml Vial IVPUSH 04/12/25 04:00 20 mg ONCE ONE Administration Protocol Magnesium Sulfate 2 gm in 50 mls @ 150 mls/hr 04/11/25 20:34 04/11/25 21:40 Magnesium Sulfate/H2o IV 04/11/25 20:53 Infused ONCE ONE Infusion Sodium Chloride 500 mls @ 500 mls/hr 04/11/25 20:34 04/11/25 22:20 Ns IV 04/11/25 21:33 Infused .Q1H ONE Infusion Ceftriaxone Sodium 2 gm/ 50 mls @ 100 mls/hr 04/11/25 20:59 04/11/25 21:30 Sodium Chloride IV 04/11/25 21:28 Infused ONCE ONE Infusion Lactated Ringer's 1,905.09 mls @ 1,905.09 mls/hr 04/11/25 21:31 04/11/25 23:53 Lr 30 ml/kg infuse over 1 hr (1905.09 ml) 04/11/25 22:30 Infused IV Infusion .Q1H ONE Doxycycline Hyclate 100 mg/ 250 mls @ 166.67 mls/hr 04/11/25 21:31 04/11/25 23:56 Sodium Chloride IV 04/11/25 23:00 Infused ONCE ONE Infusion Acetaminophen 1,000 mg in 100 mls @ 400 mls/hr 04/12/25 02:08 04/12/25 02:39 Ofirmev IV 04/12/25 02:22 Infused ONCE ONE Infusion Insulin Glargine 13 unit 04/12/25 01:20 04/12/25 01:38 Insulin Glargine,Hum.Rec.Anlog 100 Unit/Ml 10 Ml Vial SUBCUT 04/12/25 01:21 13 unit ONCE ONE Administration Insulin Human Regular 5 unit 04/11/25 21:36 04/11/25 22:13 Insulin Regular, Human 100 Unit/Ml 10 Ml Vial IVPUSH 04/11/25 21:37 5 unit ONCE ONE Administration Insulin Human Regular 5 unit 04/11/25 23:47 04/11/25 23:52 Insulin Regular, Human 100 Unit/Ml 10 Ml Vial IVPUSH 04/11/25 23:48 5 unit ONCE ONE Administration Insulin Human Regular 10 unit 04/12/25 05:12 04/12/25 05:29 Insulin Regular, Human 100 Unit/Ml 10 Ml Vial IVPUSH 04/12/25 05:13 10 unit ONCE ONE Administration Ketorolac Tromethamine 15 mg 04/11/25 23:47 04/11/25 23:52 Ketorolac Tromethamine 15 Mg/Ml Vial IVPUSH 04/11/25 23:48 15 mg ONCE ONE Administration Methylprednisolone Sodium Succinate 60 mg 04/11/25 20:34 04/11/25 21:12 Methylprednisolone Sod Succ 125 Mg/2 Ml Vial IVPUSH 04/11/25 20:35 60 mg ONCE ONE Administration Metoprolol Tartrate 5 mg 04/11/25 21:00 04/11/25 21:11 Metoprolol Tartrate 5 Mg/5 Ml Vial IVPUSH 04/11/25 21:01 5 mg ONCE ONE Administration Protocol Metoprolol Tartrate 12.5 mg 04/11/25 21:00 04/11/25 23:07 Metoprolol Tartrate 12.5 Mg Halftab PO 04/11/25 21:01 12.5 mg ONCE ONE Administration Protocol Metoprolol Tartrate 5 mg 04/11/25 21:36 04/11/25 22:15 Metoprolol Tartrate 5 Mg/5 Ml Vial IVPUSH 04/11/25 21:37 5 mg ONCE ONE Administration Protocol Metoprolol Tartrate 5 mg 04/11/25 22:29 04/11/25 22:36 Metoprolol Tartrate 5 Mg/5 Ml Vial IVPUSH 04/11/25 22:30 5 mg ONCE ONE Administration Protocol Ondansetron HCl 4 mg 04/11/25 21:48 04/11/25 22:13 Ondansetron Hcl 4 Mg/2 Ml Vial IVPUSH 04/11/25 21:49 4 mg ONCE ONE Administration Oseltamivir Phosphate 75 mg 04/11/25 21:48 04/11/25 22:13 Oseltamivir Phosphate 75 Mg Capsule PO 04/11/25 21:49 75 mg ONCE ONE Administration Medical Decision Making Medical Decision Making MDM Narrative: 65-year-old male with a history of ongoing tobacco abuse, likely COPD, hypertension, diabetes, chronic kidney disease, paroxysmal AFib on Xarelto, alcohol use disorder who presents with cough and cold symptoms x4 days. Associated chest tightness, productive cough at times, shortness of breath with generalized malaise and fatigue. Unclear if the patient has a had a fever. Denies nausea vomiting diarrhea. Patient has sick contacts at home with similar symptoms. The patient does not use supplemental oxygen at home. Problem: Nonadherence with the medication, diabetes, hypertension, COPD, active smoking, AFib, alcohol use disorder History: Per patient and his significant other I have considered the following differential diagnoses: COPD exacerbation, bronchitis, pneumonia, sepsis, ACS, hypertensive urgency, hypertensive emergency Plan: Patient meets sepsis criteria, he is febrile, he is also newly hypoxic. Respiratory source most likely, he has an active smoker with COPD. In addition to screening labs we will add blood cultures, lactic, giving IV fluid resuscitation, starting empiric ceftriaxone. We will also add on a viral panel and chest x-ray. He is currently on 2 L nasal cannula. He will receive an updraft, Solu-Medrol and 2 g of magnesium. The patient is hypertensive, we will be giving IV Lopressor and p.o. metoprolol. We will add a EKG and troponin. Thought about underlying heart failure given overt hypertension, however he does not appear volume overloaded on exam, I do not hear basilar crackles , he has no pitting edema, he has had an ECHO 09/2024 that revealed preserved ejection fraction of 55-60%, normal LV fx, has diastolic failure, adding bnp. I have independently reviewed the following tests: Labs: No overall leukocytosis, bandemia noted, not anemic, patient is dry, he is both hyponatremic, hypochloremic, he has a gap of 24, he has a bump in his creatinine at 1.36, his sugar is 862, beta hydroxy 4.09, trop 38.7, delta troponin 40.1, bnp 3079.2, viral panel posititve for influenza A, VBG pH 7.34, hco3 20, lactic 4.1, 2nd lactic 4.0 Repeat chemistry: Blood sugar 633, beta hydroxy 1.53, improved hyponatremia, no gap, creatinine 1.22, magnesium 2, potassium 4.6 Third lactic acid 2.0 EKG: Sinus tachycardia, rate of 126, PVCs noted, Chest x-ray:Findings: Normal heart size. Prominence of the bilateral interstitial lung markings and bradley suggestive of pulmonary vascular congestion. No focal consolidation, pleural effusion, or pneumothorax. Osseous structures are unremarkable. IMPRESSION: Pulmonary vascular congestion Lab Data 04/12/25 04:20 04/12/25 04:20 Labs: Lab Results 04/11/25 04/11/25 04/11/25 Range/Units 20:41 20:52 20:54 WBC 5.5 (4.8-10.8) X10*3/uL RBC 5.26 D (4.60-5.80) X10*6/uL Hgb 15.6 D (14.0-18.0) g/dl Hct 45.4 D (42.0-52.0) % MCV 86.3 (80.0-98.0) fL MCH 29.7 (27.0-33.0) pg MCHC 34.4 (31.0-36.0) g/dl RDW 14.2 (11.0-16.0) % Plt Count 167 D (160-400) X10*3/uL MPV 10.1 (9.4-12.4) fL Immature Gran % (Auto) Cancelled Neut % (Auto) Cancelled Lymph % (Auto) Cancelled [place] % (Auto) Cancelled Eos % (Auto) Cancelled Baso % (Auto) Cancelled Lymph # (Auto) Cancelled [place] # (Auto) Cancelled Eos # (Auto) Cancelled Baso # (Auto) Cancelled Abs Immat Gran (auto) Cancelled Absolute Neuts (auto) Cancelled Absolute Nucleated RBC 0.000 (0.0-0.012) X10*3/uL Nucleated RBC % (auto) 0.0 (0.0-0.2) /100WBC Neutrophils % (Manual) 43 L (45-73) % Band Neutrophils % 24 H (3-5) % Lymphocytes % (Manual) 16 L (20-40) % Atypical Lymphs % (Man) 2 (0-6) % Monocytes % (Manual) 13 H (2-11) % Metamyelocytes % 2 % Abs Neuts (Manual) 3.7 (2.0-8.3) X10*3/uL Lymphocytes # (Manual) 0.9 L (1.2-4.9) X10*3/uL Atyp Lymphs # (Manual) 0.1 x10*3/uL Monocytes # (Manual) 0.7 (0.1-1.2) X10*3/uL Metamyelocytes # 0.1 X10*3/uL Platelet Estimate NORMAL (NORMAL) Plt Morphology Comment NORMAL RBC Morphology NOTED Tear Drop Cells 1+ (0-2) /OIF [place] Cells 1+ (0-2) /OIF VBG pH (7.32-7.43) VBG pCO2 mmHg VBG pO2 mmHg VBG HCO3 (22-26) mmol/L VBG O2 Saturation % VBG Base Excess mmol/L Sodium 126 L (135-145) mmol/L Potassium 4.3 (3.3-5.1) mmol/L Chloride 85 L (96-108) mmol/L Carbon Dioxide 21 L (22-29) mmol/L Anion Gap 24 H (12-20) BUN 37 H (9-16) mg/dL Creatinine 1.36 (0.5-1.4) mg/dL Estim Creat Clear Calc 49.2 Estimated GFR 53 POC Glucose (60-115) mg/dL Random Glucose 862 H* (60-115) mg/dL Lactic Acid 4.1 H* (0.5-2.0) mmol/L Lactic Acid F/U @ 2Hr (0.5-2.0) mmol/L Lactic Acid F/U @ 4Hr (0.5-2.0) mmol/L Calcium 10.4 H D (8.4-10.2) mg/dL Magnesium 1.8 (1.6-2.6) mg/dL Total Bilirubin 0.6 (0.0-1.0) mg/dL AST 26 (5-37) U/L ALT 13 (0-40) U/L Alkaline Phosphatase 81 (39-117) U/L Troponin I High Sens 38.7 H (<3.5-35.0) ng/L NT-Pro-B Natriuret Pep 3079.2 H (<300) pg/mL Total Protein 6.6 (6.5-8.0) g/dL Albumin 3.9 (3.5-5.0) g/dL Beta-Hydroxybutyrate 4.09 H (0.02-0.27) mmol/L Urine Color Yellow Urine Appearance Clear Urine pH 6.0 (5.0-9.0) Ur Specific [place] >= 1.030 H (1.005-1.025) Urine Protein 30 (1+) H (Neg-Trace) mg/dL Urine Glucose (UA) >=1000 H (Negative) mg/dL Urine Ketones 15 (Negative) mg/dL Urine Blood Small (1+) H (Negative) Urine Nitrite Negative (Negative) Ur Leukocyte Esterase Negative (Negative) Urine RBC 11-20 H (0-2) /HPF Urine WBC 0-5 (0-5) /HPF Ur Squamous Epith Cells 0-2 (0-2) /HPF Urine Bacteria None Seen (None Seen) Hyaline Casts 0-2 (0-2) /LPF Ethyl Alcohol < 10 mg/dL Influenza Type A (PCR) POSITIVE A (Negative) Influenza Type B (PCR) NEGATIVE (Negative) RSV RNA Qual (PCR) NEGATIVE (Negative) SARS-CoV-2 RNA (RT-PCR) NEGATIVE (Negative) 04/11/25 04/11/25 04/12/25 Range/Units 22:17 23:20 00:50 WBC (4.8-10.8) X10*3/uL RBC (4.60-5.80) X10*6/uL Hgb (14.0-18.0) g/dl Hct (42.0-52.0) % MCV (80.0-98.0) fL MCH (27.0-33.0) pg MCHC (31.0-36.0) g/dl RDW (11.0-16.0) % Plt Count (160-400) X10*3/uL MPV (9.4-12.4) fL Immature Gran % (Auto) Neut % (Auto) Lymph % (Auto) [place] % (Auto) Eos % (Auto) Baso % (Auto) Lymph # (Auto) [place] # (Auto) Eos # (Auto) Baso # (Auto) Abs Immat Gran (auto) Absolute Neuts (auto) Absolute Nucleated RBC (0.0-0.012) X10*3/uL Nucleated RBC % (auto) (0.0-0.2) /100WBC Neutrophils % (Manual) (45-73) % Band Neutrophils % (3-5) % Lymphocytes % (Manual) (20-40) % Atypical Lymphs % (Man) (0-6) % Monocytes % (Manual) (2-11) % Metamyelocytes % % Abs Neuts (Manual) (2.0-8.3) X10*3/uL Lymphocytes # (Manual) (1.2-4.9) X10*3/uL Atyp Lymphs # (Manual) x10*3/uL Monocytes # (Manual) (0.1-1.2) X10*3/uL Metamyelocytes # X10*3/uL Platelet Estimate (NORMAL) Plt Morphology Comment RBC Morphology Tear Drop Cells /OIF [place] Cells /OIF VBG pH 7.34 (7.32-7.43) VBG pCO2 37 mmHg VBG pO2 92 mmHg VBG HCO3 20 L (22-26) mmol/L VBG O2 Saturation 96.0 % VBG Base Excess -4.2 mmol/L Sodium 130 L (135-145) mmol/L Potassium 4.6 (3.3-5.1) mmol/L Chloride 92 L (96-108) mmol/L Carbon Dioxide 23 (22-29) mmol/L Anion Gap 20 (12-20) BUN 38 H (9-16) mg/dL Creatinine 1.22 (0.5-1.4) mg/dL Estim Creat Clear Calc 54.9 Estimated GFR 60 POC Glucose > 600 H* (60-115) mg/dL Random Glucose 633 H* (60-115) mg/dL Lactic Acid (0.5-2.0) mmol/L Lactic Acid F/U @ 2Hr 4.0 H* (0.5-2.0) mmol/L Lactic Acid F/U @ 4Hr (0.5-2.0) mmol/L Calcium 9.6 D (8.4-10.2) mg/dL Magnesium 2.0 (1.6-2.6) mg/dL Total Bilirubin (0.0-1.0) mg/dL AST (5-37) U/L ALT (0-40) U/L Alkaline Phosphatase (39-117) U/L Troponin I High Sens 40.1 H (<3.5-35.0) ng/L NT-Pro-B Natriuret Pep (<300) pg/mL Total Protein (6.5-8.0) g/dL Albumin (3.5-5.0) g/dL Beta-Hydroxybutyrate 1.53 H (0.02-0.27) mmol/L Urine Color Urine Appearance Urine pH (5.0-9.0) Ur Specific [place] (1.005-1.025) Urine Protein (Neg-Trace) mg/dL Urine Glucose (UA) (Negative) mg/dL Urine Ketones (Negative) mg/dL Urine Blood (Negative) Urine Nitrite (Negative) Ur Leukocyte Esterase (Negative) Urine RBC (0-2) /HPF Urine WBC (0-5) /HPF Ur Squamous Epith Cells (0-2) /HPF Urine Bacteria (None Seen) Hyaline Casts (0-2) /LPF Ethyl Alcohol mg/dL Influenza Type A (PCR) (Negative) Influenza Type B (PCR) (Negative) RSV RNA Qual (PCR) (Negative) SARS-CoV-2 RNA (RT-PCR) (Negative) 04/12/25 Range/Units 01:55 WBC (4.8-10.8) X10*3/uL RBC (4.60-5.80) X10*6/uL Hgb (14.0-18.0) g/dl Hct (42.0-52.0) % MCV (80.0-98.0) fL MCH (27.0-33.0) pg MCHC (31.0-36.0) g/dl RDW (11.0-16.0) % Plt Count (160-400) X10*3/uL MPV (9.4-12.4) fL Immature Gran % (Auto) Neut % (Auto) Lymph % (Auto) [place] % (Auto) Eos % (Auto) Baso % (Auto) Lymph # (Auto) [place] # (Auto) Eos # (Auto) Baso # (Auto) Abs Immat Gran (auto) Absolute Neuts (auto) Absolute Nucleated RBC (0.0-0.012) X10*3/uL Nucleated RBC % (auto) (0.0-0.2) /100WBC Neutrophils % (Manual) (45-73) % Band Neutrophils % (3-5) % Lymphocytes % (Manual) (20-40) % Atypical Lymphs % (Man) (0-6) % Monocytes % (Manual) (2-11) % Metamyelocytes % % Abs Neuts (Manual) (2.0-8.3) X10*3/uL Lymphocytes # (Manual) (1.2-4.9) X10*3/uL Atyp Lymphs # (Manual) x10*3/uL Monocytes # (Manual) (0.1-1.2) X10*3/uL Metamyelocytes # X10*3/uL Platelet Estimate (NORMAL) Plt Morphology Comment RBC Morphology Tear Drop Cells /OIF [place] Cells /OIF VBG pH (7.32-7.43) VBG pCO2 mmHg VBG pO2 mmHg VBG HCO3 (22-26) mmol/L VBG O2 Saturation % VBG Base Excess mmol/L Sodium (135-145) mmol/L Potassium (3.3-5.1) mmol/L Chloride (96-108) mmol/L Carbon Dioxide (22-29) mmol/L Anion Gap (12-20) BUN (9-16) mg/dL Creatinine (0.5-1.4) mg/dL Estim Creat Clear Calc Estimated GFR POC Glucose (60-115) mg/dL Random Glucose (60-115) mg/dL Lactic Acid (0.5-2.0) mmol/L Lactic Acid F/U @ 2Hr (0.5-2.0) mmol/L Lactic Acid F/U @ 4Hr 2.0 (0.5-2.0) mmol/L Calcium (8.4-10.2) mg/dL Magnesium (1.6-2.6) mg/dL Total Bilirubin (0.0-1.0) mg/dL AST (5-37) U/L ALT (0-40) U/L Alkaline Phosphatase (39-117) U/L Troponin I High Sens (<3.5-35.0) ng/L NT-Pro-B Natriuret Pep (<300) pg/mL Total Protein (6.5-8.0) g/dL Albumin (3.5-5.0) g/dL Beta-Hydroxybutyrate (0.02-0.27) mmol/L Urine Color Urine Appearance Urine pH (5.0-9.0) Ur Specific [place] (1.005-1.025) Urine Protein (Neg-Trace) mg/dL Urine Glucose (UA) (Negative) mg/dL Urine Ketones (Negative) mg/dL Urine Blood (Negative) Urine Nitrite (Negative) Ur Leukocyte Esterase (Negative) Urine RBC (0-2) /HPF Urine WBC (0-5) /HPF Ur Squamous Epith Cells (0-2) /HPF Urine Bacteria (None Seen) Hyaline Casts (0-2) /LPF Ethyl Alcohol mg/dL Influenza Type A (PCR) (Negative) Influenza Type B (PCR) (Negative) RSV RNA Qual (PCR) (Negative) SARS-CoV-2 RNA (RT-PCR) (Negative) Critical Care Time Critical Care Time Critical Care Time: Yes Total Critical Care Time: 60 Attestation: I Beth Kiser PA-C have personally performed 60 minutes of critical care time not including lines and procedures.; sepsis, acute kidney injury, DKA, hypertensive urgency, hypoxia, Discharge Plan Discharge Clinical Impression: KATELYN (acute kidney injury), Influenza A, Bronchitis, Hyperglycemia, Acute hypoxic respiratory failure Sepsis Qualifiers: Sepsis type: sepsis due to unspecified organism Sepsis acute organ dysfunction status: unspecified Qualified Code(s): A41.9 - Sepsis, unspecified organism Patient Disposition: Admitted As Inpatient
--- OUTSIDE RECORDS SUMMARY | 2025-04-11 20:53 | XMS_ITS | Encounter Summary ---
Author Organization [facility] Address [address] [place] [address] Care Team Providers Care Picking Crew Supervisor Name Role Phone Blayne Hagan MD Primary Care Provider [phone] Encounter Details Date Type Department Care Team (Late st Contact Info) Description 11/05/2024 Lab Requisition [facility] - Main Lab [address] [facility] [place] [phone] Panchito Medina MD [address] [place] [address] Chronic kidney disease, unspecified; Bacteremia Social History Tobacco Use Types Packs/Day Years Used Date Smoking Tobacco: Former Cigarettes 1.5 Q uit: 04/26/2016 Smokeless Tobacco: Former Alcohol Use Standard Drinks/Week Comments No 0 (1 standard drink = 0.6 oz pur e alcohol) Sex and Gender Information Value Date Recorded Sex Assigned at Not on file Legal Sex Male 1:20 AM EST Gender Identity Not on file Sexual Orientation Not on file documented as of this encounter Plan of Treatment Not on file documented as of this encounter Procedures Procedure Name Priority Date/Time Associated Diagnosis Comments COMPLETE BLOOD COUNT Routine 11/06/2024 7:08 AM EDT Chronic kidney disease, unspecified Bacteremia BASIC METABOLIC PANEL Routine 11/06/2024 7:08 AM EDT Chronic kidney disease, unspecified Bacteremia documented in this encounter Results * (ABNORMAL) Basic metabolic panel (11/06/2024 7:08 AM EDT) Sodium 142 133 - 145 mmol/L LAB CHEMISTRY METHOD 11/06/2024 9:[address] [facility] Potassium 4.5 3.5 - 5.5 mmol/L LAB CHEMISTRY METHOD 11/06/2024 9:[address] [facility] Chloride 104 96 - 110 mmol/L LAB CHEMISTRY METHOD 11/06/2024 9:[address] [facility] CO2 30 21 - 32 mmol/L LAB CHEMISTRY METHOD 11/06/2024 9:[address] [facility] Anion Gap 8 3 - 11 LAB CHEMISTRY METHOD 11/06/2024 9:[address] [facility] Glucose 110(H) 70 - 100 mg/dL LAB CHEMISTRY METHOD 11/06/2024 9:[address] [facility] BUN 19 5 - 25 mg/dL LAB CHEMISTRY METHOD 11/06/2024 9:[address] [facility] Creatinine 1.41(H) 0.70 - 1.30 mg/dL LAB CHEMISTRY METHOD 11/06/2024 9:[address] [facility] eGFR 56(L) >=60 mL/min/1. 73m2 LAB CHEMISTRY METHOD 11/06/2024 9:[address] [facility] Comment:Calculation based on the Chronic Kidney Disease Epidemiology Collaboration (CKD-EPI) equation refit without adjustment for race. BUN/Creatinine Ratio 13.5 LAB CHEMISTRY METHOD 11/06/2024 9:[address] [facility] Calcium 9.3 8.5 - 10.5 mg/dL LAB CHEMISTRY METHOD 11/06/2024 9:[address] [facility] Blood Venous blood specimen / Unknown Venipuncture / Unknown 11/06/2024 7:08 AM EDT 11/06/2024 9:05 AM EDT us Panchito Medina MD LAB BLOOD ORDERABLES Final Resul t [facility] [address] [place] [address], * (ABNORMAL) Complete blood count (11/06/2024 7:08 AM EDT) WBC 8.0 4.8 - 10.8 K/mcL LAB HEMETOLOGY METHOD 11/06/2024 9:28 AM EDT [facility] RBC 3.60(L) 4.50 - 5.50 M/mcL LAB HEMETOLOGY METHOD [facility] Hemoglobin 11.2(L) 13.5 - 17.5 g/dL LAB HEMETOLOGY METHOD 11/06/2024 9:[address] [facility] Hematocrit 35.4(L) 42.0 - 54.0 % LAB HEMETOLOGY METHOD 11/06/2024 9:28 [facility] MCV 98.3(H) 79.0 - 98.0 FL LAB HEMETOLOGY METHOD 11/06/2024 9:28 [facility] MCH 31.1 27.0 - 32.0 pcg LAB HEMETOLOGY METHOD 11/06/2024 9:28 [facility] MCHC 31.6(L) 32.0 - 37.0 g/dL LAB HEMETOLOGY METHOD 11/06/2024 9:[address] [facility] RDW 13.7 11.0 - 15.0 % LAB HEMETOLOGY METHOD 11/06/2024 9:[address] [facility] Platelets 265 130 - 400 K/mcL LAB HEMETOLOGY METHOD 11/06/2024 9:28 AM EDT [facility] MPV 9.5 7.0 - 11.0 FL LAB HEMETOLOGY METHOD 11/06/2024 9:28 AM EDT [facility] NRBC 0.0 <1.0 % LAB HEMETOLOGY METHOD 11/06/2024 9:28 AM EDT [facility] NRBC Absolute 0.00 <0.10 K/mcL LAB HEMETOLOGY METHOD 11/06/2024 9:28 AM EDT [facility] Blood Venous blood specimen / Unknown Venipuncture / Unknown 11/06/2024 7:08 AM EDT 11/06/2024 9:05 AM EDT us Panchito Medina MD LAB BLOOD ORDERABLES Final Resul t [facility] [address] [place] [address], documented in this encounter Visit Diagnoses Diagnosis Chronic kidney disease, unspecified Bacteremia documented in this encounter Care Teams Picking Crew Supervisor Relationship Specialty Start Date End Date Blayne Hagan MD [address] [place] [phone] PCP - General Internal Medicine 01/29/11 documented as of this encounter
--- OUTSIDE RECORDS SUMMARY | 2025-04-11 20:53 | XMS_ITS | Encounter Summary ---
Author Organization [facility] Address [address] [place] [address] Care Team Providers Care Temporary Office Assistant Name Role Phone Blayne Hagan MD Primary Care Provider [phone] Encounter Details Date Type Department Care Team (Late st Contact Info) Description 10/22/2024 Lab Requisition [facility] - Main Lab [address] [facility] [place] [phone] Panchito Medina MD [address] [place] [address] Chronic kidney disease, unspecified; Bacteremia Social History [...] Associated Diagnosis Comments COMPLETE BLOOD COUNT Routine 10/23/2024 5:17 AM EDT Chronic kidney disease, unspecified Bacteremia BASIC METABOLIC PANEL Routine 10/23/2024 5:17 AM EDT Chronic kidney disease, unspecified Bacteremia documented in this encounter Results * (ABNORMAL) Basic metabolic panel (10/23/2024 5:17 AM EDT) Sodium 134 133 - 145 mmol/L LAB CHEMISTRY METHOD 10/23/2024 10:48 AM [facility] Potassium 4.6 3.5 - 5.5 mmol/L LAB CHEMISTRY METHOD 10/23/2024 10:48 AM [facility] Chloride 102 96 - 110 mmol/L LAB CHEMISTRY METHOD 10/23/2024 10:48 AM [facility] CO2 27 21 - 32 mmol/L LAB CHEMISTRY METHOD 10/23/2024 10:48 AM [facility] Anion Gap 5 3 - 11 LAB CHEMISTRY METHOD 10/23/2024 10:48 AM [facility] Glucose 308(H) 70 - 100 mg/dL LAB CHEMISTRY METHOD 10/23/2024 10:48 AM [facility] BUN 17 5 - 25 mg/dL LAB CHEMISTRY METHOD 10/23/2024 10:48 AM [facility] Creatinine 1.15 0.70 - 1.30 mg/dL LAB CHEMISTRY METHOD 10/23/2024 10:48 AM [facility] eGFR 72 >=60 mL/min/1. 73m2 LAB CHEMISTRY METHOD 10/23/2024 10:48 AM [facility] Comment:Calculation based on the Chronic Kidney Disease Epidemiology Collaboration (CKD-EPI) equation refit without adjustment for race. BUN/Creatinine Ratio 14.8 LAB CHEMISTRY METHOD 10/23/2024 10:48 AM [facility] Calcium 8.3(L) 8.5 - 10.5 mg/dL LAB CHEMISTRY METHOD 10/23/2024 10:48 AM [facility] Blood Venous blood specimen / Unknown Venipuncture / Unknown 10/23/2024 5:17 AM EDT 10/23/2024 9:52 AM EDT us Panchito Medina MD LAB BLOOD ORDERABLES Final Resul t [facility] [address] [place] [address], * (ABNORMAL) Complete blood count (10/23/2024 5:17 AM EDT) WBC 3.8(L) 4.8 - 10.8 K/mcL LAB HEMETOLOGY METHOD 10/23/2024 10:38 AM EDT [facility] RBC 2.90(L) 4.50 - 5.50 M/mcL LAB HEMETOLOGY METHOD 10/23/2024 10:38 AM EDT [facility] Hemoglobin 9.0(L) 13.5 - 17.5 g/dL LAB HEMETOLOGY METHOD 10/23/2024 10:38 AM [facility] Hematocrit 29.1(L) 42.0 - 54.0 % LAB HEMETOLOGY [facility] MCV 100.3(H) 79.0 - 98.0 FL LAB HEMETOLOGY METHOD [facility]24 [facility] MCH 31.0 27.0 - 32.0 pcg LAB HEMETOLOGY METHOD 10/23[facility]24 [facility] MCHC 30.9(L) 32.0 - 37.0 g/dL LAB HEMETOLOGY METHOD 10/23/2024 10:38 AM [facility] RDW 14.2 11.0 - 15.0 % LAB HEMETOLOGY METHOD 10/23[facility]24 [facility] Platelets 368 130 - 400 K/mcL LAB HEMETOLOGY METHOD 10/23/2024 10:38 AM EDT [facility] MPV 8.9 7.0 - 11.0 FL LAB HEMETOLOGY METHOD 10/23/2024 10:38 AM EDT [facility] NRBC 0.0 <1.0 % LAB HEMETOLOGY METHOD 10/23/2024 10:38 AM EDT [facility] NRBC Absolute 0.00 <0.10 K/mcL LAB HEMETOLOGY METHOD 10/23/2024 10:38 AM EDT [facility] Blood Venous blood specimen / Unknown Venipuncture / Unknown 10/23/2024 5:17 AM EDT 10/23/2024 9:52 AM EDT us Panchito Medina MD LAB BLOOD ORDERABLES Final Resul t [facility] [address] [place] [address], documented in this encounter Visit Diagnoses Diagnosis Chronic kidney disease, unspecified Bacteremia documented in this encounter Care Teams Temporary Office Assistant Relationship Specialty Start Date End Date Blayne Hagan MD [address] [place] [phone] PCP - General Internal Medicine 01/29/11 documented as of this encounter
--- OUTSIDE RECORDS SUMMARY | 2025-04-11 20:53 | XMS_ITS | Clinical Summary ---
Author Organization [facility] [address] [facility] Address [address] [facility] [place] [address] Phone Care Team Providers Care Material Scheduler Name Role Phone Blayne Hagan MD Primary Care Provider [phone] Allergies Active Allergy Reactions Criticality Noted Date Comments Metformin 12/29/2014 edema Medications citalopram (CeleXA) 20 mg tablet Take 1 tablet (20 mg total) by mouth 1 (one) time each day. 08/10/2023 Active methylphenidate (RITALIN) 20 mg tablet Take 1 tablet (20 mg total) by mouth 3 (three) times a day. 03/06/2024 Active magnesium oxide (MAG-OX) 400 mg magnesium tablet Take 1 tablet (400 mg total) by mouth 1 (one) time each day. 30 tablet 1 11/26/2024 Active metoprolol succinate (TOPROL-XL) 25 mg 24 hr tablet Take 0.5 tablets (12.5 mg total) by mouth 1 (one) time each day. Do not crush or chew. 45 each 11/28/2024 Active gabapentin (NEURONTIN) 800 mg tablet Take 1 tablet (800 mg total) by mouth 3 (three) times a day. 270 tablet 1 11/28/2024 Active simvastatin (ZOCOR) 10 mg tablet Take 1 tablet (10 mg total) by mouth at bedtime. 90 tablet 1 11/28/2024 Active folic acid (FOLVITE) 1 mg tablet Take 1 tablet (1 mg total) by mouth 1 (one) time each day. 90 tablet 1 11/28/2024 6 Active digoxin (LANOXIN) 250 mcg (0.25 mg) tablet Take 1 tablet (250 mcg total) by mouth 1 (one) time each day. 90 tablet 1 11/28/2024 6 Active insulin glargine (Lantus U-100 Insulin) 100 unit/mL injection Inject 15 Units under the skin at bedtime. 14 mL 1 11/28/2024 6 Active apixaban (Eliquis) 5 mg tablet Take 1 tablet (5 mg total) by mouth 2 (two) times a day. 180 tablet 1 11/28/2024 Active magnesium oxide (MAG-OX) 400 mg (241.3 elemental magnesium) tablet TAKE 1 TABLET(400 MG) BY MOUTH 1 TIME EACH DAY 30 tablet 2 02/07/2025 Active Active Problems Problem Noted Date Diagnosed Date Dilation of aorta 12/13/2023 Overview (03/22/2024): Aortic sinus dilation 4.2 noted on echo 11/21/2023 Stage 3a chronic kidney disease 09/22/2020 Vitamin D deficiency 10/11/2019 Skin mass 01/12/2016 Overview (03/22/2024): c/w lipoma on the back around t-8 Diabetic neuropathy 08/05/2014 Erectile dysfunction associa luisana with type 2 diabetes mellitus 03/26/2013 Amphetamine or stimulant drug abuse 11/30/2012 Overview (03/22/2024): Ritalin: Using more than prescribed, then was snorting to get high; also abusing alcohol at the same time. Stopped, per patient 11/21/12. Did have Detox via [facility] 11/24-11/28/12. Microalbuminuria 03/30/2012 HTN (hypertension) 2012 ADD (attention deficit disorder) 03/12/2008 Hypertriglyceridemia 03/12/2008 Alcohol abuse 03/08/2006 Overview (03/22/2024): abusing alcohol while snorting ritalin. Stopped, per patient 11/21/12. Did have Detox via [facility] 11/24-11/28/12. Depressive disorder 03/08/2006 Tobacco use disorder 03/08/2006 Overview (03/22/2024): CT Chest 12/2020: Negative malignancy Immunizations Immunization Administration Dates Next Due Influenza Quadravalent, MDCK [...] associa luisana with type 2 diabetes mellitus (CMS/HCC V24, CMS/HCC V28) 03/26/2013 DX:Erectile dysfunction asso ciated with type 2 diabetes mellitus (HCC) Family History Medical History Relation Name Comments [...] on file Sexual Orientation Not on file Last Filed Vital Signs Vital Sign Reading Time Taken Comments Blood Pressure 118/68 11/28/2024 10:34 AM EDT Pulse 94 11/28/2024 10:34 AM EDT Temperature 36.6 C (97.8 F) 11/28/2024 10:34 AM EDT Respiratory Rate 16 11/28/2024 10:3 4 AM EDT Oxygen Saturation 97% 11/28/2024 10: 34 AM EDT Inhaled Oxygen Concentration - - Weight 64.3 kg (141 lb 11.2 oz) 025 10:34 AM EDT Height 170.2 cm (5' 7 ) 11/28/2024 10:3 4 AM EDT Body Mass Index 22.19 11/28/2024 10:34 AM EDT Plan of Treatment Health Maintenance Due Date Last Done Comments Diabetes: Annual Foot Exam 1971 Diabetes: Annual Retina Eye Exam 1971 Hepatitis A Vaccines (1 of 2 - Risk 2-dose series) 01/19/1980 Pneumococcal Vaccine: 50+ Years (1 of 2 - PCV) 01/19/1980 10/01/2014 Zoster Vaccines (1 of 2) 01/19/1980 RSV Immunization Adult Patients (1 - Risk 50-74 years 1-dose series) 2011 DTaP,Tdap,and Td Vaccines (2 - Td or Tdap) 06/20/2021 06/20/2011 HIV Screening 04/09/2022 Social Influencers of Health Screening 04/09/2022 Colorectal Cancer Screening: Colonoscopy 05/03/2022 05/03/2012 COVID-19 Vaccine ( season) 2024 05/13/2021, 08/13/2020, 07/22/2020 Influenza Vaccine (#1) 2024 8, 01/30/2017, 01/12/2016, Additional history exists Diabetes: Blood Sugar Control Test (HGBA1C) 05/28/2025 11/25/2024, 10/16/2024, 08/09/2023 Diabetes: Annual Urine Albumin-Creatinine Ratio (uACR) 11/25/2025 11/25/2024, 01/30/2023 Diabetes: Annual GFR (Glomerular Filtration Rate) 11/25/2025 11/25/2024, 11/06/2024, 10/30/2024, Additional history exists Hypertension/CHF/CAD Annual BMP Blood Test 11/25/2025 11/25/2024, 11/06/2024, 10/30/2024, Additional history exists Cholesterol Screening (Lipid Panel) 11/25/2029 11/25/2024, 08/21/2023 Hepatitis C Screening Completed 03/26/2013 Lung Cancer Screening (Low Dose CT) Discontinued 01/22/2024, 01/19/2024, 01/10/2023, Additional history exists Depression Screening Completed 11/25/2024 HIB Vaccines Aged Out No longer eligi [...] Procedure Name Priority Date/Time Associated Diagnosis Comments MICROALBUMIN CREATININE URINE RATIO Routine 11/25/2024 4:44 PM EDT Type 2 diabetes mellitus with stage 3 chronic kidney disease, without long-term current use of insulin, unspecified whether stage 3a or 3b CKD (CMS/HCC V24, CMS/HCC V28) COMPREHENSIVE METABOLIC PANEL Routine 11/25/2024 4:23 PM EDT Stage 3a chronic kidney disease ([facility]/HCC V24, [facility] V28) Encounter for long-term (current) use of medications HEMOGLOBIN A1C Routine 11/25/2024 4:23 PM EDT Type 2 diabetes mellitus with stage 3 chronic kidney disease, without long-term current use of insulin, unspecified whether stage 3a or 3b CKD ([facility]/HCC V24, [facility] V28) LIPID PANEL WITH REFLEX TO DIRECT LDL Routine 11/25/2024 4:23 PM EDT Hypercholesterolemi a CT LUNG SCREENING LOW DOSE Routine 01/22/2024 4:14 PM EDT Encounter for screening for malignant neoplasm of respiratory organs HEPATITIS C SCREENING Routine 03/26/2013 COLONOSCOPY Routine 05/03/2012 from Last 3 Months or Most Recently Relevant to Health Maintenance Results * (ABNORMAL) Microalbumin creatinine urine ratio (11/25/2024 4:44 PM EDT) Creatinine, Urine 189.0 mg/dL LAB CHEMISTRY METHOD 11/25/2024 8:20 PM EDT [facility] Microalb, Ur 52.6(H) 0.0 - 29.0 mg/L LAB CHEMISTRY METHOD 11/25/2024 8:20 PM EDT [facility] Microalb/Crea t Ratio 28 <30 mg/g creat LAB CHEMISTRY METHOD 11/25/2024 8:20 PM EDT [facility] Urine Urine specimen obtained by clean catch procedure / Unknown Non-blood Collection / Unknown 11/25/2024 4:44 PM EDT 11/25/2024 4:44 PM EDT us Blayne Hagan MD LAB URINE ORDERABLES Final Resu lt [facility] [address] [place] [address], [place] [phone] * (ABNORMAL) Lipid panel with reflex to direct LDL (11/25/2024 4:23 PM EDT) Cholesterol 216(H) 0 - 200 mg/dL LAB CHEMISTRY METHOD 11/25/2024 7:33 PM EDT [facility] Triglycerides 101 0 - 150 mg/dL LAB CHEMISTRY METHOD 11/25/2024 7:33 PM EDT [facility] HDL 61 >=40 mg/dL LAB CHEMISTRY METHOD 11/25/2024 7:33 PM EDT [facility] LDL Calculated 135(H) 0 - 100 mg/dL LAB CHEMISTRY METHOD 11/25/2024 7:33 PM EDT [facility] VLDL Cholesterol Terry 20.2 mg/dL LAB CHEMISTRY METHOD 11/25/2024 7:33 PM EDT [facility] Non HDL Chol. (LDL+VLDL) 155(H) <145 mg/dL LAB CHEMISTRY METHOD 11/25/2024 7:33 PM EDT [facility] Chol/HDL Ratio 3.5 0.0 - 4.4 LAB CHEMISTRY METHOD 11/25/2024 7:33 PM EDT [facility] Blood Venous blood specimen / Unknown Venipuncture / Unknown 11/25/2024 4:23 PM EDT 11/25/2024 4:23 PM EDT us Blayne Hagan MD LAB BLOOD ORDERABLES Final Resu lt [facility] [address] [place] [address], [place] [phone] * (ABNORMAL) Hemoglobin A1c (11/25/2024 4:23 PM EDT) Hemoglobin A1C 7.9(H) <6.5 % LAB CHEMISTRY METHOD 11/25/2024 9:[address] [facility] Mean Bld Glu Estim. 180 mg/dL LAB CHEMISTRY METHOD 11/25/2024 9:[address] [facility] Blood Venous blood specimen / Unknown Venipuncture / Unknown 11/25/2024 4:23 PM EDT 11/25/2024 4:23 PM EDT us Blayne Hagan MD LAB BLOOD ORDERABLES Final Resu lt [facility] [address] [place] [address], [place] [phone] * (ABNORMAL) Comprehensive metabolic panel (11/25/2024 4:23 PM EDT) Sodium 142 133 - 145 mmol/L LAB CHEMISTRY METHOD 11/25/2024 7:[address] [facility] Potassium 4.6 3.5 - 5.5 mmol/L LAB CHEMISTRY METHOD 11/25/2024 7:[address] [facility] Chloride 108 96 - 110 mmol/L LAB CHEMISTRY METHOD 11/25/2024 7:[address] [facility] CO2 32 21 - 32 mmol/L LAB CHEMISTRY METHOD 11/25/2024 7:[address] [facility] Anion Gap 2(L) 3 - 11 LAB CHEMISTRY METHOD 11/25/2024 7:[address] [facility] Glucose 114(H) 70 - 100 mg/dL LAB CHEMISTRY METHOD 11/25/2024 7:[address] [facility] BUN 16 5 - 25 mg/dL LAB CHEMISTRY METHOD 11/25/2024 7:[address] [facility] Creatinine 1.23 0.70 - 1.30 mg/dL LAB CHEMISTRY METHOD 11/25/2024 7:[address] [facility] eGFR 66 >=60 mL/min/1. 73m2 LAB CHEMISTRY METHOD 11/25/2024 7:40 PM EDT [facility] Comment:Calculation based on the Chronic Kidney Disease Epidemiology Collaboration (CKD-EPI) equation refit without adjustment for race. BUN/Creatinine Ratio 13.0 LAB CHEMISTRY METHOD 11/25/2024 7:40 PM EDT [facility] Calcium 9.5 8.5 - 10.5 mg/dL LAB CHEMISTRY METHOD 11/25/2024 7:40 PM EDT [facility] AST (SGOT) 8(L) 10 - 42 unit/L LAB CHEMISTRY METHOD 11/25/2024 7:[address] [facility] ALT (SGPT) 16 10 - 60 unit/L LAB CHEMISTRY METHOD 11/25/2024 7:[address] [facility] Alkaline Phosphatase 68 42 - 121 unit/L LAB CHEMISTRY METHOD 11/25/2024 7:[address] [facility] Total Protein 6.0 6.0 - 8.0 g/dL LAB CHEMISTRY METHOD 11/25/2024 7:[address] [facility] Albumin 3.5 3.2 - 5.0 g/dL LAB CHEMISTRY METHOD 11/25/2024 7:[address] [facility] Total Bilirubin 0.3 0.0 - 1.4 mg/dL LAB CHEMISTRY METHOD 11/25/2024 7:40 PM EDT [facility] Blood Venous blood specimen / Unknown Venipuncture / Unknown 11/25/2024 4:23 PM EDT 11/25/2024 4:23 PM EDT us Blayne Hagan MD LAB BLOOD ORDERABLES Final Resu lt [facility] [address] [place] [address], * CT LUNG SCREENING LOW DOSE (01/22/2024 4:14 PM EDT) Anatomical Region Laterality Modality Computed Tomogra phy 01/19/2024 4:14 PM EDT Narrative 01/22/2024 4:14 PM EDT [facility] Diagnostic Imaging Department [address] [place] [id number] Patient: DES DAVALOS W /Age/Sex: 1960 - 64 - M Unit#: [id number] [facility] Mnemonic/Ordering Site: [facility] Ordering Physician: AGUILA DEL REAL MD CT Lung Screening Low Dose - 01/19/24 - 1622 Report Status:Signed PROCEDURE: Chest CT INDICATION: Lung cancer screening, former smoker, 78 pack year smoking history TECHNIQUE: Chest CT without contrast. Multi planar reformats were created and interpreted. The examination was performed utilizing dose reduction techniques. Total DLP 112 COMPARISON: 01/10/2023 FINDINGS: LUNGS/PLEURA: Central airways are patent. Mild centrilobular and paraseptal emphysema. 3 mm right middle lobe nodules are stable. No new or suspicious pulmonary nodules. No pleural effusion or pneumothorax. MEDIASTINUM: Thyroid gland is normal. No mediastinal or hilar lymphadenopathy. Esophagus is normal. Cardiac chambers are normal in size. No pericardial e ffusion. Moderate coronary artery calcifications. CHEST WALL: No axillary lymphadenopathy or superficial hematoma. UPPER ABDOMEN:Stable pancreatic parenchymal calcifications most likely related to remote pancreatitis. Atrophic kidneys. BONES: Chronic right posterior 7th rib fracture deformity. No acute fracture. Degenerative changes seen throughout the bones. IMPRESSION: No new or suspicious pulmonary nodules. Lung RADS 2-benign. Recommend continued screening with low-dose chest CT in 12 months. Dictating Physician: MANDIE ZAPATA MD Electronically Signed by: MANDIE ZAPATA MD Dic Date/Time: 01/22/241610 Sign date/Time: 01/22/24 161 Procedure Note Mandie Zapata MD - 02/14/2024 [facility] Diagnostic Imaging Department [address] [place] [id number] Patient: DES DAVALOS Romana /Age/Sex: 1960 - 64 - M Unit#: [id number] Location/Status: [facility] CLI Mnemonic/Ordering Site: [facility] Ordering Physician: AGUILA DEL REAL MD [...] Date/Time: 01/22/24 1611 Sign date/Time: 01/22/24 1614 Aguila Del Real MD IMG CT PROCEDURES Final Result * Hepatitis C Screening (03/26/2013) Hepatitis C Screening Abstracted Historical Provider HEALTH MAINTENANCE Final Result * Colonoscopy (05/03/2012) Colonoscopy No Interpretation , Abstracted Anatomical Region Laterality Modality Other Historical Provider HEALTH MAINTENANCE Final Result from Last 3 Months or Most Recently Relevant to Health Maintenance Insurance [facility] Care Teams Material Scheduler Relationship Specialty Start Date End Date Blayne Hagan MD [address] [place] [address] PCP - General Internal Medicine 01/29/11
--- OUTSIDE RECORDS SUMMARY | 2025-04-11 20:53 | XMS_ITS | Encounter Summary ---
Author Organization [facility] Address [address] [place] [address] Care Team Providers Care Truck Cleaner Name Role Phone Blayne Hagan MD Primary Care Provider [phone] Encounter Details Date Type Department Care Team (Late st Contact Info) Description 11/12/[address] [facility] - Main Lab [address] [facility] [place] [phone] Panchito Medina MD [address] [place] [address] Chronic kidney disease, unspecified; Bacteremia Social History [...] on file documented as of this encounter Visit Diagnoses Diagnosis Chronic kidney disease, unspecified Bacteremia documented in this encounter Care Teams Truck Cleaner Relationship Specialty Start Date End Date Blayne Hagan MD [address] [place] [phone] PCP - General Internal Medicine 01/29/11 documented as of this encounter
--- OUTSIDE RECORDS SUMMARY | 2025-04-11 20:53 | XMS_ITS | Encounter Summary ---
Author Organization [facility] Address [address] [place] [address] Care Team Providers Care Ross Furnace Operator Name Role Phone Blayne Hagan MD Primary Care Provider [phone] Encounter Details Date Type Department Care Team (Late st Contact Info) Description 10/15/2024 Lab Requisition [facility] - Main Lab [address] [facility] [place] [phone] Panchito Medina MD [address] [place] [address] Bacteremia; Chronic kidney disease, unspecified; Other seizures ([facility] V24, [facility] V28); Type 2 diabetes mellitus without complications ([facility] V24, [facility] V28); Heart failure, unspecified ([facility] V24, [facility] V28); Vitamin B12 deficiency anemia due to intrinsic factor deficiency Social History Tobacco Use Types Packs/Day Years [...] Procedure Name Priority Date/Time Associated Diagnosis Comments VITAMIN D 25 HYDROXY Routine 10/16/2024 5:05 AM EDT Bacteremia Chronic kidney disease, unspecified Other seizures (CMS/HCC V24, CMS/HCC V28) Type 2 diabetes mellitus without complications (CMS/HCC V24, CMS/HCC V28) Heart failure, unspecified (CMS/HCC V24, CMS/HCC V28) Vitamin B12 deficiency anemia due to intrinsic factor deficiency COMPLETE BLOOD COUNT Routine 10/16/2024 5:05 AM EDT Bacteremia Chronic kidney disease, unspecified Other seizures (CMS/HCC V24, CMS/HCC V28) Type 2 diabetes mellitus without complications (CMS/HCC V24, CMS/HCC V28) Heart failure, unspecified (CMS/HCC V24, CMS/HCC V28) Vitamin B12 deficiency anemia due to intrinsic factor deficiency MAGNESIUM Routine 10/16/2024 5:05 AM EDT Bacteremia Chronic kidney disease, unspecified Other seizures (CMS/HCC V24, CMS/HCC V28) Type 2 diabetes mellitus without complications (CMS/HCC V24, CMS/HCC V28) Heart failure, unspecified (CMS/HCC V24, CMS/HCC V28) Vitamin B12 deficiency anemia due to intrinsic factor deficiency HEMOGLOBIN A1C Routine 10/16/2024 5:05 AM EDT Bacteremia Chronic kidney disease, unspecified Other seizures (CMS/HCC V24, CMS/HCC V28) Type 2 diabetes mellitus without complications (CMS/HCC V24, CMS/HCC V28) Heart failure, unspecified (CMS/HCC V24, CMS/HCC V28) Vitamin B12 deficiency anemia due to intrinsic factor deficiency FOLATE Routine 10/16/2024 5:05 AM EDT Bacteremia Chronic kidney disease, unspecified Other seizures (CMS/HCC V24, CMS/HCC V28) Type 2 diabetes mellitus without complications (CMS/HCC V24, CMS/HCC V28) Heart failure, unspecified (CMS/HCC V24, CMS/HCC V28) Vitamin B12 deficiency anemia due to intrinsic factor deficiency VITAMIN B12 Routine 10/16/2024 5:05 AM EDT Bacteremia Chronic kidney disease, unspecified Other seizures (CMS/HCC V24, CMS/HCC V28) Type 2 diabetes mellitus without complications (CMS/HCC V24, CMS/HCC V28) Heart failure, unspecified (CMS/HCC V24, CMS/HCC V28) Vitamin B12 deficiency anemia due to intrinsic factor deficiency VALPROIC ACID LEVEL, TOTAL Routine 10/16/2024 5:05 AM EDT Bacteremia Chronic kidney disease, unspecified Other seizures (CMS/HCC V24, CMS/HCC V28) Type 2 diabetes mellitus without complications (CMS/HCC V24, CMS/HCC V28) Heart failure, unspecified (CMS/HCC V24, CMS/HCC V28) Vitamin B12 deficiency anemia due to intrinsic factor deficiency DIGOXIN LEVEL Routine 10/16/2024 5:05 AM EDT Bacteremia Chronic kidney disease, unspecified Other seizures (CMS/HCC V24, CMS/HCC V28) Type 2 diabetes mellitus without complications (CMS/HCC V24, CMS/HCC V28) Heart failure, unspecified (CMS/HCC V24, CMS/HCC V28) Vitamin B12 deficiency anemia due to intrinsic factor deficiency COMPREHENSIVE METABOLIC PANEL Routine 10/16/2024 5:05 AM EDT Bacteremia Chronic kidney disease, unspecified Other seizures (CMS/HCC V24, CMS/HCC V28) Type 2 diabetes mellitus without complications (CMS/HCC V24, CMS/HCC V28) Heart failure, unspecified (CMS/HCC V24, CMS/HCC V28) Vitamin B12 deficiency anemia due to intrinsic factor deficiency documented in this encounter Results * Digoxin level (10/16/2024 5:05 AM EDT) Digoxin Lvl 0.9 0.5 - 2.0 ng/mL LAB CHEMISTRY METHOD 10/16/2024 8:37 AM EDT [facility] Blood Venous blood specimen / Unknown Venipuncture / Unknown 10/16/2024 5:05 AM EDT 10/16/2024 7:05 AM EDT Panchito Medina MD LAB BLOOD ORDERABLES Final Resul t [facility] [address] [place] [address], [place] [phone] * (ABNORMAL) Folate (10/16/2024 5:05 AM EDT) Pathologist [facility] Folate >20.0(H) 2.8 - 17.0 ng/ml LAB CHEMISTRY METHOD 10/16/2024 8:37 AM EDT [facility] Blood Venous blood specimen / Unknown Venipuncture / Unknown 10/16/2024 5:05 AM EDT 10/16/2024 7:05 AM EDT us Panchito Medina MD LAB BLOOD ORDERABLES Final Resul t Performing Organization Address [facility] de Phone Number [facility] [address] [place] [address], [place] [phone] * Vitamin D 25 hydroxy (10/16/2024 5:05 AM EDT) [facility] Vit D, 25-Hydroxy 38.8 30.0 - 80.0 ng/mL LAB CHEMISTRY METHOD 10/16/2024 9:38 AM EDT [facility] Blood Venous blood specimen / Unknown Venipuncture / Unknown 10/16/2024 5:05 AM EDT 10/16/2024 7:05 AM EDT us Panchito Medina MD LAB BLOOD ORDERABLES Final Resul t Performing Organization Address [facility] Co de Phone Number [facility] [address] [place] [address], [place] [phone] * (ABNORMAL) Vitamin B12 (10/16/2024 5:05 AM EDT) Pathologist [facility] Vitamin B-12 1,462(H) 250 - 900 pcg/mL LAB CHEMISTRY METHOD 10/16/2024 8:37 AM EDT [facility] Blood Venous blood specimen / Unknown Venipuncture / Unknown 10/16/2024 5:05 AM EDT 10/16/2024 7:05 AM EDT us Panchito Medina MD LAB BLOOD ORDERABLES Final Resul t Performing Organization Address [facility] Co de Phone Number [facility] [address] [place] [address], [place] [phone] * (ABNORMAL) Hemoglobin A1c (10/16/2024 5:05 AM EDT) Hemoglobin A1C 10.4(H) <6.5 % LAB CHEMISTRY METHOD 10/16/2024 12:34 PM EDT [facility] Mean Bld Glu Estim. 252 mg/dL LAB CHEMISTRY METHOD 10/16/2024 12:34 PM EDT [facility] Blood Venous blood specimen / Unknown Venipuncture / Unknown 10/16/2024 5:05 AM EDT 10/16/2024 7:05 AM EDT us Panchito Medina MD LAB BLOOD ORDERABLES Final Resul t Performing Organization Address [facility] de Phone Number [facility] [address] [place] [address], [place] [phone] * (ABNORMAL) Magnesium (10/16/2024 5:05 AM EDT) Magnesium 1.4(L) 1.9 - 2.6 mg/dL LAB CHEMISTRY METHOD 10/16/2024 8:16 AM EDT [facility] Blood Venous blood specimen / Unknown Venipuncture / Unknown 10/16/2024 5:05 AM EDT 10/16/2024 7:05 AM EDT us Panchito Medina MD LAB BLOOD ORDERABLES Final Resul t [facility] [address] [place] [address], [place] [phone] * Valproic acid level, total (10/16/2024 5:05 AM EDT) [facility] Valproic Acid, Total 50 50 - 100 mcg/mL LAB CHEMISTRY METHOD 10/16/2024 8:16 AM EDT [facility] Blood Venous blood specimen / Unknown Venipuncture / Unknown 10/16/2024 5:05 AM EDT 10/16/2024 7:05 AM EDT Panchito Medina MD LAB BLOOD ORDERABLES Final Resul t [facility] [address] [place] [address], [place] [phone] * (ABNORMAL) Comprehensive metabolic panel (10/16/2024 5:05 AM EDT) [facility] Sodium 134 133 - 145 mmol/L LAB CHEMISTRY METHOD 10/16/2024 8:16 AM EDT [facility] Potassium 4.3 3.5 - 5.5 mmol/L LAB CHEMISTRY METHOD 10/16/2024 8:16 AM T [facility] Chloride 97 96 - 110 mmol/L LAB CHEMISTRY METHOD 10/16/2024 8:16 AM EDT [facility] CO2 31 21 - 32 mmol/L LAB CHEMISTRY METHOD 10/16/2024 8:16 AM EDT [facility] Anion Gap 6 3 - 11 LAB CHEMISTRY METHOD 10/16/2024 8:16 AM EDT [facility] Glucose 201(H) 70 - 100 mg/dL LAB CHEMISTRY METHOD 10/16/2024 8:16 AM EDT [facility] BUN 10 5 - 25 mg/dL LAB CHEMISTRY METHOD 10/16/2024 8:16 AM EDT [facility] Creatinine 1.02 0.70 - 1.30 mg/dL LAB CHEMISTRY METHOD 10/16/2024 8:16 AM [facility] eGFR 83 >=60 mL/min/1. 73m2 LAB CHEMISTRY METHOD 10/16/2024 8:16 AM [facility] Comment:Calculation based on the Chronic Kidney Disease Epidemiology Collaboration (CKD-EPI) equation refit without adjustment for race. BUN/Creatinine Ratio 9.8 LAB CHEMISTRY METHOD 10/16/2024 8:16 AM [facility] Calcium 10.2 8.5 - 10.5 mg/dL LAB CHEMISTRY METHOD 10/16/2024 8:16 AM [facility] AST (SGOT) 15 10 - 42 unit/L LAB CHEMISTRY METHOD 10/16/2024 8:16 AM [facility] ALT (SGPT) 9(L) 10 - 60 unit/L LAB CHEMISTRY METHOD 10/16/2024 8:16 AM [facility] Alkaline Phosphatase 84 42 - 121 unit/L LAB CHEMISTRY METHOD 10/16/2024 8:16 AM [facility] Total Protein 5.4(L) 6.0 - 8.0 g/dL LAB CHEMISTRY METHOD 10/16/2024 8:16 AM [facility] Albumin 3.1(L) 3.2 - 5.0 g/dL LAB CHEMISTRY METHOD 10/16/2024 8:16 AM [facility] Total Bilirubin 0.2 0.0 - 1.4 mg/dL LAB CHEMISTRY METHOD 10/16/2024 8:16 AM [facility] Blood Venous blood specimen / Unknown Venipuncture / Unknown 10/16/2024 5:05 AM EDT 10/16/2024 7:05 AM EDT us Panchito Medina MD LAB BLOOD ORDERABLES Final Resul t [facility] [address] [place] [address], * (ABNORMAL) Complete blood count (10/16/2024 5:05 AM EDT) [facility] WBC 6.6 4.8 - 10.8 K/mcL LAB HEMETOLOGY METHOD 10/16/2024 7:30 AM EDT [facility] RBC 2.90(L) 4.50 - 5.50 M/mcL LAB HEMETOLOGY METHOD 10/16/2024 7:30 AM EDT [facility] Hemoglobin 9.0(L) 13.5 - 17.5 g/dL LAB HEMETOLOGY METHOD 10/16/2024 7:30 AM EDT [facility] Hematocrit 26.9(L) 42.0 - 54.0 % LAB HEMETOLOGY [facility] MCV 94.4 79.0 - 98.0 FL LAB HEMETOLOGY METHOD 10/16/2024 7:30 AM EDT [facility] MCH 31.6 27.0 - 32.0 pcg LAB HEMETOLOGY METHOD 10/16[facility]24 [facility] MCHC 33.5 32.0 - 37.0 g/dL LAB HEMETOLOGY METHOD 10/16/2024 7:30 AM EDT [facility] RDW 13.4 11.0 - 15.0 % LAB HEMETOLOGY METHOD 10/16/2024 7:30 AM EDT [facility] Platelets 397 130 - 400 K/mcL LAB HEMETOLOGY METHOD [facility]/16[facility]2024 [facility] MPV 9.2 7.0 - 11.0 FL LAB HEMETOLOGY METHOD 10/16/2024 7:30 AM EDT [facility] NRBC 0.0 <1.0 % LAB HEMETOLOGY METHOD 10/16/2024 7:30 AM EDT [facility] NRBC Absolute 0.00 <0.10 K/mcL LAB HEMETOLOGY METHOD 10/16/2024 7:30 AM EDT [facility] Blood Venous blood specimen / Unknown Venipuncture / Unknown 10/16/2024 5:05 AM EDT 10/16/2024 7:05 AM EDT us Panchito Medina MD LAB BLOOD ORDERABLES Final Resul t [facility] [address] [place] [address], documented in this encounter Visit Diagnoses Diagnosis Bacteremia Chronic kidney disease, unspecified Other seizures ([facility] V24, [facility] V28) Type 2 diabetes mellitus without complications ([facility] V24, [facility] V28) Heart failure, unspecified ([facility] V24, [facility] V28) Heart failure, unspecified Vitamin B12 deficiency anemia due to intrinsic factor deficiency Pernicious anemia documented in this encounter Care Teams Ross Furnace Operator Relationship Specialty Start Date End Date Blayne Hagan MD [address] [place] [phone] PCP - General Internal Medicine 01/29/11 documented as of this encounter
--- OUTSIDE RECORDS SUMMARY | 2025-04-11 20:53 | XMS_ITS | Encounter Summary ---
Author Organization [facility] Address [address] [place] [address] Care Team Providers Care Geography Department Chair Name Role Phone Blayne Hagan MD Primary Care Provider [phone] Encounter Details Date Type Department Care Team (Late st Contact Info) Description 10/29/2024 Lab Requisition [facility] - Main Lab [address] [facility] [place] [phone] Panchito Medina MD [address] [place] [address] Chronic kidney disease, unspecified; Bacteremia Social History [...] Associated Diagnosis Comments COMPLETE BLOOD COUNT Routine 10/30/2024 5:31 AM EDT Chronic kidney disease, unspecified Bacteremia BASIC METABOLIC PANEL Routine 10/30/2024 5:31 AM EDT Chronic kidney disease, unspecified Bacteremia documented in this encounter Results * (ABNORMAL) Basic metabolic panel (10/30/2024 5:31 AM EDT) Sodium 139 133 - 145 mmol/L LAB CHEMISTRY METHOD 10/30/2024 9:29 AM [facility] Potassium 4.4 3.5 - 5.5 mmol/L LAB CHEMISTRY METHOD 10/30/2024 9:29 AM [facility] Chloride 105 96 - 110 mmol/L LAB CHEMISTRY METHOD 10/30/2024 9:29 AM [facility] CO2 30 21 - 32 mmol/L LAB CHEMISTRY METHOD 10/30/2024 9:29 AM [facility] Anion Gap 4 3 - 11 LAB CHEMISTRY METHOD 10/30/2024 9:29 AM [facility] Glucose 112(H) 70 - 100 mg/dL LAB CHEMISTRY METHOD 10/30/2024 9:29 AM [facility] BUN 20 5 - 25 mg/dL LAB CHEMISTRY METHOD 10/30/2024 9:29 AM [facility] Creatinine 1.30 0.70 - 1.30 mg/dL LAB CHEMISTRY METHOD 10/30/2024 9:29 AM [facility] eGFR 62 >=60 mL/min/1. 73m2 LAB CHEMISTRY METHOD 10/30/2024 9:29 AM [facility] Comment:Calculation based on the Chronic Kidney Disease Epidemiology Collaboration (CKD-EPI) equation refit without adjustment for race. BUN/Creatinine Ratio 15.4 LAB CHEMISTRY METHOD 10/30/2024 9:29 AM [facility] Calcium 8.9 8.5 - 10.5 mg/dL LAB CHEMISTRY METHOD 10/30/2024 9:29 AM [facility] Blood Venous blood specimen / Unknown Venipuncture / Unknown 10/30/2024 5:31 AM EDT 10/30/2024 8:55 AM EDT us Panchito Medina MD LAB BLOOD ORDERABLES Final Resul t [facility] [address] [place] [address], * (ABNORMAL) Complete blood count (10/30/2024 5:31 AM EDT) WBC 5.3 4.8 - 10.8 K/mcL LAB HEMETOLOGY METHOD 10/30/2024 9:08 AM EDT [facility] RBC 3.30(L) 4.50 - 5.50 M/mcL LAB HEMETOLOGY METHOD 10/30/2024 9:08 AM EDT [facility] Hemoglobin 10.4(L) 13.5 - 17.5 g/dL LAB HEMETOLOGY METHOD 10/30/2024 9:08 AM T [facility] Hematocrit 33.3(L) 42.0 - 54.0 % LAB HEMETOLOGY METHOD 10/30/2024 9:08 AM [facility] MCV 100.3(H) 79.0 - 98.0 FL LAB HEMETOLOGY METHOD 10/30/2024 9:08 AM [facility] MCH 31.3 27.0 - 32.0 pcg LAB HEMETOLOGY METHOD 10/30/2024 9:08 AM [facility] MCHC 31.2(L) 32.0 - 37.0 g/dL LAB HEMETOLOGY METHOD 10/30/2024 9:08 AM [facility] RDW 14.1 11.0 - 15.0 % LAB HEMETOLOGY METHOD 10/30/2024 9:08 AM [facility] Platelets 303 130 - 400 K/mcL LAB HEMETOLOGY METHOD 10/30/2024 9:08 AM [facility] MPV 9.3 7.0 - 11.0 FL LAB HEMETOLOGY METHOD 10/30/2024 9:08 AM EDT [facility] NRBC 0.0 <1.0 % LAB HEMETOLOGY METHOD 10/30/2024 9:08 AM EDT [facility] NRBC Absolute 0.00 <0.10 K/mcL LAB HEMETOLOGY METHOD 10/30/2024 9:08 AM EDT [facility] Blood Venous blood specimen / Unknown Venipuncture / Unknown 10/30/2024 5:31 AM EDT 10/30/2024 8:55 AM EDT us Panchito Medina MD LAB BLOOD ORDERABLES Final Resul t [facility] [address] [place] [address], documented in this encounter Visit Diagnoses Diagnosis Chronic kidney disease, unspecified Bacteremia documented in this encounter Care Teams Geography Department Chair Relationship Specialty Start Date End Date Blayne Hagan MD [address] [place] [phone] PCP - General Internal Medicine 01/29/11 documented as of this encounter
[2025-04-11 21:00] LABS: Hematocrit 45.4 % (42.0-52.0); Hemoglobin 15.6 g/dl (14.0-18.0); Mean Corpuscular HGB Conc 34.4 g/dl (31.0-36.0); Mean Corpuscular Hemoglobin 29.7 pg (27.0-33.0); Mean Corpuscular Volume 86.3 fL (80.0-98.0); NRBC Abs Auto 0.000 X10*3/uL (0.0-0.012); NRBC Pct Auto 0.0 /100WBC (0.0-0.2); Platelet Count 167 X10*3/uL (160-400); Red Blood Count 5.26 X10*6/uL (4.60-5.80)
[2025-04-11] MEDS: Albuterol Sulfate 5 MG, Albuterol/Iprat 2.5/0.5MG 3 ML 3 ML INHALE (21:00)
[2025-04-11 21:04] LABS: WBC ABN SCTR FOR CBC 1
[2025-04-11 21:05] LABS: Appearance Urine Clear; Glucose Urine UA >=1000 mg/dL (Negative); PH 6.0 (5.0-9.0); Specific Gravity - Urine >= 1.030 (1.005-1.025); UMIC TRIGGER UACC YES
[2025-04-11] MEDS: Magnesium Sulfate/H2O 2 GM/50 ML PIGGYBACK IV (21:15)
[2025-04-11 21:22] LABS: NT Pro B Type Natriuretic Pept 3079.2 pg/mL (<300); Troponin-I High Sensitivity 38.7 ng/L (<3.5-35.0)
[2025-04-11 21:28] LABS: Neutrophils Percent Manual 43 % (45-73)
--- NOTE | 2025-04-11 21:28 | PC.NURSE ---
[facility] PO Lopressor. will administer when availabl.
[2025-04-11 21:29] LABS: Atypical Lymphs Percent Manual 2 % (0-6); Band Neutrophils Percent 24 % (3-5); Lymphocytes Percent Manual 16 % (20-40); Metamyelocytes Percent 2 %; Monocytes Percent Manual 13 % (2-11); RBC Morphology NOTED
[2025-04-11 21:30] LABS: Atypical Lymph Absolute Manual 0.1 x10*3/uL; Burr Cells 1+ (0-2) /OIF; Lymphocytes Absolute Manual 0.9 X10*3/uL (1.2-4.9); Metamyelocytes Absolute 0.1 X10*3/uL; Monocytes Absolute Manual 0.7 X10*3/uL (0.1-1.2); Neutrophils Absolute Manual 3.7 X10*3/uL (2.0-8.3); Tear Drop Cells 1+ (0-2) /OIF; White Blood Count 5.5 X10*3/uL (4.8-10.8)
[2025-04-11 21:31] LABS: Alanine Aminotransferase 13 U/L (0-40); Albumin Level 3.9 g/dL (3.5-5.0); Alkaline Phosphatase 81 U/L (39-117); Anion Gap 24 (12-20); Aspartate Amino Transferase 26 U/L (5-37); Blood Urea Nitrogen 37 mg/dL (9-16); Calcium 10.4 mg/dL (8.4-10.2); Carbon Dioxide 21 mmol/L (22-29); Chloride 85 mmol/L (96-108); Creatinine Clr Calc Pharmacy 49.2; Estimated Glomerular Filt Rate 53; Magnesium 1.8 mg/dL (1.6-2.6); Potassium 4.3 mmol/L (3.3-5.1); Sodium 126 mmol/L (135-145); Total Protein 6.6 g/dL (6.5-8.0)
[2025-04-11 21:37] LABS: Resp Syncy Virus RNA Qual PCR NEGATIVE (Negative); SARS COV2 PCR INHOUSE NEGATIVE (Negative)
--- NOTE | 2025-04-11 22:21 | PC.NURSE ---
pt medicated per MAR.
[2025-04-11 22:42] LABS: VBG HCO3 20 mmol/L (22-26); VBG O2 % Saturation 96.0 %
[2025-04-11 22:44] LABS: Venous Blood Gas Refer to POC result
[2025-04-11 22:48] LABS: Reflex Lactate? Lactic Acid Added
[2025-04-11] MEDS: Metoprolol Tartrate 12.5 MG HALFTAB PO (23:07)
[2025-04-11 23:25] LABS: Glucose, Whole Blood > 600 mg/dL (60-115)
[2025-04-11 23:50] LABS: Troponin-I High Sensitivity 40.1 ng/L (<3.5-35.0); ~Lactic Acid-LAB USE ONLY 4.0 mmol/L (0.5-2.0)
[2025-04-12] VITALS (11 sets, daily range): BP systolic 145–194; BP diastolic 86–97; PULSE 76–89; RESP 18–29; TEMP 36.7–37.8; O2SAT 91–96; BMI 20.8
[2025-04-12 01:18] LABS: Anion Gap 20 (12-20); Blood Urea Nitrogen 38 mg/dL (9-16); Calcium 9.6 mg/dL (8.4-10.2); Carbon Dioxide 23 mmol/L (22-29); Chloride 92 mmol/L (96-108); Creatinine Clr Calc Pharmacy 54.9; Estimated Glomerular Filt Rate 60; Magnesium 2.0 mg/dL (1.6-2.6); Potassium 4.6 mmol/L (3.3-5.1); Sodium 130 mmol/L (135-145)
[2025-04-12 01:23] LABS: Reflex Lactate? 2 Y
[2025-04-12] MEDS: Insulin Glargine,Hum.rec.anlog 100 UNIT/ML 10 ML VIAL 13 UNIT SUBCUT ×2 (01:38→21:56)
[2025-04-12 02:20] LABS: ~Lactic Acid-LAB USE ONLY 2.0 mmol/L (0.5-2.0)
--- NOTE | 2025-04-12 02:59 | P.HPHOSP_ITS ---
History of Present Illness Date of Service: 04/12/25 Attending physician on admission: Saman Gracia Chief Complaint: Dyspnea, illness Patient is a 65-year-old male with history of alcohol use disorder (last drink December 2024), continued marijuana use, tobacco dependence, IDDM, CKD 3, HTN, AFIB on xaralto, COPD not on insulin, mood disorder was driven in to the emergency department by his after 3 days of ?not feeling well . Patient states his symptoms started on the to include fatigue and intermittent diarrhea. Last bout of diarrhea was over 24 hours ago. Patient stated the whole household was ill with some kind of respiratory illness. Patient got to the point that he was hallucinating and stopped taking his medications and insulin for the last 2 days. Patient states his does not care about him and was not monitoring his medications or illness. Patient states he currently lives up in the attic which was finished and heated but does not interact with his often. Patient was afraid to ask his to be driven to the ED until today. Patient's last cigarette and use of marijuana was April 08. As stated above patient clear that his last drink was in December of 2024. Patient found to be hyperglycemic with evidence of DKA as the anion gap was 24, CO2 21 and after regular insulin and IV fluids, anion gap closed. PH on VBG 7.34, CO2 37, PO2 92 and bicarb 20. UA positive for glucose, 15 ketones +1 protein. Negative for UTI. Patient has no leukocytosis but lactic was 2.0. Beta hydroxybutyrate was originally 4.09 and after treatment reduced to 1.53. Patient found to have influenza a and was started on Tamiflu. Patient currently on 2 L nasal cannula does not normally use oxygen at home. BNP 3079, chest x- ray noted for pulmonary edema but no consolidation. Patient required IV Lopressor for AFib RVR, heart rate currently 89 and well controlled. Blood pressure has been high since arrival originally 204/122. With the intervention now 145/86. Patient does not meet criteria for ICU admission. Patient did receive IV fluid resuscitation per sepsis protocol. Blood cultures pending. Review of Systems 2 Review of Systems: Patient currently denies any chest pain, shortness of breath at rest, abdominal pain, nausea or vomiting. Patient states his diarrhea resolved as of yesterday and is not having issues with constipation. Patient states his appetite has been fair since becoming ill on April 08. Patient denies any falls or trauma. Patient states he does feel safe at home and has access to everything he needs. Yes all other systems are reviewed and are negative [facility] Medical History Tobacco dependence Marijuana use Atrial fibrillation with rapid ventricular response Paroxysmal atrial fibrillation Septic olecranon bursitis of left elbow Alcohol withdrawal Alcohol use disorder, moderate, dependence Atrial fibrillation with RVR Stage 3 chronic kidney disease Hypertension Diabetes ETOH abuse Cognitive capacity: Currently alert and orientated x3 Functional capacity: independent ambulation Social History (Updated 04/12/25 @ 03:34 by [facility] Household Members: Spouse Housing: House Do you presently have visiting nurse or other home services: No Alcohol intake: former Comment: Last drink December 2024 Patient Tobacco Use Status: Former Tobacco user Tobacco use type: Cigarette Cigarettes Per Day: 10 Smoked in Last 30 Days: No Substance Use Type: Marijuana Advance Directives: No Advance Directives Information Provided: No Nutrition Risks: No Nutritional Risk service: No Meds Allergies Allergy/AdvReac Type Severity Reaction Status Date / Time metformin Allergy Intermediate Swelling Verified 04/11/25 20:18 Active Medications: Current Medications Acetaminophen (Acetaminophen 325 Mg Tablet) 650 mg PO Q6H PRN PRN Reason: Pain, Mild 1-3,fever,headache Albuterol/Ipratropium (Albuterol/Iprat 2.5/0.5mg 3 Ml Ampul.Neb) 3 ml INHALE Q4H PRN PRN Reason: Shortness of Breath/Wheezing Calcium Carbonate (Calcium Carbonate 750 Mg Tab.Chew) 750 mg PO Q4H PRN PRN Reason: Heartburn Magnesium Hydroxide (Milk Of Magnesia 30 Ml Oral.Susp) 30 ml PO DAILY PRN PRN Reason: Constipation Melatonin (Melatonin 3 Mg Tablet) 6 mg PO BEDTIME PRN PRN Reason: Insomnia Ondansetron HCl (Ondansetron Hcl 4 Mg/2 Ml Vial) 4 mg IVPUSH Q8H PRN PRN Reason: Nausea and Vomiting Polyethylene Glycol (Polyethylene Glycol 3350 17 Gm Powd.Pack) 17 gm PO DAILY PRN PRN Reason: Constipation Senna (Sennosides 8.6 Mg Tablet) 17.2 mg PO BEDTIME JOVITA Sodium Chloride (0.9 % Sodium Chloride Flush 3 Ml Syringe) 3 ml IVFLUSH QSHIFT [facility] Home Medications ?Medication ?Instructions ?Recorded ?Confirmed ?Last Taken ?Type gabapentin 800 mg tablet 800 mg PO TID 01/05/2410/0701/04/24 History methylphenidate HCl 10 mg tablet 10 mg PO TID 01/05/24 10/07/24 01/04/24 History divalproex 250 mg tablet,delayed 250 mg PO BID 5 10/07/24 Unknown History release divalproex 500 mg tablet,delayed 500 mg PO QPM 5 10/07/24 Unknown History release Physical Exam 2 Vital Signs and Narrative: Vital Signs: Last Vital Signs Temp 100.1 F 04/12/25 01:57 Pulse 89 04/12/25 00:00 Resp 29 H 04/12/25 00:00 BP 145/86 H 04/12/25 02:18 Pulse Ox 95 04/12/25 02:18 O2 Del Method Nasal Cannula 04/12/25 02:18 O2 Flow Rate 2 04/12/25 02:18 BMI result Body Mass Index 21.9 Alert and orientated X3, able to give good history. Neuro: CN II-X11 intact, no deficits, visual acuity intact EYES: PERRLA, EOM intact, sclerae nonicteric, conjunctiva pink ENT: hearing intact, no issues with swallowing, uvula midline, lips moist, nares patent no epistaxis Cardiac: S1 S2 irregular rate controlled, no murmur, no JVD, no edema in Lower ext Pulmonary: lungs diminished bilaterally Abdominal: BS active in all 4 quadrants, no guarding, tenderness, rebounding MSK: strength 5/5 upper and lower extremities : no CVA tenderness no bladder distension Extremities: no edema in lower extremities, PT and DP pulses palpable +2 Psych: mood stable, judgement and insight good Skin: No new rashes or lesions Results Labs 04/11/25 20:52 04/12/25 00:50 Labs: Laboratory Results - last 24 hr 04/11/25 04/11/25 04/11/25 20:41 20:52 20:54 MCV 86.3 MCH 29.7 MCHC 34.4 RDW 14.2 Plt Count 167 D MPV 10.1 Immature Gran % (Auto) Cancelled Neut % (Auto) Cancelled Lymph % (Auto) Cancelled [place] % (Auto) Cancelled Eos % (Auto) Cancelled Baso % (Auto) Cancelled Lymph # (Auto) Cancelled [place] # (Auto) Cancelled Eos # (Auto) Cancelled Baso # (Auto) Cancelled Abs Immat Gran (auto) Cancelled Absolute Neuts (auto) Cancelled Absolute Nucleated RBC 0.000 Nucleated RBC % (auto) 0.0 Neutrophils % (Manual) 43 L Band Neutrophils % 24 H Lymphocytes % (Manual) 16 L Atypical Lymphs % (Man) 2 Monocytes % (Manual) 13 H Metamyelocytes % 2 Abs Neuts (Manual) 3.7 Lymphocytes # (Manual) 0.9 L Atyp Lymphs # (Manual) 0.1 Monocytes # (Manual) 0.7 Metamyelocytes # 0.1 Platelet Estimate NORMAL Plt Morphology Comment NORMAL RBC Morphology NOTED Tear Drop Cells 1+ (0-2) Khoa Cells 1+ (0-2) VBG pH VBG pCO2 VBG pO2 VBG HCO3 VBG O2 Saturation VBG Base Excess Anion Gap 24 H Estim Creat Clear Calc 49.2 Estimated GFR 53 POC Glucose Random Glucose 862 H* Lactic Acid 4.1 H* Lactic Acid F/U @ 2Hr Lactic Acid F/U @ 4Hr Calcium 10.4 H D Magnesium 1.8 Total Bilirubin 0.6 AST 26 ALT 13 Alkaline Phosphatase 81 Troponin I High Sens 38.7 H NT-Pro-B Natriuret Pep 3079.2 H Total Protein 6.6 Albumin 3.9 Beta-Hydroxybutyrate 4.09 H Urine Color Yellow Urine Appearance Clear Urine pH 6.0 Ur Specific [place] >= 1.030 H Urine Protein 30 (1+) H Urine Glucose (UA) >=1000 H Urine Ketones 15 Urine Blood Small (1+) H Urine Nitrite Negative Ur Leukocyte Esterase Negative Urine RBC 11-20 H Urine WBC 0-5 Ur Squamous Epith Cells 0-2 Urine Bacteria None Seen Hyaline Casts 0-2 Ethyl Alcohol < 10 Influenza Type A (PCR) POSITIVE A Influenza Type B (PCR) NEGATIVE RSV RNA Qual (PCR) NEGATIVE SARS-CoV-2 RNA (RT-PCR) NEGATIVE 04/11/25 04/11/25 04/12/25 22:17 23:20 00:50 MCV MCH MCHC RDW Plt Count MPV Immature Gran % (Auto) Neut % (Auto) Lymph % (Auto) [place] % (Auto) Eos % (Auto) Baso % (Auto) Lymph # (Auto) [place] # (Auto) Eos # (Auto) Baso # (Auto) Abs Immat Gran (auto) Absolute Neuts (auto) Absolute Nucleated RBC Nucleated RBC % (auto) Neutrophils % (Manual) Band Neutrophils % Lymphocytes % (Manual) Atypical Lymphs % (Man) Monocytes % (Manual) Metamyelocytes % Abs Neuts (Manual) Lymphocytes # (Manual) Atyp Lymphs # (Manual) Monocytes # (Manual) Metamyelocytes # Platelet Estimate Plt Morphology Comment RBC Morphology Tear Drop Cells [place] Cells VBG pH 7.34 VBG pCO2 37 VBG pO2 92 VBG HCO3 20 L VBG O2 Saturation 96.0 VBG Base Excess -4.2 Anion Gap 20 Estim Creat Clear Calc 54.9 Estimated GFR 60 POC Glucose > 600 H* Random Glucose 633 H* Lactic Acid Lactic Acid F/U @ 2Hr 4.0 H* Lactic Acid F/U @ 4Hr Calcium 9.6 D Magnesium 2.0 Total Bilirubin AST ALT Alkaline Phosphatase Troponin I High Sens 40.1 H NT-Pro-B Natriuret Pep Total Protein Albumin Beta-Hydroxybutyrate 1.53 H Urine Color Urine Appearance Urine pH Ur Specific [place] Urine Protein Urine Glucose (UA) Urine Ketones Urine Blood Urine Nitrite Ur Leukocyte Esterase Urine RBC Urine WBC Ur Squamous Epith Cells Urine Bacteria Hyaline Casts Ethyl Alcohol Influenza Type A (PCR) Influenza Type B (PCR) RSV RNA Qual (PCR) SARS-CoV-2 RNA (RT-PCR) 04/12/25 01:55 MCV MCH MCHC RDW Plt Count MPV Immature Gran % (Auto) Neut % (Auto) Lymph % (Auto) [place] % (Auto) Eos % (Auto) Baso % (Auto) Lymph # (Auto) [place] # (Auto) Eos # (Auto) Baso # (Auto) Abs Immat Gran (auto) Absolute Neuts (auto) Absolute Nucleated RBC Nucleated RBC % (auto) Neutrophils % (Manual) Band Neutrophils % Lymphocytes % (Manual) Atypical Lymphs % (Man) Monocytes % (Manual) Metamyelocytes % Abs Neuts (Manual) Lymphocytes # (Manual) Atyp Lymphs # (Manual) Monocytes # (Manual) Metamyelocytes # Platelet Estimate Plt Morphology Comment RBC Morphology Tear Drop Cells [place] Cells VBG pH VBG pCO2 VBG pO2 VBG HCO3 VBG O2 Saturation VBG Base Excess Anion Gap Estim Creat Clear Calc Estimated GFR POC Glucose Random Glucose Lactic Acid Lactic Acid F/U @ 2Hr Lactic Acid F/U @ 4Hr 2.0 Calcium Magnesium Total Bilirubin AST ALT Alkaline Phosphatase Troponin I High Sens NT-Pro-B Natriuret Pep Total Protein Albumin Beta-Hydroxybutyrate Urine Color Urine Appearance Urine pH Ur Specific [place] Urine Protein Urine Glucose (UA) Urine Ketones Urine Blood Urine Nitrite Ur Leukocyte Esterase Urine RBC Urine WBC Ur Squamous Epith Cells Urine Bacteria Hyaline Casts Ethyl Alcohol Influenza Type A (PCR) Influenza Type B (PCR) RSV RNA Qual (PCR) SARS-CoV-2 RNA (RT-PCR) Assessment and Plan (1) Sepsis: Qualifiers: Sepsis acute organ dysfunction status: unspecified Sepsis type: sepsis due to unspecified organism Qualified Code(s): A41.9 - Sepsis, unspecified organism Status: Acute (2) Acute hypoxic respiratory failure: Status: Acute (3) Influenza A: Status: Acute (4) Hyperglycemia: Status: Acute (5) Atrial fibrillation with rapid ventricular response: Status: Acute Plan Patient is a 65-year-old male with history of alcohol use disorder (last drink December 2024), continued marijuana use, tobacco dependence, IDDM, CKD 3, HTN, AFIB on xaralto, COPD not on insulin, mood disorder was driven in to the emergency department by his after 3 days of ?not feeling well . Patient states his symptoms started on the to include fatigue and intermittent diarrhea. Patient states the entire household is dealing with some kind of upper respiratory illness. Patient being admitted for the following medical problems: Sepsis Sepsis protocol started in the ED on arrival, patient received IV resuscitation per sepsis protocol Patient is started on ceftriaxone and doxycycline empirically due to level of sepsis, please discontinue if no longer indicated noting dx of viral URI Patient found to be positive for influenza A, on Tamiflu UA negative for UTI Chest x-ray noted for pulmonary edema see below for elevated BNP, no consolidation Blood cultures x2 pending Lactic acid 4.0 to 2.0, no leukocytosis, patient afebrile: Arrived tachycardic (AFIB RVR) with fever 100.1. Antipyretics p.r.n., Supportive care Acute hypoxic respiratory failure/influenza A Pt received MG IV, methylprednisolone 60 IV X1, nebs and O2 via NC Patient is started on Tamiflu in the ED, 75 mg BID for 5 days Will hold off on steroid dosing noting Flu DX - may weaken immune system further Wean oxygen as tolerated Continuous pulse oximetry Duo nebs p.r.n. Antitussives and supportive care Incentive spirometry Hyperglycemia with known IDDM Patient initially met criteria for DKA but after treatment in the ED all lab values normalized, patient does not currently require ICU admission VBG 7.34, 37, 92, 20 UA glucose >1000, 15 ketones Beta hydroxybutyrate went from 4 to 1.53 Continue IV fluids Sliding scale insulin Diabetic diet Patient has not had his insulin for 48-72 hours due to illness Elevared BNP BNP 3079 Pulmonary edema on CXR Troponin 40.1 Echo ordered for AM Consider cardiology consult if indicated Weight daily, I/Os Q8H, Low Na diet Hyponatremia No AMS, encephalopathy noted Na 130 Likely from fluid overload (elevated BNP, pulmonary edema on CXR) vs SIADH Urine amd serum osmo requested 0.9 NS at 100 mls per hour infusing Pt is on divalproex, will check level AFIB RVR Rate now controlled on admission after IV BB and fluids Continue telemetry Continue Xaralto Digoxin level pending, continue if stable Continue BB once med rec completed CKD 3a Renal function baseline based on comparison lab values Avoid hypotension Avoid nephrotoxic medications Measure I/O Q8H BMP daily COPD/Tobacco dependence Duonebs prn Wean O2 as tolerated, pt does not use O2 at home Nicotine patch ordered 14 mg Pt counseled on the benefits of smoking cessation Marijuana use Last use 04/08/25 Hx of alcohol use disorder Pt states last use 12/2024, was in detox in October 2024 Thiamine and folic acid added No indication currently for CIWA or withdrawal protocol to include phenobarbitol ETOH level in ED <10 DVT prophylaxis: Xarelto Med rec pending Full code status Patient will require at least 2 midnight stay for close hemodynamic and cardiac monitoring as well as medical management of sepsis with acute hypoxic respiratory failure secondary to influenza a. Quality Stroke Does the patient have a stroke diagnosis?: No Reason for No Anti-thrombotic by Day Two: N/A - Med Ordered VTE Prior VTE?: No VTE Risk Level:: Medical - moderate - high VTE Device Contraindication: N/A - Device Ordered VTE Drug Contraindication: N/A - Med Ordered
[2025-04-12 04:38] LABS: Hematocrit 38.9 % (42.0-52.0); Hemoglobin 13.7 g/dl (14.0-18.0); Mean Corpuscular HGB Conc 35.2 g/dl (31.0-36.0); Mean Corpuscular Hemoglobin 29.8 pg (27.0-33.0); Mean Corpuscular Volume 84.6 fL (80.0-98.0); NRBC Abs Auto 0.000 X10*3/uL (0.0-0.012); NRBC Pct Auto 0.0 /100WBC (0.0-0.2); Platelet Count 153 X10*3/uL (160-400); Red Blood Count 4.60 X10*6/uL (4.60-5.80)
[2025-04-12 04:39] LABS: WBC ABN SCTR FOR CBC 1
[2025-04-12] MEDS: Furosemide 20 MG/2 ML VIAL IVPUSH (04:59)
--- NOTE | 2025-04-12 05:04 | PC.NURSE ---
critical labs: Glucose 617, Digoxine 2.64, provider advised.
[2025-04-12 05:05] LABS: Alanine Aminotransferase 10 U/L (0-40); Albumin Level 3.1 g/dL (3.5-5.0); Alkaline Phosphatase 74 U/L (39-117); Anion Gap 18 (12-20); Aspartate Amino Transferase 22 U/L (5-37); Blood Urea Nitrogen 41 mg/dL (9-16); Calcium 9.5 mg/dL (8.4-10.2); Carbon Dioxide 23 mmol/L (22-29); Chloride 92 mmol/L (96-108); Creatinine Clr Calc Pharmacy 53.1; Estimated Glomerular Filt Rate 58; Potassium 4.5 mmol/L (3.3-5.1); Sodium 128 mmol/L (135-145); Total Protein 5.5 g/dL (6.5-8.0)
[2025-04-12 05:06] LABS: Digoxin 2.0 ng/mL (0.8-2.0)
[2025-04-12 05:19] LABS: Osmolality, Serum 315 mosm/kg (281-305)
[2025-04-12 05:31] LABS: Atypical Lymphs Percent Manual 1 % (0-6); Band Neutrophils Percent 21 % (3-5); Lymphocytes Percent Manual 12 % (20-40); Metamyelocytes Percent 1 %; Monocytes Percent Manual 9 % (2-11); Myelocytes Percent 1 %; Neutrophils Percent Manual 55 % (45-73); RBC Morphology NOTED
[2025-04-12 05:32] LABS: Burr Cells 2+ (3-5) /OIF; Tear Drop Cells 1+ (0-2) /OIF; Toxic Granulation PRESENT
[2025-04-12 05:33] LABS: Atypical Lymph Absolute Manual 0.1 x10*3/uL; Lymphocytes Absolute Manual 0.7 X10*3/uL (1.2-4.9); Metamyelocytes Absolute 0.1 X10*3/uL; Monocytes Absolute Manual 0.5 X10*3/uL (0.1-1.2); Myelocytes Absolute 0.1 X10*/uL; Neutrophils Absolute Manual 4.3 X10*3/uL (2.0-8.3); White Blood Count 5.7 X10*3/uL (4.8-10.8)
--- NOTE | 2025-04-12 05:34 | PC.NURSE ---
Medication delay. House sup aware we need t Sodium tablet as we dont have it in the ED pyxus.
[2025-04-12] MEDS: Sodium Chloride Tab 1 GM TABLET PO (05:50)
[2025-04-12 07:23] LABS: Glucose, Whole Blood 476 mg/dL (60-115)
--- NOTE | 2025-04-12 08:30 | PHA.MEDREC ---
Pharmacy Consult ? Medication Reconciliation Pharmacy has completed the medication reconciliation Patient confirmed he is no longer on Lisinopril. He also confirmed he has switched from Xarelto to Eliquis due to cost. Patient states his provider never sent a script for short acting insulin, he should be on it however. Patient also stated his compliance isnt the best due to these high costs.
--- NOTE | 2025-04-12 09:08 | MHC.CM.PN ---
PT REPORTS HE LIVES IN THE SAME HOME WITH HIS , SEPARATELY IN A FINISHED ATTIC HE IS INDEPENDENT, HAS NO SERVICES AND NO DME HE SAYS HIS IS HIS HCP, COPY REQUESTED PCP: ORTIZ HORNER DCP: HOME, WILL TRANSPORT PT STATES HE DOES NOT FEEL HE WILL NEED SERVICES AT [place], BUT WONDERS IF HE SHOULD HAVE O2
[2025-04-12] MEDS: Nicotine 14 MG PATCH.TD24 TRANSDERMA (09:17)
--- NOTE | 2025-04-12 09:30 | CA_ITS ---
Transthoracic Echocardiogram Patient (Last, First, Middle): Des Davalos W Gender: Male Date of : 1960 Age: 65 Procedure Date: 04/12/2025 Procedure Type: Transthoracic Echocardiogram Location: ER Height: 170.18 cm Weight: 63.5 kg BSA: 1.74 m2 Heart Rate: 79 bpm BP: 145 / 86 mmHg Product Assembler: CORINNE Referring MD: Henna Garsia [facility] Practical Nursing Instructor: Moises Ramsey MD Symptoms: elevated BNP, pulmonary edema on CXR Study Quality: Adequate ECG Rhythm: Sinus Conclusions: - 1. Normal LV ejection fraction 55-60% with moderate asymmetric septal hypertrophy without obstructive physiology 2. Calcific aortic valve changes noted with normal cardiac valvular Dopplers 3. Mildly elevated right atrial pressures 4. No gross pericardial effusion Findings Left Ventricle Normal left ventricular size, thickness, and systolic function. The visually estimated ejection fraction is between 55-60%. Spectral Doppler is indicative of a normal filling pattern. There is moderate septal asymmetric hypertrophy. Right Ventricle Normal right ventricular cavity size and systolic function. Atria Both atria are normal in size. There is no evidence of interatrial shunt. Aortic Valve There is mild calcification of the aortic valve. There is no aortic valve stenosis. There is no aortic valve regurgitation. Mitral Valve The mitral valve was not well visualized. There is trace mitral valve regurgitation. There is no mitral valve stenosis. Pulmonic Valve The pulmonic valve was not well visualized. Tricuspid Valve The tricuspid valve was not well visualized. Tricuspid regurgitation envelope is inadequate for calculation of right ventricular systolic pressure. Mildly elevated right atrial pressure. Great Vessels The pulmonary artery was not well visualized. There is mild dilatation of the sinuses of Valsalva and no dilatation of the ascending aorta measuring 3.50 cm. Small plaque is seen in the sino tubular ridge. Venous The inferior vena cava is mildly dilated and collapses less than 50% with inspiration. Pericardium/Pleural There is no evidence of pericardial effusion. Prior Study Comparison No significant change compared to prior study dated: 10/08/2024. Measurements 2D Linear Measurements IVSd: 1.49 0.6-0.9/0.6-1.0 cm LVIDd: 4.15 3.9-5.3/4.2-5.9 cm LVIDd Index: 2.39 2.4-3.2/2.2-3.1 cm/m2 LVIDs: 2.97 2.0-3.6 cm LVPWd: 0.93 0.7-1.1 cm LA Diam: 2.90 2.7-3.8/3.0-4.0 cm LAIDs Index: 1.67 1.5-2.3 cm/m2 LV Mass: 220.20 67-162/88-224 g LV Mass Index: 126.55 43-95/49-115 g/m2 LVOT Diam: 2.20 3.0+(-)1.3 cm Mitral Valve MV Pk E: 0.56 MV PK A: 0.65 MV Decel Time: 309.00 E/A: 0.90 E'Lateral: 8.92 E'Medial: 5.22 E/E' Med: 10.70 E/E' Lat: 6.30 PHT: 90.00 MVA PHT: 2.44 Decel [place]: 1.82 Aortic Valve AoV Pk Joshua: 1.31 AoV Pk Grad: 7.00 ANTHONY: 3.07 LVOT LVOT Pk Joshua: 1.04 LVOT Mn Joshua: 0.80 LVOT VTI: 0.20 LVOT Pk Grad: 4.00 LVOT Mn Grad: 3.00 LVOT Diam: 2.20 LVOT Area: 3.80 Diastolic Function MV Pk E: 0.56 MV Pk A: 0.65 E/A: 0.90 E'Medial: 5.22 E/E' Med: 10.70 E' Laterial: 8.92 E/E' Lat: 6.30 Right Ventricle TAPSE (mm): 14.30 TVS' Joshua: 11.70 Tricuspid Valve RA Press: 8.00 Great Vessels Aorta Sinus of Valsalva: 4.00 2.0-3.5 cm Ao Asc: 3.50 2.1-3.4 cm Ao Arch: 3.10 Pulmonary Valve PV Pk Joshua: 1.03 Peak PV Grad: 4.00 Updated in Other Vendor System with Status of Final Moises Ramsey MD electronically signed on 04/13/2025 11:42:45 AM with status of Final
--- NOTE | 2025-04-12 10:13 | HO.NURTONUR ---
Addendum entered by Deja Barrios RN 04/12/25 19:27: RN assumed care at 1900; pts bp was elevated upon arrival 194/89. admitting made aware. Waiting for further orders before pt is transported to floor. Addendum entered by Dana Saez RN 04/12/25 16:13: Pt c/o ongoing cough and request cough medication. PRN cough syrup given per JUN. Pt advised he may request Q4H PRN. Lab calls to reports 06/02 blood cultures show gram (+) cocci, (+) PCR-staph aureus , and (-) MRSA. Blood culture results sent to Dr. Rodríugez via [employer]. Original Note: 65 year old male admitted for acute respiratory failure, Flu A, hyperglycemia, sepsis, and afib. Pt presents to ED on 04/11/25 for feeling generally unwell x3 days. Pt lives at home in the [facility] area. PMH: DM, HTN, Afib, COPD. Pt noted to have fever, lactic level of 4.1 and blood glucose of 862. Pt also with elevated BNP and Trop. Pt is non-compliant with medical care in the community. Serology shows (+) influenza A. A&Ox3 VSS Independent feeds and ambulation. Supplemental O2 @ 2-3L. Seen by RT Bilat IV access. Contact precautions in place. Takes meds whole with water. POC's with insulin sliding scale.
[2025-04-12 11:40] LABS: Glucose, Whole Blood 271 mg/dL (60-115)
[2025-04-12] MEDS: guaiFEN/Codeine SF 200/20/10ML 10 ML LIQUID PO ×2 (15:45→21:17)
--- NOTE | 2025-04-12 16:11 | PM.EVENT ---
Event Note Date of Service: 04/12/25 Event Note: Chart reviewed patient examined. Agree with history and physical and plan as outlined. Further changes based on clinical course and forthcoming data Time Spent With Patient Time: Total time managing care of this patient today ____ minutes.
--- NOTE | 2025-04-12 16:50 | PC.NURSE ---
Pts Ghada Davalos calls for an update on Pt. Verbal permission received from Pt to share information over the phone with Ghada. Review of care and plan going forward completed with Ghada. Ghada given opportunity for questions and all questions answered to satisfaction.
[2025-04-12 18:02] LABS: Glucose, Whole Blood 216 mg/dL (60-115)
--- NOTE | 2025-04-12 19:49 | HO.NURTONUR ---
RN spoke to storage battery charger as we do not have metoprolol 12.5mg in our pyxis. Charge called house sup who stated it was Ok to still transfer pt he will be medicated on floor.
[2025-04-12] MEDS: Metoprolol Tartrate 12.5 MG HALFTAB PO (21:17)
[2025-04-12 21:36] LABS: Glucose, Whole Blood 233 mg/dL (60-115)
[2025-04-13] VITALS: BP 143/60; PULSE 77; RESP 18; TEMP 36.8; O2SAT 93
[2025-04-13] MEDS: guaiFEN/Codeine SF 200/20/10ML 10 ML LIQUID PO ×2 (01:39→16:53)
[2025-04-13 03:16] VITALS: BP 165/92; PULSE 80; RESP 17; TEMP 36.7; O2SAT 94
[2025-04-13 08:00] VITALS: BP 167/85; PULSE 95; RESP 17; TEMP 36.6; O2SAT 93
[2025-04-13 08:08] LABS: Glucose, Whole Blood 161 mg/dL (60-115)
[2025-04-13] MEDS: 0.9 % Sodium Chloride Flush 3 ML SYRINGE IVFLUSH ×3 (08:44→20:15)
[2025-04-13] MEDS: Metoprolol Tartrate 12.5 MG HALFTAB PO ×2 (08:49→21:09)
[2025-04-13 10:00] LABS: EOS Counted 0 CELLS; EOS QC POS YES; EOS Stain Quality OK YES
[2025-04-13 10:01] LABS: WBC, Counted 3 CELLS
[2025-04-13 11:47] LABS: Glucose, Whole Blood 246 mg/dL (60-115)
[2025-04-13 12:00] VITALS: BP 167/82; PULSE 84; RESP 18; TEMP 36.7; O2SAT 90
--- NOTE | 2025-04-13 14:30 | P.PNIM_ITS ---
Subjective Subjective Date of Service: 04/13/25 Interval History: No acute issues overnight. No symptoms of withdrawal Review of Systems Denies chest pain Denies shortness of breath Denies nausea vomiting diarrhea Denies fever chills Physical Exam 2 Vital Signs: Vital Signs: Last Vital Signs Temp 98.1 F 04/13/25 12:00 Pulse 84 04/13/25 12:00 Resp 18 04/13/25 12:00 BP 167/82 H 04/13/25 12:00 Pulse Ox 90 L 04/13/25 12:00 O2 Del Method Nasal Cannula 04/13/25 12:00 O2 Flow Rate 3 04/13/25 12:00 BMI result Body Mass Index 20.8 Const: Other: Awake alert no acute issues Resp: Other: Clear to auscultation bilaterally no rales rhonchi or wheezes Cardio: Other: No S4; positive S1-S2; no S3 murmurs rubs or gallops GI: Other: Soft nontender nondistended normoactive bowel sounds Extrem: Other: No edema bilaterally Objective Data Active Medications Acetaminophen (Acetaminophen 325 Mg Tablet) 650 mg PO Q6H PRN PRN Reason: Pain, Mild 1-3,fever,headache Last Admin: 04/12/25 22:39 Dose: 650 mg Documented By: YUNG Albuterol/Ipratropium (Albuterol/Iprat 2.5/0.5mg 3 Ml Ampul.Neb) 3 ml INHALE Q4H PRN PRN Reason: Shortness of Breath/Wheezing Apixaban (Apixaban 5 Mg Tablet) 5 mg PO BID [facility] Last Admin: 04/13/25 08:38 Dose: 5 mg Documented By: RAMBO Atorvastatin Calcium (Atorvastatin Calcium 10 Mg Tablet) 10 mg PO BEDTIME [facility] Last Admin: 04/12/25 21:17 Dose: 10 mg Documented By: YUNG Calcium Carbonate (Calcium Carbonate 750 Mg Tab.Chew) 750 mg PO Q4H PRN PRN Reason: Heartburn Dextrose (Dextrose 50 % 25 Gm/50 Ml Syringe) 25 gm IVPUSH Q15M PRN; Protocol PRN Reason: per Hypoglycemia Standing Ord. Digoxin (Digoxin 0.25 Mg Tablet) 0.25 mg PO DAILY [facility]; Protocol Last Admin: 04/13/25 08:39 Dose: 0.25 mg Documented By: RAMBO Divalproex Sodium (Divalproex Sodium 500 Mg Tablet.) 500 mg PO BEDTIME [facility] Last Admin: 04/12/25 21:16 Dose: 500 mg Documented By: YUNG Escitalopram Oxalate (Escitalopram Oxalate 10 Mg Tablet) 10 mg PO DAILY [facility] Last Admin: 04/13/25 08:38 Dose: 10 mg Documented By: RAMBO Folic Acid (Folic Acid 1 Mg Tablet) 1 mg PO DAILY [facility] Last Admin: 04/13/25 08:40 Dose: 1 mg Documented By: RAMBO Furosemide (Furosemide 20 Mg/2 Ml Vial) 20 mg IVPUSH BID [facility]; Protocol Glucose (Glucose Gel 15 Gm Gel..Gram.) 15 gm PO Q15M PRN; Protocol PRN Reason: per Hypoglycemia Standing Ord. Guaifenesin/Codeine Phosphate (Guaifen/Codeine Sf 200/20/10ml 10 Ml Liquid) 10 ml PO Q4H PRN PRN Reason: Cough Last Admin: 04/13/25 01:39 Dose: 10 ml Documented By: YUNG Ceftriaxone Sodium 1 gm/ (Sodium Chloride) 50 mls @ 100 mls/hr IV Q24H [facility] Last Infusion: 04/12/25 22:51 Dose: Infused Documented By: YUNG Doxycycline Hyclate 100 mg/ (Sodium Chloride) 250 mls @ 166.67 mls/hr IV Q12H [facility] Last Infusion: 04/13/25 10:19 Dose: Infused Documented By: RAMBO Insulin Glargine (Insulin Glargine,Hum.Rec.Anlog 100 Unit/Ml 10 Ml Vial) 13 unit SUBCUT BEDTIME [facility] Last Admin: 04/12/25 21:56 Dose: 13 unit Documented By: YUNG Insulin Human Lispro (Insulin Lispro 100 Unit/Ml 3 Ml Vial) 0 unit SUBCUT QIDACHS [facility]; Protocol Last Admin: 04/13/25 11:56 Dose: 4 unit Documented By: RAMBO Magnesium Hydroxide (Milk Of Magnesia 30 Ml Oral.Susp) 30 ml PO DAILY PRN PRN Reason: Constipation Magnesium Oxide (Magnesium Oxide 400 Mg Tablet) 800 mg PO BID [facility] Last Admin: 04/13/25 08:39 Dose: 800 mg Documented By: RAMBO Melatonin (Melatonin 3 Mg Tablet) 6 mg PO BEDTIME PRN PRN Reason: Insomnia Last Admin: 04/12/25 21:17 Dose: 6 mg Documented By: YUNG Methylphenidate HCl (Methylphenidate Hcl 10 Mg Tablet) 10 mg PO TID [facility] Last Admin: 04/13/25 08:38 Dose: 10 mg Documented By: RAMBO Metoprolol Tartrate (Metoprolol Tartrate 12.5 Mg Halftab) 12.5 mg PO BID [facility]; Protocol Last Admin: 04/13/25 08:49 Dose: 12.5 mg Documented By: RAMBO Multivitamins/Vitamin C (Multivitamin Tablet) 1 tab PO BEDTIME [facility] Last Admin: 04/12/25 21:17 Dose: 1 tab Documented By: YUNG Nicotine (Nicotine 14 Mg Patch.Td24) 14 mg TRANSDERMA DAILY [facility] Last Admin: 04/13/25 09:52 Dose: Not Given Documented By: RAMBO Non-Admin Reason: Patient Refused Ondansetron HCl (Ondansetron Hcl 4 Mg/2 Ml Vial) 4 mg IVPUSH Q8H PRN PRN Reason: Nausea and Vomiting Oseltamivir Phosphate (Oseltamivir Phosphate 30 Mg Capsule) 30 mg PO BID [facility] Stop: 04/16/25 09:01 Last Admin: 04/13/25 08:39 Dose: 30 mg Documented By: RAMBO Polyethylene Glycol (Polyethylene Glycol 3350 17 Gm Powd.Pack) 17 gm PO DAILY PRN PRN Reason: Constipation Senna (Sennosides 8.6 Mg Tablet) 17.2 mg PO BEDTIME [facility] Last Admin: 04/12/25 21:16 Dose: 17.2 mg Documented By: YUNG Sodium Chloride (0.9 % Sodium Chloride Flush 3 Ml Syringe) 3 ml IVFLUSH QSHIFT [facility] Last Admin: 04/13/25 08:44 Dose: 3 ml Documented By: RAMBO Thiamine HCl (Thiamine Hcl 100 Mg Tablet) 100 mg PO DAILY [facility] Last Admin: 04/13/25 08:39 Dose: 100 mg Documented By: RAMBO Labs 04/12/25 04:20 04/12/25 04:20 Labs: Laboratory Results - last 24 hr 04/12/25 04/12/25 04/12/25 17:57 21:31 22:00 POC Glucose 216 H 233 H Urine Eosinophils % 0.0 Urine Osmolality 594 Ur Random Sodium < 20.0 04/13/25 04/13/25 08:02 11:43 POC Glucose 161 H 246 H Urine Eosinophils % Urine Osmolality Ur Random Sodium Microbiology Microbiology Results: Microbiology 04/11/25 20:52 Blood Culture - Preliminary Blood - Venous Staphylococcus aureus 04/11/25 20:41 Blood Culture - Preliminary Blood - Venous Staphylococcus aureus Assessment and Plan (1) Sepsis: Status: Acute (2) Influenza A: Status: Acute (3) Atrial fibrillation with rapid ventricular response: Status: Acute Plan Patient is a 65-year-old male with history of alcohol use disorder (last drink December 2024), continued marijuana use, tobacco dependence, IDDM, CKD 3, HTN, AFIB on xaralto, COPD not on insulin, mood disorder was driven in to the emergency department by his after 3 days of ?not feeling well . Patient states his symptoms started on the to include fatigue and intermittent diarrhea. Patient states the entire household is dealing with some kind of upper respiratory illness. Patient being admitted for the following medical problems: 1.Sepsis secondary to influenza a (sepsis resolved) -DC IV antibiotics -Tamiflu as ordered 2.Acute hypoxic respiratory failure/influenza A -Tamiflu 75 mg BID for 5 days -Wean oxygen as tolerated 3.Hyperglycemia with known IDDM -continues to be poorly controlled -adjust long-acting insulin -lispro correctional scale 4.Elevared BNP -stop IV fluids -gentle diuresis -Echo ordered for AM -follow renal/divalent Consider cardiology consult if indicated Weight daily, I/Os Q8H, Low Na diet 5.Hyponatremia -corrects given high blood sugar -repeat renals and divalent in a.m. 6.AFIB RVR -acceptable rate control at present -Xarelto -follow renals divalent enobarbitol ETOH level in ED <10 Xarelto Full code Quality Stroke Does the patient have a stroke diagnosis?: No Reason for No Anti-thrombotic by Day Two: N/A - Med Ordered VTE Prior VTE?: No VTE Risk Level:: Medical - moderate - high VTE Device Contraindication: N/A - Device Ordered VTE Drug Contraindication: N/A - Med Ordered
[2025-04-13] MEDS: Furosemide 20 MG/2 ML VIAL IVPUSH ×2 (15:19→20:14)
[2025-04-13 15:59] LABS: Glucose, Whole Blood 164 mg/dL (60-115)
[2025-04-13 16:00] VITALS: BP 174/82; PULSE 93; RESP 18; TEMP 36.4; O2SAT 88
[2025-04-13 20:00] VITALS: BP 169/92; PULSE 97; RESP 20; TEMP 36.4; O2SAT 92
[2025-04-13 21:03] LABS: Glucose, Whole Blood 123 mg/dL (60-115)
[2025-04-13] MEDS: Insulin Glargine,Hum.rec.anlog 100 UNIT/ML 10 ML VIAL 20 UNIT SUBCUT (21:06)
[2025-04-14] VITALS (10 sets, daily range): BP systolic 115–182; BP diastolic 53–108; PULSE 84–130; RESP 18–22; TEMP 36.3–37.1; O2SAT 90–98; BMI 19.4
[2025-04-14 07:28] LABS: Glucose, Whole Blood 142 mg/dL (60-115)
[2025-04-14] MEDS: Metoprolol Tartrate 12.5 MG HALFTAB PO ×2 (08:03→20:28)
[2025-04-14] MEDS: Furosemide 20 MG/2 ML VIAL IVPUSH ×2 (08:05→21:07)
[2025-04-14] MEDS: 0.9 % Sodium Chloride Flush 3 ML SYRINGE IVFLUSH ×3 (08:19→20:31)
[2025-04-14 09:13] LABS: Hematocrit 37.8 % (42.0-52.0); Hemoglobin 13.3 g/dl (14.0-18.0); Mean Corpuscular HGB Conc 35.2 g/dl (31.0-36.0); Mean Corpuscular Hemoglobin 29.7 pg (27.0-33.0); Mean Corpuscular Volume 84.4 fL (80.0-98.0); NRBC Abs Auto 0.000 X10*3/uL (0.0-0.012); NRBC Pct Auto 0.0 /100WBC (0.0-0.2); Platelet Count 222 X10*3/uL (160-400); Red Blood Count 4.48 X10*6/uL (4.60-5.80); White Blood Count 15.9 X10*3/uL (4.8-10.8)
[2025-04-14 09:36] LABS: Alanine Aminotransferase 8 U/L (0-40); Albumin Level 3.0 g/dL (3.5-5.0); Alkaline Phosphatase 79 U/L (39-117); Anion Gap 12 (12-20); Aspartate Amino Transferase 26 U/L (5-37); Blood Urea Nitrogen 20 mg/dL (9-16); Calcium 9.0 mg/dL (8.4-10.2); Carbon Dioxide 32 mmol/L (22-29); Chloride 98 mmol/L (96-108); Creatinine Clr Calc Pharmacy 76.6; Estimated Glomerular Filt Rate > 60; Potassium 2.9 mmol/L (3.3-5.1); Sodium 139 mmol/L (135-145); Total Protein 5.5 g/dL (6.5-8.0)
[2025-04-14 09:39] LABS: Atypical Lymph Absolute Manual 0.2 x10*3/uL; Atypical Lymphs Percent Manual 1 % (0-6); Band Neutrophils Percent 3 % (3-5); Lymphocytes Absolute Manual 0.8 X10*3/uL (1.2-4.9); Lymphocytes Percent Manual 5 % (20-40); Monocytes Absolute Manual 0.3 X10*3/uL (0.1-1.2); Monocytes Percent Manual 2 % (2-11); Neutrophils Absolute Manual 14.6 X10*3/uL (2.0-8.3); Neutrophils Percent Manual 89 % (45-73)
[2025-04-14 09:41] LABS: Burr Cells 1+ (0-2) /OIF; Large Platelet PRESENT; RBC Morphology NOTED; Tear Drop Cells 1+ (0-2) /OIF; Toxic Granulation PRESENT; Toxic Vacuolation PRESENT
[2025-04-14 11:18] LABS: Glucose, Whole Blood 155 mg/dL (60-115)
--- NOTE | 2025-04-14 11:45 | MHC.CM.PN ---
PER MD ROUNDS, PT NOT MEDICALLY CLEARED POSSIBLE NEED FOR SPEECH AND PT EVALS CM FOLLOWING FOR DC NEEDS
[2025-04-14] MEDS: Potassium Chloride ER 20 MEQ TAB.ER.PRT PO ×2 (12:18→20:27)
--- NOTE | 2025-04-14 12:23 | PC.NURSE ---
Pt alert and oriented x4. Speech is hoarse. He is having trouble swallowing. He cannot tolerate large pills. He burps and gags or dry heaves a little with other swallows. He states that this is a new problem. He has no teeth. Coarse lungs sounds.
[2025-04-14 16:36] LABS: Glucose, Whole Blood 149 mg/dL (60-115)
--- NOTE | 2025-04-14 16:36 | P.PNIM_ITS ---
Subjective Subjective Date of Service: 04/14/25 Interval History: Continues to have poorly controlled BP. Complains of feeling overall unwell. Nurse notes difficulty swallowing Review of Systems Denies chest pain Denies shortness of breath Denies nausea vomiting diarrhea Denies fever chills Physical Exam 2 Vital Signs: Vital Signs: Last Vital Signs Temp 97.6 F 04/14/25 15:42 Pulse 95 04/14/25 15:42 Resp 22 H 04/14/25 15:42 BP 179/108 H 04/14/25 15:42 Pulse Ox 94 04/14/25 15:42 O2 Del Method Nasal Cannula 04/14/25 15:42 O2 Flow Rate 4 04/14/25 15:42 BMI result Body Mass Index 19.4 Const: Other: Awake alert no acute issues Resp: Other: Clear to auscultation bilaterally no rales rhonchi or wheezes Cardio: Other: No S4; positive S1-S2; no S3 murmurs rubs or gallops GI: Other: Soft nontender nondistended normoactive bowel sounds Extrem: Other: No edema bilaterally Objective Data Active Medications Acetaminophen (Acetaminophen 325 Mg Tablet) 650 mg PO Q6H PRN PRN Reason: Pain, Mild 1-3,fever,headache Last Admin: 04/12/25 22:39 Dose: 650 mg Documented By: YUNG Albuterol/Ipratropium (Albuterol/Iprat 2.5/0.5mg 3 Ml Ampul.Neb) 3 ml INHALE Q4H PRN PRN Reason: Shortness of Breath/Wheezing Apixaban (Apixaban 5 Mg Tablet) 5 mg PO BID [facility] Last Admin: 04/14/25 09:23 Dose: 5 mg Documented By: DAVIS Atorvastatin Calcium (Atorvastatin Calcium 10 Mg Tablet) 10 mg PO BEDTIME [facility] Last Admin: 04/13/25 20:15 Dose: 10 mg Documented By: KERI Calcium Carbonate (Calcium Carbonate 750 Mg Tab.Chew) 750 mg PO Q4H PRN PRN Reason: Heartburn Dextrose (Dextrose 50 % 25 Gm/50 Ml Syringe) 25 gm IVPUSH Q15M PRN; Protocol PRN Reason: per Hypoglycemia Standing Ord. Digoxin (Digoxin 0.25 Mg Tablet) 0.25 mg PO DAILY [facility]; Protocol Last Admin: 04/14/25 08:03 Dose: 0.25 mg Documented By: DAVIS Divalproex Sodium (Divalproex Sodium 500 Mg Tablet.Dr) 500 mg PO BEDTIME [facility] Last Admin: 04/13/25 20:25 Dose: 500 mg Documented By: KERI Escitalopram Oxalate (Escitalopram Oxalate 10 Mg Tablet) 10 mg PO DAILY [facility] Last Admin: 04/14/25 09:24 Dose: 10 mg Documented By: DAVIS Folic Acid (Folic Acid 1 Mg Tablet) 1 mg PO DAILY [facility] Last Admin: 04/14/25 09:24 Dose: 1 mg Documented By: DAVIS Furosemide (Furosemide 20 Mg/2 Ml Vial) 20 mg IVPUSH BID [facility]; Protocol Last Admin: 04/14/25 08:05 Dose: 20 mg Documented By: DAVIS Glucose (Glucose Gel 15 Gm Gel..Gram.) 15 gm PO Q15M PRN; Protocol PRN Reason: per Hypoglycemia Standing Ord. Guaifenesin/Codeine Phosphate (Guaifen/Codeine Sf 200/20/10ml 10 Ml Liquid) 10 ml PO Q4H PRN PRN Reason: Cough Last Admin: 04/13/25 16:53 Dose: 10 ml Documented By: RAMBO Insulin Glargine (Insulin Glargine,Hum.Rec.Anlog 100 Unit/Ml 10 Ml Vial) 20 unit SUBCUT BEDTIME [facility] Last Admin: 04/13/25 21:06 Dose: 20 unit Documented By: KERI Insulin Human Lispro (Insulin Lispro 100 Unit/Ml 3 Ml Vial) 0 unit SUBCUT QIDACHS [facility]; Protocol Last Admin: 04/14/25 12:15 Dose: 2 unit Documented By: DAVIS Lisinopril (Lisinopril 10 Mg Tablet) 10 mg PO DAILY [facility]; Protocol Last Admin: 04/14/25 12:15 Dose: 10 mg Documented By: DAVIS Magnesium Hydroxide (Milk Of Magnesia 30 Ml Oral.Susp) 30 ml PO DAILY PRN PRN Reason: Constipation Magnesium Oxide (Magnesium Oxide 400 Mg Tablet) 800 mg PO BID [facility] Last Admin: 04/14/25 08:04 Dose: 800 mg Documented By: DAVIS Melatonin (Melatonin 3 Mg Tablet) 6 mg PO BEDTIME PRN PRN Reason: Insomnia Last Admin: 04/12/25 21:17 Dose: 6 mg Documented By: YUNG Methylphenidate HCl (Methylphenidate Hcl 10 Mg Tablet) 10 mg PO TID [facility] Last Admin: 04/14/25 14:10 Dose: Not Given Documented By: DAVIS Non-Admin Reason: Patient Refused Metoprolol Tartrate (Metoprolol Tartrate 12.5 Mg Halftab) 12.5 mg PO BID [facility]; Protocol Last Admin: 04/14/25 08:03 Dose: 12.5 mg Documented By: DAVIS Multivitamins/Vitamin C (Multivitamin Tablet) 1 tab PO BEDTIME [facility] Last Admin: 04/13/25 20:14 Dose: 1 tab Documented By: KERI Nicotine (Nicotine 14 Mg Patch.Td24) 14 mg TRANSDERMA DAILY [facility] Last Admin: 04/14/25 09:24 Dose: Not Given Documented By: DAVIS Non-Admin Reason: Patient Refused Ondansetron HCl (Ondansetron Hcl 4 Mg/2 Ml Vial) 4 mg IVPUSH Q8H PRN PRN Reason: Nausea and Vomiting Oseltamivir Phosphate (Oseltamivir Phosphate 30 Mg Capsule) 30 mg PO BID [facility] Stop: 04/16/25 09:01 Last Admin: 04/14/25 09:23 Dose: 30 mg Documented By: DAVIS Polyethylene Glycol (Polyethylene Glycol 3350 17 Gm Powd.Pack) 17 gm PO DAILY PRN PRN Reason: Constipation Potassium Chloride (Potassium Chloride Er 20 Meq Tab.Er.Prt) 20 meq PO TID [facility] Stop: 04/16/25 09:01 Last Admin: 04/14/25 12:18 Dose: 20 meq Documented By: DAVIS Senna (Sennosides 8.6 Mg Tablet) 17.2 mg PO BEDTIME [facility] Last Admin: 04/13/25 20:14 Dose: 17.2 mg Documented By: KERI Sodium Chloride (0.9 % Sodium Chloride Flush 3 Ml Syringe) 3 ml IVFLUSH QSHIFT [facility] Last Admin: 04/14/25 08:19 Dose: 3 ml Documented By: DAVIS Thiamine HCl (Thiamine Hcl 100 Mg Tablet) 100 mg PO DAILY [facility] Last Admin: 04/14/25 09:23 Dose: 100 mg Documented By: DAVIS Labs 04/14/25 08:58 04/14/25 08:58 Labs: Laboratory Results - last 24 hr 04/13/25 04/14/25 04/14/25 20:59 07:10 08:58 MCV 84.4 MCH 29.7 MCHC 35.2 RDW 14.6 Plt Count 222 D MPV 10.1 Immature Gran % (Auto) Cancelled Neut % (Auto) Cancelled Lymph % (Auto) Cancelled [place] % (Auto) Cancelled Eos % (Auto) Cancelled Baso % (Auto) Cancelled Lymph # (Auto) Cancelled [place] # (Auto) Cancelled Eos # (Auto) Cancelled Baso # (Auto) Cancelled Abs Immat Gran (auto) Cancelled Absolute Neuts (auto) Cancelled Absolute Nucleated RBC 0.000 Nucleated RBC % (auto) 0.0 Neutrophils % (Manual) 89 H Band Neutrophils % 3 Lymphocytes % (Manual) 5 L Atypical Lymphs % (Man) 1 Monocytes % (Manual) 2 Abs Neuts (Manual) 14.6 H Lymphocytes # (Manual) 0.8 L Atyp Lymphs # (Manual) 0.2 Monocytes # (Manual) 0.3 Toxic Granulation PRESENT Toxic Vacuolation PRESENT Platelet Estimate NORMAL Large Platelets PRESENT Plt Morphology Comment NOTED RBC Morphology NOTED Tear Drop Cells 1+ (0-2) [place] Cells 1+ (0-2) Anion Gap 12 Estim Creat Clear Calc 76.6 Estimated GFR > 60 POC Glucose 123 H 142 H Random Glucose 134 H Calcium 9.0 Total Bilirubin 0.4 AST 26 ALT 8 Alkaline Phosphatase 79 NT-Pro-B Natriuret Pep 2615.2 H Total Protein 5.5 L Albumin 3.0 L 04/14/25 04/14/25 11:12 16:28 MCV MCH MCHC RDW Plt Count MPV Immature Gran % (Auto) Neut % (Auto) Lymph % (Auto) [place] % (Auto) Eos % (Auto) Baso % (Auto) Lymph # (Auto) [place] # (Auto) Eos # (Auto) Baso # (Auto) Abs Immat Gran (auto) Absolute Neuts (auto) Absolute Nucleated RBC Nucleated RBC % (auto) Neutrophils % (Manual) Band Neutrophils % Lymphocytes % (Manual) Atypical Lymphs % (Man) Monocytes % (Manual) Abs Neuts (Manual) Lymphocytes # (Manual) Atyp Lymphs # (Manual) Monocytes # (Manual) Toxic Granulation Toxic Vacuolation Platelet Estimate Large Platelets Plt Morphology Comment RBC Morphology Tear Drop Cells [place] Cells Anion Gap Estim Creat Clear Calc Estimated GFR POC Glucose 155 H 149 H Random Glucose Calcium Total Bilirubin AST ALT Alkaline Phosphatase NT-Pro-B Natriuret Pep Total Protein Albumin Microbiology Microbiology Results: Microbiology 04/11/25 20:41 Blood Culture - Final Blood - Venous Staphylococcus aureus 04/11/25 20:52 Blood Culture - Final Blood - Venous Staphylococcus aureus Assessment and Plan (1) Atrial fibrillation with rapid ventricular response: Status: Acute (2) KATELYN (acute kidney injury): Status: Acute Plan Patient is a 65-year-old male with history of alcohol use disorder (last drink December 2024), continued marijuana use, tobacco dependence, IDDM, CKD 3, HTN, AFIB on xaralto, COPD not on insulin, mood disorder was driven in to the emergency department by his after 3 days of ?not feeling well . Patient states his symptoms started on the to include fatigue and intermittent diarrhea. Patient states the entire household is dealing with some kind of upper respiratory illness. Patient being admitted for the following medical problems: 1.AFIB RVR -acceptable rate control at present -Xarelto as ordered -Echo with LVEF 50-55 -follow renals divalent 2.HTN -poorly control at present -minimal response to lisinopril; we will add amlodipine -follow renals/divalents 3.Acute hypoxic respiratory failure/influenza A -Tamiflu 75 mg BID for 5 days(LD 04/16) -Wean oxygen as tolerated 4.Hyperglycemia with known IDDM -good response to adjustment and therapies -lispro correctional scale -adjust as indicated 5. Dysphagia -as noted by nursing -speak to bowel Xarelto Full code Requires ongoing hospitalization to stabilize blood pressure and assess swallow Quality Stroke Does the patient have a stroke diagnosis?: No Reason for No Anti-thrombotic by Day Two: N/A - Med Ordered VTE Prior VTE?: No VTE Risk Level:: Medical - moderate - high VTE Device Contraindication: N/A - Device Ordered VTE Drug Contraindication: N/A - Med Ordered
[2025-04-14 20:02] LABS: Glucose, Whole Blood 223 mg/dL (60-115)
[2025-04-14] MEDS: Insulin Glargine,Hum.rec.anlog 100 UNIT/ML 10 ML VIAL 20 UNIT SUBCUT (20:30)
[2025-04-14 21:45] LABS: Anion Gap 17 (12-20); Blood Urea Nitrogen 24 mg/dL (9-16); Calcium 8.9 mg/dL (8.4-10.2); Carbon Dioxide 26 mmol/L (22-29); Chloride 99 mmol/L (96-108); Creatinine Clr Calc Pharmacy 69.7; Estimated Glomerular Filt Rate > 60; Potassium 2.8 mmol/L (3.3-5.1); Sodium 139 mmol/L (135-145)
[2025-04-14] MEDS: Potassium Chloride Packet 20 MEQ PACKET 40 MEQ PO (21:58)
[2025-04-14] MEDS: guaiFEN/Codeine SF 200/20/10ML 10 ML LIQUID PO (21:58)
[2025-04-15] MEDS: guaiFEN/Codeine SF 200/20/10ML 10 ML LIQUID PO ×2 (02:14→20:41)
[2025-04-15 03:12] VITALS: BP 144/75; PULSE 85; RESP 18; TEMP 36.5; O2SAT 91
[2025-04-15 06:00] VITALS: BMI 19.4
[2025-04-15 06:58] LABS: Hematocrit 36.9 % (42.0-52.0); Hemoglobin 12.8 g/dl (14.0-18.0); Mean Corpuscular HGB Conc 34.7 g/dl (31.0-36.0); Mean Corpuscular Hemoglobin 29.4 pg (27.0-33.0); Mean Corpuscular Volume 84.6 fL (80.0-98.0); NRBC Abs Auto 0.000 X10*3/uL (0.0-0.012); NRBC Pct Auto 0.0 /100WBC (0.0-0.2); Platelet Count 257 X10*3/uL (160-400); Red Blood Count 4.36 X10*6/uL (4.60-5.80); WBC ABN SCTR FOR CBC 1; White Blood Count 16.0 X10*3/uL (4.8-10.8)
[2025-04-15 07:21] LABS: Glucose, Whole Blood 105 mg/dL (60-115)
[2025-04-15 07:31] VITALS: BP 163/85; PULSE 86; RESP 20; TEMP 36.5; O2SAT 93
[2025-04-15 07:38] LABS: Alanine Aminotransferase 10 U/L (0-40); Albumin Level 2.9 g/dL (3.5-5.0); Alkaline Phosphatase 105 U/L (39-117); Anion Gap 14 (12-20); Aspartate Amino Transferase 25 U/L (5-37); Blood Urea Nitrogen 23 mg/dL (9-16); Calcium 8.7 mg/dL (8.4-10.2); Carbon Dioxide 32 mmol/L (22-29); Chloride 98 mmol/L (96-108); Creatinine Clr Calc Pharmacy 74.2; Estimated Glomerular Filt Rate > 60; Potassium 3.0 mmol/L (3.3-5.1); Sodium 141 mmol/L (135-145); Total Protein 5.4 g/dL (6.5-8.0)
[2025-04-15 08:01] LABS: Atypical Lymph Absolute Manual 0.3 x10*3/uL; Atypical Lymphs Percent Manual 2 % (0-6); Band Neutrophils Percent 1 % (3-5); Lymphocytes Absolute Manual 1.4 X10*3/uL (1.2-4.9); Lymphocytes Percent Manual 9 % (20-40); Metamyelocytes Absolute 0.2 X10*3/uL; Metamyelocytes Percent 1 %; Monocytes Absolute Manual 1.3 X10*3/uL (0.1-1.2); Monocytes Percent Manual 8 % (2-11); Neutrophils Absolute Manual 12.8 X10*3/uL (2.0-8.3); Neutrophils Percent Manual 79 % (45-73)
[2025-04-15 08:08] LABS: Acanthocytes 1+ (0-2) /OIF; Burr Cells 1+ (0-2) /OIF; Large Platelet PRESENT; Microcytosis 1+ (5-14) /OIF; RBC Morphology NOTED; Toxic Vacuolation PRESENT
[2025-04-15] MEDS: Metoprolol Tartrate 12.5 MG HALFTAB PO ×2 (09:00→20:34)
[2025-04-15] MEDS: Furosemide 20 MG/2 ML VIAL IVPUSH ×2 (09:03→20:34)
[2025-04-15] MEDS: 0.9 % Sodium Chloride Flush 3 ML SYRINGE IVFLUSH ×3 (09:08→20:46)
[2025-04-15] MEDS: Potassium Chloride ER 20 MEQ TAB.ER.PRT PO ×3 (10:45→20:34)
[2025-04-15 11:19] VITALS: BP 145/74; PULSE 86; RESP 18; TEMP 36.5; O2SAT 91
[2025-04-15 11:24] LABS: Glucose, Whole Blood 91 mg/dL (60-115)
--- NOTE | 2025-04-15 13:57 | MHC.SL.SWA ---
Speech Pathologist Impression: WFL Risk of Aspiration Due to: Respiratory status/(+) Influenza A Dysphasia Diet Status: CONTINUE Regular/Thin Liquid Consistency and Strategies for Safe Swallow: Liquid Intake Recommendation: Thin Liquid Intake Strategies: Solid Food Consistency: Dietary Recommendations: Regular Additional Modifications to Solid Foods: Oral Medication Intake: Whole with Liquid Please contact the pharmacy regarding appropriate crushable or liquid drug formulations that are available whenever modified delivery is recommended. Compensatory Strategies and Precautions to be Taken for Safe Swallow: Sit Upright Slow self-feeding rate Small sips/bites Alternate liquids/solids Remain upright after meal (30 minutes) Supervision While Eating and Drinking for Safe Swallow: None Needed Foods to Avoid: Swallowing Recommended Treatments: Recommendation for Speech: NA:Typical Evaluation Comment: Minimal evaluation as patient with reluctance to participate in evaluation. Patient observed with sunitha cracker and multiple straw sips of thin liquid via pitcher. Per RN, patient doing much better today; no gagging, dry heaving notice. Treated with zofran this AM. Patient denies any swallowing difficulties, denied any odynophagia, and denied any esophageal s/sx. Patient with no overt s/sx of penetration/aspiration. Reports still feeling unwell but a little better than yesterday. Denied any difficulties with mastication, prolonged yet functional. RN asking MD for powder replacement of larger pill, no concerns with any other PO meds. RN with no concerns this date. Recommend CONTINUE with regular solids, thin liquids. REGULATORY AGENCY DIRECTOR services not warranted at this level. Please re-consult if any concerns arise. MD, RN and RD given recommendations via secure chat. Frequency/Duration: DISCHARGE Date Range for Service Req: Timeline to reassess: Breaker Engineer Clinican/Clinical Fellow: No Supervisory Statement: I have reviewed and agree with the student/clinical fellow's documentation: N/A Speech Language Pathologist: Claudia Lemos M.A., CCC-REGULATORY AGENCY DIRECTOR
--- NOTE | 2025-04-15 14:00 | P.PNIM_ITS ---
Subjective Subjective Date of Service: 04/15/25 Interval History: remains on High amount of O2 low O2 Physical Exam 2 Vital Signs: Vital Signs: Last Vital Signs Temp 97.7 F 04/15/25 11:19 Pulse 86 04/15/25 11:19 Resp 18 04/15/25 11:19 BP 145/74 H 04/15/25 11:19 Pulse Ox 91 L 04/15/25 11:19 O2 Del Method Nasal Cannula 04/15/25 11:19 O2 Flow Rate 4 04/15/25 11:19 BMI result Body Mass Index 19.4 Const: Other: Awake alert no acute issues Resp: Other: Clear to auscultation bilaterally no rales rhonchi or wheezes Cardio: Other: No S4; positive S1-S2; no S3 murmurs rubs or gallops GI: Other: Soft nontender nondistended normoactive bowel sounds Extrem: Other: No edema bilaterally Objective Data Active Medications Acetaminophen (Acetaminophen 325 Mg Tablet) 650 mg PO Q6H PRN PRN Reason: Pain, Mild 1-3,fever,headache Last Admin: 04/12/25 22:39 Dose: 650 mg Documented By: YUNG Albuterol/Ipratropium (Albuterol/Iprat 2.5/0.5mg 3 Ml Ampul.Neb) 3 ml INHALE Q4H PRN PRN Reason: Shortness of Breath/Wheezing Amlodipine Besylate (Amlodipine Besylate 10 Mg Tablet) 10 mg PO DAILY [facility]; Protocol Last Admin: 04/15/25 08:59 Dose: 10 mg Documented By: DVAIS Apixaban (Apixaban 5 Mg Tablet) 5 mg PO BID [facility] Last Admin: 04/15/25 09:00 Dose: 5 mg Documented By: DAVIS Atorvastatin Calcium (Atorvastatin Calcium 10 Mg Tablet) 10 mg PO BEDTIME [facility] Last Admin: 04/14/25 20:27 Dose: 10 mg Documented By: SRINIVASAN Calcium Carbonate (Calcium Carbonate 750 Mg Tab.Chew) 750 mg PO Q4H PRN PRN Reason: Heartburn Dextrose (Dextrose 50 % 25 Gm/50 Ml Syringe) 25 gm IVPUSH Q15M PRN; Protocol PRN Reason: per Hypoglycemia Standing Ord. Digoxin (Digoxin 0.25 Mg Tablet) 0.25 mg PO DAILY [facility]; Protocol Last Admin: 04/15/25 08:59 Dose: 0.25 mg Documented By: DAVIS Divalproex Sodium (Divalproex Sodium 500 Mg Tablet.Dr) 500 mg PO BEDTIME [facility] Last Admin: 04/14/25 20:27 Dose: 500 mg Documented By: SRINIVASAN Escitalopram Oxalate (Escitalopram Oxalate 10 Mg Tablet) 10 mg PO DAILY [facility] Last Admin: 04/15/25 09:01 Dose: 10 mg Documented By: DAVIS Folic Acid (Folic Acid 1 Mg Tablet) 1 mg PO DAILY [facility] Last Admin: 04/15/25 09:00 Dose: 1 mg Documented By: DAVIS Furosemide (Furosemide 20 Mg/2 Ml Vial) 20 mg IVPUSH BID [facility]; Protocol Last Admin: 04/15/25 09:03 Dose: 20 mg Documented By: DAVIS Glucose (Glucose Gel 15 Gm Gel..Gram.) 15 gm PO Q15M PRN; Protocol PRN Reason: per Hypoglycemia Standing Ord. Guaifenesin/Codeine Phosphate (Guaifen/Codeine Sf 200/20/10ml 10 Ml Liquid) 10 ml PO Q4H PRN PRN Reason: Cough Last Admin: 04/15/25 02:14 Dose: 10 ml Documented By: SRINIVASAN Insulin Glargine (Insulin Glargine,Hum.Rec.Anlog 100 Unit/Ml 10 Ml Vial) 20 unit SUBCUT BEDTIME [facility] Last Admin: 04/14/25 20:30 Dose: 20 unit Documented By: SRINIVASAN Insulin Human Lispro (Insulin Lispro 100 Unit/Ml 3 Ml Vial) 0 unit SUBCUT QIDACHS [facility]; Protocol Last Admin: 04/15/25 11:53 Dose: Not Given Documented By: DAVIS Non-Admin Reason: No Insulin Coverage Lisinopril (Lisinopril 10 Mg Tablet) 10 mg PO DAILY [facility]; Protocol Last Admin: 04/15/25 09:01 Dose: 10 mg Documented By: DAVIS Magnesium Hydroxide (Milk Of Magnesia 30 Ml Oral.Susp) 30 ml PO DAILY PRN PRN Reason: Constipation Magnesium Oxide (Magnesium Oxide 400 Mg Tablet) 800 mg PO BID [facility] Last Admin: 04/15/25 09:02 Dose: 800 mg Documented By: DAVIS Melatonin (Melatonin 3 Mg Tablet) 6 mg PO BEDTIME PRN PRN Reason: Insomnia Last Admin: 04/12/25 21:17 Dose: 6 mg Documented By: YUNG Methylphenidate HCl (Methylphenidate Hcl 10 Mg Tablet) 10 mg PO TID [facility] Last Admin: 04/15/25 09:08 Dose: Not Given Documented By: DAVIS Non-Admin Reason: Patient Refused Metoprolol Tartrate (Metoprolol Tartrate 12.5 Mg Halftab) 12.5 mg PO BID [facility]; Protocol Last Admin: 04/15/25 09:00 Dose: 12.5 mg Documented By: DAVIS Multivitamins/Vitamin C (Multivitamin Tablet) 1 tab PO BEDTIME [facility] Last Admin: 04/14/25 20:28 Dose: 1 tab Documented By: SRINIVASAN Nicotine (Nicotine 14 Mg Patch.Td24) 14 mg TRANSDERMA DAILY [facility] Last Admin: 04/15/25 09:09 Dose: Not Given Documented By: DAVIS Non-Admin Reason: Patient Refused Ondansetron HCl (Ondansetron Hcl 4 Mg/2 Ml Vial) 4 mg IVPUSH Q8H PRN PRN Reason: Nausea and Vomiting Last Admin: 04/15/25 10:47 Dose: 4 mg Documented By: DAVIS Oseltamivir Phosphate (Oseltamivir Phosphate 30 Mg Capsule) 30 mg PO BID [facility] Stop: 04/16/25 09:01 Last Admin: 04/15/25 09:02 Dose: 30 mg Documented By: DAVIS Polyethylene Glycol (Polyethylene Glycol 3350 17 Gm Powd.Pack) 17 gm PO DAILY PRN PRN Reason: Constipation Potassium Chloride (Potassium Chloride Er 20 Meq Tab.Er.Prt) 20 meq PO TID [facility] Stop: 04/16/25 09:01 Last Admin: 04/15/25 10:45 Dose: 20 meq Documented By: DAVIS Senna (Sennosides 8.6 Mg Tablet) 17.2 mg PO BEDTIME [facility] Last Admin: 04/14/25 20:27 Dose: 17.2 mg Documented By: SRINIVASAN Sodium Chloride (0.9 % Sodium Chloride Flush 3 Ml Syringe) [facility] Last Admin: 04/15/25 09:08 Dose: 3 ml Documented By: DAVIS Thiamine HCl (Thiamine Hcl 100 Mg Tablet) 100 mg PO DAILY [facility] Last Admin: 04/15/25 09:01 Dose: 100 mg Documented By: DAVIS Labs 04/15/25 06:29 04/15/25 06:29 Labs: Laboratory Results - last 24 hr 04/14/25 04/14/25 04/14/25 16:28 19:57 21:15 MCV MCH MCHC RDW Plt Count MPV Immature Gran % (Auto) Neut % (Auto) Lymph % (Auto) [place] % (Auto) Eos % (Auto) Baso % (Auto) Lymph # (Auto) [place] # (Auto) Eos # (Auto) Baso # (Auto) Abs Immat Gran (auto) Absolute Neuts (auto) Absolute Nucleated RBC Nucleated RBC % (auto) Neutrophils % (Manual) Band Neutrophils % Lymphocytes % (Manual) Atypical Lymphs % (Man) Monocytes % (Manual) Metamyelocytes % Abs Neuts (Manual) Lymphocytes # (Manual) Atyp Lymphs # (Manual) Monocytes # (Manual) Metamyelocytes # Toxic Vacuolation Platelet Estimate Large Platelets Plt Morphology Comment RBC Morphology Microcytosis Khoa Cells Acanthocytes (Spur) Anion Gap 17 Estim Creat Clear Calc 69.7 Estimated GFR > 60 POC Glucose 149 H 223 H Random Glucose 219 H Fasting Glucose Calcium 8.9 Total Bilirubin AST ALT Alkaline Phosphatase Total Protein Albumin 04/15/25 04/15/25 04/15/25 06:29 07:05 11:17 MCV 84.6 MCH 29.4 MCHC 34.7 RDW 14.6 Plt Count 257 MPV 10.0 Immature Gran % (Auto) Cancelled Neut % (Auto) Cancelled Lymph % (Auto) Cancelled [place] % (Auto) Cancelled Eos % (Auto) Cancelled Baso % (Auto) Cancelled Lymph # (Auto) Cancelled [place] # (Auto) Cancelled Eos # (Auto) Cancelled Baso # (Auto) Cancelled Abs Immat Gran (auto) Cancelled Absolute Neuts (auto) Cancelled Absolute Nucleated RBC 0.000 Nucleated RBC % (auto) 0.0 Neutrophils % (Manual) 79 H Band Neutrophils % 1 L Lymphocytes % (Manual) 9 L Atypical Lymphs % (Man) 2 Monocytes % (Manual) 8 Metamyelocytes % 1 Abs Neuts (Manual) 12.8 H Lymphocytes # (Manual) 1.4 Atyp Lymphs # (Manual) 0.3 Monocytes # (Manual) 1.3 H Metamyelocytes # 0.2 Toxic Vacuolation PRESENT Platelet Estimate NORMAL Large Platelets PRESENT Plt Morphology Comment NOTE RBC Morphology NOTED Microcytosis 1+ (5-14) Khoa Cells 1+ (0-2) Acanthocytes (Spur) 1+ (0-2) Anion Gap 14 Estim Creat Clear Calc 74.2 Estimated GFR > 60 POC Glucose 105 91 Random Glucose Fasting Glucose 106 H Calcium 8.7 Total Bilirubin 0.4 AST 25 ALT 10 Alkaline Phosphatase 105 Total Protein 5.4 L Albumin 2.9 L Microbiology Microbiology Results: Microbiology 04/11/25 20:41 Blood Culture - Final Blood - Venous Staphylococcus aureus 04/11/25 20:52 Blood Culture - Final Blood - Venous Staphylococcus aureus Assessment and Plan (1) Atrial fibrillation with rapid ventricular response: Status: Acute (2) KATELYN (acute kidney injury): Status: Acute Plan Patient is a 65-year-old male with history of alcohol use disorder (last drink December 2024), continued marijuana use, tobacco dependence, IDDM, CKD 3, HTN, AFIB on xaralto, COPD not on insulin, mood disorder was driven in to the emergency department by his after 3 days of ?not feeling well . Patient states his symptoms started on the to include fatigue and intermittent diarrhea. Patient states the entire household is dealing with some kind of upper respiratory illness. Patient being admitted for the following medical problems: AFIB RVR rate is controlled xarelto for anticoagulation HTN, BP is better controlled, continue present med Hypokalemia oral replacement Acute hypoxic respiratory failure/influenza A -Tamiflu 75 mg BID for 5 days(LD 04/16) -Wean oxygen as tolerated Hyperglycemia with known IDDM -good response to adjustment and therapies -lispro correctional scale -adjust as indicated Dysphagia -as noted by nursing -speak to bowel Xarelto Full code Requires ongoing hospitalization to stabilize blood pressure and assess swallow Quality Stroke Does the patient have a stroke diagnosis?: No Reason for No Anti-thrombotic by Day Two: N/A - Med Ordered VTE Prior VTE?: No VTE Risk Level:: Medical - moderate - high VTE Device Contraindication: N/A - Device Ordered VTE Drug Contraindication: N/A - Med Ordered
[2025-04-15 15:36] VITALS: BP 147/73; PULSE 94; RESP 18; TEMP 37; O2SAT 92
[2025-04-15 16:28] LABS: Glucose, Whole Blood 107 mg/dL (60-115)
[2025-04-15 19:39] VITALS: BP 170/91; PULSE 93; RESP 20; TEMP 36.8; O2SAT 95
[2025-04-15] MEDS: Insulin Glargine,Hum.rec.anlog 100 UNIT/ML 10 ML VIAL 20 UNIT SUBCUT (20:48)
[2025-04-15 20:51] LABS: Glucose, Whole Blood 124 mg/dL (60-115)
[2025-04-16] VITALS (7 sets, daily range): BP systolic 120–155; BP diastolic 65–95; PULSE 71–91; RESP 18–20; TEMP 36.1–37.4; O2SAT 92–98; BMI 19.0
[2025-04-16] MEDS: guaiFEN/Codeine SF 200/20/10ML 10 ML LIQUID PO ×3 (04:55→19:53)
[2025-04-16] MEDS: Potassium Chloride ER 20 MEQ TAB.ER.PRT PO (08:34)
[2025-04-16] MEDS: Metoprolol Tartrate 12.5 MG HALFTAB PO ×2 (08:37→19:52)
[2025-04-16] MEDS: Furosemide 20 MG/2 ML VIAL IVPUSH ×2 (08:40→19:52)
[2025-04-16 08:52] LABS: Glucose, Whole Blood 79 mg/dL (60-115)
[2025-04-16 12:14] LABS: Glucose, Whole Blood 118 mg/dL (60-115)
--- NOTE | 2025-04-16 13:49 | MHC.CM.PN ---
Pt. is not ready to DC, he is still requiring supplemental O2.
--- NOTE | 2025-04-16 13:59 | P.PNIM_ITS ---
Subjective Subjective Date of Service: 04/16/25 Interval History: remains on High amount of O2 low O2 Physical Exam 2 Vital Signs: Vital Signs: Last Vital Signs Temp 97.8 F 04/16/25 12:00 Pulse 82 04/16/25 12:00 Resp 19 04/16/25 12:00 BP 143/82 H 04/16/25 12:00 Pulse Ox 96 04/16/25 12:00 O2 Del Method Nasal Cannula 04/16/25 12:00 O2 Flow Rate 3.5 04/16/25 12:00 BMI result Body Mass Index 19.0 Const: Other: General: AO X 3, no distress, frail looking Resp: CTA bilateral CVS: S1,S2,RRR GI: +BS, NT, no distention Skin: No rash Neuro: motor grossly intact Psych: appropriate affect Objective Data Active Medications Acetaminophen (Acetaminophen 325 Mg Tablet) 650 mg PO Q6H PRN PRN Reason: Pain, Mild 1-3,fever,headache Last Admin: 04/12/25 22:39 Dose: 650 mg Documented By: YUNG Albuterol/Ipratropium (Albuterol/Iprat 2.5/0.5mg 3 Ml Ampul.Neb) 3 ml INHALE Q4H PRN PRN Reason: Shortness of Breath/Wheezing Amlodipine Besylate (Amlodipine Besylate 10 Mg Tablet) 10 mg PO DAILY [facility]; Protocol Last Admin: 04/16/25 08:37 Dose: 10 mg Documented By: DAVIS Apixaban (Apixaban 5 Mg Tablet) 5 mg PO BID [facility] Last Admin: 04/16/25 08:38 Dose: 5 mg Documented By: DAVIS Atorvastatin Calcium (Atorvastatin Calcium 10 Mg Tablet) 10 mg PO BEDTIME [facility] Last Admin: 04/15/25 20:34 Dose: 10 mg Documented By: HOMER Calcium Carbonate (Calcium Carbonate 750 Mg Tab.Chew) 750 mg PO Q4H PRN PRN Reason: Heartburn Dextrose (Dextrose 50 % 25 Gm/50 Ml Syringe) 25 gm IVPUSH Q15M PRN; Protocol PRN Reason: per Hypoglycemia Standing Ord. Digoxin (Digoxin 0.25 Mg Tablet) 0.25 mg PO DAILY [facility]; Protocol Last Admin: 04/16/25 08:36 Dose: 0.25 mg Documented By: DAVIS Divalproex Sodium (Divalproex Sodium 500 Mg Tablet.) 500 mg PO BEDTIME [facility] Last Admin: 04/15/25 20:33 Dose: 500 mg Documented By: HOMER Escitalopram Oxalate (Escitalopram Oxalate 10 Mg Tablet) 10 mg PO DAILY [facility] Last Admin: 04/16/25 08:35 Dose: 10 mg Documented By: DAVIS Folic Acid (Folic Acid 1 Mg Tablet) 1 mg PO DAILY [facility] Last Admin: 04/16/25 08:35 Dose: 1 mg Documented By: DAVIS Furosemide (Furosemide 20 Mg/2 Ml Vial) 20 mg IVPUSH BID [facility]; Protocol Last Admin: 04/16/25 08:40 Dose: 20 mg Documented By: DAVIS Glucose (Glucose Gel 15 Gm Gel..Gram.) 15 gm PO Q15M PRN; Protocol PRN Reason: per Hypoglycemia Standing Ord. Guaifenesin/Codeine Phosphate (Guaifen/Codeine Sf 200/20/10ml 10 Ml Liquid) 10 ml PO Q4H PRN PRN Reason: Cough Last Admin: 04/16/25 04:55 Dose: 10 ml Documented By: HOMER Insulin Glargine (Insulin Glargine,Hum.Rec.Anlog 100 Unit/Ml 10 Ml Vial) 20 unit SUBCUT BEDTIME [facility] Last Admin: 04/15/25 20:48 Dose: 20 unit Documented By: HOMER Insulin Human Lispro (Insulin Lispro 100 Unit/Ml 3 Ml Vial) 0 unit SUBCUT QIDACHS [facility]; Protocol Last Admin: 04/16/25 12:00 Dose: Not Given Documented By: DAVIS Non-Admin Reason: No Insulin Coverage Lisinopril (Lisinopril 10 Mg Tablet) 10 mg PO DAILY [facility]; Protocol Last Admin: 04/16/25 08:37 Dose: 10 mg Documented By: DAVIS Magnesium Hydroxide (Milk Of Magnesia 30 Ml Oral.Susp) 30 ml PO DAILY PRN PRN Reason: Constipation Magnesium Oxide (Magnesium Oxide 400 Mg Tablet) 800 mg PO BID [facility] Last Admin: 04/16/25 08:38 Dose: 800 mg Documented By: DAVIS Melatonin (Melatonin 3 Mg Tablet) 6 mg PO BEDTIME PRN PRN Reason: Insomnia Last Admin: 04/12/25 21:17 Dose: 6 mg Documented By: YUNG Methylphenidate HCl (Methylphenidate Hcl 10 Mg Tablet) 10 mg PO TID [facility] Last Admin: 04/16/25 08:39 Dose: Not Given Documented By: DAVIS Non-Admin Reason: pa Metoprolol Tartrate (Metoprolol Tartrate 12.5 Mg Halftab) 12.5 mg PO BID [facility]; Protocol Last Admin: 04/16/25 08:37 Dose: 12.5 mg Documented By: DAVIS Multivitamins/Vitamin C (Multivitamin Tablet) 1 tab PO BEDTIME [facility] Last Admin: 04/15/25 20:33 Dose: 1 tab Documented By: HOMER Nicotine (Nicotine 14 Mg Patch.Td24) 14 mg TRANSDERMA DAILY [facility] Last Admin: 04/16/25 08:44 Dose: Not Given Documented By: DAVIS Non-Admin Reason: Patient Refused Ondansetron HCl (Ondansetron Hcl 4 Mg/2 Ml Vial) 4 mg IVPUSH Q8H PRN PRN Reason: Nausea and Vomiting Last Admin: 04/15/25 10:47 Dose: 4 mg Documented By: DAVIS Polyethylene Glycol (Polyethylene Glycol 3350 17 Gm Powd.Pack) 17 gm PO DAILY PRN PRN Reason: Constipation Senna (Sennosides 8.6 Mg Tablet) 17.2 mg PO BEDTIME [facility] Last Admin: 04/15/25 20:45 Dose: Not Given Documented By: HOMER Non-Admin Reason: Patient Refused Sodium Chloride (0.9 % Sodium Chloride Flush 3 Ml Syringe) 3 ml IVFLUSH QSHIFT [facility] Last Admin: 04/15/25 20:46 Dose: 3 ml Documented By: HOMER Thiamine HCl (Thiamine Hcl 100 Mg Tablet) 100 mg PO DAILY [facility] Last Admin: 04/16/25 08:35 Dose: 100 mg Documented By: DAVIS Labs 04/15/25 06:29 04/15/25 06:29 Labs: Laboratory Results - last 24 hr 04/15/25 04/15/25 04/16/25 16:25 20:47 07:33 POC Glucose 107 124 H 79 04/16/25 11:56 POC Glucose 118 H Microbiology Microbiology Results: Microbiology 04/11/25 20:41 Blood Culture - Final Blood - Venous Staphylococcus aureus 04/11/25 20:52 Blood Culture - Final Blood - Venous Staphylococcus aureus Assessment and Plan (1) Atrial fibrillation with rapid ventricular response: Status: Acute (2) KATELYN (acute kidney injury): Status: Acute Plan Patient is a 65-year-old male with history of alcohol use disorder (last drink December 2024), continued marijuana use, tobacco dependence, IDDM, CKD 3, HTN, AFIB on xaralto, COPD not on insulin, mood disorder was driven in to the emergency department by his after 3 days of ?not feeling well . Patient states his symptoms started on the to include fatigue and intermittent diarrhea. Patient states the entire household is dealing with some kind of upper respiratory illness. Patient being admitted for the following medical problems: Acute hypoxic respiratory failure/influenza A -Tamiflu 75 mg BID for 5 days(LD 04/16) -Wean oxygen as tolerated, presently 96 on 3.5 AFIB RVR rate is controlled eliquis for anticoagulation HTN, BP is better controlled, continue present med Hypokalemia oral replacement DM with hyperglycemia, BS is better continue SSI Dysphagia -as noted by nursing -speak to bowel eliquis Full code Requires ongoing hospitalization to stabilize blood pressure and assess swallow Quality Stroke Does the patient have a stroke diagnosis?: No Reason for No Anti-thrombotic by Day Two: N/A - Med Ordered VTE Prior VTE?: No VTE Risk Level:: Medical - moderate - high VTE Device Contraindication: N/A - Device Ordered VTE Drug Contraindication: N/A - Med Ordered
[2025-04-16] MEDS: 0.9 % Sodium Chloride Flush 3 ML SYRINGE IVFLUSH ×2 (14:59→19:54)
[2025-04-16 15:53] LABS: Glucose, Whole Blood 269 mg/dL (60-115)
--- NOTE | 2025-04-16 17:10 | PC.NURSE ---
Pt was up to chair twice today. We attempted to ween him down to 2L, but he was still satting 88%. Back on 4L now, 91% while sleeping.
[2025-04-16 20:13] LABS: Glucose, Whole Blood 230 mg/dL (60-115)
[2025-04-16] MEDS: Insulin Glargine,Hum.rec.anlog 100 UNIT/ML 10 ML VIAL 20 UNIT SUBCUT (20:23)
[2025-04-17] VITALS (9 sets, daily range): BP systolic 120–166; BP diastolic 61–85; PULSE 69–104; RESP 16–20; TEMP 36.1–36.9; O2SAT 86–97; BMI 19.1
[2025-04-17 07:12] LABS: Glucose, Whole Blood 106 mg/dL (60-115)
[2025-04-17] MEDS: Furosemide 20 MG/2 ML VIAL IVPUSH ×2 (09:26→21:07)
[2025-04-17] MEDS: Metoprolol Tartrate 12.5 MG HALFTAB PO ×2 (09:27→21:03)
[2025-04-17] MEDS: 0.9 % Sodium Chloride Flush 3 ML SYRINGE IVFLUSH ×3 (09:34→21:16)
[2025-04-17 11:17] LABS: Glucose, Whole Blood 117 mg/dL (60-115)
--- NOTE | 2025-04-17 11:25 | HO.PM.IMPN ---
Subjective Subjective Date of Service: 04/17/25 Interval History: Still on oxygen at 4 lits and desat quicly without O2 Physical Exam Vital Signs: Vital Signs: Last Vital Signs Temp 98.5 F 04/17/25 07:24 Pulse 77 04/17/25 07:24 Resp 20 04/17/25 07:24 BP 144/85 H 04/17/25 07:24 Pulse Ox 97 04/17/25 07:24 O2 Del Method Nasal Cannula 04/17/25 07:24 O2 Flow Rate 4 04/17/25 07:24 BMI result Body Mass Index 19.1 Const: Other: General: AO X 3, no distress, frail looking Resp: CTA bilateral CVS: S1,S2,RRR GI: +BS, NT, no distention Skin: No rash Neuro: motor grossly intact Psych: appropriate affect Objective Data Active Medications Acetaminophen (Acetaminophen 325 Mg Tablet) 650 mg PO Q6H PRN PRN Reason: Pain, Mild 1-3,fever,headache Last Admin: 04/12/25 22:39 Dose: 650 mg Documented By: YUNG Albuterol/Ipratropium (Albuterol/Iprat 2.5/0.5mg 3 Ml Ampul.Neb) 3 ml INHALE Q4H PRN PRN Reason: Shortness of Breath/Wheezing Amlodipine Besylate (Amlodipine Besylate 10 Mg Tablet) 10 mg PO DAILY [facility]; Protocol Last Admin: 04/17/25 09:26 Dose: 10 mg Documented By: KAVYA Apixaban (Apixaban 5 Mg Tablet) 5 mg PO BID [facility] Last Admin: 04/17/25 09:27 Dose: 5 mg Documented By: KAVYA Atorvastatin Calcium (Atorvastatin Calcium 10 Mg Tablet) 10 mg PO BEDTIME [facility] Last Admin: 04/16/25 19:52 Dose: 10 mg Documented By: HOMER Calcium Carbonate (Calcium Carbonate 750 Mg Tab.Chew) 750 mg PO Q4H PRN PRN Reason: Heartburn Dextrose (Dextrose 50 % 25 Gm/50 Ml Syringe) 25 gm IVPUSH Q15M PRN; Protocol PRN Reason: per Hypoglycemia Standing Ord. Digoxin (Digoxin 0.25 Mg Tablet) 0.25 mg PO DAILY [facility]; Protocol Last Admin: 04/17/25 09:27 Dose: 0.25 mg Documented By: KAVYA Divalproex Sodium (Divalproex Sodium 500 Mg Tablet.) 500 mg PO BEDTIME [facility] Last Admin: 04/16/25 19:52 Dose: 500 mg Documented By: HOMER Escitalopram Oxalate (Escitalopram Oxalate 10 Mg Tablet) 10 mg PO DAILY [facility] Last Admin: 04/17/25 09:27 Dose: 10 mg Documented By: KAVYA Folic Acid (Folic Acid 1 Mg Tablet) 1 mg PO DAILY [facility] Last Admin: 04/17/25 09:27 Dose: 1 mg Documented By: KAVYA Furosemide (Furosemide 20 Mg/2 Ml Vial) 20 mg IVPUSH BID [facility]; Protocol Last Admin: 04/17/25 09:26 Dose: 20 mg Documented By: KAVYA Glucose (Glucose Gel 15 Gm Gel..Gram.) 15 gm PO Q15M PRN; Protocol PRN Reason: per Hypoglycemia Standing Ord. Guaifenesin/Codeine Phosphate (Guaifen/Codeine Sf 200/20/10ml 10 Ml Liquid) 10 ml PO Q4H PRN PRN Reason: Cough Last Admin: 04/16/25 19:53 Dose: 10 ml Documented By: HOMER Insulin Glargine (Insulin Glargine,Hum.Rec.Anlog 100 Unit/Ml 10 Ml Vial) 20 unit SUBCUT BEDTIME [facility] Last Admin: 04/16/25 20:23 Dose: 20 unit Documented By: ADELAIDA Insulin Human Lispro (Insulin Lispro 100 Unit/Ml 3 Ml Vial) 0 unit SUBCUT QIDACHS [facility]; Protocol Last Admin: 04/17/25 09:34 Dose: Not Given Documented By: KAVYA Non-Admin Reason: No Insulin Coverage Lisinopril (Lisinopril 10 Mg Tablet) 10 mg PO DAILY [facility] [place]; Protocol Last Admin: 04/17/25 09:27 Dose: 10 mg Documented By: KAVYA Magnesium Hydroxide (Milk Of Magnesia 30 Ml Oral.Susp) 30 ml PO DAILY PRN PRN Reason: Constipation Magnesium Oxide (Magnesium Oxide 400 Mg Tablet) 800 mg PO BID [facility] [place] Last Admin: 04/17/25 09:26 Dose: 800 mg Documented By: KAVYA Melatonin (Melatonin 3 Mg Tablet) 6 mg PO BEDTIME PRN PRN Reason: Insomnia Last Admin: 04/12/25 21:17 Dose: 6 mg Documented By: YUNG Methylphenidate HCl (Methylphenidate Hcl 10 Mg Tablet) 10 mg PO TID [facility] [place] Last Admin: 04/17/25 09:27 Dose: 10 mg Documented By: KAVYA Metoprolol Tartrate (Metoprolol Tartrate 12.5 Mg Halftab) 12.5 mg PO BID [facility] [place]; Protocol Last Admin: 04/17/25 09:27 Dose: 12.5 mg Documented By: KAVYA Multivitamins/Vitamin C (Multivitamin Tablet) 1 tab PO BEDTIME [facility] [place] Last Admin: 04/16/25 19:52 Dose: 1 tab Documented By: HOMER Nicotine (Nicotine 14 Mg Patch.Td24) 14 mg TRANSDERMA DAILY [facility] [place] Last Admin: 04/17/25 09:28 Dose: Not Given Documented By: KAVYA Non-Admin Reason: Patient Refused Ondansetron HCl (Ondansetron Hcl 4 Mg/2 Ml Vial) 4 mg IVPUSH Q8H PRN PRN Reason: Nausea and Vomiting Last Admin: 04/15/25 10:47 Dose: 4 mg Documented By: DAVIS Polyethylene Glycol (Polyethylene Glycol 3350 17 Gm Powd.Pack) 17 gm PO DAILY PRN PRN Reason: Constipation Senna (Sennosides 8.6 Mg Tablet) 17.2 mg PO BEDTIME [facility] [place] Last Admin: 04/16/25 19:53 Dose: 17.2 mg Documented By: HOMER Sodium Chloride (0.9 % Sodium Chloride Flush 3 Ml Syringe) 3 ml IVFLUSH QSHIFT [facility] Last Admin: 04/17/25 09:34 Dose: 3 ml Documented By: KAVYA Thiamine HCl (Thiamine Hcl 100 Mg Tablet) 100 mg PO DAILY [facility] Last Admin: 04/17/25 09:27 Dose: 100 mg Documented By: KAVYA Labs 04/15/25 06:29 04/15/25 06:29 Labs: Laboratory Results - last 24 hr 04/16/25 04/16/25 04/16/25 11:56 15:49 20:08 POC Glucose 118 H 269 H 230 H 04/17/25 04/17/25 07:05 11:13 POC Glucose 106 117 H Microbiology Microbiology Results: Microbiology 04/11/25 20:41 Blood Culture - Final Blood - Venous Staphylococcus aureus 12/12/25 20:52 Blood Culture - Final Blood - Venous Staphylococcus aureus Assessment and Plan (1) Atrial fibrillation with rapid ventricular response: Status: Acute (2) KATELYN (acute kidney injury): Status: Acute Plan Patient is a 65-year-old male with history of alcohol use disorder (last drink December 2024), continued marijuana use, tobacco dependence, IDDM, CKD 3, HTN, AFIB on xaralto, COPD not on insulin, mood disorder was driven in to the emergency department by his after 3 days of ?not feeling well . Patient states his symptoms started on the to include fatigue and intermittent diarrhea. Patient states the entire household is dealing with some kind of upper respiratory illness. Patient being admitted for the following medical problems: Acute hypoxic respiratory failure/influenza A Has completed Tamiflu 75 mg BID for 5 days Wean oxygen as tolerated, presently 96 on 4 PT eval for pulmonary rehab AFIB RVR rate is controlled eliquis for anticoagulation HTN, BP is better controlled, continue present med Hypokalemia oral replacement DM with hyperglycemia, BS is better continue SSI Dysphagia -as noted by nursing -speak to bowel eliquis Full code Requires ongoing hospitalization to stabilize blood pressure and assess swallow Quality Stroke Does the patient have a stroke diagnosis?: No Reason for No Anti-thrombotic by Day Two: N/A - Med Ordered VTE Prior VTE?: No VTE Risk Level:: Medical - moderate - high VTE Device Contraindication: N/A - Device Ordered VTE Drug Contraindication: N/A - Med Ordered
--- NOTE | 2025-04-17 11:33 | MHC.CM.PN ---
CM met with pt. to discuss PT and RT rec. for him to go tp [facility], pt. in agreement, he lives in [place], referrals out to area SNF's.
[2025-04-17 12:11] LABS: Anion Gap 13 (12-20); Carbon Dioxide 38 mmol/L (22-29); Chloride 92 mmol/L (96-108); Magnesium 1.5 mg/dL (1.6-2.6); Potassium 3.6 mmol/L (3.3-5.1); Sodium 139 mmol/L (135-145)
[2025-04-17] MEDS: guaiFEN/Codeine SF 200/20/10ML 10 ML LIQUID PO ×2 (14:34→21:02)
--- NOTE | 2025-04-17 15:00 | PC.RT ---
home 02 eval done. pt willneed 2 l with amblation only if pt does go home and not rehab. Waiting to hear from casey saw operator about rehab placement.
[2025-04-17 16:07] LABS: Glucose, Whole Blood 168 mg/dL (60-115)
[2025-04-17 20:08] LABS: Glucose, Whole Blood 334 mg/dL (60-115)
[2025-04-17] MEDS: Insulin Glargine,Hum.rec.anlog 100 UNIT/ML 10 ML VIAL 20 UNIT SUBCUT (21:05)
[2025-04-17] MEDS: Magnesium Sulfate/H2O 2 GM/50 ML PIGGYBACK IV (22:26)
[2025-04-18] MEDS: guaiFEN/Codeine SF 200/20/10ML 10 ML LIQUID PO ×2 (02:38→10:30)
[2025-04-18 03:34] VITALS: BP 116/66; PULSE 70; RESP 16; TEMP 36.1; O2SAT 93
[2025-04-18 06:00] VITALS: BMI 19.5
[2025-04-18 07:09] VITALS: BP 128/62; PULSE 68; RESP 16; TEMP 36.6; O2SAT 97
[2025-04-18 07:15] LABS: Glucose, Whole Blood 74 mg/dL (60-115)
[2025-04-18] MEDS: 0.9 % Sodium Chloride Flush 3 ML SYRINGE IVFLUSH (08:06)
[2025-04-18] MEDS: Metoprolol Tartrate 12.5 MG HALFTAB PO (08:08)
[2025-04-18 08:09] VITALS: BP 128/62
[2025-04-18] MEDS: Furosemide 20 MG/2 ML VIAL IVPUSH (08:09)
[2025-04-18 11:13] LABS: Glucose, Whole Blood 234 mg/dL (60-115)
--- NOTE | 2025-04-18 12:20 | PM.DS ---
DS: Providers Provider Date of admission: 04/12/25 02:49 Date of discharge: 04/18/25 Primary care physician: Blayne Hagan III, MD DS: Diagnosis Discharge Diagnosis (1) Atrial fibrillation with rapid ventricular response: Status: Acute (2) KATELYN (acute kidney injury): Status: Acute DS: Summary Hospital Course Hospital Course: admission hpi Chief Complaint: Dyspnea, illness Patient is a 65-year-old male with history of alcohol use disorder (last drink December 2024), continued marijuana use, tobacco dependence, IDDM, CKD 3, HTN, AFIB on xaralto, COPD not on insulin, mood disorder was driven in to the emergency department by his after 3 days of ?not feeling well . Patient states his symptoms started on the to include fatigue and intermittent diarrhea. Last bout of diarrhea was over 24 hours ago. Patient stated the whole household was ill with some kind of respiratory illness. Patient got to the point that he was hallucinating and stopped taking his medications and insulin for the last 2 days. Patient states his does not care about him and was not monitoring his medications or illness. Patient states he currently lives up in the attic which was finished and heated but does not interact with his often. Patient was afraid to ask his to be driven to the ED until today. Patient's last cigarette and use of marijuana was April 08. As stated above patient clear that his last drink was in December of 2024. Patient found to be hyperglycemic with evidence of DKA as the anion gap was 24, CO2 21 and after regular insulin and IV fluids, anion gap closed. PH on VBG 7.34, CO2 37, PO2 92 and bicarb 20. UA positive for glucose, 15 ketones +1 protein. Negative for UTI. Patient has no leukocytosis but lactic was 2.0. Beta hydroxybutyrate was originally 4.09 and after treatment reduced to 1.53. Patient found to have influenza a and was started on Tamiflu. Patient currently on 2 L nasal cannula does not normally use oxygen at home. BNP 3079, chest x-ray noted for pulmonary edema but no consolidation. Patient required IV Lopressor for AFib RVR, heart rate currently 89 and well controlled. Blood pressure has been high since arrival originally 204/122. With the intervention now 145/86. Patient does not meet criteria for ICU admission. Patient did receive IV fluid resuscitation per sepsis protocol. Blood cultures pending. hospital course Patient is a 65-year-old male with history of alcohol use disorder (last drink December 2024), continued marijuana use, tobacco dependence, IDDM, CKD 3, HTN, AFIB on xaralto, COPD not on insulin, mood disorder was driven in to the emergency department by his after 3 days of ?not feeling well . Patient states his symptoms started on the to include fatigue and intermittent diarrhea. Patient states the entire household is dealing with some kind of upper respiratory illness. He was admitted for further management of Acute hypoxic respiratory failure due to influenza A Has completed Tamiflu 75 mg BID for 5 days He has not been able to be completly weaned of O2 and has qualified for home O2, he likely has undelrying chronic pulmonary disease from years of smoking and having Copd He was offered pulmonary rehab buit declined AFIB RVR rate is controlled with digoxin and eliquis eliquis for anticoagulation HTN, continue metoprolol, lisinopril and Lasix Hypokalemia corrected DM with hyperglycemia, resume home regimen Dysphagia tolerating regular diet Dispo: home with [facility], declined rehab Time Attestation Discharge Coordination Time (in mins): 45 Quality: Safe Use of Opioids Does Pt have an Active Cancer Diagnosis on the Problem List?: No Quality: Stroke Does the patient have a stroke diagnosis?: No Physical Exam Vital Signs: Vital Signs: Last Vital Signs Temp 98 F 04/18/25 07:09 Pulse 68 04/18/25 07:09 Resp 16 04/18/25 07:09 BP 128/62 04/18/25 08:09 Pulse Ox 97 04/18/25 07:09 O2 Del Method Nasal Cannula 04/18/25 07:09 O2 Flow Rate 2 04/18/25 07:09 BMI result Body Mass Index 19.5 Const: Other: General: AO X 3, no acute distress Resp: CTA bilateral CVS: S1,S2,RRR GI: +BS, NT, no distention Skin: No rash Neuro: motor grossly intact Psych: appropriate affect DS: Data Data Completed and Pending Completed studies during hospitalization [Text1]: Procedures Detoxification Services for Substance Abuse Treatment (10/07/24) Insertion of Infusion Device into Right Brachial Vein, Percutaneous Approach (10/07/24) Labs on day of discharge: Laboratory Results - last 24 hr 04/17/25 04/17/25 04/18/25 15:53 19:57 07:08 POC Glucose 168 H 334 H 74 04/18/25 11:10 POC Glucose 234 H Discharge Plan Discharge Anticipated Discharge Date/Time: 04/18/25 12:19 Patient Disposition: Home Health Service Discharge Diagnosis: Acute hypoxic resp due to influenza, KATELYN, Referrals: [facility] [Outside] - 1 Week Blayne Hagan III, MD [Primary Care Provider, Medical] - 1 Week Discharge Medications: New ipratropium-albuterol 0.5 mg-3 mg(2.5 mg base)/3 mL Solution For Nebulization 3 ml inhalation Q4H PRN (Reason: Shortness Of Breath/Wheezing) Qty: 250 0RF Continued methylphenidate HCl 10 mg tablet 10 mg PO TID gabapentin 800 mg tablet 800 mg PO TID folic acid 1 mg Tablet 1 mg PO DAILY Qty: 90 0RF thiamine mononitrate (vit B1) 100 mg Tablet 100 mg PO DAILY Qty: 90 0RF divalproex 500 mg tablet,delayed release (DR/EC) 500 mg PO QPM digoxin 250 mcg (0.25 mg) Tablet 0.25 mg PO DAILY Qty: 1 0RF Protocol: Hold for HR <: HOLD for HR < : 60 insulin lispro [Admelog U-100 Insulin lispro] 100 unit/mL Solution See Protocol subcut QIDACHS Qty: 1 0RF Protocol: Insulin Correction Scale Less than or equal to 110 ---- Give (units): 0 111 to 150 Give (units): 0 151 to 200 Give (units): 2 201 to 250 Give (units): 4 251 to 300 Give (units): 6 301 to 350 Give (units): 8 Greater than 350 Give (units): 10 Call MD if Blood Glucose > : 350 magnesium oxide 400 mg (241.3 mg magnesium) Tablet 800 mg PO BID Qty: 90 0RF multivitamin [Daily-Trisha] Tablet 1 tab PO BEDTIME Qty: 1 0RF metoprolol tartrate 25 mg tablet 12.5 mg PO BID Qty: 1 0RF simvastatin 10 mg tablet 10 mg PO BEDTIME citalopram 20 mg tablet 20 mg PO DAILY Eliquis 5 mg tablet 5 mg PO BID insulin glargine [Lantus U-100 Insulin] 100 unit/mL solution 15 unit subcut BEDTIME Discharge Orders: Discharge Order (Routine); Ordered 04/18/25 Ordered By: Abelardo Berry Diet: Advance to usual diet Activity on Discharge: As tolerated Stand Alone Forms: Patient Portal Discharge page Print Language: Ghanaian Care Plan Goals: recocvery from acute on chronic respiratory failure due influenza and copd Health Concerns: chronic reespiratory failure copd recovery from influenza Plan of Treatment: use inahlers as directed avoid smoking use oxygen as directed and follow up with your Doctor in a week Assessment: see above Discharge Date/Time: 04/18/25 13:40
--- NOTE | 2025-04-18 12:39 | W.MHC.F2F ---
Service Date Service Date: 04/18/25 Encounter Date of encounter: 04/18/25 Reasons for Services Signs and symptoms assessed: weakness from hospitalization, sob Reason for care home: teach disease management Reason for physical therapy: therapeutic exercises and energy conservation Homebound: Leaving the home is medically contraindicated at this time without the asist of a device and/or another person due th the listed conditions above and below. Reason homebound: shortness of breath at rest and weakness related to hospital stay Homebound supporting statement: homebound due to deconditioning and weakness from hospitialization influenza causing signficant respiratory failure and now requiring oxygen not able drive and therefore needs the assistance of another person Certification: Based on the above findings, I certify that this patient is confined to the home and needs intermittent care home care, physical therapy and/or speech therapy, or continues to need occupational therapy. The patient is under my care, and I have initiated the establishment of the plan of care. The patient will be followed by a physician who will periodically review the plan of care. Time Spent With Patient Time: Total time managing care of this patient today ____ minutes.
--- NOTE | 2025-04-18 13:07 | PC.NURSE ---
pt being discharged home with O2. sent with a tank and pt instructed to call the number provided to arrange home delivery . pt understanding and receptive teaching
--- NOTE | 2025-04-18 13:07 | MHC.CM.PN ---
PT CLEARED TO DC HOME TODAY WITH [facility]SPORT SCHEDULED FOR 1345-FORM GIVEN TO PT
== END 2025-04-18 13:40 | disposition home health service (06) | DRG 720 ==
LOC: HO.ED 22:20 → HO.EDOVER 04-12 03:37 → HO.IMC 04-12 19:25 → HO.S3 04-17 15:52
PROVIDERS: Hospitalist; Physician Assistant Medical; Admitting Provider Nurse Practitioner Family; Emergency Provider Emergency Medicine; PCP Internal Medicine; Visit Provider Internal Medicine
DX: A41.89 Other specified sepsis (principal); J96.01 Acute respiratory failure with hypoxia; I12.9 Hypertensive chronic kidney disease with stage 1 through stage 4 chronic kidney disease, or unspecified chronic kidney disease; J10.1 Influenza due to other identified influenza virus with other respiratory manifestations; E11.22 Type 2 diabetes mellitus with diabetic chronic kidney disease; E11.65 Type 2 diabetes mellitus with hyperglycemia; I48.0 Paroxysmal atrial fibrillation; E87.1 Hypo-osmolality and hyponatremia; R13.10 Dysphagia, unspecified; E87.6 Hypokalemia; J44.9 Chronic obstructive pulmonary disease, unspecified; N18.31 Chronic kidney disease, stage 3a; F17.210 Nicotine dependence, cigarettes, uncomplicated; Z20.822 Contact with and (suspected) exposure to COVID-19; Z71.6 Tobacco abuse counseling; Z79.4 Long term (current) use of insulin; Z79.01 Long term (current) use of anticoagulants; Z79.899 Other long term (current) drug therapy
CPT/HCPCS: 36415; 71046; 80048; 80051; 80053; 80162; 80164; 80307; 81001; 81003; 82010; 82803; 82947; 83605; 83735; 83880; 83930; 83935; 84300; 84484; 85007; 85025; 85027; 85999; 87040; 87077; 87147; 87186; 87205; 87637; 92610; 93005; 93306; 97161; 99285; J0131; J0616; J0696; J1271; J1885; J1938; J2405; J2919; J3475; J7120; Q9957

== ENCOUNTER → 2025-04-11 20:07 | Outpatient (BNV) | payer OTHER, SELFPAY | PROVIDERS: Admitting Provider Nurse Practitioner Family; Emergency Provider Emergency Medicine; PCP Internal Medicine; Visit Provider Internal Medicine Cardiovascular Disease | DX: I49.3 Ventricular premature depolarization (principal); I44.7 Left bundle-branch block, unspecified; R00.0 Tachycardia, unspecified | CPT/HCPCS: 93010 ==

== ENCOUNTER → 2025-04-11 20:09 | Outpatient (BNV) | payer OTHER, SELFPAY | PROVIDERS: Emergency Provider Emergency Medicine; PCP Internal Medicine; Visit Provider Student in an Organized Health Care Education/Training Program | DX: J81.0 Acute pulmonary edema (principal) | CPT/HCPCS: 71046 ==

== ENCOUNTER 2025-04-12 02:49 | Outpatient (BNV) | payer OTHER, SELFPAY | END 2025-04-12 09:30 | PROVIDERS: Admitting Provider Nurse Practitioner Family; Emergency Provider Emergency Medicine; PCP Internal Medicine; Visit Provider Internal Medicine Cardiovascular Disease | DX: I35.8 Other nonrheumatic aortic valve disorders (principal); I42.2 Other hypertrophic cardiomyopathy | CPT/HCPCS: 93306 ==

== ENCOUNTER → 2025-04-12 02:49 | Outpatient (BNV) | payer OTHER, SELFPAY | PROVIDERS: Admitting Provider Nurse Practitioner Family; Emergency Provider Emergency Medicine; PCP Internal Medicine; Visit Provider Nurse Practitioner Family | DX: A41.9 Sepsis, unspecified organism (principal); J96.01 Acute respiratory failure with hypoxia; J10.1 Influenza due to other identified influenza virus with other respiratory manifestations; R73.9 Hyperglycemia, unspecified; I48.91 Unspecified atrial fibrillation | CPT/HCPCS: 99223; 99499 ==